=== PATIENT | female | born 1955 | race Caucasian/White ===

== ENCOUNTER 2021-04-27 12:57 | Emergency (ER) | payer MEDICARE, OTHER ==
[~2021-04-27] VITALS: Ht 167.7 cm; Wt 88.4 kg
--- NOTE | 2021-04-27 13:00 | ED Chest Pain ---
General Stated Complaint: CHEST PAIN History of Present Illness Date Seen by Provider: Apr 27, 2021 Time Seen by Provider: 13:00 Initial Comments 65-year-old female presents with some left-sided chest pressure. Patient reports that started approximately an hour prior to arrival. Patient reports that she was just recently diagnosed with severe aortic stenosis due to severe murmur that she had evaluated. She received the diagnosis last week. She is unsure if is related to that, some anxiety or something else going on. She reports some chronic mild shortness of breath with exertion but none at this time. She has no nausea, vomiting, diaphoresis, cough or radiation of the pain. Allergies and Home Medications Allergies Coded Allergies: No Known Drug Allergies (Unverified , 04/27/21) Patient Home Medication List Home Medication List Reviewed: Yes Review of Systems Review of Systems Constitutional: No chills, No fever; malaise EENTM: No Symptoms Reported Respiratory: Denies Cough, Denies Shortness of Air Cardiovascular: See HPI Gastrointestinal: Denies Abdomen Distended, Denies Abdominal Pain Musculoskeletal: no symptoms reported Skin: no symptoms reported Psychiatric/Neurological: No Symptoms Reported Endocrine: No Symptoms Reported Hematologic/Lymphatic: No Symptoms Reported Physical Exam Vital Signs Vital Signs - First Documented 04/27/21 12:57 Temp 36.5 Pulse 105 Resp 16 B/P (MAP) 173/105 (127) Pulse Ox 98 O2 Delivery Room Air Capillary Refill : Height, Weight, BMI Height: '" Weight: lbs. oz. kg; BMI Method: General Appearance: Anxious Respiratory: Lungs Clear, Normal Breath Sounds Cardiovascular: Regular Rate, Rhythm, Systolic Murmur (3/5) Extremity: Normal Capillary Refill, Normal Inspection Neurologic/Psychiatric: Alert, Oriented x3, No Motor/Sensory Deficits, emergency vehicle driver II- XII Norm as Tested Skin: Normal Color, Warm/Dry Progress/Results/Core Measures Results/Orders Lab Results Laboratory Tests Test 04/27/21 13:00 04/27/21 15:10 Range/Units White Blood Count 7.1 4.3-11.0 10^3/uL Red Blood Count 4.86 3.80-5.11 10^6/uL Hemoglobin 14.1 11.5-16.0 g/dL Hematocrit 41 35-52 % Mean Corpuscular Volume 85 80-99 fL Mean Corpuscular Hemoglobin 29 25-34 pg Mean Corpuscular Hemoglobin Concent 34 32-36 g/dL Red Cell Distribution Width 13.0 10.0-14.5 % Platelet Count 283 130-400 10^3/uL Mean Platelet Volume 9.9 9.0-12.2 fL Immature Granulocyte % (Auto) 0 % Neutrophils (%) (Auto) 63 42-75 % Lymphocytes (%) (Auto) 29 12-44 % Monocytes (%) (Auto) 6 0-12 % Eosinophils (%) (Auto) 1 0-10 % Basophils (%) (Auto) 1 0-10 % Neutrophils # (Auto) 4.5 1.8-7.8 X 10^3 Lymphocytes # (Auto) 2.0 1.0-4.0 X 10^3 Monocytes # (Auto) 0.4 0.0-1.0 X 10^3 Eosinophils # (Auto) 0.1 0.0-0.3 10^3/uL Basophils # (Auto) 0.1 0.0-0.1 10^3/uL Immature Granulocyte # (Auto) 0.0 0.0-0.1 10^3/uL Prothrombin Time 14.4 12.2-14.7 SEC INR Comment 1.1 0.8-1.4 Activated Partial Thromboplast Time 32 24-35 SEC Sodium Level 139 135-145 MMOL/L Potassium Level 3.9 3.6-5.0 MMOL/L Chloride Level 102 98-107 MMOL/L Carbon Dioxide Level 22 21-32 MMOL/L Anion Gap 15 H 5-14 MMOL/L Blood Urea Nitrogen 18 7-18 MG/DL Creatinine 0.92 0.60-1.30 MG/DL Estimat Glomerular Filtration Rate 61 BUN/Creatinine Ratio 20 Glucose Level 111 H 70-105 MG/DL Calcium Level 10.2 H 8.5-10.1 MG/DL Corrected Calcium 8.5-10.1 MG/DL Magnesium Level 2.3 1.6-2.4 MG/DL Total Bilirubin 1.3 H 0.1-1.0 MG/DL Aspartate Amino Transf (AST/SGOT) 23 5-34 U/L Alanine Aminotransferase (ALT/SGPT) 20 0-55 U/L Alkaline Phosphatase 84 40-136 U/L Myoglobin 30.0 10.0-92.0 NG/ML Troponin I < 0.30 < 0.30 <0.30 NG/ML Pro-B-Type Natriuretic Peptide 574.2 H <75.0 PG/ML Total Protein 8.6 H 6.4-8.2 GM/DL Albumin 5.0 H 3.2-4.5 GM/DL My Orders Orders - GIRONGARRETTHOLLY L DO Cbc With Automated Diff (04/27/21 13:05) Magnesium (04/27/21 13:05) Chest 1 View Ap/Pa Only (04/27/21 13:05) Ekg Tracing (04/27/21 13:05) Comprehensive Metabolic Panel (04/27/21 13:05) Myoglobin Serum (04/27/21 13:05) Protime With Inr (04/27/21 13:05) Partial Thromboplastin Time (04/27/21 13:05) Monitor-Rhythm Ecg Trace Only (04/27/21 13:05) Ed Iv/Invasive Line Start (04/27/21 13:05) Troponin I Fs (04/27/21 13:05) Probnp Fs (04/27/21 13:05) Troponin I Fs (04/27/21 14:50) Ekg Tracing (04/27/21 15:59) Vital Signs/I&O 04/27/21 04/27/21 12:57 19:58 Temp 36.5 Pulse 105 93 Resp 16 16 B/P (MAP) 173/105 (127) 150/88 Pulse Ox 98 98 O2 Delivery Room Air Room Air Progress Progress Note : Progress Note Patient with 2 - troponins and 2 - EKGs. Patient with recent finding of severe aortic stenosis on echo at [facility]. Patient has not seen a infertility nurse yet. Based on the continued chest pressure I do think she warrants further inpatient evaluation and rule out. Patient request [facility] due to ability to also be seen by a cardiothoracic surgeon due to her severe . Patient was accepted by Dr. Nj at [facility] and was transferred via EMS in stable condition Initial ECG Impression Date: Apr 27, 2021 Initial ECG Impression Time: 12:57 Initial ECG Rate: 109 Initial ECG Rhythm: S.Tach Initial ECG Impression: Nonspecific Changes Comment no st eleveation, sinus tach, non specific changes, likely left atrial and ventricular enlargement EKG : EKG Time: 16:07 Rhythm: Normal Sinus ECG Comparisson: Unchanged Comment Sinus rhythm, left atrial and ventricular enlargement Diagnostic Imaging Diagonstic Imaging: Xray Plain Films/CT/US/NM/MRI: chest Comments Date of Exam:04/27/21 CHEST 1 VIEW AP/PA ONLY EXAMINATION: Chest, one view. HISTORY: Chest pressure. COMPARISON: None available. FINDINGS: Heart size and pulmonary vasculature are normal. The lungs are clear without consolidation, pleural effusion, or pneumothorax. The osseous structures are intact. IMPRESSION: 1. No acute radiographic abnormality in the chest. Departure Impression Primary Impression: Severe aortic stenosis by prior echocardiogram Additional Impression: Left chest pressure Disposition: XFER SHT-TRM HOSP Condition: Stable Transfer Transfer Reason: Patient preference Time Spoke to Accepting Phy: 17:00 Transfer Facility: [facility] Method of Transfer: EMS HOLLY GIRON DO Apr 27, 2021 13:00
--- NOTE | 2021-04-27 13:18 | Diagnostic Imaging Report ---
EXAMINATION: Chest, one view. HISTORY: Chest pressure. COMPARISON: None available. FINDINGS: Heart size and pulmonary vasculature are normal. The lungs are clear without consolidation, pleural effusion, or pneumothorax. The osseous structures are intact. IMPRESSION: 1. No acute radiographic abnormality in the chest. Dictated by: Dictated on workstation # [id number]
[2021-04-27 13:22] LABS: HEMATOCRIT 41 % (35-52); HEMOGLOBIN 14.1 g/dL (11.5-16.0); MEAN CORPUSCULAR HEMOGLOBIN 29 pg (25-34); MEAN CORPUSCULAR HGB CONC 34 g/dL (32-36); MEAN CORPUSCULAR VOLUME 85 fL (80-99); MEAN PLATELET VOLUME 9.9 fL (9.0-12.2); NEUTROPHILS % (AUTO) 63 % (42-75); PLATELET COUNT 283 10^3/uL (130-400); WHITE BLOOD COUNT 7.1 10^3/uL (4.3-11.0)
[2021-04-27 13:23] LABS: BASOPHILS # (AUTO) 0.1 10^3/uL (0.0-0.1); BASOPHILS % (AUTO) 1 % (0-10); EOSINOPHILS # (AUTO) 0.1 10^3/uL (0.0-0.3); EOSINOPHILS % (AUTO) 1 % (0-10); LYMPHOCYTES % (AUTO) 29 % (12-44); MONOCYTES # (AUTO) 0.4 X 10^3 (0.0-1.0); MONOCYTES % (AUTO) 6 % (0-12); NEUTROPHILS # (AUTO) 4.5 X 10^3 (1.8-7.8)
[2021-04-27 13:50] LABS: ALANINE AMINOTRANSFERASE 20 U/L (0-55); ALKALINE PHOSPHATASE 84 U/L (40-136); BILIRUBIN,TOTAL 1.3 MG/DL (0.1-1.0); BUN/CREATININE RATIO 20; CALCIUM 10.2 MG/DL (8.5-10.1); CARBON DIOXIDE 22 MMOL/L (21-32); CHLORIDE 102 MMOL/L (98-107); CREATININE SERUM 0.92 MG/DL (0.60-1.30); GFR ESTIMATED 61; GLUCOSE 111 MG/DL (70-105); MAGNESIUM 2.3 MG/DL (1.6-2.4); POTASSIUM 3.9 MMOL/L (3.6-5.0); SODIUM 139 MMOL/L (135-145)
[2021-04-27 13:51] LABS: TOTAL PROTEIN 8.6 GM/DL (6.4-8.2)
[2021-04-27 13:52] LABS: INR 1.1 (0.8-1.4); PROTHROMBIN TIME PATIENT 14.4 SEC (12.2-14.7)
[2021-04-27 19:58] VITALS: BP 150/88
== END 2021-04-27 20:15 | disposition short-term general hospital (02) ==
LOC: ER FS 13:00
DX: I35.0 Nonrheumatic aortic (valve) stenosis (principal); R07.89 Other chest pain
CPT/HCPCS: 36415; 71045; 80053; 83735; 83874; 83880; 84484; 85025; 85610; 85730; 93005; 93041

== ENCOUNTER 2021-05-15 10:03 | Emergency (ER) | payer MEDICARE, OTHER ==
--- OUTSIDE RECORDS SUMMARY | 2021-05-15 10:06 | XMS REPORT | Encounter Summary ---
Author Author [facility] Organization [facility] Address Unknown Phone Unavailable Care Team Providers Care Development Consultant Name Role Phone SaraJazmyn TAYLOR PCP Reason for Visit * Reason Onset Date Comments Palpitations 05/13/2021 Palpitations at res t since 05/11/21 Encounter Details Care Team Description Date Type Department Devora Barber RN Palpitations (Palpitations at rest since 05/11/21) 05/13/2021 Telephone Cardiology: [facility] [address] [place] [address], [address] [place] [address] Social History Date Tobacco Use Types Packs/Day Years Used Never Smoker Smokeless Tobacco: Never Used Comments Alcohol Use Standard Drinks/Week holidays Yes 0 (1 standard drink = 0.6 o z pure alcohol) Alcohol Habits Answer Date Recorded How often do you have a drink containing alcohol? No t asked How many drinks containing alcohol do you have on No t asked a typical day when you are drinking? How often do you have six or more drinks on one Not asked occasion? 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 documented as of this encounter Functional Status Date of Assessment Functional Status Response 05/07/2021 Does the patient have a hearing impairment: No 04/30/2021 Does the patient have a visual impairment: No 04/30/2021 Does the patient have impaired ambulation: No 04/30/2021 Does the patient have an activity of daily living No (ADL) impairment: 04/30/2021 Does the patient have an instrumental activity of No daily living (IADL) impairment: Date of Assessment Cognitive Status Response 04/30/2021 Does the patient have a cognitive impairment: No documented as of this encounter Ordered Prescriptions Start Date End Date Prescription Sig Dispensed Refills 05/13/2021 amLODIPine (NORVASC) 10 Take one 90 tablet 3 mg tablet tablet by mouth daily. documented in this encounter Miscellaneous Notes * Telephone Encounter - Devora Barber RN - 05/13/2021 4:08 PM REHEAT FURNACE OPERATOR Spoke with pt regarding Sheri's orders for 30 heart monitor and to continue taking Amlodipine 10 mg daily. Pt verbalized understanding of all information provided. Pt educated on the importance of adequate hydration and keeping her electrolytes balanced. Pt agrees to supplement some beverage with added electrolytes for her usual water she would drink. Pt given the phone number for the professor of environmental science nurse for any new concerns that may transpire over the holiday weekend. Pt has telehealth appt scheduled Friday 05/18 with Annie Elena APRN. AT FURNACE OPERATOR * Telephone Encounter - Devora Barber RN - 05/13/2021 3:59 PM REHEAT FURNACE OPERATOR Images from the original note were not included. Nhi Elena APRN-NP You 1 minute ago (3:56 PM) JA Let's send her a 30 MCOT as we discussed. Continue amlodipine Thanks! Message text You Nhi Elena APRN-NP 4 hours ago (11:14 AM) KM Please see note and advise. 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 Pt reports it started on Tuesday night and has cont inued each time she lays down. Pt denies any other associated symptoms. Denies C P, dizziness or increased SOA when she feels the palpitations. Current blood pre ssure 154/88 HR 90. Pt reports she took her morning medications about 45 min ago . She reports she is eating and drinking well, has good output and urine is eliot r yellow. Pt states she did not stop her amlodipine after leaving the hospital, because she misunderstood the instructions to stop taking it. No other recent me dication changes. Pt had TAVR surgery on 05/07/21 and was discharged home on . Message routed to Annie Elena APRN to advise. I will call patient back once I have a plan from Annie Elena. AT FURNACE OPERATOR documented in this encounter Plan of Treatment Order Schedule Name Type Priority Associated Diag noses Expected: 05/13/2021, Expires: 2 EVENT MONITOR Heart Rhythm Routine S/p TAVR (trans catheter Management aortic valve replacement), bioprosthetic Palpitations documented as of this encounter Goals Goal Patient Associated Recent Progress Patient-Stat Aut hor Goal Type Problems ed? Resume work [facility] On track (04/28/2021 Yes Katheryn Barrett, 1:56 PM REHEAT FURNACE OPERATOR) 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 and go back to work documented as of this encounter Visit Diagnoses Diagnosis S/p TAVR (transcatheter aortic valve re placement), bioprosthetic - Primary Palpitations * Addendum Note - Devora Barber RN - 05/13/2021 4:12 PM REHEAT FURNACE OPERATOR Addended by: DEVORA BARBER on: 05/13/2021 04:12 PM Modules accepted: Orders AT FURNACE OPERATOR documented in this encounter Additional Health Concerns Noted Time Assessment 05/08/2021 9:00 AM REHEAT FURNACE OPERATOR A fall risk assessment has been complet ed for the patient documented as of this encounter Care Teams Start Date End Date Development Consultant Relationship Specialty 04/27/21 Jazmyn Ruiz NP PCP - General Nurse [address] [place] [address] [place] [address] documented as of this encounter
--- OUTSIDE RECORDS SUMMARY | 2021-05-15 10:06 | XMS REPORT | Clinical Summary ---
Author Author [facility] Organization [facility] Address Unknown Phone Unavailable Care Team Providers Care Supervisor Drawing Name Role Phone SaraJazmyn TAYLOR PCP Source Comments Some departments are not documenting in the electronic medical record. If you d o not see the information that you expected, contact Release of Information in [facility] Health Information Management department at [phone] for further assistan ce in locating additional records.[facility] Allergies Comments Active Allergy Reactions Severity Noted Date Hqzduqk-Puj-Twy Reductase MUSCLE PAIN Medium 02/2021 Inhibitors Medications End Date Status Medication Sig Dispensed Refills Start Date Active rivaroxaban (XARELTO) 20 Take 20 mg by 0 mg tablet mouth daily with dinner. Take with food. Active tolterodine LA (DETROL Take 4 mg by 0 LA) 4 mg capsule mouth daily. Active pravastatin (PRAVACHOL) Take 40 mg by 0 40 mg tablet mouth at bedtime daily. Active vit Take 1 0 C,K-Lc-tzwhk-lutein-zeaxa capsule by n (PRESERVISION AREDS-2) mouth daily. 250-90-40-1 mg cap Active vitamins, w/iron Take 1 tablet 0 & folate 65/1 mg tab by mouth daily. Active acetaminophen (TYLENOL Take 1,000 mg 0 EXTRA STRENGTH) 500 mg by mouth at tablet bedtime daily. Max of 4,000 mg of acetaminophen in 24 hours. Active fish oil /omega-3 fatty Take 4 0 acids (SEA-OMEGA) capsules by 340/1000 mg capsule mouth daily. Active Cranberry 400 mg cap Take 400 mg 0 by mouth daily. Active omeprazole DR (PRILOSEC) Take 20 mg by 0 20 mg capsule mouth daily before breakfast. Active gabapentin (NEURONTIN) Take one 90 capsule 0 300 mg capsule capsule by 1 mouth every 8 hours. Active nitroglycerin (NITROSTAT) Place one 25 tablet 0 0.4 mg tablet tablet under 1 tongue every 5 minutes as needed for Chest Pain. Max of 3 tablets, call 911. Active diclofenac sodium Apply four g 300 g 0 02 (VOLTAREN) 1 % topical topically to 1 gel affected area four times daily. Additional Information Patient taking differently: 4 g Topical FOUR TIMES DAILY PRN, Reported on 05/06/2021 Active aspirin 81 mg chewable Chew one 90 tablet 0 tablet tablet by 1 mouth daily. Take with food. Active senna/docusate Take two 90 tablet 0 (SENOKOT-S) 8.6/50 mg tablets by 1 tablet mouth twice daily. Active amLODIPine (NORVASC) 10 Take one 90 tablet 3 mg tablet tablet by 1 mouth daily. 05/08/2021 Discontinued amLODIPine (NORVASC) 10 Take 10 mg by 0 mg tablet mouth daily. 04/30/2021 Discontinued diclofenac sodium Apply four g 300 g 0 02 (VOLTAREN) 1 % topical topically to 1 gel affected area four times daily. Active Problems Problem Noted Date S/p TAVR (transcatheter aortic valve replacement), bi oprosthetic 05/07/2021 Overview: Formatting of this note might be differ ent from the original. 05/07/21: Dr. Shetty Hypokalemia 05/07/2021 Hypomagnesemia 05/07/2021 Nonrheumatic aortic valve stenosis 05/06/2021 Chronic diastolic heart failure, NYHA class 2 2020 Breast CA 04/28/2021 Stage 3a chronic kidney disease 04/28/2021 GERD (gastroesophageal reflux disease) 04/28/2021 BENTLEY (stress urinary incontinence, female) 04/28/2021 Severe aortic stenosis 04/28/2021 Diastolic dysfunction 04/28/2021 Other chest pain 04/27/2021 Nonrheumatic aortic valve stenosis 04/27/2021 Primary hypertension 04/27/2021 Dyslipidemia 04/27/2021 Deep vein thrombosis (DVT) of iliac vein of left lowe r extremity 04/27/2021 Chest pain 04/27/2021 Encounters Care Team Description Date Type Specialty Devora Garcia RN Palpitations (Palpitations at rest since 05/11/21) 05/13/2021 Telephone Cardiology Jody Ontiveros RN Care Coordination 05/12/2021 Documentation Cardiothoracic Surg armandoVannesa Serrano RN Primary hypertension (Primary Dx); S/p TAVR (transcatheter aortic valve replacement), bioprosthetic 05/11/2021 Orders Only Cardiology Justice Shetty III, MD Transcatheter Aortic Valve Replacement - Femoral Artery, 26 Evolut Pro+, Stepdown 05/07/2021 Surgery Cardiology Maria Anthony, Fausto Arreola, SENIOR NETWORK ENGINEER-ACCOUNT EXECUTIVE METALWORKING 05/07/2021 Anesthesia Event Justice Shetty III, MD Hajj, Georges P, MD S/p TAVR (transcatheter aortic valve rep lacement), bioprosthetic 05/07/2021 Hospital - Encounter 05/08/2021 05/07/2021 Travel Justice Shetty III, MD Nonrheumatic aortic valve stenosis 05/06/2021 Ancillary Pre-Admission Testi ng Procedure Jazmyn Gunderson RN Test/procedure (KCQ & 5 M Walk) 05/06/2021 Documentation Cardiothoracic Surg armando 05/06/2021 Travel Justice Shetty III, MD Nonrheumatic aortic valve stenosis (Prim annel Dx) 05/05/2021 Pre-Admit Cardiology Orders Only Vannesa Victoria RN Lab Results (Covid (negative)) 05/05/2021 Documentation Cardiology Vannesa Victoria RN Encounter for screening laboratory testi ng for COVID-19 virus in asymptomatic patient 05/05/2021 Orders Only Cardiology Jazmyn Ruzi NP General Question 05/04/2021 Telephone General Internal Me Nhi Steven, DAVID-ACCOUNT EXECUTIVE METALWORKING Provider Discussion About Patient (TAVR eval) 05/04/2021 Documentation Cardiology Jazmyn Ruiz NP Paperwork 05/01/2021 Telephone General Internal Me Vannesa Lemos RN Test (Covid order faxed to [phone] [place] [address]) 04/30/2021 Documentation Cardiology Vannesa Victoria RN Nonrheumatic aortic valve stenosis (Prim annel Dx); Encounter for screening laboratory testing for COVID-19 virus in asymptomatic patient 04/30/2021 Prep for Case Cardiology Kiersten Bolden MD 04/29/2021 Hospital Radiology Encounter Kia Mahan MD ANGIOGRAPHY CORONARY ARTERY WITH LEFT HE ART CATHETERIZATION 04/29/2021 Surgery Cardiology Vannesa Victoria RN Dental Concerns 04/29/2021 Telephone Cardiology Cristobal Nj MD Fathallah, Jihan S, MD Schmidt, Gillian N, MD Chest pain 04/27/2021 Hospital - Encounter 04/30/2021 04/27/2021 Travel from Last 3 Months Surgical History Surgery Date Site/Laterality Comments FEMORAL BYPASS BREAST LUMPECTOMY LAP CHOLECYSTECTOMY HYSTERECTOMY ROTATOR CUFF REPAIR Right Medical History Medical History Date Comments HTN (hypertension) Dyslipidemia Chest pain 04/27/2021 Nonrheumatic aortic valve stenosis 04/27/2021 Other chest pain 04/27/2021 Primary hypertension 04/27/2021 GERD (gastroesophageal reflux disease) 04/28/2021 BENTLEY (stress urinary incontinence, 04/28/2021 female) Severe aortic stenosis 04/28/2021 Diastolic dysfunction 04/28/2021 PONV (postoperative nausea and vomiting) Palpitations Arthritis left knee DVT (deep venous thrombosis) (HCC) 1987 Stage 3a chronic kidney disease (HCC) 04/28/2021 related to NSAIDs Family History Medical History Relation Name Comments Hyperlipidemia Mother Hypertension Mother Relation Name Status Comments Mother Social History Date Tobacco Use Types Packs/Day Years Used Never Smoker Smokeless Tobacco: Never Used Comments Alcohol Use Standard Drinks/Week hol Yes 0 (1 standard drink = 0.6 [...] at Date Recorded Female 04/28/2021 1:55 PM [facility] Date Recorded COVID-19 Exposure Response 05/07/2021 6:13 AM [facility] In the last month, have you been in contact with No / Unsure someone who was confirmed or suspected to have Coronavirus / COVID-19? Last Filed Vital Signs Reading Time Taken Comments Vital Sign 119/66 05/08/2021 3:35 PM [facility] Blood Pressure 83 05/08/2021 12:55 PM [facility] Pulse 36.8 C (98.3 F) 05/08/2021 12:55 PM [facility] Temperature - - Respiratory Rate 99% 05/08/2021 12:55 PM [facility] Oxygen Saturation - - Inhaled Oxygen Concentration 89.4 kg (197 lb 1.5 oz) 05/08/2021 3:35 PM [facility] Weight 167.6 cm (5' 5.98") 05/08/2021 3:35 PM [facility] Height 31.83 05/08/2021 3:35 PM [facility] Body Mass Index Plan of Treatment Health Maintenance Due Date Last Done Comments MEDICARE ANNUAL WELLNESS 1955 VISIT PNEUMONIA (PPSV23) 12/18/1961 VACCINE (1 of 2 - PPSV23) HIV SCREENING 12/18/1970 DTAP/TDAP VACCINES (1 - 12/18/1973 Tdap) HEPATITIS C SCREENING 12/18/1973 PHYSICAL (COMPREHENSIVE) 12/18/1973 EXAM BREAST CANCER SCREENING 1995 COLORECTAL CANCER 12/18/2005 SCREENING OSTEOPOROSIS 12/18/2020 SCREENING/MONITORING SHINGLES RECOMBINANT Completed 07/17/2018, VACCINE 04/07/2018 INFLUENZA VACCINE Completed 03/31/2021, 03/31/2021 Goals Goal Patient Associated Recent Progress Patient-Stat Aut hor Goal Type Problems ed? 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 Implants Device Identifier Shelf Expiration Date Model / Serial / L ot Implanted Type Area Manufactur er 10/27/2022 [id number] / [id number] / N/A Valve Aortic Evolut Pro+ 26mm - Heart N/A: Heart [employer] [id number] Valve [employer] Implanted: Qty: 1 on 05/07/2021 by Justice Shetty III, MD at [facility] Other Other Right: Shoulder Description: Anchors Procedures Comments Procedure Name Priority Date/Time Associated Diag nosis PV GROIN DUPLEX SCAN ASIA 05/08/2021 BILATERAL 3:35 PM [facility] CBC Routine 05/08/2021 10:15 AM [facility] 2D + DOPPLER ECHO NO Routine 05/08/2021 CONTRAST 8:49 AM [facility] CHEST SINGLE VIEW Routine 05/08/2021 6:25 AM [facility] HC MAGNESIUM Routine 05/08/2021 4:12 AM [facility] HC BASIC METABOLIC PANEL STAT 05/08/2021 4:12 AM [facility] HC CBC,AUTOMATED STAT 05/08/2021 4:12 AM [facility] ECG 12-LEAD Routine 05/07/2021 8:00 PM [facility] CBC Routine 05/07/2021 12:21 PM [facility] LINE PLCMT 1V CXR STAT 05/07/2021 9:48 AM [facility] HC PTT(APTT) STAT 05/07/2021 9:40 AM [facility] HC PT(INR) STAT 05/07/2021 9:40 AM [facility] HC MAGNESIUM STAT 05/07/2021 9:40 AM [facility] HC BASIC METABOLIC PANEL STAT 05/07/2021 9:40 AM [facility] HC CBC,AUTOMATED STAT 05/07/2021 9:40 AM [facility] ECG 12-LEAD STAT 05/07/2021 9:13 AM [facility] HC ACTIVATED CLTG TIME-OR 05/07/2021 LAB 8:30 AM [facility] HC ACTIVATED CLTG TIME-OR 05/07/2021 LAB 8:18 AM [facility] HC ACTIVATED CLTG TIME-OR 05/07/2021 LAB 8:10 AM [facility] ANESTHESIA Routine 05/07/2021 TRANSEESOPHAGEAL 7:33 AM [facility] ECHOCARDIOGRAM ANESTHESIA CENTRAL LINE Routine 05/07/2021 INSERTION 7:31 AM [facility] ANESTHESIA ARTERIAL LINE Routine 05/07/2021 INSERTION 7:00 AM [facility] TELEMETRY STRIPS-SCAN 05/07/2021 12:00 AM [facility] TELEMETRY STRIPS-SCAN 05/07/2021 12:00 AM [facility] PROCEDURE RECORD-SCAN 05/07/2021 12:00 AM [facility] TELEMETRY STRIPS-SCAN 05/07/2021 12:00 AM [facility] TELEMETRY STRIPS-SCAN 05/07/2021 12:00 AM [facility] TELEMETRY STRIPS-SCAN 05/07/2021 12:00 AM [facility] TELEMETRY STRIPS-SCAN 05/07/2021 12:00 AM [facility] TELEMETRY STRIPS-SCAN 05/07/2021 12:00 AM [facility] TYPE & CROSSMATCH STAT 05/06/2021 Nonrheumatic aortic valve 12:54 PM [facility] stenosis HC PT(INR) STAT 05/06/2021 Nonrheumatic ao rtic valve 12:54 PM [facility] stenosis URINALYSIS MICROSCOPIC STAT 05/06/2021 Nonrheu matic aortic valve REFLEX TO CULTURE 12:48 PM [facility] stenosis HC URINALYSIS UAR STAT 05/06/2021 Nonrheumatic aortic valve 12:48 PM [facility] stenosis UA REFLEX LABEL STAT 05/06/2021 Nonrheumatic a ortic valve 12:48 PM [facility] stenosis COVID-19 (SARS-COV-2) PCR Routine 05/04/2021 [place] for screening laboratory testing for COVID-19 virus in asymptomatic patient CARDIAC CATH REPORT Routine 05/01/2021 Nonrheumat ic aortic valve 12:04 PM [facility] stenosis BLOOD TYPING, ABO Routine 04/30/2021 CONFIRM 91 10:36 AM [facility] TYPE & CROSSMATCH Specimen 04/30/2021 in Lab 9:42 AM [facility] HC PTT(APTT) Routine 04/30/2021 6:17 AM [facility] HC COMPREHENSIVE Routine 04/30/2021 METABOLIC PANEL 6:17 AM [facility] HC CBC W/ AUTOMATED DIFF Routine 04/30/2021 6:17 AM [facility] CTA ABD/PELVIS Routine 04/29/2021 7:33 PM [facility] CTA CHEST WO/W Routine 04/29/2021 CONTRAST+POST P 7:33 PM [facility] CARDIAC CATH REPORT 04/29/2021 4:09 PM [facility] CARDIAC CATH REPORT Routine 04/29/2021 Chest pain , unspecified 12:11 PM [facility] type Nonrheumatic aortic valve stenosis PFT COMPLETE PULM Routine 04/29/2021 FUNCTION 10:32 AM [facility] PANOREX EXAM Routine 04/29/2021 9:34 AM [facility] CARDIAC CATH REPORT Routine 04/29/2021 Chest pain , unspecified 6:43 AM [facility] type Nonrheumatic aortic valve stenosis HC PTT(APTT) Routine 04/29/2021 4:00 AM [facility] HC B-TYPE NATRIURETIC Routine 04/29/2021 PEPTIDE 4:00 AM [facility] HC COMPREHENSIVE Routine 04/29/2021 METABOLIC PANEL 4:00 AM [facility] HC CBC W/ AUTOMATED DIFF Routine 04/29/2021 4:00 AM [facility] PV CAROTID ARTERY DUPLEX Routine 04/28/2021 SCAN 4:07 PM [facility] HC PTT(APTT) STAT 04/28/2021 3:12 PM [facility] URINALYSIS, MICROSCOPIC Routine 04/28/2021 2:30 PM [facility] HC URINALYSIS, AUTO W Routine 04/28/2021 MICRO 2:30 PM [facility] HC TROPONIN-I STAT 04/28/2021 9:40 AM [facility] HC PTT(APTT) 04/28/2021 6:34 AM [facility] HC CBC W/ AUTOMATED DIFF 04/28/2021 6:34 AM [facility] HC COMPREHENSIVE 04/28/2021 METABOLIC PANEL 6:34 AM [facility] TROPONIN-I STAT 04/28/2021 6:34 AM [facility] HC TSH SCREEN Routine 04/27/2021 10:54 PM [facility] HC TROPONIN-I STAT 04/27/2021 10:54 PM [facility] HC B-TYPE NATRIURETIC Routine 04/27/2021 PEPTIDE 10:54 PM [facility] HC HEMOGLOBIN A1C Routine 04/27/2021 10:54 PM [facility] HC PHOSPHOROUS, SERUM Routine 04/27/2021 10:54 PM [facility] HC MAGNESIUM Routine 04/27/2021 10:54 PM [facility] HC COMPREHENSIVE STAT 04/27/2021 METABOLIC PANEL 10:54 PM [facility] HC PTT(APTT) Routine 04/27/2021 10:54 PM [facility] HC PT(INR) Routine 04/27/2021 10:54 PM [facility] HC CBC W/ AUTOMATED DIFF STAT 04/27/2021 10:54 PM [facility] COVID-19 (SARS-COV-2) PCR Routine 04/27/2021 10:54 PM [facility] CHEST SINGLE VIEW STAT 04/27/2021 10:40 PM [facility] ECG 12-LEAD STAT 04/27/2021 10:14 PM [facility] TELEMETRY STRIPS-SCAN 04/27/2021 12:00 AM [facility] TELEMETRY STRIPS-SCAN 04/27/2021 12:00 AM [facility] TELEMETRY STRIPS-SCAN 04/27/2021 12:00 AM [facility] TELEMETRY STRIPS-SCAN 04/27/2021 12:00 AM [facility] PROCEDURE RECORD-SCAN 04/27/2021 12:00 AM [facility] ECG-SCAN 04/27/2021 12:00 AM [facility] TELEMETRY STRIPS-SCAN 04/27/2021 12:00 AM [facility] TELEMETRY STRIPS-SCAN 04/27/2021 12:00 AM [facility] TELEMETRY STRIPS-SCAN 04/27/2021 12:00 AM [facility] TELEMETRY STRIPS-SCAN 04/27/2021 12:00 AM [facility] TELEMETRY STRIPS-SCAN 04/27/2021 12:00 AM [facility] TELEMETRY STRIPS-SCAN 04/27/2021 12:00 AM [facility] TELEMETRY STRIPS-SCAN 04/27/2021 12:00 AM [facility] TELEMETRY STRIPS-SCAN 04/27/2021 12:00 AM [facility] from Last 3 Months Results * PV GROIN DUPLEX SCAN BILATERAL (05/08/2021 3:35 PM [facility]) RIGHT SUPER 1.39 m/s OTHER OUTSIDE FEMORAL PROX LAB SYS MAX RIGHT FAMILY PARTNER PROX 1.42 m/s OTHER OUTSIDE SYS MAX LAB RIGHT PROFUNDA 1.24 m/s OTHER OUTSIDE SYS MAX LAB Referring Jazmyn Ruiz OTHER OUTSIDE Provider LAB Cardiology Kate Epiq OTHER OUTSIDE Ultrasound LAB Machine LEFT GROIN FAMILY PARTNER 1.16 m/s OTHER OUTSIDE SYS LAB LEFT GROIN SFA 1.29 m/s OTHER OUTSIDE SYS LAB LEFT GROIN PFA 0.96 m/s OTHER OUTSIDE SYS LAB RIGHT GROIN FAMILY PARTNER 1.42 m/s OTHER OUTSIDE SYS LAB RIGHT GROIN SFA 1.39 m/s OTHER OUTSIDE SYS LAB RIGHT GROIN PFA 1.24 m/s OTHER OUTSIDE SYS LAB Modality Anatomical Region Laterality Ultrasound Specimen Narrative OTHER OUTSIDE LAB - 05/12/2021 8:11 AM [facility] 1. No evidence of bilateral AV fistula, pseudo aneurysm or hemodynamically significant stenosis in bilateral visualized portions of external iliac arteries and femoral arteries in bilateral groins 2. No evidence of thrombosis in visualiz ed portions of right femoral vein 3. Patient has known previous DVT in lef t lower extremity and there is still chronic clot and the left femoral vein is occluded and difficult to visualize Performing Organization Address City/State/ZIP Code [place] Number OTHER OUTSIDE LAB * CBC (05/08/2021 10:15 AM [facility]) Only the most recent of 4 results within the time period is included. White Blood 8.7 4.5 - 11.0 K/UL [facility] Cells RBC 3.96 (L) 4.0 - 5.0 M/UL [facility] Hemoglobin 11.6 (L) 12.0 - 15.0 GM/DL [facility] Hematocrit 34.3 (L) 36 - 45 % [facility] MCV 86.6 80 - 100 FL [facility] MCH 29.4 26 - 34 PG [facility] MCHC 33.9 32.0 - 36.0 G/DL [facility] RDW 13.8 11 - 15 % [facility] Platelet Count 232 150 - 400 K/UL [facility] MPV 8.4 7 - 11 FL [facility] Specimen Blood (substance) Performing Organization Address City/State/ZIP Code [place] Number [facility] [address] [place] [address] * 2D + DOPPLER ECHO NO CONTRAST (05/08/2021 8:49 AM [facility]) Left Ventricle 89.00 46 - 106 mL OTHER OUTSIDE Diastolic LAB Volume Left Ventricle 36.00 14 - 42 mL OTHER OUTSIDE Systolic Volume LAB IVS 1.20 0.6 - 0.9 cm OTHER OUTSIDE LAB LVIDD 3.80 3.8 - 5.2 cm OTHER OUTSIDE LAB LVIDS 2.50 2.2 - 3.5 cm OTHER OUTSIDE LAB LVOT diameter 2.4 cm OTHER OUTSIDE LAB LVOT peak VTI 27.40 cm OTHER OUTSIDE LAB PW 1.20 0.6 - 0.9 cm OTHER OUTSIDE LAB TDI lateral e' 0.07 m/s OTHER OUTSIDE LAB TDI Medial e' 0.05 m/s OTHER OUTSIDE LAB LA volume 52.40 22 - 52 mL OTHER OUTSIDE LAB LA size 3.90 2.7 - 3.8 cm OTHER OUTSIDE LAB , with a mean 4.16 mmHg OTHER OUTSIDE gradient of LAB Ao VTI 27.00 cm OTHER OUTSIDE LAB Sinus 2.70 2.4 - 3.6 cm OTHER OUTSIDE LAB MV Peak A Andrew 0.74 m/s OTHER OUTSIDE LAB MV Peak E Andrew 0.93 m/s OTHER OUTSIDE PW LAB Proximal aorta 2.70 1.9 - 3.5 cm OTHER OUTSIDE LAB Right Heart 2.29 >1.7 cm OTHER OUTSIDE Systolic Mmode LAB TAPSE Right 2.30 1.9 - 3.5 cm OTHER OUTSIDE Ventricular Mid LAB Diameter Right 2.50 2.5 - 4.1 cm OTHER OUTSIDE Ventricular LAB Basal Diameter Right Atrial 11.80 <18 cm2 OTHER OUTSIDE Area LAB Right Heart 0.13 m/s OTHER OUTSIDE Systolic TDI S' LAB BSA 2.04 m2 OTHER OUTSIDE LAB FS 34.21 28 - 44 % OTHER OUTSIDE LAB EF 58.16 % OTHER OUTSIDE LAB LV mass 153 67 - 162 g OTHER OUTSIDE LAB RWT 0.63 <=0.42 OTHER OUTSIDE LAB Aortic valve 4.59 cm2 OTHER OUTSIDE area = LAB E/A ratio 1.26 OTHER OUTSIDE LAB LVOT area 4.52 cm2 OTHER OUTSIDE LAB LVOT stroke 123.95 cm3 OTHER OUTSIDE volume LAB Lateral E/E' 13.29 OTHER OUTSIDE ratio LAB Left Atrium 25.69 16 - 34 OTHER OUTSIDE Index LAB Cardiology Kate Epiq OTHER OUTSIDE Ultrasound LAB Machine Left Ventricle 75 43 - 95 g/m2 OTHER OUTSIDE Mass Index LAB Left Ventricle 44 29 - 61 mL OTHER OUTSIDE Diastolic LAB Volume Index Left Ventricle 18 8 - 24 mL OTHER OUTSIDE Systolic Volume LAB Index Medial E/E' 18.60 OTHER OUTSIDE ratio LAB ECHO EF 65 % OTHER OUTSIDE LAB WALKER'S 60 % OTHER OUTSIDE BIPLANE EF LAB RA PRESSURE 3 OTHER OUTSIDE LAB Modality Anatomical Region Laterality Ultrasound Specimen Narrative OTHER OUTSIDE LAB - 05/08/2021 9:16 AM [facility] Hyperdynamic/preserved LV systolic function, LVEF >65%. Mild left ventricular wall thickness. Normal right ventricular size and function. Grade 1 diastolic dysfunction. No regional wall motion abnormality. Status post 26 mm bioprosthetic valve in the aortic position. Well-seated well-functioning. No valvular dysfunction. No significant perivalvular/transvalvular regurgitation. Peak velocity 1.3 m/s, mean gradient 4 to 5 mmHg. No pericardial effusion. Visualized portions of the aortic root and ascending thoracic aorta are within normal limits. Performing Organization Address City/State/ZIP Code [place] Number OTHER OUTSIDE LAB * CHEST SINGLE VIEW (05/08/2021 6:25 AM [facility]) Only the most recent of 2 results within the time period is included. Modality Anatomical Region Laterality Computed Radiography Chest Specimen Impressions [facility] RESULTS - 05/08/2021 8:02 AM [facility] 1. Stable TAVR and temporary pacemaker l ead. 2. Improved interstitial edema with scat tered linear subsegmental atelectasis. Finalized by Benny Sandoval M.D. on 05/08/2021 8:02 AM. Dictated by Benny Sandoval M.D. on 05/08/2021 8:00 AM. Narrative [facility] RESULTS - 05/08/2021 8:02 AM [facility] CHEST SINGLE VIEW INDICATION: atelectasis, s/p TAVR COMPARISON STUDY: May 07, 2021. FINDINGS: Support Devices: The support devices are stable. Lungs/Pleura: The lung volume is normal. Improved central vascular indistinctness with scattered bilateral linear opacities likely subsegmental atelectasis. No pleural effusion or pneumothorax. Heart and Mediastinum: Stable TAVR. Decreased cardiac silhouette size and improved perihilar haze. Procedure Note Benny Sandoval MD - 05/08/2021 CHEST SINGLE VIEW INDICATION: atelectasis, s/p TAVR COMPARISON STUDY: May 07, 2021. FINDINGS: Support Devices: The support devices are stable. Lungs/Pleura: The lung volume is normal. Improved central vascular indistinctness with scattered bilateral linear opacities likely subsegmental atelectasis. No pleural effusion or pneumothorax. Heart and Mediastinum: Stable TAVR. Decreased cardiac silhouette size and improved perihilar haze. IMPRESSION 1. Stable TAVR and temporary pacemaker l ead. 2. Improved interstitial edema with scat tered linear subsegmental atelectasis. Finalized by Benny Sandoval M.D. on 05/08/2021 8:02 AM. Dictated by Benny Sandoval M.D. on 05/08/2021 8:00 AM. Performing Organization Address City/State/ZIP Code [place] Number [facility] * MAGNESIUM (05/08/2021 4:12 AM [facility]) Only the most recent of 3 results within the time period is included. Magnesium 2.3 1.6 - 2.6 mg/dL [facility] Specimen Blood (substance) Performing Organization Address City/[facility]/ZIP Code [place] Number [facility] [address] [place] [address] * BASIC METABOLIC PANEL (05/08/2021 4:12 AM [facility]) Only the most recent of 2 results within the time period is included. Sodium 141 137 - 147 MMOL/L [facility] Potassium 4.2 3.5 - 5.1 MMOL/L [facility] Chloride 109 98 - 110 MMOL/L [facility] CO2 21 21 - 30 MMOL/L [facility] Anion Gap 11 3 - 12 [facility] Glucose 104 (H) 70 - 100 MG/DL [facility] Blood Urea 17 7 - 25 MG/DL [facility] Nitrogen Creatinine 0.85 0.4 - 1.00 MG/DL [facility] Calcium 8.1 (L) 8.5 - 10.6 MG/DL [facility] eGFR Non >60 >60 mL/min [facility] Comment: [place] The eGFR is not validated f or use in drug dosing adjustments. Continue to use estimated creatinine clearance per dosing reference text. Please contact the Clinical Pharmacist for questions. eGFR >60 >60 mL/min [facility] [place] Comment: The eGFR is not validated for use in drug dosing adjustments. Continue to use estimated creatinine clearance per dosing reference text. Please contact the Clinical Pharmacist for questions. Specimen Performing Organization Address City/[facility]/ZIP [facility] [place] Number [facility] [address] [place] [address] * LINE PLCMT 1V CXR (05/07/2021 9:48 AM [facility]APH[facility] C[facility] SPECIALIST) Modality Anatomical Region Laterality Computed Radiography Chest Specimen Impressions [facility] RESULTS - 05/07/2021 10:02 AM [facility] C[facility] SPECIALIST Status post transcatheter aortic valve replacement with placement of right jugular temporary pacemaker. Development of mild cardiomegaly and pulmonary venous congestion with possible small pleural effusions. Finalized by Lauri Aguayo M.D. on 05/07/2021 10:02 AM. Dictated by Lauri Aguayo M.D. on 05/07/2021 9:58 AM. Narrative [facility] RESULTS - 05/07/2021 10:02 AM [facility] CENTER SPECIALIST LINE [facility] 1V CXR INDICATION: s/p TAVR. TECHNIQUE: Portable AP supine view of the chest was obtained COMPARISON STUDY: Comparison is made to an examination of 04/27/2021 FINDINGS: Tubes, Lines and Devices: There has been interval placement of a right jugular vascular sheath and temporary pacemaker which has its tip in the region of the right ventricle. A transcatheter aortic valve has been placed. Heart and Vasculature: There is now mild cardiomegaly with venous congestion but no evidence of acute pulmonary edema. Lungs: No acute interstitial or alveolar opacities are identified. There are minor zones of atelectasis in the lower lobes. Mediastinum and Chan[place]: Mediastinal and hilar configurations are stable. Pleura: There is mild blunting of the costophrenic angles bilaterally. Chest Wall and Soft Tissues: No acute bony or soft tissue abnormalities of the chest wall are identified. Procedure Note Lauri Aguayo MD - 05/07/2021 LINE [facility] 1V CXR INDICATION: s/p TAVR. TECHNIQUE: Portable AP supine view of the chest was obtained COMPARISON STUDY: Comparison is made to an examination of 04/27/2021 FINDINGS: Tubes, Lines and Devices: There has been interval placement of a right jugular vascular sheath and temporary pacemaker which has its tip in the region of the right ventricle. A transcatheter aortic valve has been placed. Heart and Vasculature: There is now mild cardiomegaly with venous congestion but no evidence of acute pulmonary edema. Lungs: No acute interstitial or alveolar opacities are identified. There are minor zones of atelectasis in the lower lobes. Mediastinum and Chanell: Mediastinal and hilar configurations are stable. Pleura: There is mild blunting of the costophrenic angles bilaterally. Chest Wall and Soft Tissues: No acute bony or soft tissue abnormalities of the chest wall are identified. IMPRESSION Status post transcatheter aortic valve replacement with placement of right jugular temporary pacemaker. Development of mild cardiomegaly and pulmonary venous congestion with possible small pleural effusions. Finalized by Lauri Aguayo M.D. on 05/07/2021 10:02 AM. Dictated by Lauri Aguayo M.D. on 05/07/2021 9:58 AM. Performing Organization Address [facility] Code P marcelino Number [facility] RESULTS * PTT (APTT) (05/07/2021 9:40 AM CR[facility]APH[facility] C[facility] SPECIALIST) Only the most recent of 6 results within the time period is included. APTT 31.1 24.0 - 36.5 SEC [facility] Specimen Performing Organization Address [facility] P marcelino Number MAIN LAB [address] [place] [address] * PROTIME INR (PT) (05/07/2021 9:40 AM CR[facility] CENTER SPECIALIST) Only the most recent of 3 results within the time period is included. INR 1.2 0.8 - 1.2 [facility] Specimen Performing Organization Address [facility] P marcelino Number [facility] [address] [place] [id number] * POC ACTIVATED CLOTTING TIME (05/07/2021 8:30 AM CR[facility] CENTER SPECIALIST) Only the most recent of 3 results within the time period is included. Activated 312 s [facility] Clotting Time Specimen Performing Organization Address [facility] P marcelino Number MAIN LAB [address] [place] [address] * ANESTHESIA TRANSEESOPHAGEAL ECHOCARDIOGRAM (05/07/2021 7:33 AM CR[facility]APH[facility] CENTER SPECIALIST) Narrative Maria Anthony DO - 05/07/2021 7:33 AM [facility] C[facility] SPECIALIST Maria Anthony DO 05/07/2021 3:08 PM Anesthesia Procedure: Transesophageal Echocardiogram YUNIOR Date/Time: 05/07/2021 7:33 AM Associated procedure: AVR Preprocedure checklist performed: 2 patient identifiers, risks & benefits discussed, patient evaluated, timeout performed, consent obtained and patient being monitored Staff Anesthesiologist: Maria Anthony DO Surgeon: Justice Shetty III, MD Performed personally Indication for YUNIOR: assessment of ascending aorta, assessment of surgical repair, defect repair evaluation, ventricular function, confirmation of pre-procedure diagnosis and valvular assessment Physician requesting echo: Justice Sehtty III, MD CPT codes: 41110 - YUNIOR 2D imaging (w or w/o M-mode) including probe placement, image acquisition, interpretation & report, 83888 - PWD and/or CWD f/u or limited study, 96100 - Color flow velocity mapping and 19937 - Guidance of a transcatheter intervention(s) Patient location: OR Intubated: yes Bite block: yes Heart visualized: yes Insertion: easy Probe type: multiplane Modalities: 2D, color flow mapping, continuous wave Doppler, 3D and pulse wave Doppler Echocardiographic and Doppler Measurements Ventricular Findings Right Ventricle RV cavity size: normal RV hypertrophy: no RV thrombus: no RV global function: normal Left Ventricle LV cavity size: normal LV hypertrophy: yes LV thrombus: no LV global function: normal LV ejection fraction: 65% Ventricular Wall Motion Four Chamber View Basal anterolateral: normal Basal inferoseptal: normal Mid anterolateral: normal Mid inferoseptal: normal Apical lateral: normal Apical septal: normal Two Chamber View Basal anterior: normal Basal inferior: normal Mid anterior: normal Mid inferior: normal Apical anterior: normal Apical inferior: normal Long [place] Basal anteroseptal: normal Basal inferolateral: normal Mid anteroseptal: normal Mid inferolateral: normal Apical lateral: normal Apical septal: normal [place]: normal Mid Short [place] Mid anteroseptal: normal Mid anterior: normal Mid anterolateral: normal Mid inferolateral: normal Mid inferior: normal Mid inferoseptal: normal Valves Aortic Valve Annulus: calcified Stenosis: severe Area: 0.61 cm2 Peak gradient: 88 mmHg Mean gradient: 56 mmHg Regurgitation severity: mild Leaflet morphology: calcified, bicuspid and Fused left and right cusps Leaflet motion: restricted Mitral Valve Annulus: normal Stenosis: none Regurgitation severity: trace Leaflet morphology: normal Leaflet motion: normal Tricuspid Valve Annulus: normal Stenosis: none Regurgitation severity: none Leaflet morphology: normal Leaflet motion: normal Pulmonic Valve Annulus: normal Stenosis: none Regurgitation severity: none Leaflet morphology: normal Aorta Ascending Aorta Size: normal Dissection: no Plaque thickness: 0-3 mm Plaque mobile: no Sinotubular Junction Size: normal Dissection: no Plaque thickness: 0-3 mm Plaque mobile: no Sinus of Valsalva Size: normal Dissection: no Plaque thickness: 0-3 mm Plaque mobile: no Descending Thoracic Aorta Size: normal Dissection: no Plaque thickness: 0-3 mm Plaque mobile: no Atria Right Atrium Size: normal SEC (smoke): no Thrombus: no Tumor: no Device: no Left Atrium Size: normal SEC (smoke): no Thrombus: no Tumor: no Device: no Left atrial appendage size: normal Septa Intra-atrial septal morphology: normal Intra-ventricular septal morphology: normal Other Findings Pericardium: normal Pleural effusion: none Pulmonary arteries: normal Pulmonary venous flow: normal Post Procedure Aortic valve replacement Perivalvular leak: yes Mean gradient (mmHg): 10 Systolic anterior motion of the mitral valve: no Aorta intact after decannulation: yes Post-procedure LVEF measured: yes; 65% Post-procedure RV dysfunction: none Post-procedure comments: Central AI regurg, mild Performed by: Maria Anthony DO Authorized by: Maria Anthony DO * ANESTHESIA CENTRAL LINE INSERTION (05/07/2021 7:31 AM [facility] C[facility] SPECIALIST) Narrative Maria Anthony DO - 05/07/2021 7:31 AM [facility] CENTER SPECIALIST Maria Anthony DO 05/07/2021 3:10 PM Anesthesia Procedure: Central Venous Catheter Line CENTRAL LINE INSERTION Date/Time: 05/07/2021 7:31 AM Patient location: OR Indications: medications requiring CV access, inadequate peripheral IV access, hemodynamic pressure monitoring and vascular access Preprocedure checklist performed: 2 patient identifiers, risks & benefits discussed, patient evaluated, timeout performed, consent obtained, patient being monitored and CVC bundle followed (proper hand washing, maximal sterile barrier technique with cap, sterile gown, sterile glove, sterile drape, and skin prep for antisepsis) CVC Line Insertion Procedure Skin prepped with chlorhexidine; skin prep agent completely dried prior to procedure. Patient Position: supine Location: internal jugular vein Laterality: right Vein identification: ultrasound guided Confirmation of venous placement prior to dilation of vein by: ultrasound, YUNIOR and fluoroscopy Ultrasound image captured Number of attempts: 1 Successful placement: yes Catheter: Catheter type: introducer placed using standard wire through needle technique Catheter size: 6 Fr. Procedure Outcome Post procedure: all ports aspirated, dressing applied and line sutured; Dressing: chlorhexidine impregnated sponge and sterile occlusive dressing Placement verification: placement verified by x-ray Events: none Observations: patient tolerated well Performed by: Maria Anthony DO Authorized by: Maria Anthony DO * ANESTHESIA ARTERIAL LINE INSERTION (05/07/2021 7:00 AM [facility] C[facility] SPECIALIST) Narrative Maria Anthony DO - 05/07/2021 7:00 AM [facility] CENTER SPECIALIST Liz Naqvi CRNA 05/07/2021 7:49 AM Anesthesia Procedure: Arterial Line Placement A-LINE INSERTION Date/Time: 05/07/2021 7:00 AM Patient location: Pre/Post Indications: multiple ABGs, frequent labs and hemodynamic monitoring Preprocedure checklist performed: 2 patient identifiers, risks & benefits discussed, patient evaluated, timeout performed, consent obtained, patient being monitored and sterile drape Sterile technique: - Proper hand washing - Cap, mask - Sterile gloves - Skin prep for antisepsis Arterial Line Procedure Patient sedated: no Artery prepped with chlorhexidine; skin prep agent completely dried prior to procedure. Location: radial artery Laterality: right Technique: palpation Needle gauge: 20 G Number of attempts: 1 Procedure Medications Local Anesthesia: lidocaine PF 1% (10 mg/mL) injection, 1 mL Procedure Outcome Catheter secured with adhesive dressing applied Events: no complications noted during insertion and skin intact, warm, and dry Observation: pt tolerated well Performed by: Liz Naqvi CRNA Authorized by: Maria Anthony DO * TELEMETRY STRIPS-SCAN (05/07/2021 12:00 AM [facility] CENTER SPECIALIST) Narrative 05/07/2021 12:00 AM CR[facility]OGRAPHIC CENTER SPECIALIST Ordered by an unspecified provider. * TELEMETRY STRIPS-SCAN (05/07/2021 12:00 AM CR[facility] CENTER SPECIALIST) Narrative 05/07/2021 12:00 AM CR[facility] CENTER SPECIALIST Ordered by an unspecified provider. * TELEMETRY STRIPS-SCAN (05/07/2021 12:00 AM CR[facility]OGR[facility] CENTER SPECIALIST) Narrative 05/07/2021 12:00 AM CR[facility]OGRAPH[facility] CENTER SPECIALIST Ordered by an unspecified provider. * TELEMETRY STRIPS-SCAN (05/07/2021 12:00 AM CR[facility]OGRAPH[facility] CENTER SPECIALIST) Narrative 05/07/2021 12:00 AM CR[facility]OGRAPH[facility] CENTER SPECIALIST Ordered by an unspecified provider. * TELEMETRY STRIPS-SCAN (05/07/2021 12:00 AM CR[facility]OGRAPH[facility] CENTER SPECIALIST) Narrative 05/07/2021 12:00 AM CR[facility]OGR[facility] CENTER SPECIALIST Ordered by an unspecified provider. * TELEMETRY STRIPS-SCAN (05/07/2021 12:00 AM CRYPTOGRAPH[facility] CENTER SPECIALIST) Narrative 05/07/2021 12:00 AM CRYPTOGRAPH[facility] CENTER SPECIALIST Ordered by an unspecified provider. * TELEMETRY STRIPS-SCAN (05/07/2021 12:00 AM CRYPTOGRAPH[facility] CENTER SPECIALIST) Narrative 05/07/2021 12:00 AM CRYPTOGRAPH[facility] CENTER SPECIALIST Ordered by an unspecified provider. * PROCEDURE RECORD-SCAN (05/07/2021 12:00 AM CR[facility]OGRAPH[facility] CENTER SPECIALIST) Narrative 05/07/2021 12:00 AM CR[facility]OGR[facility] CENTER SPECIALIST Ordered by an unspecified provider. * TYPE & CROSSMATCH (05/06/2021 12:54 PM CRYPTOGRAPH[facility] CENTER SPECIALIST) Only the most recent of 2 results within the time period is included. Units Ordered 2 [facility] Crossmatch 05/09/2021,2359 MAIN LAB Expires Record Check NOT FOUND MAIN LAB ABO/RH(D) AB NEG MAIN LAB Antibody Screen NEG [facility] LAB Specimen Performing Organization Address City/[facility] Code P marcelino Number MAIN LAB [address] [place] [address] * UA REFLEX LABEL (05/06/2021 12:48 PM CRYPTOGRAPHIC CENTER SPECIALIST) UA Reflex Criteria for reflex to culture [facility] N LAB Culture are WBC>10, Positive Nitrit e, and/or >=+1 leukocytes. If quantity is not sufficient, an addendum will follow. Specimen Urine specimen (specimen) Performing Organization Address [facility] P marcelino Number MAIN LAB [address] [place] [address] * URINALYSIS MICROSCOPIC REFLEX TO CULTURE (05/06/2021 12:48 PM CR[facility]OGRAPH[facility] CENTER SPECIALIST) WBCs,UA 0-2 0 - 2 /HPF MAIN LAB RBCs,UA 0-2 0 - 3 /HPF MAIN LAB Comment,UA Criteria for reflex to culture [facility] N LAB are WBC>10, Positive Nitrite, and/or >=+1 leukocytes. If quantity is not sufficient, an addendum will follow. Squamous 0-2 0 - 5 [facility] Epithelial Cells Specimen Urine specimen (specimen) Performing Organization Address City/[facility]/ZIP Code P marcelino Number [facility] [address] [place] [address] * URINALYSIS DIPSTICK REFLEX TO CULTURE (05/06/2021 12:48 PM CR[facility]OGRAPH[facility] CENTER SPECIALIST) Pathologist [facility] Color,UA YELLOW [facility] Turbidity,UA CLEAR CLEAR-CLEAR [facility] Specific 1.012Comment: NOTE NEW 1.005 - 1.030 [facility] [place]-Urine REFERENCE RANGES pH,UA 5.0 5.0 - 8.0 [facility] Protein,UA NEG NEG-NEG [facility] Glucose,UA NEG NEG-NEG [facility] Ketones,UA NEG NEG-NEG [facility] Bilirubin,UA NEG NEG-NEG [facility] Blood,UA NEG NEG-NEG [facility] Urobilinogen,UA NORMAL NORM-NORMAL [facility] Nitrite,UA NEG NEG-NEG [facility] Leukocytes,UA NEG NEG-NEG [facility] Urine Ascorbic POS (A) NEG-NEG [facility] Acid, UA Comment: Ascorbic acid is found in various food supplies and dietary supplements, and is reported to cause strong interference with Macroscopic Urinalysis testing for glucose, blood and nitrite, and can result in a false negative result. Specimen Urine specimen (specimen) Performing Organization Address [facility] P marcelino Number [facility] [address] [place] [address] * COVID-19 (SARS-COV-2) PCR (05/04/2021) Only the most recent of 2 results within the time period is included. Pathologist [facility] COVID-19 Not detected OTHER OUTSIDE (SARS-CoV-2) LAB PCR COVID-19 OTHER OUTSIDE (SARS-CoV-2) LAB PCR Source Specimen Flocked Swab - Nasopharyngeal Narrative Performing Organization Address City/[facility]/ZIP Code P marcelino Number OTHER OUTSIDE LAB * BLOOD TYPE CONFIRMATION - ORDER ONLY IF REQUESTED BY LAB (04/30/2021 10:36 AM CR[facility]OGRAPH[facility] CENTER SPECIALIST) Pathologist [facility] ABO/RH(D) AB NEG [facility] Specimen Performing Organization Address City/[facility] P marcelino Number [facility] [address] [place] [address] * CBC AND DIFF (04/30/2021 6:17 AM CR[facility]OGRAPH[facility] CENTER SPECIALIST) Only the most recent of 4 results within the time period is included. White Blood 4.9 4.5 - 11.0 K/UL [facility] Cells RBC 4.44 4.0 - 5.0 M/UL [facility] Hemoglobin 12.8 12.0 - 15.0 GM/DL [facility] Hematocrit 38.0 36 - 45 % [facility] MCV 85.6 80 - 100 FL [facility] MCH 28.8 26 - 34 PG [facility] MCHC 33.6 32.0 - 36.0 G/DL [facility] RDW 13.9 11 - 15 % [facility] Platelet Count 222 150 - 400 K/UL [facility] MPV 7.9 7 - 11 FL [facility] Neutrophils 58 41 - 77 % [facility] Lymphocytes 30 24 - 44 % [facility] Monocytes 8 4 - 12 % [facility] Eosinophils 3 0 - 5 % [facility] Basophils 1 0 - 2 % [facility] Absolute 2.84 1.8 - 7.0 K/UL [facility] Neutrophil Count Absolute Lymph 1.49 1.0 - 4.8 K/UL [facility] Count Absolute 0.38 0 - 0.80 K/UL [facility] Monocyte Count Absolute 0.15 0 - 0.45 K/UL [facility] Eosinophil Count Absolute 0.05 0 - 0.20 K/UL [facility] Basophil Count Specimen Blood Performing Organization Address City/State/ZIP Code P marcelino Number [facility] [address] [place] [address] * COMPREHENSIVE METABOLIC PANEL (04/30/2021 6:17 AM CR[facility]OGRAPH[facility] CENTER SPECIALIST) Only the most recent of 4 results within the time period is included. Pathologist [facility] Sodium 141 137 - 147 MMOL/L [facility] Potassium 4.1 3.5 - 5.1 MMOL/L [facility] Chloride 108 98 - 110 MMOL/L [facility] Glucose 99 70 - 100 MG/DL [facility] Blood Urea 13 7 - 25 MG/DL [facility] Nitrogen Creatinine 0.85 0.4 - 1.00 MG/DL [facility] Calcium 9.1 8.5 - 10.6 MG/DL [facility] Total Protein 6.6 6.0 - 8.0 G/DL [facility] Total Bilirubin 1.0 0.3 - 1.2 MG/DL [facility] Albumin 3.9 3.5 - 5.0 G/DL [facility] Alk Phosphatase 62 25 - 110 U/L [facility] AST (SGOT) 20 7 - 40 U/L [facility] CO2 23 21 - 30 MMOL/L [facility] ALT (SGPT) 19 7 - 56 U/L [facility] Anion Gap 10 3 - 12 [facility] eGFR Non >60 >60 mL/min [facility] Comment: [place] The eGFR is not validated f or use in drug dosing adjustments. Continue to use estimated creatinine clearance per dosing reference text. Please contact the Clinical Pharmacist for questions. eGFR >60 >60 mL/min [facility] [place] Comment: The eGFR is not validated for use in drug dosing adjustments. Continue to use estimated creatinine clearance per dosing reference text. Please contact the Clinical Pharmacist for questions. Specimen Blood Performing Organization Address City/State/ZIP Code P marcelino Number [facility] [address] [place] [address] * CTA ABD/PELVIS (04/29/2021 7:33 PM CR[facility] CENTER SPECIALIST) Modality Anatomical Region Laterality Computed Tomography Abdomen, Pelvis Specimen Impressions [facility] RESULTS - 04/30/2021 8:11 AM CRYPTOGRAPHIC CENTER SPECIALIST CHEST: 1. Moderate aortic valve thickening an d calcifications compatible with aortic stenosis. Normal caliber thoracic aorta. 2. Several small bilateral pulmonary n odules measuring up to 0.6 cm, favored to represent nodular areas of scarring or atelectasis, but indeterminate. Follow-up chest CT recommended in 6-12 months. ABDOMEN AND PELVIS: 1. No substantial stenoses within the aortoiliac system. 2. Atretic left external iliac and com mon femoral veins with multiple collaterals and the subcutaneous anterior pelvis, likely related to chronic thrombosis Finalized by John Grijalva MD on 04/30/2021 8:11 AM. Dictated by John Grijalva MD on 04/30/2021 8:00 AM. Narrative [facility] RESULTS - 04/30/2021 8:11 AM CRYPTOGRAPHIC CENTER SPECIALIST CTA CHEST, ABDOMEN AND PELVIS Clinical Indication: 65 years old; aortic stenosis Technique: Multiple contiguous axial images were obtained through the chest, abdomen and pelvis following the administration of IV contrast material. Post processing coronal and sagittal reconstruction images were made from the axial images. Image post-processing was obtained. IV contrast: Yes Bowel contrast: None Comparison: None available CHEST FINDINGS: Lower Neck: Unremarkable Lymph nodes: No thoracic lymphadenopathy. Heart, Mediastinum, and Great Vessels: Moderate aortic valve thickening and calcifications compatible with aortic stenosis. The heart size is upper limits of normal without pericardial effusion. No left atrial appendage thrombus. Normal caliber thoracic aorta with longest diameter at the level of the sinuses of Valsalva measuring 3.5 cm (series 12, image 62). Airway, Lungs and Pleura: Mosaic attenuation compatible with small airways disease. Biapical pleural-parenchymal scarring. Tiny fissural lymph nodes. Scattered small pulmonary nodules measuring up to 0.6 cm such as within the subpleural right lower lobe (series 8, image 314). Other tiny calcified granuloma. Subsegmental atelectasis in the basilar predominance. No pneumothorax, pleural effusion, or focal pneumonic consolidation. Central airways are patent. Chest Wall and Osseous Structures: Suture anchors in the right humeral head. No destructive osseous lesions. ABDOMEN AND PELVIS FINDINGS: Liver and Biliary system: Calcified hepatic granuloma.. Gallbladder surgically absent. No bile duct dilation. Pancreas and Retroperitoneum: Pancreas is unremarkable. Spleen: Splenic granuloma. Adrenal Glands and Kidneys: Minimal thickening in the left adrenal gland. Unremarkable right adrenal gland. No hydronephrosis. Excrete contrast material within the proximal collecting systems. Pelvis: Bladder is partially decompressed and filled with contrast agent. Uterus is surgically absent. Bowel, Mesentery and Peritoneal space: No free intraperitoneal fluid or gas. Mild colonic diverticulosis. Normal caliber of the bowel. Appendix is normal. Small hiatal hernia. Aorta and Major Vessels: Minimal vascular calcifications. Normal caliber abdominal aorta. No focal stenoses within the abdominal aorta, both common, external, and visualized femoral arteries. There are atretic left external iliac and common femoral veins. Multiple collaterals within the subcutaneous anterior pelvis. Lymph nodes: No lymphadenopathy. Abdominal wall and Osseous Structures: No destructive osseous lesions. Mild lumbar spondylosis with mild retrolisthesis of L5 on S1. Procedure Note John Grijalva MD - 04/30/2021 CTA CHEST, ABDOMEN AND PELVIS Clinical Indication: 65 years old; aortic stenosis Technique: Multiple contiguous axial images were obtained through the chest, abdomen and pelvis following the administration of IV contrast material. Post processing coronal and sagittal reconstruction images were made from the axial images. Image post-processing was obtained. IV contrast: Yes Bowel contrast: None Comparison: None available CHEST FINDINGS: Lower Neck: Unremarkable Lymph nodes: No thoracic lymphadenopathy. Heart, Mediastinum, and Great Vessels: Moderate aortic valve thickening and calcifications compatible with aortic stenosis. The heart size is upper limits of normal without pericardial effusion. No left atrial appendage thrombus. Normal caliber thoracic aorta with longest diameter at the level of the sinuses of Valsalva measuring 3.5 cm (series 12, image 62). Airway, Lungs and Pleura: Mosaic attenuation compatible with small airways disease. Biapical pleural-parenchymal scarring. Tiny fissural lymph nodes. Scattered small pulmonary nodules measuring up to 0.6 cm such as within the subpleural right lower lobe (series 8, image 314). Other tiny calcified granuloma. Subsegmental atelectasis in the basilar predominance. No pneumothorax, pleural effusion, or focal pneumonic consolidation. Central airways are patent. Chest Wall and Osseous Structures: Suture anchors in the right humeral head. No destructive osseous lesions. ABDOMEN AND PELVIS FINDINGS: Liver and Biliary system: Calcified hepatic granuloma.. Gallbladder surgically absent. No bile duct dilation. Pancreas and Retroperitoneum: Pancreas is unremarkable. Spleen: Splenic granuloma. Adrenal Glands and Kidneys: Minimal thickening in the left adrenal gland. Unremarkable right adrenal gland. No hydronephrosis. Excrete contrast material within the proximal collecting systems. Pelvis: Bladder is partially decompressed and filled with contrast agent. Uterus is surgically absent. Bowel, Mesentery and Peritoneal space: No free intraperitoneal fluid or gas. Mild colonic diverticulosis. Normal caliber of the bowel. Appendix is normal. Small hiatal hernia. Aorta and Major Vessels: Minimal vascular calcifications. Normal caliber abdominal aorta. No focal stenoses within the abdominal aorta, both common, external, and visualized femoral arteries. There are atretic left external iliac and common femoral veins. Multiple collaterals within the subcutaneous anterior pelvis. Lymph nodes: No lymphadenopathy. Abdominal wall and Osseous Structures: No destructive osseous lesions. Mild lumbar spondylosis with mild retrolisthesis of L5 on S1. IMPRESSION CHEST: 1. Moderate aortic valve thickening and calcifications compatible with aortic stenosis. Normal caliber thoracic aorta. 2. Several small bilateral pulmonary no dules measuring up to 0.6 cm, favored to represent nodular areas of scarring or atelectasis, but indeterminate. Follow-up chest CT recommended in 6-12 months. ABDOMEN AND PELVIS: 1. No substantial stenoses within the a ortoiliac system. 2. Atretic left external iliac and comm on femoral veins with multiple collaterals and the subcutaneous anterior pelvis, likely related to chronic thrombosis Finalized by John Grijalva MD on 04/30/2021 8:11 AM. Dictated by John Grijalva MD on 04/30/2021 8:00 AM. Performing Organization Address City/State/ZIP Code [place] Number [facility] * CTA CHEST WO/W CONTRAST+POST P (04/29/2021 7:33 PM [facility]) Modality Anatomical Region Laterality Computed Tomography Chest Specimen Impressions [facility] RESULTS - 04/30/2021 8:11 AM [facility] CHEST: 1. Moderate aortic valve thickening an d calcifications compatible with aortic stenosis. Normal caliber thoracic aorta. 2. Several small bilateral pulmonary n odules measuring up to 0.6 cm, favored to represent nodular areas of scarring or atelectasis, but indeterminate. Follow-up chest CT recommended in 6-12 months. ABDOMEN AND PELVIS: 1. No substantial stenoses within the aortoiliac system. 2. Atretic left external iliac and com mon femoral veins with multiple collaterals and the subcutaneous anterior pelvis, likely related to chronic thrombosis Finalized by John Grijalva MD on 04/30/2021 8:11 AM. Dictated by John Grijalva MD on 04/30/2021 8:00 AM. Narrative [facility] RESULTS - 04/30/2021 8:11 AM [facility] CTA CHEST, ABDOMEN AND PELVIS Clinical Indication: 65 years old; aortic stenosis Technique: Multiple contiguous axial images were obtained through the chest, abdomen and pelvis following the administration of IV contrast material. Post processing coronal and sagittal reconstruction images were made from the axial images. Image post-processing was obtained. IV contrast: Yes Bowel contrast: None Comparison: None available CHEST FINDINGS: Lower Neck: Unremarkable Lymph nodes: No thoracic lymphadenopathy. Heart, Mediastinum, and Great Vessels: Moderate aortic valve thickening and calcifications compatible with aortic stenosis. The heart size is upper limits of normal without pericardial effusion. No left atrial appendage thrombus. Normal caliber thoracic aorta with longest diameter at the level of the sinuses of Valsalva measuring 3.5 cm (series 12, image 62). Airway, Lungs and Pleura: Mosaic attenuation compatible with small airways disease. Biapical pleural-parenchymal scarring. Tiny fissural lymph nodes. Scattered small pulmonary nodules measuring up to 0.6 cm such as within the subpleural right lower lobe (series 8, image 314). Other tiny calcified granuloma. Subsegmental atelectasis in the basilar predominance. No pneumothorax, pleural effusion, or focal pneumonic consolidation. Central airways are patent. Chest Wall and Osseous Structures: Suture anchors in the right humeral head. No destructive osseous lesions. ABDOMEN AND PELVIS FINDINGS: Liver and Biliary system: Calcified hepatic granuloma.. Gallbladder surgically absent. No bile duct dilation. Pancreas and Retroperitoneum: Pancreas is unremarkable. Spleen: Splenic granuloma. Adrenal Glands and Kidneys: Minimal thickening in the left adrenal gland. Unremarkable right adrenal gland. No hydronephrosis. Excrete contrast material within the proximal collecting systems. Pelvis: Bladder is partially decompressed and filled with contrast agent. Uterus is surgically absent. Bowel, Mesentery and Peritoneal space: No free intraperitoneal fluid or gas. Mild colonic diverticulosis. Normal caliber of the bowel. Appendix is normal. Small hiatal hernia. Aorta and Major Vessels: Minimal vascular calcifications. Normal caliber abdominal aorta. No focal stenoses within the abdominal aorta, both common, external, and visualized femoral arteries. There are atretic left external iliac and common femoral veins. Multiple collaterals within the subcutaneous anterior pelvis. Lymph nodes: No lymphadenopathy. Abdominal wall and Osseous Structures: No destructive osseous lesions. Mild lumbar spondylosis with mild retrolisthesis of L5 on S1. Procedure Note John Grijalva MD - 04/30/2021 CTA CHEST, ABDOMEN AND PELVIS Clinical Indication: 65 years old; aortic stenosis Technique: Multiple contiguous axial images were obtained through the chest, abdomen and pelvis following the administration of IV contrast material. Post processing coronal and sagittal reconstruction images were made from the axial images. Image post-processing was obtained. IV contrast: Yes Bowel contrast: None Comparison: None available CHEST FINDINGS: Lower Neck: Unremarkable Lymph nodes: No thoracic lymphadenopathy. Heart, Mediastinum, and Great Vessels: Moderate aortic valve thickening and calcifications compatible with aortic stenosis. The heart size is upper limits of normal without pericardial effusion. No left atrial appendage thrombus. Normal caliber thoracic aorta with longest diameter at the level of the sinuses of Valsalva measuring 3.5 cm (series 12, image 62). Airway, Lungs and Pleura: Mosaic attenuation compatible with small airways disease. Biapical pleural-parenchymal scarring. Tiny fissural lymph nodes. Scattered small pulmonary nodules measuring up to 0.6 cm such as within the subpleural right lower lobe (series 8, image 314). Other tiny calcified granuloma. Subsegmental atelectasis in the basilar predominance. No pneumothorax, pleural effusion, or focal pneumonic consolidation. Central airways are patent. Chest Wall and Osseous Structures: Suture anchors in the right humeral head. No destructive osseous lesions. ABDOMEN AND PELVIS FINDINGS: Liver and Biliary system: Calcified hepatic granuloma.. Gallbladder surgically absent. No bile duct dilation. Pancreas and Retroperitoneum: Pancreas is unremarkable. Spleen: Splenic granuloma. Adrenal Glands and Kidneys: Minimal thickening in the left adrenal gland. Unremarkable right adrenal gland. No hydronephrosis. Excrete contrast material within the proximal collecting systems. Pelvis: Bladder is partially decompressed and filled with contrast agent. Uterus is surgically absent. Bowel, Mesentery and Peritoneal space: No free intraperitoneal fluid or gas. Mild colonic diverticulosis. Normal caliber of the bowel. Appendix is normal. Small hiatal hernia. Aorta and Major Vessels: Minimal vascular calcifications. Normal caliber abdominal aorta. No focal stenoses within the abdominal aorta, both common, external, and visualized femoral arteries. There are atretic left external iliac and common femoral veins. Multiple collaterals within the subcutaneous anterior pelvis. Lymph nodes: No lymphadenopathy. Abdominal wall and Osseous Structures: No destructive osseous lesions. Mild lumbar spondylosis with mild retrolisthesis of L5 on S1. IMPRESSION CHEST: 1. Moderate aortic valve thickening and calcifications compatible with aortic stenosis. Normal caliber thoracic aorta. 2. Several small bilateral pulmonary no dules measuring up to 0.6 cm, favored to represent nodular areas of scarring or atelectasis, but indeterminate. Follow-up chest CT recommended in 6-12 months. ABDOMEN AND PELVIS: 1. No substantial stenoses within the a ortoiliac system. 2. Atretic left external iliac and comm on femoral veins with multiple collaterals and the subcutaneous anterior pelvis, likely related to chronic thrombosis Finalized by John Grijalva MD on 04/30/2021 8:11 AM. Dictated by John Grijalva MD on 04/30/2021 8:00 AM. Performing Organization Address City/State/ZIP Code [place] Number [facility] RES[facility] * CARDIAC CATH REPORT (04/29/2021 4:09 PM [facility]) Procedure Note Stevenson Pedraza MBBS - 04/29/2021 4:09 PM [facility] CARDIAC CATHETERIZATION REPORT Page 2 [facility] [place] : 1955 #: [id number] [facility] MR #/Billing ID #: [id number] / [id number] DATE: 04/29/2021 DIRECTOR NETWORK DEVELOPMENT: Kia Mahan MD DICTATING PROVIDER: PATRICIO Hickey REFERRING PHYSICIAN: Venancio Bowden MD INDICATION: Ms. Cochran is a 65-year-old lady with history of hypertension, LLE DVT, HLD and severe aortic stenosis. The echocardiogram performed at outside hospital showed peak aortic velocity of 4.9 m/s with valve area of 0.75. The aortic root was reportedly normal. She presented to the hospital with an episode of chest pain and subsequently was referred for coronary angiography as possible surgical aortic valve replacement. PROCEDURES PERFORMED: Selective coronary angiography. INFORMED CONSENT: Informed consent was obtained from the patient after a thorough discussion of risks, benefits, and potential complications. The patient verbalized understanding and agreed to undergo the procedure. PROCEDURE DETAILS: The patient was brought to the cardiac catheterization lab in a fasting, nonsedated state. The patient was given 1 mg of Versed and 50 mcg of fentanyl intravenously for moderate conscious sedation. Blood pressure, oxygen saturation, heart rate, and level of consciousness were all assessed throughout the procedure and at its conclusion. SELECTIVE CORONARY ANGIOGRAPHY VIA RIGHT RADIAL ACCESS: The right wrist was prepped and draped in typical sterile fashion. After injecting lidocaine, we used a micropuncture needle to access the artery. Thereafter, we placed a 6- Norwegian sheath in the right radial wrist. We then administered 200 mcg of nitroglycerin and 5 mg of verapamil intra-arterially. We also administered additional heparin 2000 units intravenously, as she was on a continuous heparin drip prior to transfer to the cardiac catheterization lab. We then used a TIG 4 catheter and engaged the left and right coronary arteries and performed angiograms in multiple projections. At the end of the procedure the patient had a TR band placed in the right radial artery. Selective coronary angiography: 1. Left main coronary artery: The left main coronary artery arises normally from the left coronary cusp and gives rise to left anterior descending and left circumflex artery. It is free from angiographically significant disease. 2. Left anterior descending artery: The left anterior descending artery is a large caliber vessel and is type 3 in configuration, reaching the apex. It is a very tortuous throughout its course and gives rise to 2 diagonals along its course. The entire LAD artery and its branches have minimal luminal irregularities. 3. Left circumflex artery: The left cir cumflex artery is a dominant artery and continues to form the left PDA. It gives rise to 1 obtuse marginal branch along its course. It is also very tortuous along it's course. The left circumflex artery has minimal luminal irregularities throughout its course. 4. Right coronary artery: It is a nondo minant, small caliber artery and is very tortuous along its course. It originates normally from the right coronary cusp. It gives the right ventricular branch and subsequently is very small in caliber distally. CONTRAST: 60 mL. FLUORO TIME: 3.6 minutes. AIR KERMA: 234 mGy. ATTENDING ATTESTATION: The attending, Dr. Mahan, was present for the entirety of the case and performed when necessary kwong portions of the procedure. FINAL IMPRESSION: 1. Nonobstructive coronary artery diseas e. RECOMMENDATION: The patient has minimal coronary artery disease and recommend further workup for severe aortic stenosis per consult team. Kia Mahan MD SPR/MedQ /[id number] cc: - Venancio Bowden MD Performing Organization Address City/State/ZIP Code [place] Number OTHER OUTSIDE LAB * PFT COMPLETE PULM FUNCTION (04/29/2021 10:32 AM [facility]) FVC-Pre 3.13 L [facility] FVC-%Pred-pre 105 % [facility] FEV1-Pre 2.58 L [facility] FEV1-%Pred-Pre 110 % [facility] FEV1/FVC-Pre 83 % [facility] [id number] 68 % [facility] [id number] 2.84 L/sec [facility] [id number]-%Pred-P 139 % [facility] re RVPleth-Pre 1.80 L [facility] RVPleth-%Pred-P 82 % [facility] re TLCPleth-Pre 4.84 L [facility] TLCPleth-%Pred- 90 % [facility] Pre DLCOunc-Pre 24.08 ml/min/mmHg [facility] DLCOunc-%Pred-P 110 % [facility] re DLCOunc-#SD 0.589 ml/min/mmHg [facility] DLVA-Pred 4.27 ml/min/mmHg/L [facility] DLVA-Pre 4.94 ml/min/mmHg/L [facility] DLVA-%Pred-Pre 115 % [facility] DLVA-SD 0.80 ml/min/mmHg/L [facility] DLVA-LLN 2.67 ml/min/mmHg/L [facility] DLVA-ULN 5.87 ml/min/mmHg/L [facility] DLVA-#SD 0.835 ml/min/mmHg/L [facility] [id number] 81 % [facility] Specimen Narrative [facility] - 05/03/2021 6:17 AM [facility] Clinical history:->pre-op TAVR Patient on bronchodilator therapy?->No Is this a pre-surgical evaluation?->Yes Patient being discharged?->No Release to patient->Immediate Implement Post Bronchodilator Spirometry Protocol?->Yes Performing Organization Address City/State/ZIP Code P [place] Number [facility] [address] [place], [place] [address] * PANOREX EXAM (04/29/2021 9:34 AM [facility]) Modality Anatomical Region Laterality Computed Radiography Head Specimen Impressions [facility] RESULTS - 04/29/2021 9:39 AM [facility] Findings/impression: There is artifact in the midline. Scattered dental amalgam and prior root canal at tooth #18. No obvious untreated dental caries. No evidence of periapical dental lucency. Probable mild mucosal thickening within the right mucosal maxillary sinus. Finalized by Alicia Kearney D.O. on 04/29/2021 9:39 AM. Dictated by Alicia Kearney D.O. on 04/29/2021 9:36 AM. Narrative [facility] RESULTS - 04/29/2021 9:39 AM [facility] PANOREX EXAM Indication: 65-year-old female, pre-cardiac clearance Comparison: None. Procedure Note Alicia Kearney DO - 04/29/2021 PANOREX EXAM Indication: 65-year-old female, pre-cardiac clearance Comparison: None. IMPRESSION Findings/impression: There is artifact in the midline. Scattered dental amalgam and prior root canal at tooth #18. No obvious untreated dental caries. No evidence of periapical dental lucency. Probable mild mucosal thickening within the right mucosal maxillary sinus. Finalized by Alicia Kearney D.O. on 04/29/2021 9:39 AM. Dictated by Alicia Kearney D.O. on 04/29/2021 9:36 AM. Performing Organization Address City/State/ZIP Code P [place] Number [facility] RESULTS * BNP (B-TYPE NATRIURETIC PEPTI) (04/29/2021 4:00 AM [facility]) Only the most recent of 2 results within the time period is included. B Type 23.0 0 - 100 PG/ML [facility] Natriuretic Peptide Specimen Blood Performing Organization Address City/State/ZIP Code [place] Number [facility] [address] [place] [address] * PV CAROTID ARTERY DUPLEX SCAN (04/28/2021 4:07 PM [facility]) LEFT CCA DIST 0.64 m/s OTHER OUTSIDE SYS LAB LEFT CCA DIST 0.20 m/s OTHER OUTSIDE LEGER LAB LEFT CCA PROX 1.10 m/s OTHER OUTSIDE SYS LAB LEFT CCA PROX 0.30 m/s OTHER OUTSIDE LEGER LAB LEFT ICA DIST 0.58 m/s OTHER OUTSIDE SYS LAB LEFT ICA DIST 0.23 m/s OTHER OUTSIDE LEGER LAB LEFT ICA MID 0.63 m/s OTHER OUTSIDE SYS LAB LEFT ICA MID 0.29 m/s OTHER OUTSIDE LEGER LAB LEFT ICA PROX 0.66 m/s OTHER OUTSIDE SYS LAB LEFT ICA PROX 0.22 m/s OTHER OUTSIDE LEGER LAB LEFT SUBCLAVIAN 0.81 m/s OTHER OUTSIDE SYS LAB RIGHT CCA DIST 0.68 m/s OTHER OUTSIDE SYS LAB RIGHT CCA DIST 0.23 m/s OTHER OUTSIDE LEGER LAB RIGHT CCA PROX 0.65 m/s OTHER OUTSIDE SYS LAB RIGHT CCA PROX 0.11 m/s OTHER OUTSIDE LEGER LAB RIGHT ICA DIST 0.67 m/s OTHER OUTSIDE SYS LAB RIGHT ICA DIST 0.24 m/s OTHER OUTSIDE LEGER LAB RIGHT ICA MID 0.57 m/s OTHER OUTSIDE SYS LAB RIGHT ICA MID 0.24 m/s OTHER OUTSIDE LEGER LAB RIGHT ICA PROX 0.78 m/s OTHER OUTSIDE SYS LAB RIGHT ICA PROX 0.27 m/s OTHER OUTSIDE LEGER LAB RIGHT ECA SYS 0.64 m/s OTHER OUTSIDE LAB RIGHT VERTEBRAL 0.38 m/s OTHER OUTSIDE SYS LAB RIGHT 1.40 m/s OTHER OUTSIDE SUBCLAVIAN SYS LAB RIGHT ICA/CCA 1.1 m/s OTHER OUTSIDE SYS LAB LEFT ECA SYS 0.48 m/s OTHER OUTSIDE LAB LEFT VERTEBRAL 0.76 m/s OTHER OUTSIDE SYS LAB LEFT ICA/CCA 1.0 m/s OTHER OUTSIDE SYS LAB Cardiology Kate Epiq OTHER OUTSIDE Ultrasound LAB Machine Modality Anatomical Region Laterality Ultrasound Specimen Narrative OTHER OUTSIDE LAB - 04/28/2021 5:10 PM [facility] 1. No significant stenosis in B/L common and internal carotid arteries. 2. Mild plaque in both carotid arteries. 3. Normal antegrade flow in bilateral ve rtebral arteries. 4. No significant stenosis in bilateral proximal subclavian arteries. No prior studies are available for comparison. Performing Organization Address City/State/ZIP Code P [place] Number OTHER OUTSIDE LAB * URINALYSIS, MICROSCOPIC (04/28/2021 2:30 PM [facility]) WBCs,UA 0-2 0 - 2 /HPF [facility] RBCs,UA NONE 0 - 3 /HPF [facility] Squamous 0-2 0 - 5 [facility] Epithelial Cells Specimen Urine specimen (specimen) - Urine Performing Organization Address City/State/ZIP Code P [place] Number [facility] [address] [place] [address] * URINALYSIS DIPSTICK (04/28/2021 2:30 PM [facility] SPECIAL[facility]) Color,UA YELLOW [facility] Turbidity,UA CLEAR CLEAR-CLEAR [facility] Specific 1.008Comment: NOTE NEW 1.005 - 1.030 [facility] [place]-Urine REFERENCE RANGES pH,UA 6.0 5.0 - 8.0 [facility] Protein,UA NEG NEG-NEG [facility] Glucose,UA NEG NEG-NEG [facility] Ketones,UA NEG NEG-NEG [facility] Bilirubin,UA NEG NEG-NEG [facility] Blood,UA NEG NEG-NEG [facility] Urobilinogen,UA NORMAL NORM-NORMAL [facility] Nitrite,UA NEG NEG-NEG [facility] Leukocytes,UA NEG NEG-NEG [facility] Urine Ascorbic NEG NEG-NEG MAIN LAB Acid, UA Specimen Urine specimen (specimen) - Urine Performing Organization Address [facility] P [place]cel[place] Number [facility] MA[facility] [address] [place] [address] * TROPONIN-I (04/28/2021 9:40 AM [facility] SPECIAL[facility]) Only the most recent of 3 results within the time period is included. Troponin-I 0.01 0.0 - 0.05 NG/ML [facility] Specimen Blood Performing Organization Address [facility] P [place]cel[place] Number MAIN LAB [address] [place] [address] * TSH WITH FREE T4 REFLEX (04/27/2021 10:54 PM [facility] SPECIALIST) TSH 3.07 0.35 - 5.00 MCU/ML [facility] Specimen Blood Performing Organization Address [facility] P [place] Number [facility] [address] [place] [address] * PHOSPHORUS (04/27/2021 10:54 PM [facility]) Phosphorus 4.2 2.0 - 4.5 MG/DL [facility] Specimen Blood Performing Organization Address [facility] P [place] Number [facility] [address] [place] [address] * HEMOGLOBIN A1C (04/27/2021 10:54 PM [facility] SPECIAL[facility]) Hemoglobin A1C 5.4 4.0 - 6.0 % [facility] Comment: The ADA recommends that most patients with type 1 and type 2 diabetes maintain an A1c level <7%. Specimen Blood Performing Organization Address [facility]/ZIP Code P [place] Number MAIN LAB [address] [place] [address] * TELEMETRY STRIPS-SCAN (04/27/2021 12:00 AM [facility]) Narrative 04/27/2021 12:00 AM [facility] SPECIALIST Ordered by an unspecified provider. * TELEMETRY STRIPS-SCAN (04/27/2021 12:00 AM [facility] SPECIALIST) Narrative 04/27/2021 12:00 AM [facility] SPECIALIST Ordered by an unspecified provider. * TELEMETRY STRIPS-SCAN (04/27/2021 12:00 AM [facility] SPECIAL[facility]) Narrative 04/27/2021 12:00 AM [facility] SPECIALIST Ordered by an unspecified provider. * TELEMETRY STRIPS-SCAN (04/27/2021 12:00 AM [facility] SPECIALIST) Narrative 04/27/2021 12:00 AM [facility] SPECIALIST Ordered by an unspecified provider. * TELEMETRY STRIPS-SCAN (04/27/2021 12:00 AM [facility] SPECIALIST) Narrative 04/27/2021 12:00 AM [facility] SPECIALIST Ordered by an unspecified provider. * TELEMETRY STRIPS-SCAN (04/27/2021 12:00 AM [facility] SPECIALIST) Narrative 04/27/2021 12:00 AM [facility] SPECIALIST Ordered by an unspecified provider. * TELEMETRY STRIPS-SCAN (04/27/2021 12:00 AM [facility] SPECIALIST) Narrative 04/27/2021 12:00 AM [facility] SPECIALIST Ordered by an unspecified provider. * TELEMETRY STRIPS-SCAN (04/27/2021 12:00 AM [facility] SPECIALIST) Narrative 04/27/2021 12:00 AM [facility] SPECIALIST Ordered by an unspecified provider. * TELEMETRY STRIPS-SCAN (04/27/2021 12:00 AM [facility] SPECIALIST) Narrative 04/27/2021 12:00 AM [facility] SPECIALIST Ordered by an unspecified provider. * TELEMETRY STRIPS-SCAN (04/27/2021 12:00 AM [facility] SPECIALIST) Narrative 04/27/2021 12:00 AM [facility] SPECIALIST Ordered by an unspecified provider. * TELEMETRY STRIPS-SCAN (04/27/2021 12:00 AM [facility] SPECIALIST) Narrative 04/27/2021 12:00 AM [facility] SPECIALIST Ordered by an unspecified provider. * TELEMETRY STRIPS-SCAN (04/27/2021 12:00 AM [facility] SPECIALIST) Narrative 04/27/2021 12:00 AM [facility] SPECIALIST Ordered by an unspecified provider. * ECG-SCAN (04/27/2021 12:00 AM [facility] SPECIALIST) Narrative 04/27/2021 12:00 AM [facility] SPECIALIST Ordered by an unspecified provider. * PROCEDURE RECORD-SCAN (04/27/2021 12:00 AM [facility] SPECIALIST) Narrative 04/27/2021 12:00 AM [facility] SPECIALIST Ordered by an unspecified provider. from Last 3 Months Insurance Type Payer Benefit Subscriber ID Effective Phone Address Plan / Dates Group Medicare MEDICARE MEDICARE [id number] 2020-P [phone] [address] [place] [address] PPO [employer] [id number] 2021- [address] [place] [address] Advance Directives Patient Housekeeper Home Explanation Type Date Recorded Advance 04/29/2021 10:02 AM Directive/DPOA Date Inactivated Comments Code Status Date Activated 05/08/2021 6:38 PM Full Code 05/07/2021 5:50 AM Provider has discussed Code Status Yes w/Patient or Family? 04/30/2021 5:33 PM Full Code 04/27/2021 10:14 PM Provider has discussed Code Status No, more discussi on w/Patient or Family? needed Care Teams Start Date End Date Supervisor Drawing Relationship Specialty 04/27/21 Jazmyn Ruiz NP PCP - General Nurse [address] [place] [address] Practitioner [place], [place] [id number]
--- OUTSIDE RECORDS SUMMARY | 2021-05-15 10:06 | XMS REPORT | Encounter Summary ---
Author Author [facility] Organization [facility] Address Unknown Phone Unavailable Care Team Providers Care Plate Former Name Role Phone Jazmyn Ruiz NP PCP Reason for Referral * Test (Routine) - New Request Diagnoses / Procedures Referred By Contact Referred To Conta ct Specialty Diagnoses Primary hypertension S/p TAVR (transcatheter aortic valve replacement), bioprosthetic Procedures 2D + DOPPLER ECHO Nhi Elena APRN-NP [address] [facility] [id number] [place] [address] Referral ID Status Reason Start Date Expiration Visits Vi sits Date Requested Authorized [id number] New Request 05/11/2021 05/11/2022 1 1 C Encounter Details Care Team Description Date Type Department Vannesa Victoria RN Primary hypertension (Primary Dx); S/p TAVR (transcatheter aortic valve replacement), bioprosthetic 05/11/2021 Orders Only Cardiology: [facility] [address] [facility] [address], [address] [place] [address] Social History Date Tobacco Use Types Packs/Day [...] at Date Recorded Female 04/28/2021 1:55 PM FINISHING WIRE SAWYER Date Recorded COVID-19 Exposure Response 05/07/2021 6:13 AM FINISHING WIRE SAWYER In the last month, have you been [...] impairment: No documented as of this encounter Plan of Treatment Order Schedule Name Type Priority Associated Diag noses Expected: 06/10/2021 (Approximate), Expi res: 05/11/2022 2D + DOPPLER ECHO ECHO Routine Primary hype rtension S/p TAVR (transcatheter aortic valve replacement), bioprosthetic Expected: 06/10/2021 (Approximate), Expi res: 05/11/2022 BASIC METABOLIC PANEL Lab Routine Primary hypertension S/p TAVR (transcatheter aortic valve replacement), bioprosthetic Expected: 06/10/2021 (Approximate), Expi res: 05/11/2022 BNP (B-TYPE NATRIURETIC Lab Routine Primar y hypertension PEPTI) S/p TAVR (transcatheter aortic valve replacement), bioprosthetic Expected: 06/10/2021 (Approximate), Expi res: 05/11/2022 CBC Lab Routine Primary hyperte nsion S/p TAVR (transcatheter aortic valve replacement), bioprosthetic documented as of this encounter Goals Goal Patient Associated Recent Progress Patient-Stat Aut hor Goal Type Problems ed? 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 documented as of this encounter Visit Diagnoses Diagnosis Primary hypertension - Primary Unspecified essential hypertension S/p TAVR (transcatheter aortic valve re placement), bioprosthetic documented in this encounter Additional Health Concerns Noted Time Assessment 05/08/2021 9:00 AM FINISHING WIRE SAWYER A fall risk assessment has been complet ed for the patient documented as of this encounter Care Teams Start Date End Date Plate Former Relationship Specialty 04/27/21 Jazmyn Ruiz NP PCP - General Nurse [address] [place] [address] [place] [address] documented as of this encounter
--- OUTSIDE RECORDS SUMMARY | 2021-05-15 10:06 | XMS REPORT | Encounter Summary ---
Author Author [facility] Organization [facility] Address Unknown Phone Unavailable Care Team Providers Care Er Manager Name Role Phone SaraJazmyn borden TAYLOR PCP Reason for Visit * Reason Comments Care Coordination Encounter Details Care Team Description Date Type Department Jody Ontiveros, GANESH Care Coordination 05/12/2021 Documentation Cardiothoracic Surg armando: [facility], [address], [address] [place] [address] Social History Date Tobacco Use [...] at Date Recorded Female 04/28/2021 1:55 PM CAREER SERVICES OFFICER Date Recorded COVID-19 Exposure Response 05/07/2021 6:13 AM CAREER SERVICES OFFICER In the last month, have you been [...] impairment: No documented as of this encounter Progress Notes * Jody Ontiveros, RN - 05/12/2021 3:14 PM CAREER SERVICES OFFICER Isis called [facility] clinic asking if her cardiac rehab orders could be sent to [facility], FAX: . Faxed over orders per Dr Nevaeh ledbetter ER SERVICES OFFICER documented in this encounter Plan of Treatment Not on filedocumented as of this encounter Goals Goal Patient Associated Recent Progress Patient-Stat Aut hor Goal Type Problems ed? Resume work [facility] (04/28/2021 Yes Katheryn Barrett, 1:56 PM CAREER SERVICES OFFICER) 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 and go back to work documented as of this encounter Visit Diagnoses Not on filedocumented in this encounter Additional Health Concerns Noted Time Assessment 05/08/2021 9:00 AM CAREER SERVICES OFFICER A fall risk assessment has been complet ed for the patient documented as of this encounter Care Teams Start Date End Date Er Manager Relationship Specialty 04/27/21 Jazmyn Ruiz NP PCP - General Nurse [address] [place] [address] [place] [address] documented as of this encounter
--- OUTSIDE RECORDS SUMMARY | 2021-05-15 10:07 | XMS REPORT | Encounter Summary ---
Author Author [facility] Organization [facility] Address Unknown Phone Unavailable Care Team Providers Care Machine Riveter Name Role Phone SaraJazmyn TAYLOR PCP Encounter Details Care Team Description Date Type Department Vannesa Victoria RN Encounter for screening laboratory testi ng for COVID-19 virus in asymptomatic patient 05/05/2021 Orders Only Cardiology: [facility] [address], [address] [place] [address] Social History Date Tobacco Use [...] at Date Recorded Female 04/28/2021 1:55 PM SONAR SUBSYSTEM EQUIPMENT OPERATOR Date Recorded COVID-19 Exposure Response 04/27/2021 5:03 PM SONAR SUBSYSTEM EQUIPMENT OPERATOR In the last month, have you been in contact with Natalie banner to assess someone who was confirmed or suspected to have Coronavirus / COVID-19? documented as of this encounter Functional Status Date of Assessment Functional Status Response 04/30/2021 Does the patient have a hearing impairment: [...] as of this encounter Plan of Treatment Not on filedocumented as of this encounter Goals Goal Patient Associated Recent Progress Patient-Stat Aut hor Goal Type Problems ed? Resume work [facility] (04/28/2021 Yes Arnold Katheryn, 1:56 PM SONAR SUBSYSTEM EQUIPMENT OPERATOR) 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 and go back to work documented as of this encounter Procedures Comments Procedure Name Priority Date/Time Associated Diag nosis COVID-19 (SARS-COV-2) PCR Routine 05/04/2021 Enco unter for screening laboratory testing for COVID-19 virus in asymptomatic patient documented in this encounter Results * COVID-19 (SARS-COV-2) PCR (05/04/2021) COVID-19 Not detected OTHER OUTSIDE (SARS-CoV-2) LAB PCR COVID-19 OTHER OUTSIDE (SARS-CoV-2) LAB PCR Source Specimen Flocked Swab - Nasopharyngeal Narrative Performing Organization Address City/State/ZIP Code P [place] Number OTHER OUTSIDE LAB documented in this encounter Visit Diagnoses Diagnosis Encounter for screening laboratory test ing for COVID-19 virus in asymptomatic patient documented in this encounter Additional Health Concerns Noted Time Assessment 04/30/2021 9:40 AM SONAR SUBSYSTEM EQUIPMENT OPERATOR A fall risk assessment has been complet ed for the patient documented as of this encounter Care Teams Start Date End Date Machine Riveter Relationship Specialty 04/27/21 Jazmyn Ruiz NP PCP - General Nurse [address] [place] [address] [place] [address] documented as of this encounter
--- OUTSIDE RECORDS SUMMARY | 2021-05-15 10:07 | XMS REPORT | Encounter Summary ---
Author Author [facility] Organization [facility] Address Unknown Phone Unavailable Care Team Providers Care Guard Manager Name Role Phone SaraJazmyn borden BALL ENDER PCP Encounter Details Care Team Description Date Type Department 05/06/2021 Travel Social History Date Tobacco Use Types Packs/Day [...] at Date Recorded Female 04/28/2021 1:55 PM UMBRELLA FINISHER Date Recorded COVID-19 Exposure Response 05/06/2021 1:46 PM UMBRELLA FINISHER In the last month, have you been [...] track (04/28/2021 Yes Katheryn Barrett, 1:56 PM UMBRELLA FINISHER) 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 and go back to work documented as of this encounter Visit Diagnoses Not on filedocumented in this encounter Additional Health Concerns Noted Time Assessment 05/06/2021 1:16 PM UMBRELLA FINISHER A fall risk assessment has been complet ed for the patient documented as of this encounter Care Teams Start Date End Date Guard Manager Relationship Specialty 04/27/21 Jazmyn Ruiz, TAYLOR PCP - General Nurse [address] [place] [address] [place] [address] documented as of this encounter
--- OUTSIDE RECORDS SUMMARY | 2021-05-15 10:07 | XMS REPORT | Encounter Summary ---
Author Author [facility] Organization [facility] Address Unknown Phone Unavailable Care Team Providers Care Manufacturing Team Member Name Role Phone Jazmyn Ruiz ELECTRONICS SUPERVISOR PCP Reason for Visit * Reason Onset Date Comments Paperwork 05/01/2021 Encounter Details Care Team Description Date Type Department Jazmyn Ruiz NP [address] [place], [place] [address] Paperwork 05/01/2021 Telephone Internal Medicine: [address], [address] [place] [address] Social History Date Tobacco Use Types Packs/Day [...] at Date Recorded Female 04/28/2021 1:55 PM DIRECTOR OF MUSIC THERAPY Date Recorded COVID-19 Exposure Response 04/27/2021 5:03 PM DIRECTOR OF MUSIC THERAPY In the last month, have you been in contact with Natalie ble to assess someone who was confirmed or [...] impairment: No documented as of this encounter Miscellaneous Notes * Telephone Encounter - Kiersten Bolden MD - 05/04/2021 9:12 AM DIRECTOR OF MUSIC THERAPY It is in [employer], I wrote it at il CTOR OF MUSIC THERAPY * Telephone Encounter - Edilia Loja - 05/01/2021 5:02 PM DIRECTOR OF MUSIC THERAPY Patient left voicemail regarding that she needs a "stay off work" or a "do not r eturn to work" letter due to patient recently being discharged from hospital on 04/30/21, and that she will be having surgery for an aortic valve replacement on 05/07/21. Routing to Dr. Bolden to advise and inform. Edilia Loja RN CTOR OF MUSIC THERAPY documented in this encounter Plan of Treatment Not on filedocumented as of this encounter Goals Goal Patient Associated Recent Progress Patient-Stat Aut hor Goal Type Problems ed? Resume work [facility] (04/28/2021 Yes Katheryn Barrett, 1:56 PM DIRECTOR OF MUSIC THERAPY) 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 and go back to work documented as of this encounter Visit Diagnoses Not on filedocumented in this encounter Additional Health Concerns Noted Time Assessment 04/30/2021 9:40 AM DIRECTOR OF MUSIC THERAPY A fall risk assessment has been complet ed for the patient documented as of this encounter Care Teams Start Date End Date Manufacturing Team Member Relationship Specialty 04/27/21 Jazmyn Ruiz NP PCP - General Nurse [address] [place] [address] Practitioner [place], [place] [id number] documented as of this encounter
--- OUTSIDE RECORDS SUMMARY | 2021-05-15 10:07 | XMS REPORT | Encounter Summary ---
Author Author [facility] Organization [facility] Address Unknown Phone Unavailable Care Team Providers Care Senior Drupal Developer Name Role Phone Jazmyn Ruiz NAVIGATION OFFICER PCP Reason for Visit * Reason Onset Date Comments General Question 05/04/2021 Encounter Details Care Team Description Date Type Department Jazmyn Ruiz NP [address] [place], [place] [phone] General Question 05/04/2021 Telephone Internal Medicine: [address], [address] [place] [address] Social History Date Tobacco Use [...] at Date Recorded Female 04/28/2021 1:55 PM THORACIC SURGEON Date Recorded COVID-19 Exposure Response 04/27/2021 5:03 PM THORACIC SURGEON In the last month, have you been [...] encounter Miscellaneous Notes * Telephone Encounter - FreedomNikah - 05/04/2021 4:34 PM THORACIC SURGEON Spoke with patient and let her know that her return to work letter from Dr. Sasha garcia is in My Chart. Patient reported that she could not find it. This RN verifie d that the letter should be in her My Chart. Patient expressed understanding. No further questions or concerns. Edilia Loja RN ACIC SURGEON documented in this encounter Plan of Treatment Not on filedocumented as of this encounter Goals Goal Patient Associated Recent Progress Patient-Stat Aut hor Goal Type Problems ed? Resume work [facility] (04/28/2021 Yes Katheryn Barrett, 1:56 PM THORACIC SURGEON) 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 and go back to work documented as of this encounter Visit Diagnoses Not on filedocumented in this encounter Additional Health Concerns Noted Time Assessment 04/30/2021 9:40 AM THORACIC SURGEON A fall risk assessment has been complet ed for the patient documented as of this encounter Care Teams Start Date End Date Senior Drupal Developer Relationship Specialty 04/27/21 Jazmyn Ruiz NP PCP - General Nurse [address] [place] [address] [place] [address] documented as of this encounter
--- OUTSIDE RECORDS SUMMARY | 2021-05-15 10:07 | XMS REPORT | Encounter Summary ---
Author Author [facility] Organization [facility] Address Unknown Phone Unavailable Care Team Providers Care Barker Peeler Name Role Phone Sara Jazmyn TAYLOR PCP Reason for Visit * Reason Comments Provider Discussion About TAVR eval Patient Encounter Details Care Team Description Date Type Department Nhi Elena APRN-TAYLOR [address] [facility] [id number] [place], [place] [phone] Provider Discussion About Patient (TAVR eval) 05/04/2021 Documentation Cardiology: [facility] [address] [facility] [address], [address] [place] [address] Social History Date Tobacco Use [...] at Date Recorded Female 04/28/2021 1:55 PM LIFE SKILLS COORDINATOR Date Recorded COVID-19 Exposure Response 05/07/2021 6:13 AM LIFE SKILLS COORDINATOR In the last month, have you been [...] as of this encounter Progress Notes * Nhi Elena APRN-NP - 05/04/2021 8:14 AM LIFE SKILLS COORDINATOR TAVR Evaluation Date of initial eval: 04/28 Name: Isis Cochran : 1955 Primary provider: Jazmyn Ruiz Referring brand development manager: Deacon Cardiac Surgeon eval: CHIQUI Steel Welder eval: Assessment & Plan: Severe symptomatic aortic stenosis. TAVR work up complete and results reviewed. TAVR scheduled 05/[address] Shetty and Dr[address] Arias. AVANI Rangel Anticoagulation/Antiplatelet plan: start aspirin, rivaroxaban (chronic DVT) Pertinent Medical History: DVT, fempop bypass, HTN, HLD, breast lumpectomy, CKD stage III, GERD Chronic diastolic heart failure, NYHA class II BMI: 31.15 Allergies: Allergies Allergen Reactions Ybsbnjn-Dfr-Doe Reductase Inhibitors MUSCLE PAIN STS: 1.354% Frailty: 5 Meter walks complete: 1st Trial = 6.83 seconds 2nd Trial = 7.12 seconds 3rd Trial = 7.16 seconds KCCQ: 37.5 Creat cl: 79.92 EKG: NSR Echo: LV size: Normal size, Moderate concentric hypertrophy,estimated LVEF 65 %. Diast olic function is mildly abnormal (grade 1).AORTIC VALVE: Calcified, Thickened , No regurgitation, severe stenosis.AV Maximum velocity: 4.93 m/s.AV M sintia gradient: 63.9 mmHg.AV Area: 0.75 cm Cath: 1. Nonobstructive coronary artery disease Carotid duplex: 1. No significant stenosis in B/L common and internal carotid arteries. 2. Mild plaque in both carotid arteries. 3. Normal antegrade flow in bilateral vertebral arteries. 4. No significant stenosis in bilateral proximal subclavian arteries. PFTs: Normal pulmonary function studies FEV1: 2.58 (110%) DLCO: 24.08 (110%) CTA report: CHEST: 1. Moderate aortic valve thickening and calcifications compatible with aortic stenosis. Normal caliber thoracic aorta. 2. Several small bilateral pulmonary nodules measuring up to 0.6 cm, favored to represent nodular areas of scarring or atelectasis, but indeterminate. Follow-up chest CT recommended in 6-12 months. ABDOMEN AND PELVIS: 1. No substantial stenoses within the aortoiliac system. 2. Atretic left external iliac and common femoral veins with multiple collaterals and the subcutaneous anterior pelvis, likely related to chronic thrombosis 3Mensio report: High bifurcation bilaterally, both will work but prefer right ASSOCIATE PROFESSOR OF GEOLOGY. Smaller annul us. 26 Evolut Pro +. Not a SMART candidate. Low left cor. recommend post implant BAV with 22 True SKILLS COORDINATOR documented in this encounter Plan of Treatment Not on filedocumented as of this encounter Goals Goal Patient Associated Recent Progress Patient-Stat Aut hor Goal Type Problems ed? Resume work [facility] (04/28/2021 Yes Katheryn Barrett, 1:56 PM LIFE SKILLS COORDINATOR) 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 and go back to work documented as of this encounter Visit Diagnoses Not on filedocumented in this encounter Additional Health Concerns Noted Time Assessment 04/30/2021 9:40 AM LIFE SKILLS COORDINATOR A fall risk assessment has been complet ed for the patient documented as of this encounter Care Teams Start Date End Date Barker Peeler Relationship Specialty 04/27/21 Jazmyn Ruiz NP PCP - General Nurse [address] [place] [address] [place] [address] documented as of this encounter
--- OUTSIDE RECORDS SUMMARY | 2021-05-15 10:07 | XMS REPORT | Encounter Summary ---
Author Author [facility] Organization [facility] Address Unknown Phone Unavailable Care Team Providers Care Retail Specialist Name Role Phone SaraJazmyn borden TAYLOR PCP Reason for Visit * Reason Comments Test Covid order faxed to [place], [place] Encounter Details Care Team Description Date Type Department Vannesa Victoria RN Test (Covid order faxed to [place], [place]) 04/30/2021 Documentation Cardiology: [facility] [address] [facility] [address], [address] [place] [address] Social History Date Tobacco Use [...] at Date Recorded Female 04/28/2021 1:55 PM CEO AND PRESIDENT Date Recorded COVID-19 Exposure Response 04/27/2021 5:03 PM CEO AND PRESIDENT In the last month, have you been in contact with Natalie [facility] to assess someone who was confirmed or [...] track (04/28/2021 Yes Katheryn Barrett, 1:56 PM CEO AND PRESIDENT) 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 and go back to work documented as of this encounter Visit Diagnoses Not on filedocumented in this encounter Additional Health Concerns Noted Time Assessment 04/30/2021 9:40 AM CEO AND PRESIDENT A fall risk assessment has been complet ed for the patient documented as of this encounter Care Teams Start Date End Date Retail Specialist Relationship Specialty 04/27/21 Jazmyn Ruiz NP PCP - General Nurse [address] [place] [address] [place] [address] documented as of this encounter
--- OUTSIDE RECORDS SUMMARY | 2021-05-15 10:07 | XMS REPORT | Encounter Summary ---
Author Author [facility] Organization [facility] Address Unknown Phone Unavailable Care Team Providers Care Building Insulation Supervisor Name Role Phone SaraJazmyn borden ASSEMBLER FISHING FLOATS PCP Encounter Details Care Team Description Date Type Department 05/07/2021 Travel Social History Date Tobacco Use Types [...] Recorded Female 04/28/2021 1:55 PM DIRECTOR OF INCOME TAX Date Recorded COVID-19 Exposure Response 05/07/2021 6:13 AM DIRECTOR OF INCOME TAX In the last month, have you been [...] Yes Katheryn Barrett, 1:56 PM DIRECTOR OF INCOME TAX) 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 and go back to work documented as of this encounter Visit Diagnoses Not on filedocumented in this encounter Additional Health Concerns Noted Time Assessment 05/07/2021 8:01 PM DIRECTOR OF INCOME TAX A fall risk assessment has been complet ed for the patient documented as of this encounter Care Teams Start Date End Date Building Insulation Supervisor Relationship Specialty 04/27/21 Jazmyn Ruiz, TAYLOR PCP - General Nurse [address] [place] [address] [place] [address] documented as of this encounter
--- OUTSIDE RECORDS SUMMARY | 2021-05-15 10:07 | XMS REPORT | Encounter Summary ---
Author Author [facility] Organization [facility] Address Unknown Phone Unavailable Care Team Providers Care Executive Pilot Name Role Phone Jazmyn Ruiz NP PCP Encounter Details Care Team Description Date Type Department Vannesa Victoria RN Nonrheumatic aortic valve stenosis (Prim annel Dx); Encounter for screening laboratory testing for COVID-19 virus in asymptomatic patient 04/30/2021 Prep for Case Cardiology: [facility] [address] [facility] [address] [place] [address] Social History Date Tobacco Use [...] Recorded Female 04/28/2021 1:55 PM DIRECTOR OF LABOR AND DELIVERY Date Recorded COVID-19 Exposure Response 04/27/2021 5:03 PM DIRECTOR OF LABOR AND DELIVERY In the last month, have you been in contact with Natalie [facility] to assess someone who was confirmed or [...] Yes Katheryn Barrett, 1:56 PM DIRECTOR OF LABOR AND DELIVERY) 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 and go back to work documented as of this encounter Results * COVID-19 (SARS-COV-2) PCR (05/04/2021) COVID-19 Not detected OTHER OUTSIDE (SARS-CoV-2) LAB PCR COVID-19 OTHER OUTSIDE (SARS-CoV-2) LAB PCR Source Specimen Flocked Swab - Nasopharyngeal Narrative Performing Organization Address City/State/ZIP Code P [place] Number OTHER OUTSIDE LAB documented in this encounter Visit Diagnoses Diagnosis Nonrheumatic aortic valve stenosis - Pr imary Aortic valve disorders Encounter for screening laboratory test ing for COVID-19 virus in asymptomatic patient documented in this encounter Orders First Ordered Date Nursing Count Last Ordered Date IMPLEMENT CARDIOTHORACIC SURGERY DAY OF 04/30/2021 SURGERY PROTOCOL First Ordered Date Case Request Count Last Ordered Date CASE REQUEST 1 04/30/2021 documented in this encounter Additional Health Concerns Noted Time Assessment 04/30/2021 9:40 AM DIRECTOR OF LABOR AND DELIVERY A fall risk assessment has been complet ed for the patient documented as of this encounter Care Teams Start Date End Date Executive Pilot Relationship Specialty 04/27/21 Jazmyn Ruiz NP PCP - General Nurse [address] [place] [address] [place] [address] documented as of this encounter
--- OUTSIDE RECORDS SUMMARY | 2021-05-15 10:07 | XMS REPORT | Encounter Summary ---
Author Author [facility] Organization [facility] Address Unknown Phone Unavailable Care Team Providers Care Tubular Splitting Machine Tender Name Role Phone Jazmyn Ruiz NP PCP Reason for Referral * Consult, Test & Treat (Routine) - New Request Diagnoses / Procedures Referred By Contact Referred To [facility] Specialty Procedures REQUEST FOR CARDIOLOGY APPOINTMENT Lory Curtis APRN-NP [address] [place] [address] Referral ID Status Reason Start Date Expiration Visits Vi sits Date Requested Authorized [id number] New Request 05/08/2021 05/08/2022 1 1 EAR CRITICALITY SAFETY ENGINEER * Consult, Test & Treat (Discharge Pending) - Closed Diagnoses / Procedures Referred By Contact Referred To [facility] Specialty Diagnoses Nonrheumatic aortic valve stenosis Procedures APPOINTMENT REQUEST: CARDIAC REHAB Teodoro Ruvalcaba III, MD [address] [facility] [place] [address] [facility] Cardpulm Rehab Svc [address] [facility] 4 [place] [address] Referral ID Status Reason Start Date Expiration Visits Vi sits Date Requested Authorized [id number] Closed 05/07/2021 05/07/2022 1 1 EAR CRITICALITY SAFETY ENGINEER Reason for Visit * Auth/Cert Diagnoses / Procedures Referred By Contact Referred To [facility] Specialty Diagnoses Nonrheumatic aortic valve stenosis Nonrheumatic aortic valve stenosis [I35.0] Procedures VT REPLACE AORTIC VALVE OPENFEMORAL ARTERY APPROACH Transcatheter Aortic Valve Replacement - Femoral Artery, 26 Evolut Pro+, Stepdown Referral ID Status Reason Start Date Expiration Visits Vi sits Date Requested Authorized [id number] 1 1 Encounter Details Care Team Description Date Type Department Teodoro Ruvalcaba III, MD 4000 [facility] [address] [place] [address] [place] [id number] [place] [id number] S/p TAVR (transcatheter aortic valve rep lacement), bioprosthetic 05/07/2021 Hospital Patient Care Unit H C4: - [facility]counter [facility] 05/08/[address] [place] [address] 4 [place] [address] Social History Date Tobacco Use [...] at Date Recorded Female 04/28/2021 1:55 PM NUCLEAR CRITICALITY SAFETY ENGINEER Date Recorded COVID-19 Exposure Response 05/07/2021 6:13 AM NUCLEAR CRITICALITY SAFETY ENGINEER In the last month, have you been in contact with No / Unsure someone who was confirmed or suspected to have Coronavirus / COVID-19? documented as of this encounter Last Filed Vital Signs Reading Time Taken Comments Vital Sign 119/66 05/08/2021 3:35 PM NUCLEAR CRITICALITY SAFETY ENGINEER Blood Pressure 83 05/08/2021 12:55 PM NUCLEAR CRITICALITY SAFETY ENGINEER Pulse 36.8 C (98.3 F) 05/08/2021 12:55 PM NUCLEAR CRITICALITY SAFETY ENGINEER Temperature - - Respiratory Rate 99% 05/08/2021 12:55 PM NUCLEAR CRITICALITY SAFETY ENGINEER Oxygen Saturation - - Inhaled Oxygen Concentration 89.4 kg (197 lb 1.5 oz) 05/08/2021 3:35 PM NUCLEAR CRITICALITY SAFETY ENGINEER Weight 167.6 cm (5' 5.98") 05/08/2021 3:35 PM NUCLEAR CRITICALITY SAFETY ENGINEER Height 31.83 05/08/2021 3:35 PM NUCLEAR CRITICALITY SAFETY ENGINEER Body Mass Index documented in this encounter Functional Status Date of Assessment [...] impairment: No documented as of this encounter Discharge Summaries * Jennifer Pride - 05/08/2021 4:30 PM NUCLEAR CRITICALITY SAFETY ENGINEER Physician Discharge Summary Name: Isis Cochran Date Of : 1955 Age: 65 years Admit date: 05/07/2021 Discharge date: 05/08/2021 Attending Physician: Teodoro Ruvalcaba III, MD Physician Summary completed by: Lory Curtis APRN-TAYLOR Reason for hospitalization: Nonrheumatic aortic valve stenosis [I35.0] Nonrheumatic aortic valve insufficiency [I35.1] Significant PMH: Medical History: Diagnosis Date Arthritis left knee Chest pain 04/27/2021 Diastolic dysfunction 04/28/2021 DVT (deep venous thrombosis) ([facility]) 1986 Dyslipidemia GERD (gastroesophageal reflux disease) 04/28/2021 HTN (hypertension) Nonrheumatic aortic valve stenosis 04/27/2021 Other chest pain 04/27/2021 Palpitations PONV (postoperative nausea and vomiting) Primary hypertension 04/27/2021 Severe aortic stenosis 04/28/2021 Stage 3a chronic kidney disease (HCC) 04/28/2021 related to NSAIDs BENTLEY (stress urinary incontinence, female) 04/28/2021 Allergies: Nsbcawn-ebd-umq reductase inhibitors Admission Physical Exam notable for: Nonrheumatic aortic valve stenosis [I35.0] Nonrheumatic aortic valve insufficiency [I35.1] Admission Lab/Radiology studies notable for: Aortic Stenosis. Brief Hospital Course: The patient was admitted to [facility] for elective transcatheter aortic valve replacement. The patient und erwent the procedure and tolerated it well. She was monitored on the cardiothor [facility] progressive care unit following surgery. Her rhythm remained stable overni ght without pacing requirements. She increased her activity and oral intake. A post-operative echocardiogram demonstrated a 26 mm bioprosthetic valve in the ao rtic position, well-seated well-functioning, No valvular dysfunction, No signifi cant perivalvular/transvalvular regurgitation, Peak velocity 1.3 m/s, mean gradi ent 4 to 5 mmHg. The patient had normal bowel and bladder function. The patient was stable to be discharged home on post operative day#1. Prior to discharge her CBC was repeated due to a drop in hemoglobin which normalized to 11.6. In addit ion, she had bilateral groin tenderness worse than typically appreciated which a groin US was completed revealing no pseudoaneurym. Following these diagnostic s tudies she discharged home. Condition at Discharge: Stable Discharge Diagnoses: Hospital Problems Active Problems * (Principal) S/p TAVR (transcatheter aortic valve replacement), bioprosthetic Primary hypertension Dyslipidemia Deep vein thrombosis (DVT) of iliac vein of left lower extremity (HCC) Stage 3a chronic kidney disease (HCC) GERD (gastroesophageal reflux disease) Nonrheumatic aortic valve stenosis Chronic diastolic heart failure, NYHA class 2 (HCC) Hypokalemia Hypomagnesemia Surgical Procedures: 05/07/21: Dr. Ruvalcaba 1. Ultrasound-guided access to bilateral common femoral arteries. 2. Placement of balloon-tipped temporary pacemaker. 3. Ascending aortogram. 4. Transcatheter aortic valve replacement using 26 mm Evolut PRO+. 5. Balloon angioplasty using 22 mm True balloon. 6. Iliofemoral arteriogram with runoff. Significant Diagnostic Studies and Procedures: noted in brief hospital course POD1 limited echo: 05/08/21 Hyperdynamic/preserved LV systolic function, LVEF >65%. Mild left ventricular wall thickness. Normal right ventricular size and function. Grade 1 diastolic dysfunction. No regional wall motion abnormality. Status post 26 mm bioprosthetic valve in the aortic position. Well-seated we ll-functioning. No valvular dysfunction. No significant perivalvular/transvalv ular regurgitation. ? Peak velocity 1.3 m/s, mean gradient 4 to 5 mmHg. No pericardial effusion. Visualized portions of the aortic root and ascending thoracic aorta are withi n normal limits. Groin US: 05/08/21 Right Groin Duplex Interpretation - The right common femoral artery demonstrates <50% stenosis and has triphasic flow. There is not an AV fistula present. A pseudoaneurysm was not found in the right common femoral artery. - The right superficial femoral artery demonstrates <50% stenosis and has triphasic flow. There is not an AV fistula present. A pseudoaneurysm was not found in the right superficial femoral artery. - The right profunda femoris artery demonstrates <50% stenosis and has triphasic flow. There is not an AV fistula present. A pseudoaneurysm was not found in the right profunda femoris artery. - The right distal external iliac vein appears normal. - The right common femoral vein appears normal. - The right femoral vein appears normal. Left Groin Duplex Interpretation - The left common femoral artery demonstrates <50% stenosis with triphasic flow. There is not an AV fistula. A pseudoaneurysm was not found in the left common femoral artery. - The left superficial femoral artery demonstrates <50% stenosis with triphasic flow. There is not an AV fistula. A pseudoaneurysm was not found in the left superficial femoral artery. - The left profunda femoris artery demonstrates <50% stenosis with triphasic flow. There is not an AV fistula. A pseudoaneurysm was not found in the left profunda femoris artery. - The left distal external iliac vein appears normal. - The left common femoral vein appears normal. - The left femoral vein appears normal. Consults: Anesthesiology Patient Disposition: Home Patient instructions/medications: Cardiac Diet Limiting unhealthy fats and cholesterol is the most important step you can take in reducing your risk for cardiovascular disease. Unhealthy fats include satura nina and trans fats. Monitor your sodium and cholesterol intake. Restrict your so dium to 2g (grams) or 2000mg (milligrams) daily, and your cholesterol to 200mg d aily. If you have questions regarding your diet at home, you may contact a dietitian a t . Other Activity Restrictions -You should and need to walk daily. Your goal is to walk 30 minutes at at time without stopping for breaks. This is a daily exercise routine that you should st art as soon as you arrive home. Your basic daily activities do not count toward your 30 minute minimum, e.g. housework, toileting, fixing meals. Do not exercise outside in extremely hot or cold temperatures. -Driving: NO driving for 3 days, if you are taking narcotics, or if you are phys ically unable. -Lifting: NO lifting more than 10 pounds (gallon of milk) for 2 weeks. -Monitoring: If you have access to a home blood pressure cuff, record your blood pressure and heart rate daily. Please call if your systolic blood pressure is <90 or >160, OR if your heart rate is <50 or >120 at rest Incision Care and Bathing Instructions Keep your incision(s) clean and dry. [place] your incision with the provided wou nd cleanser twice a day until your incision is healed, or the bottle is empty. It is ok to shower unless otherwise noted. Do not soak in a bath tub, hot tub, pool or scott for 6 weeks. Do not use creams or lotions on incision until it is fully healed. If your surgeon used Dermabond (skin glue), this will fall off g radually, do not pick at the glue. If you notice redness, swelling, drainage, f oul odor, or sutures sticking up through your incision, please call the Cardioth oracic Surgery clinic immediately. [phone] Report These Signs and Symptoms Please contact your doctor for the following symptoms: *Temperature over 100 degrees F *Uncontrolled pain *Drainage with a foul odor *Shortness of breath *Racing or skipping heart beats *Swelling or tenderness in your groin *Painful/Cold/Discolored legs or toes *Suture material sticking up through your incisions *Change in coordination of ability to talk *If you gain more than 2 pounds in 24 hours, or 5 pounds in one week. 1-Month Post-Operative Follow Up Appointment Echocardiogram at 2:45p, appointment will follow. Check-in for your appointment at the Cardiovascular Medicine and Cardiovascular and Thoracic Surgery office located by the main entrance of the [facility]. Provider NHI MARTINEZ [[id number]] Location Cardiology Clinic Appointment date: 06/23/2021 Appointment time: 2:45 PM Primary Care Provider Appointment Jazmyn Ruiz [phone] Call to schedule an appointment with your primary care doctor in 1-2 weeks for a checkup and medication review. 1-Week Post-Operative Follow Up Appointment This will be a post-operative Telehealth visit. Please login to My Chart for i nstructyosi. HARJIT Provider NHI MARTINEZ [[id number]] Appointment date: 05/18/2021 Appointment time: 10:00 AM Cardiac Rehab Your physician has referred you to participated in outpatient cardiac rehabilit ation. Contact The [facility] Cardiac Rehabilitation Dep[facility] nt at [phone] to schedule an appointment. If you will be attending cardiac rehab at a different facility, a referral will be sent to the facility of your choice. If you have not heard from that facilit y within 2 weeks after you have been discharged, please call them to schedule an appointment. Referral to outpatient cardiac rehab: Outside referral faxed: Internal referral sent to: Heart Failure Information You are at risk for readmission to the hospital because of fluid overload. Ther e are steps you can take to lower your risk: *Continue your current heart medications. Changes made have been made during you r hospital stay. *Remember to weigh yourself every morning, first thing after you urinate, and wr ite down your weigh. Take this record to your doctor's appointments. *Chart your symptoms - fatigue, shortness of breath, swelling, etc. Immediately report any worsening. *Remember to consume no more than 2,000mg (milligrams) of sodium daily. Watch ou t for packaged, processed, canned, and restaurant foods especially. *If any of your symptoms worsen, or if you gain more than 2 pounds in 24 hours, or 5 pounds in a week, call your field technical specialist immediately. EARLY REPORTING OF TH REJI CHANGES IS VERY IMPORTANT. Condition Code Risk Reduction Plan Cardiac Event Personal Risk Factor Reduction Plan Take this sheet to your physician to show treatment recommendations Isis Nolasco Cochran Admission Date: 05/07/2021 LOS: @LOS@ Blood Pressure Risk Goal: Keep blood pressure below 130/80 Your Numbers: BP Readings from Last 1 Encounters: 05/08/21 : 102/67 Plan: High blood pressure is the single most important risk factor for cardiac e vents because it's the #1 cause of cardiac events. Take medication as prescribe d and monitor your blood pressure. Abnormal lipids (fats in blood) Risk Goal: Total Cholesterol: <200 LDL (bad cholesterol): primary prevention <100 LDL (bad cholesterol): secondary prevention < 70 HDL ("good" cholesterol): >40 for men, >50 for women Triglycerides: <150 Your Numbers: No results found for: CHOL No results found for: LDL No results found for: HDL No results found for: TRIG Plan: Diets high in saturated fat, trans fat and cholesterol can raise blood cho lesterol levels increasing your risk of having a cardiac event. Take medication as prescribed and eat a heart healthy, low sodium diet. Smoking Risk Goals: If you smoke, STOP! Plan: Smoking DOUBLES your risk of having a cardiac event. Quitting can greatly reduce your risk. To register for smoking cessation program call [phone] or visit www.smokefree.gov Diabetes Risk Goal: Non-diabetic: Below 5.7% Goal for diabetic: Less than 7% Your Numbers: Hemoglobin A1C Date Value Ref Range Status 04/27/2021 5.4 4.0 - 6.0 % Final Comment: The ADA recommends that most patients with type 1 and type 2 diabetes maintain an A1c level <7%. Plan: If you have diabetes, even if treated, you are at an increased risk of hav ing a cardiac event. Alcohol Use Risk Goal: Alcohol use can lead to a cardiac event. Plan: For men, limit intake to no more than 2 drinks per day. For women, limit intake to no more than one drink per day. Weight Management Risk Goal: Healthy: BMI is 18.5 to 24.9 Overweight: BMI is 25 to 29.9 Obese: BMI is 30 or higher Morbid Obesity: BMI [...] Your Numbers: Your BMI (Calculated): 31.31 Plan: If you have questions about your diet after you go home, you can call justo pretty at [phone] Physical Activity Risk Goal: Patients should have approval by a physician prior to beginning an exercis e program. Plan: Try to get at least 30 minutes of moderate physical activity five days a w [place] or 20 minutes of vigorous physical activity three days a week with your doct or's approval. To the Neurology and the NeuroSurg Discharge order sets set add a new order in t he education section titled "Risk Reduction Plan", in the comments section add t he following (default select this new order for neuro and neuro surg and ensure this information is added to the AVS). Additional Discharge Instructions You MUST take antibiotics prior to any dental procedures (including cleaning), invasive respiratory tract procedures and invasive skin procedures. You should NOT have any of these procedure for 3 months after your valve surgery. This joshua l help to prevent infection to the heart valve. Contact your primary care provi estela or field technical specialist for an antibiotic prescription when needed. Questions About Your Stay For questions or concerns regarding your hospital stay, call [phone] sincere koenig regular business hours, Tuesday through Tuesday, 8am-4pm. During the evenings o r weekends, please call [phone]. Discharging attending physician: TEODORO RUVALCABA III [[id number]] Appointment Request: Cardiac Rehab "Ordering of Outpatient Cardiac Rehabilitation includes: - Outpatient Cardiac Rehabilitation per department protocol, 2-3x per week for u p to a total of 36 sessions - Initial evaluation including 6MWT or baseline exercise testing - Psychosocial, fitness, nutritional, medication, and risk factor assessment and education - Development of individualized treatment plans (ITPs) - If patient is diabetic, blood glucose testing as needed per departmental jayshree col o Blood sugar monitoring and provision of 3 glucose tablets or ? 15 g carbohyd rate snack for hypoglycemia based on departmental protocol - Initiation of all emergency protocols, as indicated per hospital and departmen tamara policies, including, but not limited to o Administration of nitroglycerin .4mg sublingual for persistent, unstable, ne w-onset, or stable angina that doses not resolve after 5 minutes of rest. May repeat up to a total of 3 doses per protocol. o Obtaining a 12-Lead EKG if indicated. o Initiation and/or titration of O2 per departmental protocol for oxygen satur ation <88% via pulse oximeter. - Upon completion of the Cardiac Rehab program criteria, patient may continue in to a maintenance program" This order must be signed/co-signed by a PHYSICIAN Diagnosis Information: Valve Replacement Pager # of the requesting provider if any questions? [phone] Request for Cardiology Appointment Standing Status: Future Standing Exp. Date: 05/08/[address] Bowden while inpatient. Scheduling Priority: Routine Schedule OV with (1st choice Provider) Venancio Bowden M.D. Will this patient be discharged with home health or to a continued care facility (SNF/Rehab)? No Current Discharge Medication List START taking these medications Details aspirin 81 mg chewable tablet Chew one tablet by mouth daily. Take with food. Qty: 90 tablet PRESCRIPTION TYPE: OTC senna/docusate (SENOKOT-S) 8.6/50 mg tablet Take two tablets by mouth twice norman y. Qty: 90 tablet PRESCRIPTION TYPE: OTC CONTINUE these medications which have NOT CHANGED Details acetaminophen (TYLENOL EXTRA STRENGTH) 500 mg tablet Take 1,000 mg by mouth at b edtime daily. Max of 4,000 mg of acetaminophen in 24 hours. PRESCRIPTION TYPE: Historical Med Cranberry 400 mg cap Take 400 mg by mouth daily. PRESCRIPTION TYPE: Historical Med diclofenac sodium (VOLTAREN) 1 % topical gel Apply four g topically to affected area four times daily. Qty: 300 g, Refills: 0 PRESCRIPTION TYPE: Normal fish oil /omega-3 fatty acids (SEA-OMEGA) 340/1000 mg capsule Take 4 capsules by mouth daily. PRESCRIPTION TYPE: Historical Med gabapentin (NEURONTIN) 300 mg capsule Take one capsule by mouth every 8 hours. Qty: 90 capsule, Refills: 0 PRESCRIPTION TYPE: Normal nitroglycerin (NITROSTAT) 0.[address] one tablet under tongue every 5 mi nutes as needed for Chest Pain. Max of 3 tablets, call 911. Qty: 25 tablet, Refills: 0 PRESCRIPTION TYPE: Normal omeprazole DR (PRILOSEC) 20 mg capsule Take 20 mg by mouth daily before breakfas t. PRESCRIPTION TYPE: Historical Med pravastatin (PRAVACHOL) 40 mg tablet Take 40 mg by mouth at bedtime daily. PRESCRIPTION TYPE: Historical Med rivaroxaban (XARELTO) 20 mg tablet Take 20 mg by mouth daily with dinner. Take w ith food. PRESCRIPTION TYPE: Historical Med tolterodine LA (DETROL LA) 4 mg capsule Take 4 mg by mouth daily. PRESCRIPTION TYPE: Historical Med vit C,V-Pi-ipecu-lutein-zeaxan (PRESERVISION AREDS-2) 250-90-40-1 mg cap Take 1 capsule by mouth daily. PRESCRIPTION TYPE: Historical Med vitamins, w/iron & folate 65/1 mg tab Take 1 tablet by mouth daily. PRESCRIPTION TYPE: Historical Med The following medications were removed from your list. This list includes medic ations discontinued this stay and those removed from your prior med list in our system amLODIPine (NORVASC) 10 mg tablet Scheduled appointments: May 18, 2021 10:00 AM Telehealth visit with MITZY Monreal Cardiology: [facility] ([facility]M Exam) [address] [facility] [address] Jun 23, 2021 2:45 PM Echo Doppler with [facility] Cardiology:[facility] ([facility] Procedural) [address] [facility] [address] Jun 23, 2021 4:30 PM Office visit with MITZY Monreal Cardiology: [facility] (CVM Exam) [address] [facility] [address] Pending items needing follow up: Norvasc not restarted post-op. Signed: MITZY Atkinson 05/11/2021 cc: Primary Care Physician: Jazmyn Ruiz Referring physicians: Venancio Bowden MD Additional provider(s): Referral to outpatient cardiac rehab: Location: [facility] [phone] Outside referral faxed: Date Faxed: 05/08/21 Internal referral sent to: EAR CRITICALITY SAFETY ENGINEER * Chaya Ellis - 05/07/2021 12:28 PM NUCLEAR CRITICALITY SAFETY ENGINEER Case Management Progress Note NAME:Isis Cochran :1955 AGE: 65 y.o. ADMISSION DATE: 05/07/2021 DAYS ADMITTED: LOS: 0 days Todays Date: 05/07/2021 Plan Patient is immediately s/p tAVR; anticipate medical stability for discharge home tomorrow. Interventions Support Support: Pt/Family Updates re:POC or DC Plan, Patient Education Info or Referral Information or Referral to Community Resources: No Needs Identified Discharge Planning Discharge Planning: No Needs Identified - Discharge POC reviewed via primary team huddle and EMR; team anticipating pt w ill be medically stable for discharge home tomororw following echo. 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 - Anticipate discharge to previous setting with family support. - No CM needs identified at this time by primary team; will remain available for assistance as needed. Medication Needs Medication Needs: No Needs Identified Financial Financial: No Needs Identified Legal Legal: No Needs Identified Other Other/None: No needs identified Disposition Transportation Discharge Disposition Selected Continued Care - Admitted Since 05/07/2021 No services have been selected for the patient. Chaya Ellis LMSW Surgery - Cardiothoracic Surgery Production Zone Leader *[id number] EAR CRITICALITY SAFETY ENGINEER documented in this encounter Discharge Instructions * Discharge Instr - Wound/Line/Drain* Michelle Motta RN - 05/07/2021 10:45 AM NUCLEAR CRITICALITY SAFETY ENGINEER [place] incisions with provided wound cleanser spray twice daily as instructed. EAR CRITICALITY SAFETY ENGINEER documented in this encounter Medications at Time of Discharge Start Date End Date Medication Sig Dispensed Refills acetaminophen (TYLENOL Take 1,000 mg 0 EXTRA STRENGTH) 500 mg by mouth at tablet bedtime daily. Max of 4,000 mg of acetaminophen in 24 hours. 05/08/2021 aspirin 81 mg chewable Chew one 90 tablet 0 tablet tablet by mouth daily. Take with food. Cranberry 400 mg cap Take 400 mg 0 by mouth daily. 04/30/2021 diclofenac sodium Apply four g 300 g 0 (VOLTAREN) 1 % topical topically to gel affected area four times daily. fish oil /omega-3 fatty Take 4 0 acids (SEA-OMEGA) capsules by 340/1000 mg capsule mouth daily. 04/30/2021 gabapentin (NEURONTIN) Take one 90 capsule 0 300 mg capsule capsule by mouth every 8 hours. 04/30/2021 nitroglycerin (NITROSTAT) Place one 25 tablet 0 0.4 mg tablet tablet under tongue every 5 minutes as needed for Chest Pain. Max of 3 tablets, call 911. omeprazole DR (PRILOSEC) Take 20 mg by 0 20 mg capsule mouth daily before breakfast. pravastatin (PRAVACHOL) Take 40 mg by 0 40 mg tablet mouth at bedtime daily. rivaroxaban (XARELTO) 20 Take 20 mg by 0 mg tablet mouth daily with dinner. Take with food. 05/08/2021 senna/docusate Take two 90 tablet 0 (SENOKOT-S) 8.6/50 mg tablets by tablet mouth twice daily. tolterodine LA (DETROL Take 4 mg by 0 LA) 4 mg capsule mouth daily. vit Take 1 0 C,A-Ef-wdpiu-lutein-zeaxa capsule by n (PRESERVISION AREDS-2) mouth daily. 250-90-40-1 mg cap vitamins, w/iron Take 1 tablet 0 & folate 65/1 mg tab by mouth daily. documented as of this encounter Ordered Prescriptions Start Date End Date Prescription Sig Dispensed Refills 05/08/2021 senna/docusate Take two 90 tablet 0 (SENOKOT-S) 8.6/50 mg tablets by tablet mouth twice daily. 05/08/2021 aspirin 81 mg chewable Chew one 90 tablet 0 tablet tablet by mouth daily. Take with food. documented in this encounter Discharge Disposition Code Departure Means Destination Disposition Wheelchair Home or Self Care documented in this encounter Progress Notes * Batsheva Rome OT - 05/08/2021 1:08 PM NUCLEAR CRITICALITY SAFETY ENGINEER OCCUPATIONAL THERAPY DISCHARGE Name: Isis Cochran : 1955 Age: 65 y. o. Admission Date: 05/07/2021 LOS: 1 day Per discussion with PT, patient reports no concerns with completing activities o f daily living with no OT goals identified. OT will discontinue service, please re-consult if the patient has a decline in functional status. Therapist: DARWIN Merritt/Cristy [id number] Date: 05/08/2021 EAR CRITICALITY SAFETY ENGINEER * Tonja Bill, PT - 05/08/2021 11:11 AM NUCLEAR CRITICALITY SAFETY ENGINEER PHYSICAL THERAPY NOTE Name: Isis Cochran : 1955 Age: 65 y. o. Admission Date: 05/07/2021 LOS: 1 day Patient denies changes from baseline mobility and reports no history of balance loss or falls in the last three months. Patient endorses no concerns with mobil ity at home. Currently, the patient is ambulating on unit without difficulty. Encouraged patient to continue mobilization while in the hospital and discussed the mobility plan with the bedside nursing staff. Physical therapy services joshua l be discontinued at this time, please re-consult if the patient has a change in mobility status. Therapist: Tonja Bill, [place], DPT [id number] Date: 05/08/2021 EAR CRITICALITY SAFETY ENGINEER * Porfirio Boyd - 05/08/2021 9:37 AM NUCLEAR CRITICALITY SAFETY ENGINEER 05/08/21 0930 Current Cardiac Procedures/Events Pre Admit Dx Chest Pain Risk Factors Risk Factors Hypertension;Hyperlipidemia BP 122/75 Education Person Instructed Patient;Spouse Patient Barriers To Learning None Noted Interventions/Teaching Methods Verbal Instructions;Written Materials Provided Patient Response Verbalized Understanding Topics Angina and NTG use;Wound Care;Sternal and Upperbody restrictions for OHS; Reasons to call your doctor;Risk Factor Management - Blood Pressure;Risk Factor Management - Diabetes;Risk Factor Management - Smoking;Risk Factor Management - Cholesterol;Risk Factor Management - Obesity;Risk Factor Management - Stress;Ris k Factor Management - Physical Inactivity;Home Walking Guidelines;Outpatient Car diac Rehab Referral Information Teaching Completed 05/08/21 Heart Resource Manual Given 05/08/21 Comments covered CR eduaction topics regarding pts procedure. pt verbalized unde rstanding and noted desire to attend in [place]. will fax information Outpatient Cardiopulmonary Rehab OPCR Yes Location [place], [place]- [facility] [phone] Date Faxed 05/08/21 EAR CRITICALITY SAFETY ENGINEER * Lory Curtis APRN-NP - 05/08/2021 7:41 AM NUCLEAR CRITICALITY SAFETY ENGINEER Cardiothoracic Surgery Post-Op Note Transcatheter Aortic Valve Replacement NAME: Isis Cochran :1955 AGE: 65 y.o. ADMISSION DATE: 05/07/2021 DAYS ADMITTED: LOS: 1 day Primary Two Needle Machine Operator: Needs to establish- saw Dr. Bowden inpatient. Procedure: Transcatheter Aortic Valve Replacement Post-Op Day #: 1 Assessment Principal Problem: S/p TAVR (transcatheter aortic valve replacement), bioprosthetic Active Problems: Primary hypertension Dyslipidemia Deep vein thrombosis (DVT) of iliac vein of left lower extremity (HCC) Stage 3a chronic kidney disease (HCC) GERD (gastroesophageal reflux disease) Nonrheumatic aortic valve stenosis Acute on chronic diastolic CHF (congestive heart failure), NYHA class 2 (HCC) Hypokalemia Hypomagnesemia PLAN: 1. CV - Normal Sinus Rhythm in 70-80s. Temporary pacemaker in place, no pacing requirements at this time- DC. SBP 100-130s. Cont ASA, pravastatin. Takes Amlod ipine at home. Preop BNP 23. NYHA class 2. Intra-op EF- report pending. Echo ordered for early AM. 2. Resp - SpO2 98% on RA. CXR reviewed - mild pulmonary venous congestion on pr eliminary report- will await final radiology report. Cont IS, aggressive pulm toilet. 3. 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 Today 0.85. UOP- 3L/24h, net -1.7L/24h, home Det rol LA ordered. weight +1.4kg/24h, 88kg at admission. Na+141/K+4.2/Mg2+2.3- rep lace electrolytes per sliding scale. 4. GI - No BM post-op, cont bowel regimen. Continue home PPI. 5. Heme/ID - WBC 7.7. Afebrile. Hgb 9.7. Plt 186k. Repeat CBC at 10a. Takes Xar elto for A. Fib. 6. Endo - hgb A1c 5.4%. Non-diabetic, will hold on SS insulin. 7. Activity - OOBTC and ambulate with nursing and Cardiac rehab at least TID. A nticipate discharge to home when medically stable. 8. Neuro/Psych - pain well controlled on scheduled Tylenol and PRN oxycodone. Co ntinue home gabapentin. 9. Disposition - DC stepdown status. Monitor Rhythm and hemodynamics. Echo order ed for early AM. Anticipate home today. I spent 35 minutes coordinating the care of this patient. Greater than 50% of t he time was spent on examining the patient, counseling the patient regarding the ir condition, laboratory/radiology/echocardiography review, discharge planning a nd outpatient care follow up. Lory Curtis APRN-GUEST SERVICES AMBASSADOR Reach me on Voalte or Page [phone] at 05/08/2021 7:44 AM Subjective Ms. Cochran is a 65 y.o. female who has a history of symptomatic aortic stenosis. She is now s/p transcatheter aortic valve replacement. History of Present Illness Ms. Cochran is a 65 yr old femalewho [facility] [place] [place] of chest pain. She has a past medical history significant forDVT of LLE in 2014on chronic anticoagulation with Xarelto - last dose was 04/26/2021,fem-pop bypass with Dr. Jeter at in about 1989,hypertension, dyslipidemia, hx of breast lumpectomywithout chemo or radiation,Stage 3a chronic kidney disease, GERD,andstress urinary inco ntinence. Ms. Cochran reports anonset of chest pressure 04/27 aroundnoon. The pa in/pressure occurs at rest and isworse with exertionwith associated dyspnea on exertion. Troponinsand EKGnegativefor ACS.She said that she never had chest pain like this before. She reportedly still has somechest pain but repo rts thatit is very mildnow. She has been told she has a murmur for over 20 years. It was not until recently that she was seen in a new clinic and asked if it had been "studied." She went t o [facility] for an echo which revealed severe .Ms. Cochran reports that she has noticed increased fatigue and reduced exercise tolerance that has been progr essive in nature since September 2020. She is a non-smoker. She reports about 8 ounc es of wine 3-4 days/week. She also reports chest pain/pressure, orthopnea, and l ower extremity edema. She denies anysyncope/presyncope. Review of Systems Cardiovascular: denies chest pain, palpitations, shortness of breath Respiratory: denies cough, wheezing, sputum Objective Vitals: 05/08/21 0200 05/08/21 0400 05/08/21 0415 05/08/21 0600 BP: 118/67 112/67 102/67 Pulse: 89 86 75 Temp: 37 C (98.6 F) SpO2: 94% 98% 97% Weight: 89.4 kg (197 lb) Height: Physical Exam Cardiovascular: S1S2 without murmur Lungs: clear to auscultation bilaterally GI: Soft, non-tender, +bowel sounds Extremities: no edema Groins/Incision site: Right groin dressing C/D/I, no drainage, no hematoma, soft . Left groin dressing C/D/I, no drainage, no hematoma, soft. Intake/Output Summary (Last 24 hours) at 05/08/2021 0744 Last data filed at 05/08/2021 0415 Gross per 24 hour Intake 1300 ml Output 3050 ml Net -1750 ml Pertinent Meds: Taking Reason for Not Taking 1. Aspirin Yes 2. B-Andriy No Post-op 3. Statin Yes 4. ISHMAEL/ARB No EF>40% Prophylaxis Review: Lines: Yes; Arterial Line; Indication: Continuous BP monitoring; Location: Ra dial Antibiotic Usage: Yes; SBE Prophylaxis. VTE: Mechanical prophylaxis; Sequential compression device Urinary Catheter: No Basic Metabolic Profile Lab Results Component Value Date/Time NA 141 05/08/2021 04:12 AM K 4.2 05/08/2021 04:12 AM CA 8.1 (L) 05/08/2021 04:12 AM CL 109 05/08/2021 04:12 AM CO2 21 05/08/2021 04:12 AM GAP 11 05/08/2021 04:12 AM Lab Results Component Value Date/Time BUN 17 05/08/2021 04:12 AM CR 0.85 05/08/2021 04:12 AM GLU 104 (H) 05/08/2021 04:12 AM CBC w/Diff Lab Results Component Value Date/Time WBC 7.7 05/08/2021 04:12 AM RBC 3.35 (L) 05/08/2021 04:12 AM HGB 9.7 (L) 05/08/2021 04:12 AM HCT 28.7 (L) 05/08/2021 04:12 AM MCV 85.7 05/08/2021 04:12 AM MCH 29.0 05/08/2021 04:12 AM MCHC 33.8 05/08/2021 04:12 AM RDW 13.7 05/08/2021 04:12 AM PLTCT 186 05/08/2021 04:12 AM MPV 8.2 05/08/2021 04:12 AM Lab Results Component Value Date/Time NEUT 58 04/30/2021 06:17 AM ANC 2.84 04/30/2021 06:17 AM LYMA 30 04/30/2021 06:17 AM ALC 1.49 04/30/2021 06:17 AM KAVON 8 04/30/2021 06:17 AM AMC 0.38 04/30/2021 06:17 AM EOSA 3 04/30/2021 06:17 AM AEC 0.15 04/30/2021 06:17 AM BASA 1 04/30/2021 06:17 AM ABC 0.05 04/30/2021 06:17 AM EAR CRITICALITY SAFETY ENGINEER Associated attestation - Teodoro Ruvalcaba III, MD - 05/08/2021 12:55 PM NUCLEAR CRITICALITY SAFETY ENGINEER Agree with plan. We will recheck hemoglobin later today. Increase activity yared smart in halls. Echo is pending. Potentially home later today. Josh Ruvalcaba M.D. * Gonzalo Ruiz, GANESH - 05/08/2021 6:58 AM NUCLEAR CRITICALITY SAFETY ENGINEER Pt SR on tele. AOx4. Tolerating RA. Last BM 05/07, UOP adequate. Incisions c/d/i , scant drainage from groin sites. Pain controlled with current regimen, walking well in hallway. VSS per trend. Will continue to monitor. EAR CRITICALITY SAFETY ENGINEER * Renetta Greer RN - 05/07/2021 6:55 PM NUCLEAR CRITICALITY SAFETY ENGINEER Assumed care at 1530. VSS. A/OX4. SR on telemetry. UOP adequate. -BM this shift. Ambulating in halls with x 2 assistance d/t lines. Tylenol for pain management. No other issues. EAR CRITICALITY SAFETY ENGINEER * Jazmyn Urban RN - 05/07/2021 12:19 PM NUCLEAR CRITICALITY SAFETY ENGINEER Dalton, notified of patient room number and how to get there at 1219. EAR CRITICALITY SAFETY ENGINEER * Lory Curtis APRN-NP - 05/07/2021 11:27 AM NUCLEAR CRITICALITY SAFETY ENGINEER Cardiothoracic Surgery Post-Op Note Transcatheter Aortic Valve Replacement NAME: Isis Cochran :1955 AGE: 65 y.o. ADMISSION DATE: 05/07/2021 DAYS ADMITTED: LOS: 0 days Primary Two Needle Machine Operator: Needs to establish- saw Dr. Bowden inpatient. Procedure: Transcatheter Aortic Valve Replacement Post-Op Day #: 0 Assessment Principal Problem: S/p TAVR (transcatheter aortic valve replacement), bioprosthetic Active Problems: Primary hypertension Dyslipidemia Deep vein thrombosis (DVT) of iliac vein of left lower extremity (HCC) Stage 3a chronic kidney disease (HCC) GERD (gastroesophageal reflux disease) Nonrheumatic aortic valve stenosis Acute on chronic diastolic CHF (congestive heart failure), NYHA class 2 (HCC) Hypokalemia Hypomagnesemia PLAN: 1. CV - Normal Sinus Rhythm in 70s. Temporary pacemaker in place, no pacing req uirements at this time. SBP 90-100s. Cont ASA, pravastatin. Takes Amlodipine, p ravas at home. Preop BNP 23. NYHA class 2. Intra-op EF- report pending. Echo ordered for early AM. 2. Resp - SpO2 97% on 2L- will wean O2. CXR reviewed - mild pulmonary venous co ngestion on preliminary report- will await final radiology report. Cont IS, ag gressive pulm toilet. 3. 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 Today 0.94. UOP- will monitor, home Detrol LA or dered. 1300mL given in the case secondary to increased contrast exposure. weight 88kg at admission. Na+140/K+4.1/Mg2+1.9- replace electrolytes per sliding scal e. 4. GI - No BM post-op, cont bowel regimen. Continue home PPI. 5. Heme/ID - WBC 6.1. Afebrile. Hgb 10.6. Plt 171k. Repeat CBC at 12p. Takes Xa relto for A. Fib- will start tonight 05/07. 6. Endo - hgb A1c 5.4%. Non-diabetic, will hold on SS insulin. 7. Activity - OOBTC and ambulate with nursing and Cardiac rehab at least TID. A nticipate discharge to home when medically stable. 8. Neuro/Psych - pain well controlled on scheduled Tylenol and PRN oxycodone. Co ntinue home gabapentin. 9. Disposition - Monitor Rhythm and hemodynamics. Echo ordered for early AM. Ant icipate home soon. I spent 35 minutes coordinating the care of this patient. Greater than 50% of t he time was spent on examining the patient, counseling the patient regarding the ir condition, laboratory/radiology/echocardiography review, discharge planning a nd outpatient care follow up. Lory Curtis APRN-GUEST SERVICES AMBASSADOR Reach me on Voalte or Page [phone] at 05/07/2021 11:27 AM Subjective Ms. Cochran is a 65 y.o. female who has a history of symptomatic aortic stenosis. She is now s/p transcatheter aortic valve replacement. History of Present Illness Ms. Cochran is a 65 yr old femalewho transferred [facility] [place] of chest pain. She has a past medical history significant forDVT of LLE in 2015on chronic anticoagulation with Xarelto - last dose was 04/26/2021,fem-pop bypass with Dr. Jeter at in about 1989,hypertension, dyslipidemia, hx of breast lumpectomywithout chemo or radiation,Stage 3a chronic kidney disease, GERD,andstress urinary inco ntinence. Ms. Cochran reports anonset of chest pressure 04/27 aroundnoon. The pa in/pressure occurs at rest and isworse with exertionwith associated dyspnea on exertion. Troponinsand EKGnegativefor ACS.She said that she never had chest pain like this before. She reportedly still has somechest pain but repo rts thatit is very mildnow. She has been told she has a murmur for over 20 years. It was not until recently that she was seen in a new clinic and asked if it had been "studied." [facility] which revealed severe .Ms. Cochran reports that she has noticed increased fatigue and reduced exercise tolerance that has been progr essive in nature since September 2020. She is a non-smoker. She reports about 8 ounc es of wine 3-4 days/week. She also reports chest pain/pressure, orthopnea, and l ower extremity edema. She denies anysyncope/presyncope. Review of Systems Cardiovascular: denies chest pain, palpitations, shortness of breath Respiratory: denies cough, wheezing, sputum Objective Vitals: 05/07/21 1030 05/07/21 1032 05/07/21 1045 05/07/21 1100 BP: (!) 88/59 93/63 103/62 108/60 Pulse: 73 75 71 Temp: SpO2: 97% 98% 99% 98% Weight: Height: Physical Exam Cardiovascular: S1S2 without murmur Lungs: clear to auscultation bilaterally GI: Soft, non-tender, +bowel sounds Extremities: no edema Groins/Incision site: Right groin dressing C/D/I, no drainage, no hematoma, soft . Left groin dressing C/D/I, no drainage, no hematoma, soft. Intake/Output Summary (Last 24 hours) at 05/07/2021 1127 Last data filed at 05/07/2021 0924 Gross per 24 hour Intake 1300 ml Output Net 1300 ml Pertinent Meds: Taking Reason for Not Taking 1. Aspirin Yes 2. B-Andriy No Post-op 3. Statin No 4. ISHMAEL/ARB No EF>40% Prophylaxis Review: Lines: Yes; Arterial Line; Indication: Continuous BP monitoring; Location: Ra dial Antibiotic Usage: Yes; SBE Prophylaxis. VTE: Mechanical prophylaxis; Sequential compression device Urinary Catheter: No Basic Metabolic Profile Lab Results Component Value Date/Time NA 140 05/07/2021 09:40 AM K 4.1 05/07/2021 09:40 AM CA 7.7 (L) 05/07/2021 09:40 AM CL 109 05/07/2021 09:40 AM CO2 22 05/07/2021 09:40 AM GAP 9 05/07/2021 09:40 AM Lab Results Component Value Date/Time BUN 21 05/07/2021 09:40 AM CR 0.94 05/07/2021 09:40 AM GLU 141 (H) 05/07/2021 09:40 AM CBC w/Diff Lab Results Component Value Date/Time WBC 6.1 05/07/2021 09:40 AM RBC 3.63 (L) 05/07/2021 09:40 AM HGB 10.6 (L) 05/07/2021 09:40 AM HCT 31.2 (L) 05/07/2021 09:40 AM MCV 86.0 05/07/2021 09:40 AM MCH 29.2 05/07/2021 09:40 AM MCHC 34.0 05/07/2021 09:40 AM RDW 13.6 05/07/2021 09:40 AM PLTCT 171 05/07/2021 09:40 AM MPV 8.2 05/07/2021 09:40 AM Lab Results Component Value Date/Time NEUT 58 04/30/2021 06:17 AM ANC 2.84 04/30/2021 06:17 AM LYMA 30 04/30/2021 06:17 AM ALC 1.49 04/30/2021 06:17 AM KAVON 8 04/30/2021 06:17 AM AMC 0.38 04/30/2021 06:17 AM EOSA 3 04/30/2021 06:17 AM AEC 0.15 04/30/2021 06:17 AM BASA 1 04/30/2021 06:17 AM ABC 0.05 04/30/2021 06:17 AM EAR CRITICALITY SAFETY ENGINEER * Benny Vasquez RN - 05/07/2021 9:15 AM NUCLEAR CRITICALITY SAFETY ENGINEER CARDIOPULMONARY REHABILITATION INPATIENT ASSESSMENT Cardiac Rehabilitation Staff: Mohit Vasquez historic sites registrar Date: Demographics Pre-admit Dx: Date of Admission: 05/07/2021 Room: [address]/[facility] : 1955 Insurance: Primary: Medicare Secondary:[employer] Address: [address] [place] [id number] Patient (home) [phone] (work) Marital Status: Occupation: Unknown ED Contact: Dalton Cochran ED Phone #: [phone] CTS: [place] Two Needle Machine Operator: . Cardiac Procedures and Events Valve: 05/07/21 (TAVR) Risk Factors BP: 125/82 Height: 167.6 cm (66") Weight: 88 kg (194 lb 0.1 oz) BMI (Calculated): 31.31 Medical History has a past medical history of Arthritis, Chest pain (04/27/2021), Diastolic dysf unction (04/28/2021), DVT (deep venous thrombosis) ([facility]) (1986), Dyslipidemia, GE RD (gastroesophageal reflux disease) (04/28/2021), HTN (hypertension), Nonrheumat ic aortic valve stenosis (04/27/2021), Other chest pain (04/27/2021), Palpitations , PONV (postoperative nausea and vomiting), Primary hypertension (04/27/2021), Se yelena aortic stenosis (04/28/2021), Stage 3a chronic kidney disease ([facility]) (04/28/20), and BENTLEY (stress urinary incontinence, female) (04/28/2021). Labs Hemoglobin A1C Date Value Ref Range Status 04/27/2021 5.4 4.0 - 6.0 % Final Comment: The ADA recommends that most patients with type 1 and type 2 diabetes maintain an A1c level <7%. Troponin-I Date Value Ref Range Status 04/28/2021 0.01 0.0 - 0.05 NG/ML Final Heart Resource Manual Given: Teaching Completed: Outpatient Cardiopulmonary Rehabilitation Outpatient [facility] Rehab: Referral Faxed to: Date Faxed: Location: If [facility], Sent to Staff: Benny Vasquez RN 05/07/2021 EAR CRITICALITY SAFETY ENGINEER documented in this encounter H&P Notes * Lory Curtis APRN-GUEST SERVICES AMBASSADOR - 05/07/2021 6:57 AM NUCLEAR CRITICALITY SAFETY ENGINEER History and Physical Update Note Name: Isis Cochran Allergies: Ltggryf-qld-qac reductase inhibitors Primary Care Physician: Jazmyn Ruiz Verified Lab/Radiology/Other Diagnostic Tests: Hematology: Lab Results Component Value Date HGB 12.8 04/30/2021 HCT 38.0 04/30/2021 PLTCT 222 04/30/2021 WBC 4.9 04/30/2021 NEUT 58 04/30/2021 ANC 2.84 04/30/2021 LYMPH 32 04/28/2021 ALC 1.49 04/30/2021 KAVON 8 04/30/2021 AMC 0.38 04/30/2021 ABC 0.05 04/30/2021 MCV 85.6 04/30/2021 MCHC 33.6 04/30/2021 MPV 7.9 04/30/2021 RDW 13.9 04/30/2021 , Coagulation: Lab Results Component Value Date PTT 58.3 04/30/2021 INR 1.1 05/06/2021 , General Chemistry: Lab Results Component Value Date NA 141 04/30/2021 K 4.1 04/30/2021 CL 108 04/30/2021 GAP 10 04/30/2021 BUN 13 04/30/2021 CR 0.85 04/30/2021 GLU 99 04/30/2021 CA 9.1 04/30/2021 ALBUMIN 3.9 04/30/2021 MG 2.3 04/27/2021 TOTBILI 1.0 04/30/2021 , Enzymes: Lab Results Component Value Date AST 20 04/30/2021 ALT 19 04/30/2021 ALKPHOS 62 04/30/2021 , Mg and PO4: Lab Results Component Value Date MG 2.3 04/27/2021 and HgbA1C: Lab Results Component Value Date HGBA1C 5.4 04/27/2021 Type and Cross: 05/06/2021 12:54 ABO/RH(D) AB NEG Antibody Screen NEG Crossmatch Expires 05/09/2021,2359 Units Ordered 2 Urinalysis: 05/06/2021 12:48 Color,UA YELLOW Turbidity,UA CLEAR Specific [place]-Urine 1.012 pH,UA 5.0 Glucose,UA NEG Ketones,UA NEG Bilirubin,UA NEG Protein,UA NEG Urobilinogen,UA NORMAL Blood,UA NEG Nitrite,UA NEG Leukocytes,UA NEG Urine Ascorbic Acid, UA POS (A) WBCs,UA 0-2 RBCs,UA 0-2 Comment,UA Criteria for refl... Squamous Epithelial Cells 0-2 Last Dose Beta Blockers/Anticoagulants: N/A Point of Care Testing: (Last 24 hours): Nutrition: No Dietitian Consult Wound: No Wound Consult I have examined the patient, and there are no significant changes in their condi tion, from the previous H&P performed on 04/30/21. Patient to undergo transcatheter aortic valve replacement today with Dr. Ruvalcaba as planned. Patients states that Dr. Ruvalcaba explained the procedure and risk to patients satisfaction. Pertinent preoperative testing including history, labs and imaging reviewed. Patient denies any new symptoms- COVID-19 testing negative on 05/04/21. Patient understands procedure and all questions were answered. Surgical consents are signed and in chart. NPO since midnight. Pre-Surgical scrubs complete. MITZY Atkinson Available on Voalte or Pager [phone]. EAR CRITICALITY SAFETY ENGINEER * Lory Curtis APRN-NP - 05/06/2021 10:51 AM NUCLEAR CRITICALITY SAFETY ENGINEER Images from the original note were not included. Original H&P below was performed and dictated by Kourtney Crawford APRN and Dr. Josh Ruvalcaba. All updated pertinent labs and testing have been reviewed. AVANI Dong Available on Voalte or Page [phone]. Kourtney Crawford APRN-NP Nurse Practitioner Cardiothoracic Surgery - Cardiac Consults Attested Creation Time: 04/28/21 1121 Consult Orders CONSULT CARDIOTHORACIC SURGERY PHYSICIAN [[id number]] ordered by Venancio Bowden MD at 04/28/21 1102 Attestation signed by Teodoro Ruvalcaba III, MD at 04/30/21 1316 I appreciate the consult. I met with the patient and her family. We reviewed t he pertinent studies. I agree with recommendations for aortic valve replacement . We discussed both open and TAVR options. She is an open candidate but at hig h risk for prosthesis patient mismatch with open surgery. I do think TAVR is th e preferred therapy. We reviewed the risks of procedure including bleeding, infection, stroke, dialys is and . We also discussed there is a 10% incidence of needing a pacemaker afterwards. She has expressed understanding and is willing to proceed. We are trying to get her surgery scheduled for next week. I understand she is likely to be discharged today. We will try and get final instructions in the chart bef ore she leaves. Josh Ruvalcaba M.D. Expand All Collapse All []Hide copied text []Hover for details Cardiothoracic Surgery Consult Date of Service: 04/28/2021 Requesting Physician:Shelton Bowden MD Consulting Physician: Josh Ruvalcaba MD Consult Performed By: MITZY Izquierdo Primary Two Needle Machine Operator: VETO HPI: Ms. Isis Cochran is a 65 yr old female who transferred to [facility] from [facility] in [place], [place] after presenting with complaints of chest pain. She has a past medical history significant for DVT of LLE in 2014 on chronic anticoagula tion with Xarelto - last dose was 04/26/2021, fem-pop bypass with Dr. Jeter at [facility] in about 1989, hypertension, dyslipidemia, hx of breast lumpectomy without yusuf mo or radiation,Stage 3a chronic kidney disease, GERD, and stress urinary inco ntinence. Ms. Cochran reports an onset of chest pressure 04/27 around noon. The pain /pressure occurs at rest and is worse with exertion with associated dyspnea on e xertion. Troponins and EKG negative for ACS. She said that she never had chest p ain like this before. She reportedly still has some chest pain but reports that it is very mild now. She has been told she has a murmur for over 20 years. It was not until recently that she was seen in a new clinic and asked if it had been "studied." She went [facility] for an echo which revealed severe . Ms. Cochran reports that she h as noticed increased fatigue and reduced exercise tolerance that has been progre ssive in nature since September 2020. She is a non-smoker. She reports about 8 ounce s of wine 3-4 days/week. She also reports chest pain/pressure, orthopnea, and lo wer extremity edema. She denies any syncope/presyncope. Cardiothoracic consultation has been requested to determine if the patient is a surgical candidate for TAVR. Cardiac presentation on admission: chest pain Impression: Active Hospital Problems Diagnosis Chest pain Breast CA (HCC) Stage 3a chronic kidney disease (HCC) GERD (gastroesophageal reflux disease) BENTLEY (stress urinary incontinence, female) Severe aortic stenosis Diastolic dysfunction Other chest pain Nonrheumatic aortic valve stenosis Primary hypertension Dyslipidemia Deep vein thrombosis (DVT) of iliac vein of left lower extremity ([facility]) Plan: - Consult IS for cardiac cath and TAVR eval - Will need TAVR CTA, carotid US, complete PFTs, Urinalysis, BNP (04/29) - receives routine dental care from Dr. Harpal Carlin in [place], [place] - will ob tain dental clearance - Will review case with Dr. Sena Crawford APRN-[employer]OR Reach me on Voalte or Pager [phone] at 04/28/2021 1:21 PM Preliminary STS RISK: Unable to calculate until further pre-op testing complete. A note on interpretation of values: The inherent limitations of statistical risk-adjustment models should be kept in mind when interpreting risk percentage values for an individual patient. Risk a djustment attempts to take into account as many of the patients risk factors as possible. However, there are potentially qdyeeiwvl-sv-bwsfzpu factors that ar e not included in the STS risk-adjustment models and which may increase or decre ase a patients risk of an adverse outcome. CATH FINDINGS: pending IS consult ECHOCARDIOGRAM Findings: 04/23/2021 OSH LV size: Normal size, Moderate concentric hypertrophy,estimated LVEF 65 %. Diast olic function is mildly abnormal (grade 1).AORTIC VALVE: Calcified, Thickened , No regurgitation, severe stenosis.AV Maximum velocity: 4.93 m/s.AV M sintia gradient: 63.9 mmHg.AV Area: 0.75 cm. COVID: negative 04/27 BNP: pending NYHA: II-III Medical History: Diagnosis Date Breast CA (HCC) 04/28/2021 Chest pain 04/27/2021 Deep vein thrombosis (DVT) of iliac vein of left lower extremity (HCC) 2020 Diastolic dysfunction 04/28/2021 DVT (deep venous thrombosis) (HCC) Dyslipidemia GERD (gastroesophageal reflux disease) 04/28/2021 HTN (hypertension) Nonrheumatic aortic valve stenosis 04/27/2021 Other chest pain 04/27/2021 Primary hypertension 04/27/2021 Severe aortic stenosis 04/28/2021 Stage 3a chronic kidney disease (HCC) 04/28/2021 BENTLEY (stress urinary incontinence, female) 04/28/2021 Surgical History: Procedure Laterality Date BREAST LUMPECTOMY FEMORAL BYPASS HYSTERECTOMY LAP CHOLECYSTECTOMY Medications Prior to Admission Medication Sig acetaminophen (TYLENOL EXTRA STRENGTH) 500 mg tablet Take 1,000 mg by mouth at bedtime daily. Max of 4,000 mg of acetaminophen in 24 hours. amLODIPine (NORVASC) 10 mg tablet Take 10 mg by mouth daily. Cranberry 400 mg cap Take 400 mg by mouth daily. fish oil /omega-3 fatty acids (SEA-OMEGA) 340/1000 mg capsule Take 4 capsule s by mouth daily. omeprazole DR (PRILOSEC) 20 mg capsule Take 20 mg by mouth daily before vickey kfast. pravastatin (PRAVACHOL) 40 mg tablet Take 40 mg by mouth at bedtime daily. rivaroxaban (XARELTO) 20 mg tablet Take 20 mg by mouth daily. Take with food . tolterodine LA (DETROL LA) 4 mg capsule Take 4 mg by mouth daily. vit C,M-Xg-wrsdy-lutein-zeaxan (PRESERVISION AREDS-2) 250-90-40-1 mg cap Krzysztof e 1 capsule by mouth daily. vitamins, w/iron & folate 65/1 mg tab Take 1 tablet by mouth daily. Allergies Allergen Reactions Jenqfvq-Pcf-Vdq Reductase Inhibitors MUSCLE PAIN Family History Problem Relation Age of Onset Hypertension Mother Hyperlipidemia Mother Social History Socioeconomic History Marital status: Not on file Spouse name: Not on file Number of children: Not on file Years of education: Not on file Highest education level: Not on file Occupational History Not on file Tobacco Use Smoking status: Not on file Substance and Sexual Activity Alcohol use: Not on file Drug use: Not on file Sexual activity: Not on file Other Topics Concern Not on file Social History Narrative Not on file ROS: Constitutional: Negative for Fatigue, Weight Change, Fevers Eyes, Ears, Nose And Throat: Negative for Change in vision, Change in Hearing Cardiovascular: Positive for Chest Pain, Palpitations, Swelling in ankles Respiratory: Positive Shortness of Breath,Negative for Cough, wheezing Gastrointestinal: Negative for Nausea, indigestion, Diarrhea, Constipation, Rect al Bleeding Neurological: Negative for Headache, Memory problems, Numbness, Muscle Weakness Psychological: Negative for depression or anxiety Musculoskeletal: Negative for Pain or Swelling in joints Genitourinary: Negative for Pain with urination, Incontinence of urine, urinary frequency Skin: Negative for any unusual rash Endocrine: Negative for any hair, skin, or nail changes, Unusual hunger or thirs t Physical Exam: Temp: 36.6 C (97.9 F) (04/28 1230) Pulse: 83 (04/28 1230) Respirations: 18 PER MINUTE (04/28 1230) BP: 116/66 (04/28 1230) GENERAL: A&O x 3, NAD. HEENT Head: Normocephalic Teeth: Present and in good repair NECK Active ROM: full Trachea: midline HEART Neck Veins- No JVD Carotid Arteries: + bruits vs radiation of murmur Cardiac: RRR with normal S1, S2. Systolic murmurs LUNGS Auscultation- breath sounds CTA bilaterally ABDOMEN Soft, NT + BS EXTREMITIES Edema- No edema Posterior Tibial- 2+ peggy Dorsalis Pedis- 2+ peggy SKIN: Normal, without lesions NEUROLOGIC Grossly intact Results for orders placed or performed during the hospital encounter of 04/27/21 (from the past 24 hour(s)) CBC AND DIFF Collection Time: 04/27/21 10:54 PM # # Low-High White Blood Cells 5.7 4.5 - 11.0 K/UL RBC 4.58 4.0 - 5.0 M/UL Hemoglobin 13.3 12.0 - 15.0 GM/DL Hematocrit 39.2 36 - 45 % MCV 85.5 80 - 100 FL MCH 29.1 26 - 34 PG MCHC 34.1 32.0 - 36.0 G/DL RDW 13.9 11 - 15 % Platelet Count 251 150 - 400 K/UL MPV 7.9 7 - 11 FL Neutrophils 58 41 - 77 % Lymphocytes 33 24 - 44 % Monocytes 7 4 - 12 % Eosinophils 1 0 - 5 % Basophils 1 0 - 2 % Absolute Neutrophil Count 3.29 1.8 - 7.0 K/UL Absolute Lymph Count 1.90 1.0 - 4.8 K/UL Absolute Monocyte Count 0.39 0 - 0.80 K/UL Absolute Eosinophil Count 0.08 0 - 0.45 K/UL Absolute Basophil Count 0.03 0 - 0.20 K/UL PROTIME INR (PT) Collection Time: 04/27/21 10:54 PM # # Low-High INR 1.3 (H) 0.8 - 1.2 PTT (APTT) Collection Time: 04/27/21 10:54 PM # # Low-High APTT 37.0 (H) 24.0 - 36.5 SEC COMPREHENSIVE METABOLIC PANEL Collection Time: 04/27/21 10:54 PM # # Low-High Sodium 142 137 - 147 MMOL/L Potassium 4.0 3.5 - 5.1 MMOL/L Chloride 104 98 - 110 MMOL/L Glucose 92 70 - 100 MG/DL Blood Urea Nitrogen 17 7 - 25 MG/DL Creatinine 0.92 0.4 - 1.00 MG/DL Calcium 9.3 8.5 - 10.6 MG/DL Total Protein 7.4 6.0 - 8.0 G/DL Total Bilirubin 1.7 (H) 0.3 - 1.2 MG/DL Albumin 4.5 3.5 - 5.0 G/DL Alk Phosphatase 68 25 - 110 U/L AST (SGOT) 22 7 - 40 U/L CO2 23 21 - 30 MMOL/L ALT (SGPT) 19 7 - 56 U/L Anion Gap 15 (H) 3 - 12 eGFR Non >60 >60 mL/min eGFR >60 >60 mL/min MAGNESIUM Collection Time: 04/27/21 10:54 PM # # Low-High Magnesium 2.3 1.6 - 2.6 mg/dL PHOSPHORUS Collection Time: 04/27/21 10:54 PM # # Low-High Phosphorus 4.2 2.0 - 4.5 MG/DL HEMOGLOBIN A1C Collection Time: 04/27/21 10:54 PM # # Low-High Hemoglobin A1C 5.4 4.0 - 6.0 % BNP (B-TYPE NATRIURETIC PEPTI) Collection Time: 04/27/21 10:54 PM # # Low-High B Type Natriuretic Peptide 55.0 0 - 100 PG/ML TROPONIN-I Collection Time: 04/27/21 10:54 PM # # Low-High Troponin-I 0.01 0.0 - 0.05 NG/ML TSH WITH FREE T4 REFLEX Collection Time: 04/27/21 10:54 PM # # Low-High TSH 3.07 0.35 - 5.00 MCU/ML COVID-19 (SARS-COV-2) PCR Collection Time: 04/27/21 10:54 PM Specimen: Nasopharyngeal; Flocked Swab # # Low-High COVID-19 (SARS-CoV-2) PCR Source FLOCKED SWAB NASOPHARYNGEAL COVID-19 (SARS-CoV-2) PCR NOT DETECTED DN-NOT DETECTED TROPONIN-I Collection Time: 04/28/21 6:34 AM # # Low-High Troponin-I 0.01 0.0 - 0.05 NG/ML COMPREHENSIVE METABOLIC PANEL Collection Time: 04/28/21 6:34 AM # # Low-High Sodium 140 137 - 147 MMOL/L Potassium 4.3 3.5 - 5.1 MMOL/L Chloride 106 98 - 110 MMOL/L Glucose 87 70 - 100 MG/DL Blood Urea Nitrogen 20 7 - 25 MG/DL Creatinine 1.02 (H) 0.4 - 1.00 MG/DL Calcium 9.2 8.5 - 10.6 MG/DL Total Protein 7.0 6.0 - 8.0 G/DL Total Bilirubin 1.6 (H) 0.3 - 1.2 MG/DL Albumin 4.3 3.5 - 5.0 G/DL Alk Phosphatase 62 25 - 110 U/L AST (SGOT) 24 7 - 40 U/L CO2 22 21 - 30 MMOL/L ALT (SGPT) 21 7 - 56 U/L Anion Gap 12 3 - 12 eGFR Non 54 (L) >60 mL/min eGFR >60 >60 mL/min CBC AND DIFF Collection Time: 04/28/21 6:34 AM # # Low-High White Blood Cells 5.6 4.5 - 11.0 K/UL RBC 4.48 4.0 - 5.0 M/UL Hemoglobin 12.8 12.0 - 15.0 GM/DL Hematocrit 38.4 36 - 45 % MCV 85.8 80 - 100 FL MCH 28.7 26 - 34 PG MCHC 33.4 32.0 - 36.0 G/DL RDW 13.7 11 - 15 % Platelet Count 240 150 - 400 K/UL MPV 8.2 7 - 11 FL Segmented Neutrophils 61 41 - 77 % Lymphocytes 32 24 - 44 % Monocytes 2 (L) 4 - 12 % Eosinophil 5 0 - 5 % Normal RBC Morph NORMAL Platelet Estimate NORMAL Absolute Neutrophil Count Manual 3.42 1.8 - 7.0 K/UL PTT (APTT) Collection Time: 04/28/21 6:34 AM # # Low-High APTT 57.2 (H) 24.0 - 36.5 SEC TROPONIN-I Collection Time: 04/28/21 9:40 AM # # Low-High Troponin-I 0.01 0.0 - 0.05 NG/ML Cosigned by: Teodoro Ruvalcaba III, MD at 04/30/21 1316 1316 Admission (Discharged) on 04/27/2021 Admission (Discharged) on 04/27/2021 Revision History Detailed Report Note shared with patient EAR CRITICALITY SAFETY ENGINEER documented in this encounter Procedure Notes * Teodoro Ruvalcaba III, MD - 05/07/2021 3:22 PM NUCLEAR CRITICALITY SAFETY ENGINEER [place] [phone] PATIENT NAME: ISIS COCHRAN MR#/PT#: [id number] OPERATIVE REPORT : 1955 DATE OF OPERATION: 05/07/2021 ROOM #: HC423 OPERATIVE REPORT SURGEON: Teodoro Ruvalcaba III, MD (Trip) CO-SURGEON(S): Isaac Mcneal MD GRINDING MACHINE TENDER SURGEON(S): Don Walsh MD PREOPERATIVE DIAGNOSIS: Severe symptomatic aortic stenosis. POSTOPERATIVE DIAGNOSIS: Severe symptomatic aortic stenosis. OPERATIVE PROCEDURE: 1. Ultrasound-guided access to bilateral common femoral arteries. 2. Placement of balloon-tipped temporary pacemaker. 3. Ascending aortogram. 4. Transcatheter aortic valve replacement using 26 mm Evolut PRO+. 5. Balloon angioplasty using 22 mm True balloon. 6. Iliofemoral arteriogram with runoff. ANESTHESIA: General endotracheal. DESCRIPTION AND FINDINGS OF OPERATIVE PROCEDURE: After informed consent, patient was brought to the operating room and placed sup ine on the table. Arterial and venous lines were placed per Anesthesia. A sing le-lumen endotracheal tube was placed and general endotracheal anesthesia was in duced. Patient was prepped and draped in the usual sterile fashion. Access was gained to bilateral common femoral arteries using ultrasound guidance and a micropuncture technique. On the left side, the first stick site was slig htly high and we removed that and brought it back down to just above the bifurca tion. There were extremely high bifurcations on both common femoral arteries. On the right side, 2 ProGlide sutures were placed and an 8-Rwandan sheath was pos itioned. On the left side, a 5-Rwandan sheath was positioned. Systemic heparini zation was achieved and maintained throughout the procedure. Balloon-tipped temporary pacemakers were advanced to the right ventricle with ap propriate pacing thresholds. Over a stiff wire, the 8-Rwandan sheath was exchanged for a 14 Adel DrySeal. The aortic valve was crossed using AL1 after catheter and wire exchange. A pigtail catheter was positioned in the ventricle and noncoronary sinus. Simultaneous p ressure measurements confirmed a mean gradient of 68. A 26 mm Evolut valve was brought to the field and advanced over a stiff wire. T his was deployed and we were very happy with the positioning of the device. It was approximately 2 mm in depth on the noncoronary sinus and 4 on the left. Bal loon valvuloplasty was performed over a stiff wire using a 22 mm True balloon an d results showed a mean gradient of 1 with no paravalvular leak. There was trac e transvalvular leak. Ascending aortogram confirmed and also showed there was no evidence of arterial injury. The delivery system and sheath were removed. ProGlide sutures were secured with good hemostasis. Protamine was administered. Iliofemoral arteriogram was perf ormed showing good distal runoff without evidence of arterial injury. A Mynx de vice was used to close the left common femoral artery. Patient was awakened, ex tubated in the room, having tolerated the procedure well. All sponge, needle, a nd instrument counts were correct per report, and I was present for the entire p rocedure. ESTIMATED BLOOD LOSS: 30 cc. SPECIMENS REMOVED: None. COMPLICATIONS: None. Teodoro (Josh) MD ERNESTO Roberson III/Pushpa Rendon (Josh) Cristy Ruvalcaba III, MD / Pushpa [id number] cc: - Teodoro Ruvalcaba III, MD (Trip) EAR CRITICALITY SAFETY ENGINEER documented in this encounter OR Notes * Operative Report (Direct Entry) - Isaac Mcneal MD - 05/07/2021 7:13 AM NUCLEAR CRITICALITY SAFETY ENGINEER TAVR (Transcatheter Aortic Valve Replacement) Date of procedure: 05/07/2021 Isis Cochran, : 1955 INDICATIONS FOR PROCEDURE: Isis Cochran is a 65 y.o. who has severe symptomatic aortic valve stenosis and Class 3 heart failure. In view of significant co-morb idities, She is felt to be at high risk to undergo standard open surgical AVR as evaluated by the combined heart team. After a discussion with the combined hear t team of the risks and benefits and alternative of proceeding with surgical rad randolph transcatheter AVR, Isis Cochran has elected to proceed with TAVR. OPERATORS: 1. Isaac Mcneal MD, Interventional Cardiology. 2. Josh Ruvalcaba MD, Cardiothoracic Surgery. PROCEDURES PERFORMED: 1. Transvenous pacemaker through right IJ access. 2. Ultrasound-guided access to bilateral common femoral arteries 3. Left heart cardiac catheterization with simultaneous pressure assessment of t he LV and aorta both pre and post TAVR. 4. Ascending aortography. 5. Descending aortography. 6. Transcatheter valve replacement utilizing a number 26 mm Evolut Pro+. Serial Number [id number] 7. Post dilatation balloon aortic valvuloplasty utilizing a number 22 True ballo on. PROCEDURE: 1. Patient was informed and consented to risks, benefits, and alternatives. Kalie ent verbalized understanding and wished to proceed. 2. General anesthesia was performed under the care of cardiac anesthesia service . The anesthesia team monitored the patient's hemodynamics, airway, and sedation throughout the case. 3. Access was obtained in the right common femoral artery with placement of 5-Fr ench sheath. Access also obtained in the left common femoral artery with placeme nt of an 8-Rwandan sheath. A dual ProGlide pre-close technique was utilized. Ther e was difficulty advancing the 8Fr Sheath therefore the J wire was exchanged for Amplatz super stiff wire using the micro catheter. A 9Fr was then advanced into the left femoral artery. Angiogram was done selective right common femoral carolina ry and showed relatively high stick. The right femoral artery 5Fr sheath was up sized to 8Fr sheath. A dual ProGlide pre-close technique was utilized. This was up sized to a 14 Fr delivery sheath. The left femoral artery 9Fr sheath was caio jarrod and percloses were deployed. Hemostasis was obtained. The left femoral arter y was then accessed lower and 5Fr sheath was placed. 4. A 5Fr Diag bipolar balloon-tipped temporary pacemaker was advanced to the rig ht ventricle where appropriate pacing thresholds were obtained. 5. Utilizing an AL1 catheter and Glidewire, access was obtained into the left ve ntricle. 6. Initial hemodynamics were performed utilizing simultaneous pigtail catheter a ssessments in both the aortic root and left ventricle. Hemodynamics revealed an LV pressure of 180/16 mmHg LVEDP and a mean aortic gradient of 67 mmHg. 7. Utilizing a Safari ES wire in the left ventricle, the valve was deployed unde r fluoroscopic guidance. The valve was well seated and had an average annular de pth of 1mm on the non cusp and 2mm on the left cusp. 8. Postdilation was then performed under rapid ventricular pacing under 180 beat s per minute with a 22mm True balloon. 9. YUNIOR revealed a well seated TAVR valve with trace valvular regurgitation and no evidence of central valve regurgitation. 10. Ascending aortography revealed no aortic valve regurgitation. Excellent fl ow was noted within the coronary arteries as well as in the ascending aorta. The re was no evidence of dissection, perforation, intramural hematoma, plaque disru ption or thrombus. 11. Post hemodynamic measurements had been obtained which revealed an LV pressur e 140/22 mmHg LVEDP with a mean gradient of 2 mmHg. 12. The right common femoral 14-Rwandan sheath was then removed and the dual ProG lide technique was used to close the arteriotomy. A descending aortography was p erformed with no evidence of dissection, perforation, intramural hematoma, and t here was excellent brisk flow in the iliofemoral system. The left common femoral artery sheath was removed and the arteriotomy was closed with a Mynx device. 13. Patient was extubated in the hybrid room at the conclusion of the case and t ransported to CTI in stable condition. 14. At the conclusion of the case the patient's transvenous pacemaker was suture d in place after pacing thresholds were re-checked. 15. A total of 144 mL of Visapaque 320 was utilized for the procedure. 16. Air Kerma was 2099 mGy. IMPRESSION: 1. Severe symptomatic aortic valve stenosis. 2. Successful transcatheter valve replacement utilizing a number 26mm Evolut Pro + valve. -Post dilatation had been performed utilizing a 22 mm True balloon. -Residual transaortic mean gradient of 2 mmHg. -Trace valvular regurgitation. No paravalvular regurgitation was noted. RECOMMENDATIONS: 1. SBE prophylaxis indefinitely. 2. Aspirin 81 mg indefinitely 3. Echo Doppler in the morning. 4. Early ambulation. Isaac Mcneal MD, CCDS, FACC, FACP, FAHA, FASA, FASE, FASNC, FICA, FSCAI, FSVM , RPVI Interventional, Structural and Vascular Cardiology EAR CRITICALITY SAFETY ENGINEER documented in this encounter Plan of Treatment Not on filedocumented as of this encounter Goals Goal Patient Associated Recent Progress Patient-Stat Aut hor Goal Type Problems ed? Resume work [facility] (04/28/2021 Yes Katheryn Barrett, 1:56 PM NUCLEAR CRITICALITY SAFETY ENGINEER) 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 and go back to work documented as of this encounter Procedures Comments Procedure Name Priority Date/Time Associated Diag nosis PV GROIN DUPLEX SCAN ASIA 05/08/2021 BILATERAL 3:35 PM NUCLEAR CRITICALITY SAFETY ENGINEER CBC Routine 05/08/2021 10:15 AM NUCLEAR CRITICALITY SAFETY ENGINEER 2D + DOPPLER ECHO NO Routine 05/08/2021 CONTRAST 8:49 AM NUCLEAR CRITICALITY SAFETY ENGINEER CHEST SINGLE VIEW Routine 05/08/2021 6:25 AM NUCLEAR CRITICALITY SAFETY ENGINEER HC CBC,AUTOMATED STAT 05/08/2021 4:12 AM NUCLEAR CRITICALITY SAFETY ENGINEER HC MAGNESIUM Routine 05/08/2021 4:12 AM NUCLEAR CRITICALITY SAFETY ENGINEER HC BASIC METABOLIC PANEL STAT 05/08/2021 4:12 AM NUCLEAR CRITICALITY SAFETY ENGINEER ECG 12-LEAD Routine 05/07/2021 8:00 PM NUCLEAR CRITICALITY SAFETY ENGINEER CBC Routine 05/07/2021 12:21 PM NUCLEAR CRITICALITY SAFETY ENGINEER LINE PLCMT 1V CXR STAT 05/07/2021 9:48 AM NUCLEAR CRITICALITY SAFETY ENGINEER HC PTT(APTT) STAT 05/07/2021 9:40 AM NUCLEAR CRITICALITY SAFETY ENGINEER HC PT(INR) STAT 05/07/2021 9:40 AM NUCLEAR CRITICALITY SAFETY ENGINEER HC CBC,AUTOMATED STAT 05/07/2021 9:40 AM NUCLEAR CRITICALITY SAFETY ENGINEER HC MAGNESIUM STAT 05/07/2021 9:40 AM NUCLEAR CRITICALITY SAFETY ENGINEER HC BASIC METABOLIC PANEL STAT 05/07/2021 9:40 AM NUCLEAR CRITICALITY SAFETY ENGINEER ECG 12-LEAD STAT 05/07/2021 9:13 AM NUCLEAR CRITICALITY SAFETY ENGINEER HC ACTIVATED CLTG TIME-OR 05/07/2021 LAB 8:30 AM NUCLEAR CRITICALITY SAFETY ENGINEER HC ACTIVATED CLTG TIME-OR 05/07/2021 LAB 8:18 AM NUCLEAR CRITICALITY SAFETY ENGINEER HC ACTIVATED CLTG TIME-OR 05/07/2021 LAB 8:10 AM NUCLEAR CRITICALITY SAFETY ENGINEER TELEMETRY STRIPS-SCAN 05/07/2021 12:00 AM NUCLEAR CRITICALITY SAFETY ENGINEER TELEMETRY STRIPS-SCAN 05/07/2021 12:00 AM NUCLEAR CRITICALITY SAFETY ENGINEER TELEMETRY STRIPS-SCAN 05/07/2021 12:00 AM NUCLEAR CRITICALITY SAFETY ENGINEER TELEMETRY STRIPS-SCAN 05/07/2021 12:00 AM NUCLEAR CRITICALITY SAFETY ENGINEER TELEMETRY STRIPS-SCAN 05/07/2021 12:00 AM NUCLEAR CRITICALITY SAFETY ENGINEER TELEMETRY STRIPS-SCAN 05/07/2021 12:00 AM NUCLEAR CRITICALITY SAFETY ENGINEER TELEMETRY STRIPS-SCAN 05/07/2021 12:00 AM NUCLEAR CRITICALITY SAFETY ENGINEER PROCEDURE RECORD-SCAN 05/07/2021 12:00 AM NUCLEAR CRITICALITY SAFETY ENGINEER CARDIAC CATH REPORT Routine 05/01/2021 Nonrheumat ic aortic valve 12:04 PM NUCLEAR CRITICALITY SAFETY ENGINEER stenosis documented in this encounter Results * PV GROIN DUPLEX SCAN BILATERAL (05/08/2021 3:35 PM NUCLEAR CRITICALITY SAFETY ENGINEER) [facility] RIGHT SUPER 1.39 m/s OTHER OUTSIDE FEMORAL PROX LAB SYS MAX RIGHT STRAW HAT BRUSHER PROX 1.42 m/s OTHER OUTSIDE SYS MAX LAB RIGHT PROFUNDA 1.24 m/s OTHER OUTSIDE SYS MAX LAB Referring Sara Jazmyn OTHER OUTSIDE Provider LAB Cardiology Kate Epiq OTHER OUTSIDE Ultrasound LAB Machine LEFT GROIN STRAW HAT BRUSHER 1.16 m/s OTHER OUTSIDE SYS LAB LEFT GROIN SFA 1.29 m/s OTHER OUTSIDE SYS LAB LEFT GROIN PFA 0.96 m/s OTHER OUTSIDE SYS LAB RIGHT GROIN STRAW HAT BRUSHER 1.42 m/s OTHER OUTSIDE SYS LAB RIGHT GROIN SFA 1.39 m/s OTHER OUTSIDE SYS LAB RIGHT GROIN PFA 1.24 m/s OTHER OUTSIDE SYS LAB Modality Anatomical Region Laterality Ultrasound Specimen Narrative OTHER OUTSIDE LAB - 05/12/2021 8:11 AM NUCLEAR CRITICALITY SAFETY ENGINEER 1. No evidence of bilateral AV fistula, [...] OUTSIDE LAB * CBC (05/08/2021 10:15 AM NUCLEAR CRITICALITY SAFETY ENGINEER) [facility] White Blood 8.7 4.5 - 11.0 K/UL [...] LAB MPV 8.4 7 - 11 FL MAIN LAB Specimen Blood (substance) Performing Organization Address City/State/ZIP Code P [place] Number MAIN LAB [address] [place] [address] * 2D + DOPPLER ECHO NO CONTRAST (05/08/2021 8:49 AM NUCLEAR CRITICALITY SAFETY ENGINEER) Left Ventricle 89.00 46 - 106 mL [...] OTHER OUTSIDE LAB - 05/08/2021 9:16 AM NUCLEAR CRITICALITY SAFETY ENGINEER Hyperdynamic/preserved LV systolic function, LVEF >65%. Mild [...] * CHEST SINGLE VIEW (05/08/2021 6:25 AM NUCLEAR CRITICALITY SAFETY ENGINEER) Modality Anatomical Region Laterality Computed Radiography Chest Specimen Impressions [facility] RESULTS - 05/08/2021 8:02 AM NUCLEAR CRITICALITY SAFETY ENGINEER 1. Stable TAVR and temporary pacemaker l ead. 2. Improved interstitial edema with scat tered linear subsegmental atelectasis. Finalized by Benny Sandoval M.D. on 05/08/2021 8:02 AM. Dictated by Benny Sandoval M.D. on 05/08/2021 8:00 AM. Narrative [facility] RAD RESULTS - 05/08/2021 8:02 AM NUCLEAR CRITICALITY SAFETY ENGINEER CHEST SINGLE VIEW INDICATION: atelectasis, s/p TAVR [...] RAD RESULTS * MAGNESIUM (05/08/2021 4:12 AM NUCLEAR CRITICALITY SAFETY ENGINEER) Magnesium 2.3 1.6 - 2.6 mg/dL [facility] Specimen Blood (substance) Performing Organization Address City/State/ZIP Code P [place] Number [facility] [address] [place] [address] * BASIC METABOLIC PANEL (05/08/2021 4:12 AM NUCLEAR CRITICALITY SAFETY ENGINEER) Sodium 141 137 - 147 MMOL/L [facility] [...] >60 >60 mL/min [facility] Comment: [place] [facility] eGFR is not validated f or use in drug dosing adjustments. Continue to use estimated creatinine clearance per dosing reference text. Please contact the Clinical Pharmacist for questions. eGFR >60 >60 mL/min [facility] [place] Comment: The eGFR is not validated for use in drug dosing adjustments. Continue to use estimated creatinine clearance per dosing reference text. Please contact the Clinical Pharmacist for questions. Specimen Performing Organization Address City/State/ZIP Code [place] Number [facility] [address] [place] [address] * CBC (05/08/2021 4:12 AM NUCLEAR CRITICALITY SAFETY ENGINEER) White Blood 7.7 4.5 - 11.0 K/UL [facility] Cells RBC 3.35 (L) 4.0 - 5.0 M/UL [facility] Hemoglobin 9.7 (L) 12.0 - 15.0 GM/DL [facility] Hematocrit 28.7 (L) 36 - 45 % [facility] MCV 85.7 80 - 100 FL [facility] MCH 29.0 26 - 34 PG [facility] MCHC 33.8 32.0 - 36.0 G/DL [facility] RDW 13.7 11 - 15 % [facility] Platelet Count 186 150 - 400 K/UL [facility] MPV 8.2 7 - 11 FL [facility] Specimen Performing Organization Address City/[facility] Code P [place] Number [facility] [address] [place] [address] * CBC (05/07/2021 12:21 PM NUCLEAR CRITICALITY SAFETY ENGINEER) White Blood 7.7 4.5 - 11.0 K/UL [facility] Cells RBC 3.98 (L) 4.0 - 5.0 M/UL [facility] Hemoglobin 11.8 (L) 12.0 - 15.0 GM/DL [facility] Hematocrit 34.4 (L) 36 - 45 % [facility] MCV 86.4 80 - 100 FL [facility] MCH 29.6 26 - 34 PG [facility] MCHC 34.3 32.0 - 36.0 G/DL [facility] RDW 13.6 11 - 15 % [facility] Platelet Count 188 150 - 400 K/UL [facility] MPV 8.6 7 - 11 FL [facility] Specimen Blood (substance) Performing Organization Address [facility]/ZIP Code P [place] Number [facility] [address] [place] [address] * LINE PLCMT 1V CXR (05/07/2021 9:48 AM NUCLEAR CRITICALITY SAFETY ENGINEER) Modality Anatomical Region Laterality Computed Radiography Chest Specimen Impressions [facility] RESULTS - 05/07/2021 10:02 AM NUCLEAR CRITICALITY SAFETY ENGINEER Status post transcatheter aortic valve replacement with placement of right jugular temporary pacemaker. Development of mild cardiomegaly and pulmonary venous congestion with possible small pleural effusions. Finalized by Lauri Aguayo M.D. on 05/07/2021 10:02 AM. Dictated by Lauri Aguayo M.D. on 05/07/2021 9:58 AM. Narrative [facility] RESULTS - 05/07/2021 10:02 AM NUCLEAR CRITICALITY SAFETY ENGINEER LINE PLCID 1V CXR INDICATION: s/p TAVR. TECHNIQUE: Portable [...] the chest wall are identified. Procedure Note Lauir Aguayo MD - 05/07/2021 LINE [facility] 1V CXR INDICATION: s/p TAVR. TECHNIQUE: Portable [...] on 05/07/2021 9:58 AM. Performing Organization Address [facility] Code P marcel[place] Number [facility] * PTT (APTT) (05/07/2021 9:40 AM NUCLEAR CRITICALITY SAFETY ENGINEER) APTT 31.1 24.0 - 36.5 SEC [facility] Specimen Performing Organization Address [facility] P marcelino Number [facility] [address] [place] [address] * PROTIME INR (PT) (05/07/2021 9:40 AM NUCLEAR CRITICALITY SAFETY ENGINEER) INR 1.2 0.8 - 1.2 [facility] Specimen Performing Organization Address [facility] P marcelino Number [facility] [address] [place] [address] * MAGNESIUM (05/07/2021 9:40 AM NUCLEAR CRITICALITY SAFETY ENGINEER) Magnesium 1.9 1.6 - 2.6 mg/dL [facility] Specimen Blood (substance) Performing Organization Address [facility] P marcelino Number [facility] [address] [place] [address] * BASIC METABOLIC PANEL (05/07/2021 9:40 AM NUCLEAR CRITICALITY SAFETY ENGINEER) Sodium 140 137 - 147 MMOL/L [facility] Potassium 4.1 3.5 - 5.1 MMOL/L [facility] Chloride 109 98 - 110 MMOL/L [facility] CO2 22 21 - 30 MMOL/L [facility] Anion Gap 9 3 - 12 [facility] Glucose 141 (H) 70 - 100 MG/DL [facility] Blood Urea 21 7 - 25 MG/DL [facility] Nitrogen Creatinine 0.94 0.4 - 1.00 MG/DL [facility] Calcium 7.7 (L) 8.5 - 10.6 MG/DL [facility] eGFR Non 60 (L) >60 mL/min [facility] Comment: [place] The eGFR is not validated f or use in drug dosing adjustments. Continue to use estimated creatinine clearance per dosing reference text. Please contact the Clinical Pharmacist for questions. eGFR >60 >60 mL/min [facility] [place] Comment: The eGFR is not validated for use in drug dosing adjustments. Continue to use estimated creatinine clearance per dosing reference text. Please contact the Clinical Pharmacist for questions. Specimen Performing Organization Address City/[facility]/ZIP Code P [place] Number [facility] [address] [place] [address] * CBC (05/07/2021 9:40 AM NUCLEAR CRITICALITY SAFETY ENGINEER) White Blood 6.1 4.5 - 11.0 K/UL [facility] Cells RBC 3.63 (L) 4.0 - 5.0 M/UL [facility] Hemoglobin 10.6 (L) 12.0 - 15.0 GM/DL [facility] Hematocrit 31.2 (L) 36 - 45 % [facility] MCV 86.0 80 - 100 FL [facility] MCH 29.2 26 - 34 PG [facility] MCHC 34.0 32.0 - 36.0 G/DL [facility] RDW 13.6 11 - 15 % [facility] Platelet Count 171 150 - 400 K/UL [facility] MPV 8.2 7 - 11 FL [facility] Specimen Performing Organization Address City/[facility] Code P [place] Number [facility] [address] [place] [address] * POC ACTIVATED CLOTTING TIME (05/07/2021 8:30 AM NUCLEAR CRITICALITY SAFETY ENGINEER) Activated 312 s [facility] Clotting Time Specimen Performing Organization Address City/[facility] Code P [place] Number [facility] [address] [place] [address] * POC ACTIVATED CLOTTING TIME (05/07/2021 8:18 AM NUCLEAR CRITICALITY SAFETY ENGINEER) Activated 242 s [facility] Clotting Time Specimen Performing Organization Address City/[facility]/ZIP Code P [place] Number [facility] [address] [place] [address] * POC ACTIVATED CLOTTING TIME (05/07/2021 8:10 AM NUCLEAR CRITICALITY SAFETY ENGINEER) Activated 201 s [facility] Clotting Time Specimen Performing Organization Address City/[facility]/ZIP Code P [place] Number [facility] [address] [place] [address] * TELEMETRY STRIPS-SCAN (05/07/2021 12:00 AM NUCLEAR CRITICALITY SAFETY ENGINEER) Narrative 05/07/2021 12:00 AM NUCLEAR CRITICALITY SAFETY ENGINEER Ordered by an unspecified provider. * TELEMETRY STRIPS-SCAN (05/07/2021 12:00 AM NUCLEAR CRITICALITY SAFETY ENGINEER) Narrative 05/07/2021 12:00 AM NUCLEAR CRITICALITY SAFETY ENGINEER Ordered by an unspecified provider. * PROCEDURE RECORD-SCAN (05/07/2021 12:00 AM NUCLEAR CRITICALITY SAFETY ENGINEER) Narrative 05/07/2021 12:00 AM NUCLEAR CRITICALITY SAFETY ENGINEER Ordered by an unspecified provider. * TELEMETRY STRIPS-SCAN (05/07/2021 12:00 AM NUCLEAR CRITICALITY SAFETY ENGINEER) Narrative 05/07/2021 12:00 AM NUCLEAR CRITICALITY SAFETY ENGINEER Ordered by an unspecified provider. * TELEMETRY STRIPS-SCAN (05/07/2021 12:00 AM NUCLEAR CRITICALITY SAFETY ENGINEER) Narrative 05/07/2021 12:00 AM NUCLEAR CRITICALITY SAFETY ENGINEER Ordered by an unspecified provider. * TELEMETRY STRIPS-SCAN (05/07/2021 12:00 AM NUCLEAR CRITICALITY SAFETY ENGINEER) Narrative 05/07/2021 12:00 AM NUCLEAR CRITICALITY SAFETY ENGINEER Ordered by an unspecified provider. * TELEMETRY STRIPS-SCAN (05/07/2021 12:00 AM NUCLEAR CRITICALITY SAFETY ENGINEER) Narrative 05/07/2021 12:00 AM NUCLEAR CRITICALITY SAFETY ENGINEER Ordered by an unspecified provider. * TELEMETRY STRIPS-SCAN (05/07/2021 12:00 AM NUCLEAR CRITICALITY SAFETY ENGINEER) Narrative 05/07/2021 12:00 AM NUCLEAR CRITICALITY SAFETY ENGINEER Ordered by an unspecified provider. documented in this encounter Visit Diagnoses Diagnosis S/p TAVR (transcatheter aortic valve re placement), bioprosthetic - Primary Nonrheumatic aortic valve stenosis Aortic valve disorders Dyslipidemia Other and unspecified hyperlipidemia GERD (gastroesophageal reflux disease) Esophageal reflux Primary hypertension Unspecified essential hypertension Stage 3a chronic kidney disease (HCC) Acute on chronic diastolic CHF (congest val heart failure), NYHA class 2 (HCC) Acute on chronic diastolic heart failur e Deep vein thrombosis (DVT) of iliac vei n of left lower extremity (HCC) Hypokalemia Hypopotassemia Hypomagnesemia Disorders of magnesium metabolism documented in this encounter Admitting Diagnoses Diagnosis Nonrheumatic aortic valve stenosis Aortic valve disorders documented in this encounter Administered Medications Action Date Dose Rate Site Medication Order MAR Action 05/07/2021 11:37 PM NUCLEAR CRITICALITY SAFETY ENGINEER 650 mg acetaminophen (TYLENOL) tablet 650 mg Given 650 mg, Oral, EVERY 6 HOURS PRN, Starting on Maddie 05/07/21 at 1213, Until Tue05/08/21 at 1833, Pain non-opioid: may be used alone or in combination wit h opioid analgesia, Temp > 38.5 C, TOTAL ACETAMINOPHEN DOSE NOT TO EXCEED 4GM DAILY. 650 mg Given 05/07/2021 4:57 PM NUCLEAR CRITICALITY SAFETY ENGINEER ASPIRIN 81 MG PO CHEW (Cabinet Override ) NOW, 1 dose, On Maddie 05/07/21 at 0645, Created by cabinet override, Created by cabinet override 05/07/2021 6:40 AM NUCLEAR CRITICALITY SAFETY ENGINEER 81 mg aspirin chewable tablet 81 mg Given 81 mg, Oral, DAILY, First dose on Maddie 05/07/21 at 0900, Until Discontinued, Pre-Op 05/08/2021 9:21 AM NUCLEAR CRITICALITY SAFETY ENGINEER 81 mg aspirin chewable tablet 81 mg Given 81 mg, Oral, DAILY, First dose on Tue05/08/21 at 0900, Until Discontinued, Hold for platelet count <80K. 05/08/2021 9:21 AM NUCLEAR CRITICALITY SAFETY ENGINEER 2 g ceFAZolin (ANCEF) IVP 2 g Given 2 g, Intravenous, EVERY 8 HOURS, 3 doses, First dose on Maddie 05/07/21 at 1600, Last dose on Tue05/08/21 at 0800 , IV PUSH -- RECONSTITUTE each 1 g vial b y adding 10 mLs of STERILE WATER (SW), Fo r patients >= 80 kg 2 g Given 05/07/2021 11:37 PM NUCLEAR CRITICALITY SAFETY ENGINEER 2 g Given 05/07/2021 4:57 PM NUCLEAR CRITICALITY SAFETY ENGINEER 05/07/2021 10:40 AM NUCLEAR CRITICALITY SAFETY ENGINEER 25 mg diphenhydrAMINE HCL (BENADRYL) injection Given 25 mg 25 mg, Intravenous, ONCE PRN, 1 dose, Starting on Maddie 05/07/21 at 0912, Until Maddie 05/07/21 at 1040, Nausea/Vomiting Injectable, Third line agent, give if second line agent ineffective., PACU (only) DIPHENHYDRAMINE HCL 50 MG/ML IJ SOLN (Cabinet Override) NOW, 1 dose, On Maddie 05/07/21 at 1030, Created by cabinet override, Created by cabinet override FENTANYL CITRATE (PF) 50 MCG/ML IJ SOLN (Cabinet Override) NOW, 1 dose, On Maddie 05/07/21 at 1015, Created by cabinet override, Created by cabinet override 05/07/2021 10:12 AM NUCLEAR CRITICALITY SAFETY ENGINEER 25 mcg fentaNYL citrate PF (SUBLIMAZE) Given injection 25 mcg 25 mcg, Intravenous, EVERY 5 MIN PRN, Starting on Maddie 05/07/21 at 0912, Until Tue05/08/21 at 1833, Pain Injectable, For Pain Score < 4, Maximum total dose of 200 mcg Hold for RR < 10, PACU (only ) 05/08/2021 9:21 AM NUCLEAR CRITICALITY SAFETY ENGINEER 300 mg gabapentin (NEURONTIN) capsule 300 mg Given 300 mg, Oral, EVERY 8 HOURS, First dos e on Maddie 05/07/21 at 1630, Until Discontinued 300 mg Given 05/07/2021 11:37 PM NUCLEAR CRITICALITY SAFETY ENGINEER 300 mg Given 05/07/2021 4:57 PM NUCLEAR CRITICALITY SAFETY ENGINEER 05/07/2021 9:38 AM NUCLEAR CRITICALITY SAFETY ENGINEER 1 mg haloperidol lactate (HALDOL) injection 1 Given mg 1 mg, Intravenous, ONCE PRN, 1 dose, Starting on Maddie 05/07/21 at 0912, Until Maddie 05/07/21 at 0938, Other..., Nausea and Vomiting, First line agent. DO NOT ADMINISTER if given intraoperatively, PACU (only) LIDOCAINE (PF) 10 MG/ML (1 %) IJ SOLN (Cabinet Override) NOW, 1 dose, On Maddie 05/07/21 at 0545, Created by cabinet override, Created by cabinet override 05/07/2021 6:53 AM NUCLEAR CRITICALITY SAFETY ENGINEER 0.2 mL lidocaine PF 1% (10 mg/mL) injection 0.2 Given mL 0.2 mL, Injection, NEEDED, Starting on Maddie 05/07/21 at 0550, Until Maddie 05/07/21 at 1213, Other..., for IV insertion, Pre-Op magnesium oxide (MAGOX) tablet 200-600 mg 200-600 mg, Oral, NEEDED, Starting o n Maddie 05/07/21 at 0913, Until Tue at 1833, magnesium replacement (see admin instructions), Delivers 241.3mg elemental magnesium per tab Use tablet if patient tolerating PO; use IV if not tolerating PO. If urine output < 30 mL/hr, SCr >2 mg/dL, check with physician prior to giving magnesium replacement. For Serum Magnesium > 2.1 mg/dL, No replacement necessary. For Serum Magnesium 1.8 - 2.0 mg/dL, give Magnesium Oxide 200mg PO once. For Serum Magnesium 1.6 - 1.7 mg/dL, give Magnesium Oxide 400mg PO once For Serum Magnesium 1.3 - 1.5 mg/dL, give Magnesium Oxide 600mg PO once. For Seru m Magnesium < = 1.2 mg/dL, give Magnesium Sulfate 6 grams IV over 18 hours (each 1gm over 3 hours). Recheck serum magnesium level 24 hours after START of appropriate replacement dose. Repeat this standing order x 1. Notify physician if serum magnesium < 2.1 mg/d L after two replacements. 05/07/2021 10:45 AM NUCLEAR CRITICALITY SAFETY ENGINEER 1 g 25 mL/hr magnesium sulfate 1 g/D5W 100 mL IVPB Given - New 1 g, Intravenous, 100 mL, Administer Bag over 3-4 Hours, NEEDED, Starting on Maddie 05/07/21 at 0913, Until Tue 1 at 1833, magnesium replacement (see admin instructions), Use tablet if patient tolerating PO; use IV if not tolerating PO. If urine output < 30 mL/hr, SCr >2 mg/dL, check with physician prior to giving magnesium replacement. For Serum Magnesium > 2.1 mg/dL, No replacement necessary. For Serum Magnesium 1.8 - 2.0 mg/dL, give Magnesium Sulfate 1 grams IV over 4 hours. For Serum Magnesium 1.6 - 1.7 mg/dL, give Magnesium Sulfate 2 grams I V over 8 hours (each 1gm over 4 hours). For Serum Magnesium 1.3 - 1.5 mg/dL, give Magnesium Sulfate 4 grams IV over 16 hours (each 1gm over 4 hours). For Serum Magnesium < = 1.2 mg/dL, give Magnesium Sulfate 6 grams IV over 18 hours (each 1gm over 3 hours). Recheck serum magnesium level 24 hours after START of appropriate replacement dose. Repeat this standing order x 1. Notify physician if serum magnesium < 2.1 mg/d L after two replacements. MAGNESIUM SULFATE IN D5W 1 GRAM/100 ML IV PGBK (Cabinet Override) NOW, 1 dose, On Maddie 05/07/21 at 1045, Created by femi saravia, Created by balbinat override 05/08/2021 9:21 AM NUCLEAR CRITICALITY SAFETY ENGINEER 10 mg oxybutynin XL (DITROPAN XL) tablet 10 mg Given 10 mg, Oral, DAILY, First dose on Tue05/08/21 at 0900, Until Discontinued perflutren lipid microspheres (DEFINITY ) injection 1-20 Diluted mL 1-20 Diluted mL, Intravenous, ONCE PRN, 1 dose, Starting on Tue05/08/21 at 0654, Until Tue05/08/21 at 1833, For Procedure, A budget manager may only administer Definity through a saline lock. If IV is in use or a port, PICC, or central line is being used a nurse must administer. NOTE: This is a HIGH ALERT Medication., MAC Procedure Area Only - Medications POTASSIUM CHLORIDE IN WATER 10 MEQ/50 M L IV PGBK (Cabinet Override) NOW, 1 dose, On Maddie 05/07/21 at 1045, Created by femi saravia NOTE: This is a HIGH ALERT Medication., Created by balbinat override 05/07/2021 10:45 AM NUCLEAR CRITICALITY SAFETY ENGINEER 10 mEq 50 mL/hr potassium chloride in water IVPB 10 mEq Given - New 10 mEq, Intravenous, 50 mL, Administer Bag over 60 Minutes, NEEDED, Starting on Tue05/07/21 at 0913, Until Tue 1 at 1833, See admin instructions, Use tablet or suspension if patient tolerating PO; use IV if not tolerating PO. It urine output <30 mL/hr or SCr >2 mg/dL, check with physician prior to giving K+ replacement. - For K+ 4.0-4.3, give potassium chloride 10 mEq IV over 1 hour* - For K+ 3.5-3.9, give potassium chloride 20 mEq IV over 2 hours* - For K+ 3.0-3.4, give potassium chloride 30 mEq IV over 3 hours* - For K+ <3, give potassium chloride 40 mEq I V over 4 hours* - *May increase rate to 2 0 mEq/hr if patient has central line - Check K+ 1 hour after end of each replacement dose. Follow K+ replacement orders based on result. NOTE: This is a HIGH ALERT Medication. potassium chloride oral solution 20-40 mEq 20-40 mEq, Per NG tube, NEEDED, Starting on Maddie 05/07/21 at 0913, Until Tue05/08/21 at 1833, Other..., See admin instructions, If urine output <30 mL/hr or SCr >2 mg/dL, check with physician prior to giving K+ replacement. - For K+ 4.0-4.3, give potassium chloride 20 mEq PO/NG x 1 dos e - For K+ 3.5-3.9, give potassium chloride 40 mEq PO/NG x 1 dose - For K+ <3.5, give potassium chloride 40 mEq PO/NG every 4 hours x 2 doses - Check K + in the AM if potassium >= 3.5 and replacement given - Check K+ 4 hours after last replacement dose given if K+ <3.5, then repeat replacement orders if needed. 05/08/2021 6:48 AM NUCLEAR CRITICALITY SAFETY ENGINEER 20 mEq potassium chloride SR (K-DUR) tablet Given 20-40 mEq 20-40 mEq, Oral, NEEDED, Starting on Maddie 05/07/21 at 0913, Until Tue 1 at 1833, Other..., See admin instructions, If urine output <30 mL/hr or SCr >2 mg/dL, check with physician prior to giving K+ replacement. - For K + 4.0-4.3, give potassium chloride 20 mEq PO/NG x 1 dose - For K+ 3.5-3.9, give potassium chloride 40 mEq PO/NG x 1 dos e - For K+ <3.5, give potassium chloride 40 mEq PO/NG every 4 hours x 2 doses - Check K+ in the AM if potassium >= 3.5 and replacement given - Check K+ 4 hour s after last replacement dose given if K+ <3.5, then repeat replacement orders if needed. Give with meal or full glass of water 05/07/2021 8:01 PM NUCLEAR CRITICALITY SAFETY ENGINEER 40 mg pravastatin (PRAVACHOL) tablet 40 mg Given 40 mg, Oral, AT BEDTIME DAILY, First dose on Maddie 05/07/21 at 2100, Until Discontinued 05/07/2021 6:16 PM NUCLEAR CRITICALITY SAFETY ENGINEER 20 mg rivaroxaban (XARELTO) tablet 20 mg Given 20 mg, Oral, DAILY WITH DINNER, First dose on Maddie 05/07/21 at 1700, Until Discontinued, Administer with food. NOTE: This is a HIGH ALERT Medication. 05/07/2021 6:40 AM NUCLEAR CRITICALITY SAFETY ENGINEER 20 mL/hr sodium chloride 0.9 % infusion Given - New 1,000 mL, Intravenous, at 20 mL/hr, Bag CONTINUOUS, Starting on Maddie 05/07/21 at 0600, Until Maddie 05/07/21 at 0921, Pre-O p 05/07/2021 10:13 AM NUCLEAR CRITICALITY SAFETY ENGINEER 30 mL/hr sodium chloride 0.9 % infusion Given - New 1,000 mL, Intravenous, at 30 mL/hr, Bag CONTINUOUS, Starting on Tue05/07/21 at 0915, Until Tue05/08/21 at 0914, October d/c once patient is tolerating oral intake SODIUM CHLORIDE 0.9 % IV SOLP (Cabinet Override) NOW, 1 dose, On Maddie 05/07/21 at 0545, Created by cabinet override, Created by cabinet override SODIUM CHLORIDE 0.9 % IV SOLP (Cabinet Override) NOW, 1 dose, On Maddie 05/07/21 at 0900, Created by cabinet override, Created by cabinet override 05/08/2021 9:21 AM NUCLEAR CRITICALITY SAFETY ENGINEER 1 tablet vitamins, w/iron & folate Given tablet 1 tablet 1 tablet, Oral, DAILY, First dose on u 05/07/21 at 1215, Until Discontinued 05/07/2021 4:58 PM NUCLEAR CRITICALITY SAFETY ENGINEER 20 mL WATER FOR INJECTION, STERILE IJ SOLN Given (Cabinet Override) NOW, 1 dose, On Maddie 05/07/21 at 1700, Created by cabinet override, Created by cabinet override 05/07/2021 11:37 PM NUCLEAR CRITICALITY SAFETY ENGINEER 20 mL WATER FOR INJECTION, STERILE IJ SOLN Given (Cabinet Override) NOW, 1 dose, On Maddie 05/07/21 at 2345, Created by cabinet override, Created by cabinet override documented in this encounter Discontinued Medications Start Date End Date Medication Sig Discontinue Reason 05/08/2021 amLODIPine (NORVASC) 10 Take 10 mg mg tablet by mouth daily. documented as of this encounter Active and Recently Administered Medications Times are shown in NUCLEAR CRITICALITY SAFETY ENGINEER. 05/07/2021 05/08/2021 Medication Order 05/06/2021 0640 (Given - Provider: Jame Puga N)0900 (Canceled Entry - Provider: Aileen Chang RN) aspirin chewable tablet 81 mg (CANCELED ) 81 mg, Oral, DAILY, First dose on Maddie 05/07/21 at 0900, Until Discontinued, Pre-Op 09 (Given - Provider: Sandro Terry , RN) aspirin chewable tablet 81 mg 81 mg, Oral, DAILY, First dose on Tue05/08/21 at 0900, Until Discontinued, Hold for platelet count <80K. 1657 (Given - Provider: Renetta Greer, GANESH)2337 (Given - Provider: Gonzalo Ruiz, GANESH) 920 (Given - Provider: Sandro Terry , RN) ceFAZolin (ANCEF) IVP 2 g (COMPLETED) 2 g, Intravenous, EVERY 8 HOURS, 3 doses, First dose on Maddie 05/07/21 at 1600, Last dose on Tue05/08/21 at 0800 , IV PUSH -- RECONSTITUTE each 1 g vial b y adding 10 mLs of STERILE WATER (SW), Fo r patients >= 80 kg 1657 (Given - Provider: Renetta Greer, GANESH)2336 (Given - Provider: Gonzalo Ruiz, GANESH) 920 (Given - Provider: Sandro Terry , RN)1630 (Due) gabapentin (NEURONTIN) capsule 300 mg 300 mg, Oral, EVERY 8 HOURS, First dos e on Maddie 05/07/21 at 1630, Until Discontinued 920 (Given - Provider: Sandro Terry , RN) oxybutynin XL (DITROPAN XL) tablet 10 m g 10 mg, Oral, DAILY, First dose on Tue05/08/21 at 0900, Until Discontinued pantoprazole DR (PROTONIX) tablet 40 mg 40 mg, Oral, DAILY, First dose on Tue05/08/21 at 2100, Until Discontinued, D o not crush or chew tablet. 2000 (Given - Provider: Gonzalo Ruiz, RN) pravastatin (PRAVACHOL) tablet 40 mg 40 mg, Oral, AT BEDTIME DAILY, First dose on Maddie 05/07/21 at 2100, Until Discontinued 181 (Given - Provider: Renetta Greer, RN) rivaroxaban (XARELTO) tablet 20 mg 20 mg, Oral, DAILY WITH DINNER, First dose on Maddie 05/07/21 at 1700, Until Discontinued, Administer with food. NOTE: This is a HIGH ALERT Medication. 1247 (Planned Hold - Provider: Renetta lemos, GANESH)2115 (Med Not Given - Provider: Gonzalo Ruiz, RN - Reason: Patient Refused) 09 (Med Not Given - Provider: Sandro estrada RN - Reason: Patient Refused) senna/docusate (SENOKOT-S) tablet 2 tablet 2 tablet, Oral, TWICE DAILY, First dose on Maddie 05/07/21 at 1215, Until Discontinued, Hold for loose stools 1246 (Planned Hold - Provider: Renetta lemos RN) 09 (Given - Provider: Sandro Terry RN) vitamins, w/iron & folate tablet 1 tablet 1 tablet, Oral, DAILY, First dose on Th u 05/07/21 at 1215, Until Discontinued 1658 (Given - Provider: Renetta Greer, GANESH) WATER FOR INJECTION, STERILE IJ SOLN (Cabinet Override) (COMPLETED) NOW, 1 dose, On Maddie 05/07/21 at 1700, Created by cabinet override, Created by cabinet override 2337 (Given - Provider: Gonzalo Ruiz RN) WATER FOR INJECTION, STERILE IJ SOLN (Cabinet Override) (COMPLETED) NOW, 1 dose, On Maddie 05/07/21 at 2345, Created by cabinet override, Created by cabinet override 05/07/2021 05/08/2021 Medication Order 05/06/2021 1246 (Canceled Entry - Provider: Renetta Greer, RN) nitroGLYCERIN 50 mg/D5W 250 mL infusion 250 mL, 0.1-1.5 mcg/kg/min 88 kg Dosing weight (2.64-39.6 mL/hr, rounded to 2.6-39.6 mL/hr), at 2.6-39.6 mL/hr, Intravenous, TITRATE DIRECTED , Starting on Maddie 05/07/21 a t 1215, Until Tue05/08/21 at 1833, Initiate at 0.1 mcg/kg/min Titrate to: SBP <180 and >90 and MAP >60 NOTE: For weight-based dosing, use patient dosing weight Std conc = 0.2 mg/mL 0640 (Given - New Bag - Provider: Michelle Chang RN)0922 (Anesthesia Volume Adjustment - Provider: Nhi Costello CRNA)0925 (Infusion Stopped - Provider: Nhi Costello CRNA) sodium chloride 0.9 % infusion (CANCELED) 1,000 mL, Intravenous, at 20 mL/hr, CONTINUOUS, Starting on Maddie 05/07/21 at 0600, Until Maddie 05/07/21 at 0921, Pre-O p 1013 (Given - New Bag - Provider: Michelle Chang RN) sodium chloride 0.9 % infusion () 1,000 mL, Intravenous, at 30 mL/hr, CONTINUOUS, Starting on Maddie 05/07/21 at 0915, Until Tue05/08/21 at 0914, May d/c once patient is tolerating oral intake 05/07/2021 05/08/2021 Medication Order 05/06/2021 6366 (Given - Provider: Renetta Greer, GANESH)7985 (Given - Provider: Gonzalo Ruiz, GANESH) acetaminophen (TYLENOL) tablet 650 mg 650 mg, Oral, EVERY 6 HOURS PRN, Starting on Maddie 05/07/21 at 1213, Until Tue05/08/21 at 1833, Pain non-opioid: may be used alone or in combination wit h opioid analgesia, Temp > 38.5 C, TOTAL ACETAMINOPHEN DOSE NOT TO EXCEED 4GM DAILY. bisacodyL (DULCOLAX) rectal suppository 10 mg 10 mg, Rectal, DAILY PRN, Starting on 05/09/21 at 0000, Until Tue 1 at 1833, Constipation VT, Second line treatment. 1040 (Given - Provider: Aileen Chang, Jame N) diphenhydrAMINE HCL (BENADRYL) injectio n 25 mg (COMPLETED) 25 mg, Intravenous, ONCE PRN, 1 dose, Starting on Maddie 05/07/21 at 0912, Until Maddie 05/07/21 at 2359, Nausea/Vomiting Injectable, Third line agent, give if second line agent ineffective., PACU (only) 1012 (Given - Provider: Jame Puga) fentaNYL citrate PF (SUBLIMAZE) injection 25 mcg 25 mcg, Intravenous, EVERY 5 MIN PRN, Starting on Maddie 05/07/21 at 0912, Until Tue05/08/21 at 1833, Pain Injectable, For Pain Score < 4, Maximum total dose of 200 mcg Hold for RR < 10, PACU (only ) 0938 (Given - Provider: Jame Puga) haloperidol lactate (HALDOL) injection 1 mg (COMPLETED) 1 mg, Intravenous, ONCE PRN, 1 dose, Starting on Maddie 05/07/21 at 0912, Until Maddie 05/07/21 at 0938, Other..., Nausea and Vomiting, First line agent. DO NOT ADMINISTER if given intraoperatively, PACU (only) hydrALAZINE (APRESOLINE) injection 10 m g 10 mg, Intravenous, EVERY 6 HOURS PRN, Starting on Maddie 05/07/21 at 1213, Until Tue05/08/21 at 1833, Systolic Blood Pressure..., > 160 0653 (Given - Provider: Jame Puga) lidocaine PF 1% (10 mg/mL) injection 0. 2 mL (CANCELED) 0.2 mL, Injection, NEEDED, Starting on Maddie 05/07/21 at 0550, Until Maddie 05/07/21 at 1213, Other..., for IV insertion, Pre-Op 1045 (See Alternative - Provider: Michelle Chang, GANESH) magnesium oxide (MAGOX) tablet 200-600 mg(Linked Group 1) 200-600 mg, Oral, NEEDED, Starting o n Maddie 05/07/21 at 0913, Until Tue 1 at 1833, magnesium replacement (see admin instructions), Delivers 241.3mg elemental magnesium per tab Use tablet if patient tolerating PO; use IV if not tolerating PO. If urine output < 30 mL/hr, SCr >2 mg/dL, check with physician prior to giving magnesium replacement. For Serum Magnesium > 2.1 mg/dL, No replacement necessary. For Serum Magnesium 1.8 - 2.0 mg/dL, give Magnesium Oxide 200mg PO once. For Serum Magnesium 1.6 - 1.7 mg/dL, give Magnesium Oxide 400mg PO once For Serum Magnesium 1.3 - 1.5 mg/dL, give Magnesium Oxide 600mg PO once. For Seru m Magnesium < = 1.2 mg/dL, give Magnesium Sulfate 6 grams IV over 18 hours (each 1gm over 3 hours). Recheck serum magnesium level 24 hours after START of appropriate replacement dose. Repeat this standing order x 1. Notify physician if serum magnesium < 2.1 mg/d L after two replacements. 1045 (Given - New Bag - Provider: Michelle Chang RN) magnesium sulfate 1 g/D5W 100 mL IVPB(Linked Group 1) 1 g, Intravenous, 100 mL, Administer over 3-4 Hours, NEEDED, Starting on Maddie 05/07/21 at 0913, Until Tue at 1833, magnesium replacement (see admin instructions), Use tablet if patient tolerating PO; use IV if not tolerating PO. If urine output < 30 mL/hr, SCr >2 mg/dL, check with physician prior to giving magnesium replacement. For Serum Magnesium > 2.1 mg/dL, No replacement necessary. For Serum Magnesium 1.8 - 2.0 mg/dL, give Magnesium Sulfate 1 grams IV over 4 hours. For Serum Magnesium 1.6 - 1.7 mg/dL, give Magnesium Sulfate 2 grams I V over 8 hours (each 1gm over 4 hours). For Serum Magnesium 1.3 - 1.5 mg/dL, give Magnesium Sulfate 4 grams IV over 16 hours (each 1gm over 4 hours). For Serum Magnesium < = 1.2 mg/dL, give Magnesium Sulfate 6 grams IV over 18 hours (each 1gm over 3 hours). Recheck serum magnesium level 24 hours after START of appropriate replacement dose. Repeat this standing order x 1. Notify physician if serum magnesium < 2.1 mg/d L after two replacements. milk of magnesia (CONC) oral suspension 10 mL 10 mL, Oral, DAILY PRN, Starting on Th u 05/07/21 at 1213, Until Tue05/08/21 at 1833, Constipation PO, First line treatment ondansetron (ZOFRAN) injection 4 mg 4 mg, Intravenous, EVERY 6 HOURS PRN, Starting on Maddie 05/07/21 at 1213, Until Tue05/08/21 at 1833, Nausea/Vomiting Injectable oxyCODONE (ROXICODONE) tablet 5 mg 5 mg, Oral, EVERY 4 HOURS PRN, Startin g on Maddie 05/07/21 at 1213, Until Tue05/08/21 at 1833, Pain PO 0849 (Med Not Given - Provider: Neo Petersen - Reason: Other (Comment) - Comment: Not needed) perflutren lipid microspheres (DEFINITY ) injection 1-20 Diluted mL 1-20 Diluted mL, Intravenous, ONCE PRN, 1 dose, Starting on Tue05/08/21 at 0654, Until Tue05/08/21 at 1833, For Procedure, A budget manager may only administer Definity through a saline lock. If IV is in use or a port, PICC, or central line is being used a nurse must administer. NOTE: This is a HIGH ALERT Medication., MAC Procedure Area Only - Medications 1045 (Given - New Bag - Provider: Michelle Chang, RN) 0648 (See Alternative - Provider: Gonzalo Ruiz, GANESH) potassium chloride in water IVPB 10 mEq(Linked Group 2) 10 mEq, Intravenous, 50 mL, Administer over 60 Minutes, NEEDED, Starting on Maddie 05/07/21 at 0913, Until Tue 1 at 1833, See admin instructions, Use tablet or suspension if patient tolerating PO; use IV if not tolerating PO. It urine output <30 mL/hr or SCr >2 mg/dL, check with physician prior to giving K+ replacement. - For K+ 4.0-4.3, give potassium chloride 10 mEq IV over 1 hour* - For K+ 3.5-3.9, give potassium chloride 20 mEq IV over 2 hours* - For K+ 3.0-3.4, give potassium chloride 30 mEq IV over 3 hours* - For K+ <3, give potassium chloride 40 mEq I V over 4 hours* - *May increase rate to 2 0 mEq/hr if patient has central line - Check K+ 1 hour after end of each replacement dose. Follow K+ replacement orders based on result. NOTE: This is a HIGH ALERT Medication. 1045 (See Alternative - Provider: Michelle Chang, RN) 0648 (See Alternative - Provider: Gonzalo Ruiz, RN) potassium chloride oral solution 20-40 mEq(Linked Group 2) 20-40 mEq, Per NG tube, NEEDED, Starting on Maddie 05/07/21 at 0913, Until Tue05/08/21 at 1833, Other..., See admin instructions, If urine output <30 mL/hr or SCr >2 mg/dL, check with physician prior to giving K+ replacement. - For K+ 4.0-4.3, give potassium chloride 20 mEq PO/NG x 1 dos e - For K+ 3.5-3.9, give potassium chloride 40 mEq PO/NG x 1 dose - For K+ <3.5, give potassium chloride 40 mEq PO/NG every 4 hours x 2 doses - Check K + in the AM if potassium >= 3.5 and replacement given - Check K+ 4 hours after last replacement dose given if K+ <3.5, then repeat replacement orders if needed. 1045 (See Alternative - Provider: Michelle Chang RN) 0648 (Given - Provider: Gonzalo Ruiz, RN) potassium chloride SR (K-DUR) tablet 20-40 mEq(Linked Group 2) 20-40 mEq, Oral, NEEDED, Starting on Maddie 05/07/21 at 0913, Until Tue 1 at 1833, Other..., See admin instructions, If urine output <30 mL/hr or SCr >2 mg/dL, check with physician prior to giving K+ replacement. - For K + 4.0-4.3, give potassium chloride 20 mEq PO/NG x 1 dose - For K+ 3.5-3.9, give potassium chloride 40 mEq PO/NG x 1 dos e - For K+ <3.5, give potassium chloride 40 mEq PO/NG every 4 hours x 2 doses - Check K+ in the AM if potassium >= 3.5 and replacement given - Check K+ 4 hour s after last replacement dose given if K+ <3.5, then repeat replacement orders if needed. Give with meal or full glass of water prochlorperazine (COMPAZINE) rectal suppository 25 mg 25 mg, Rectal, EVERY 6 HOURS PRN, Starting on Maddie 05/07/21 at 1213, Until Tue05/08/21 at 1833, Nausea/Vomiting VT, Second line treatment for nausea or first line if ondansetron previously ineffective. Order Group 1: magnesium sulfate 1 g/D5W 100 mL IVPB Jump to med 1 g, Intravenous, 100 mL, Administer ov er 3-4 Hours, NEEDED, Starting on Maddie 05/07/21 at 0913, Until Tue05/08/21 at 1833, magnesium r eplacement (see admin instructions)
Use tablet if patient tolerating PO; use IV if not tolerating PO. If urine output < 30 mL/hr, SCr >2 mg/dL, check with physician prior to giving ma gnesium replacement. For Serum Magnesium > 2.1 mg/dL, No replacement necessary. F or Serum Magnesium 1.8 - 2.0 mg/dL, give Magnesium Sulfate 1 grams IV over 4 hours. For Serum Magnesium 1.6 - 1.7 mg/dL, give Magnesium Sulfate 2 grams IV over 8 hours (each 1gm over 4 hours). & nbsp;For Serum Magnesium 1.3 - 1.5 mg/dL, give Magnesium Sulfate 4 grams IV over 16 hours (each 1gm over 4 hours). For Serum Magnesium < = 1.2 mg/dL, give Magnesium Sulfate 6 grams IV over 18 hours (each 1gm over 3 hours). Recheck serum magnesium level 24 hours after START of appropriate replacement dose. Repeat this standing order x 1. Notify physician if serum magnesium < 2.1 mg/dL after two replacements.
Or magnesium oxide (MAGOX) tablet 200-600 mgJump to med 200-600 mg, Oral, NEEDED, Starting o n Maddie 05/07/21 at 0913, Until Tue05/08/21 at 1833, magnesium replacement (see admin instructions)
Delivers 241.3mg elemental magnesium per tab Use tablet if patient tolerating PO; use IV if not tolerating PO. If urine output < 30 mL/hr, SCr >2 mg/dL, check with physician prior to gi ving magnesium replacement. For Serum Magnesium > 2.1 mg/dL, No replacement n ecessary. For Serum Magnesium 1.8 - 2.0 mg/dL, give Magnesium Oxide 200mg PO once. Fo r Serum Magnesium 1.6 - 1.7 mg/dL, give Magnesium Oxide 400mg PO once For Serum Magnesium 1.3 - 1.5 mg/dL, give Magnesium Oxide 600mg PO once. For Serum Magnesium < = 1.2 mg/dL, give Magnesium Sulfate 6 grams IV over 18 hours (each 1gm over 3 hours). Recheck serum magne sium level 24 hours after START of appropriate replacement dose. Repeat this standing order x 1. N otify physician if serum magnesium < 2.1 mg/dL after two replacements.
Group 2: potassium chloride SR (K-DUR) tablet 20 -40 mEqJump to med 20-40 mEq, Oral, NEEDED, Starting on Maddie 05/07/21 at 0913, Until Tue05/08/21 at 1833, Other..., See admin instructions
If urine outp ut <30 mL/hr or SCr >2 mg/dL, check with physician prior to giving K+ replacement. - For K+ 4. 0-4.3, give potassium chloride 20 mEq PO/NG x 1 dose - For K+ 3.5-3.9, give potassium chloride 40 mEq PO/NG x 1 dose - For K+ <3.5, give potassium chloride 40 mEq PO/NG every 4 hours x 2 doses - Check K+ in the AM if potassium >= 3.5 and replacement given - Check K+ 4 pk rs after last replacement dose given if K+ <3.5, then repeat replacement orders if needed. &nb sp;Give with meal or full glass of water
Or potassium chloride oral solution 20-40 mEqJump to med 20-40 mEq, Per NG tube, NEEDED, Star ting on Maddie 05/07/21 at 0913, Until Tue05/08/21 at 1833, Other..., See admin instructions
If urine output <30 mL/hr or SCr >2 mg/dL, check with physician prior to giving K+ replacement. - For K+ 4.0-4.3, give potassium chloride 20 mEq PO/NG x 1 dose - For K+ 3.5-3.9, give potass ium chloride 40 mEq PO/NG x 1 dose - For K+ <3.5, give potassium chloride 40 mEq PO/NG every 4 hours x 2 doses - Check K+ in the AM if potassium >= 3.5 and replacement given - Check K+ 4 hours after last replacement dose given if K+ <3.5, then repeat replacement orders if needed. &n bsp;
Or potassium chloride in water IVPB 10 mEq Jump to med 10 mEq, Intravenous, 50 mL, Administer over 60 Minutes, NEEDED, Starting on Maddie 05/07/21 at 0913, Until 05/08/21 at 1833, See admin i nstructions
Use tablet or suspension if patient tolerating PO; use IV if not tolerating PO. It uri ne output <30 mL/hr or SCr >2 mg/dL, check with physician prior to giving K+ replacement. - For K+ 4.0-4.3, give potassium chloride 10 mEq IV over 1 hour* - For K+ 3.5-3.9, give potas sium chloride 20 mEq IV over 2 hours* - For K+ 3.0-3.4, give potassium chloride 30 mEq IV over 3 hours* - For K+ <3, give potassium chloride 40 mEq IV over 4 hours* - *May increase rate to 20 mEq/hr if patient has central line - Check K+ 1 hour after end of each replacement dose . Follow K+ replacement orders based on result. NOTE: This is a HIGH ALERT Medication.
documented in this encounter Orders First Ordered Date Medications Ordered That Might Not Have Count Last Ordered Date Been Administered perflutren lipid microspheres (DEFINITY) 1 05/08/2021 injection 1-20 Diluted mL WATER FOR INJECTION, STERILE IJ SOLN 1 1 07/08/2020 (Cabinet Override) bisacodyL (DULCOLAX) rectal suppository 1 05/07/2021 10 mg HALOPERIDOL LACTATE 5 MG/ML IJ SOLN 1 (Cabinet Override) hydrALAZINE (APRESOLINE) injection 10 mg 1 05/07/2021 magnesium oxide (MAGOX) tablet 200-600 1 05/07/2021 mg milk of magnesia (CONC) oral suspension 1 05/07/2021 10 mL nitroGLYCERIN 50 mg/D5W 250 mL infusion 1 05/07/2021 norepinephrine (LEVOPHED) 4 mg/250 mL 1 05/07/2021 NS IV drip (std conc)(premade) ondansetron (ZOFRAN) injection 4 mg 1 oxyCODONE (ROXICODONE) tablet 5 mg 1 oxyCODONE (ROXICODONE) tablet 5-10 mg 1 05/07/[address] (PROTONIX) tablet 40 mg 1 05/07/2021 potassium chloride oral solution 20-40 1 05/07/2021 mEq prochlorperazine (COMPAZINE) rectal 1 suppository 25 mg senna/docusate (SENOKOT-S) tablet 2 1 tablet First Ordered Date EKG Orders Without Results Count Last Ordere d Date ECG 12-LEAD 2 05/07/2021 First Ordered Date Diet Count Last Ordered Date DISCHARGE DIET CARDIAC 1 05/08/2021 First Ordered Date Nursing Count Last Ordered Date CARDIAC REHAB 1 05/08/2021 DISCHARGE ACTIVITY OTHER 1 05/08/2021 DISCHARGE COMMENTS 1 05/08/2021 DISCHARGE CONTACT 1 05/08/2021 DISCHARGE EDUCATION 1 05/08/2021 DISCHARGE RETURN APPOINTMENT 3 DISCHARGE SIGNS/SYMPTOMS 1 05/08/2021 DISCHARGE WOUND CARE 1 05/08/2021 RISK REDUCTION PLAN 1 05/08/2021 First Ordered Date OT Count Last Ordered Date OT CONSULT OCCUPATIONAL THERAPY 1 2020 First Ordered Date PT Count Last Ordered Date PT CONSULT PHYSICAL THERAPY 1 05/07/2021 First Ordered Date Admission Count Last Ordered Date ADMIT TO INPATIENT 1 05/07/2021 CLARIFICATION ORDER - FOR ADT ADMIN USE 1 05/06/2021 ONLY First Ordered Date Discharge Count Last Ordered Date DISCHARGE PATIENT NOW 1 05/08/2021 First Ordered Date Equipment Count Last Ordered Date COMPRESSION DEVICE, LEG 1 05/07/2021 PUMP IV CONTROL UNIT W/MODULES 1 021 First Ordered Date Vital Signs Count Last Ordered Date VITAL SIGNS 1 05/07/2021 First Ordered Date Activity Count Last Ordered Date MOBILITY 1 05/07/2021 First Ordered Date Discharge Contingent Count Last Ordered Date DISCHARGE PATIENT CONTINGENT 1 First Ordered Date Cardiac Cath Count Last Ordered Date CARDIAC CATH REPORT 1 05/01/2021 First Ordered Date Order Set Communication Count Last Ordered D ate VTE DRUG PROPHYLAXIS CONTRAINDICATED 1 1 07/07/2020 First Ordered Date Appointment Request Count Last Ordered Date APPOINTMENT REQUEST: CARDIAC REHAB 1 First Ordered Date Appointment Count Last Ordered Date REQUEST FOR CARDIOLOGY APPOINTMENT 1 First Ordered Date Intake & Output Count Last Ordered Date INTAKE AND OUTPUT 1 05/07/[address] & Maintain Count Last Ordered Date PLACE AND MAINTAIN SCD 1 05/07/2021 First Ordered Date ADT Patient Update Count Last Ordered Date CHANGE SERVICE / LEVEL OF CARE (NO BED 1 05/08/2021 REQUEST) documented in this encounter Additional Health Concerns Noted Time Assessment 05/08/2021 9: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
--- OUTSIDE RECORDS SUMMARY | 2021-05-15 10:07 | XMS REPORT | Encounter Summary ---
Author Author [facility] Organization [facility] Address Unknown Phone Unavailable Care Team Providers Care Patroller Name Role Phone SaraJazmyn borden TAYLOR PCP Reason for Visit * Reason Comments Lab Results Covid (negative) Encounter Details Care Team Description Date Type Department Vannesa Victoria RN Lab Results (Covid (negative)) 05/05/2021 Documentation Cardiology: [facility] [address], [address] [place] [address] Social History Date Tobacco Use [...] at Date Recorded Female 04/28/2021 1:55 PM KILN PUSHER Date Recorded COVID-19 Exposure Response 04/27/2021 5:03 PM KILN PUSHER In the last month, have you been in contact with [facility] to assess someone who was confirmed or [...] track (04/28/2021 Yes Katheryn Barrett, 1:56 PM KILN PUSHER) 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 and go back to work documented as of this encounter Visit Diagnoses Not on filedocumented in this encounter Additional Health Concerns Noted Time Assessment 04/30/2021 9:40 AM KILN PUSHER A fall risk assessment has been complet ed for the patient documented as of this encounter Care Teams Start Date End Date Patroller Relationship Specialty 04/27/21 Jazmyn Ruiz NP PCP - General Nurse [address] [place] [address] [place] [address] documented as of this encounter
--- OUTSIDE RECORDS SUMMARY | 2021-05-15 10:07 | XMS REPORT | Encounter Summary ---
Author Author [facility] Organization [facility] Address Unknown Phone Unavailable Care Team Providers Care As400 Programmer Analyst Name Role Phone Jazmyn Ruiz NP PCP Reason for Visit * Auth/Cert Diagnoses / Procedures Referred By Contact Referred To Conta ct Specialty Diagnoses Nonrheumatic aortic valve stenosis Nonrheumatic aortic valve stenosis [I35.0] Procedures OH REPLACE AORTIC VALVE OPENFEMORAL ARTERY APPROACH Transcatheter Aortic Valve Replacement - Femoral Artery, 26 Evolut Pro+, Stepdown Referral ID Status Reason Start Date Expiration Visits Vi sits Date Requested Authorized [id number] 1 1 Encounter Details Care Team Description Date Type Department Gabrielle Sifuentes L, DO [address] [address] Ar Freeman DOUBLE CUTTER [address] [address] 05/07/2021 Anesthesia Laboratory: [facility] [address] [facility] Level 2, [address] [place] [address] Anesthesia Record Responsible Anesthesiologist Anesthesia Start Time Anesthesi a Stop Time Procedure Name Maria Anthony, DO 05/07/21 0712 05/07/21 0938 Transcatheter Aortic Valve Replacement - Femoral Artery, 26 Evolut Pro+, Stepdown (N/A ) Date Time Event Comment 629 AN Equip Check 2020 0659 0700 Art Line 0711 Out of Pre Procedure 0712 Anes Start 0713 In Room 0715 An Start Data 0722 An Induction The patient was ree valuated immediately before moderate or deep sedation use and before anesthesia induction. 0726 An Intubation 0731 CVC 0733 Anesthesia Ready 0743 Antibiotic Given 0851 Valve Deployed 0921 An Extubation SV with adeq Vt. Daniel ction. Follows commands. Extubated. 100% O2 FM. 0929 an stop data 0936 Handoff to RN I completed my SBAR handoff to the receiving nurse. 0938 An Stop Meds Name Total fentaNYL PF (SUBLIMAZE) injection 100 mcg lidocaine (2%) 200 mg/10mL Injection 100 mg syringe propofol (DIPRIVAN) 200 mg/ 20 mL 70 mg injection (VIAL) rocuronium (ZEMURON) injection 85 mg ondansetron (ZOFRAN) injection 4 mg dexamethasone (DECADRON) 4 mg/mL 4 mg injection sugammadex (BRIDION) 100 mg/mL iv soln 200 mg artificial tears (dextran 2 drop 70/hypromellose) ophthalmic drops phenylephrine (ELIJAH-SYNEPHRINE) 10 mg in 2.63 mg sodium chloride 0.9% (NS) 250 mL IV dri p (std conc) norepinephrine (LEVOPHED) IV drip (std 0.35 mg conc)(premade) heparin 1,000units/mL 11,000 Units protamine inj 40 mg lidocaine PF 1% (10 mg/mL) injection 1 mL ceFAZolin (ANCEF) 2 g sodium chloride 0.9 % infusion 1,000 mL electrolyte-A (PLASMA-LYTE) 300 mL * Name O2 N2O Inspired N2O Sevoflurane Inspired Sevoflurane * No blood administrations on file. Removal Type Details Placement Peripheral 05/07/21; 0645; RN; R; Forearm; 18 G; 1 05/07/21 0645 by COLE Chang RN 05/08/21 1031 by Sandro Terry RN Arterial 05/07/21; 0700 (created via procedure 05/07/21 0700 by Donya, Line documentation); 20 G; 05/08/21; 1031 K yair Edgar CRNA 05/07/21 0921 by Liz Naqvi CRNA ETT 05/07/21; 0726; Ventilated by mask (1); 05/07/21 0726 by Donya, Direct laryngoscopy; Single-Lumen, Liz Edgar CRNA Cuffed; ETT Size: 7mm; Mac; Blade Size: 3; Cricoid Pressure: No; Oral; 1-Full view of the glottis; 1 insertion attempt; Auscultation, ETCO2 Detector; Vol of Air in Cuff: 8 mL; Taped at Gums : 22 centimeters; 05/07/21; 0921 05/08/21 1633 by Ku, Harp Maker Puncture 05/07/21; 0800; Right; Femoral; 0800 by Rey, Wound 05/08/21; 1633 GANESH Yeboah (Sheath) 05/08/21 1633 by Ku, Harp Maker Puncture 05/07/21; 0800; Left; Femoral; 05/08/21 ; 05/07/21 0800 by Rey, Dorothy Yeboah RN (Sheath) 05/08/21 1633 by Estevan, Harp Maker Puncture 05/07/21; 0815; Left; Femoral; 05/08/21 ; 05/07/21 0815 by Le, Dorothy Yeboah RN (Sheath) documented in this encounter Social History Date Tobacco Use Types Packs/Day [...] at Date Recorded Female 04/28/2021 1:55 PM DINING ROOM COORDINATOR Date Recorded COVID-19 Exposure Response 05/07/2021 6:13 AM DINING ROOM COORDINATOR In the last month, have you [...] impairment: No documented as of this encounter OR Notes * Anesthesia Procedure Notes - Maria Anthony DO - 05/07/2021 3:08 PM DINING ROOM COORDINATOR Associated Order(s): CENTRAL LINE INSERTION Anesthesia Procedure: Central Venous Catheter Line CENTRAL LINE INSERTION Date/Time: 05/07/2021 7:31 AM Patient location: OR Indications: medications requiring CV access, inadequate peripheral IV access, h emodynamic pressure monitoring and vascular access Preprocedure checklist performed: 2 patient identifiers, risks & benefits discussed, patient evaluated, timeout performed, consent obtained, patient being monitored and CVC bundle followed (proper hand washing, maximal sterile barrier technique with cap, sterile gown, sterile glove, sterile drape, and skin prep for antisepsis) CVC Line Insertion Procedure Skin prepped with chlorhexidine; skin prep agent completely dried prior to proce dure. Patient Position: supine Location: internal jugular vein Laterality: right Vein identification: ultrasound guided Confirmation of venous placement prior to dilation of vein by: ultrasound, YUNIOR a nd fluoroscopy Ultrasound image captured Number of attempts: 1 Successful placement: yes Catheter: Catheter type: introducer placed using standard wire through needle technique Catheter size: 6 Fr. Procedure Outcome Post procedure: all ports aspirated, dressing applied and line sutured; Dressing : chlorhexidine impregnated sponge and sterile occlusive dressing Placement verification: placement verified by x-ray Events: none Observations: patient tolerated well Performed by: Maria Anthony DO Authorized by: Maria Anthony DO NG ROOM COORDINATOR * Anesthesia Procedure Notes - Maria Anthony DO - 05/07/2021 3:02 PM DINING ROOM COORDINATOR Associated Order(s): YUNIOR Anesthesia Procedure: Transesophageal Echocardiogram YUNIOR Date/Time: 05/07/2021 7:33 AM Associated procedure: AVR Preprocedure checklist performed: 2 patient identifiers, risks & benefits discussed, patient evaluated, timeout performed, consent obtained and patient being monitored Staff Anesthesiologist: Maria Anthony DO Surgeon: Justice Shetty III, MD Performed personally Indication for YUNIOR: assessment of ascending aorta, assessment of surgical repair , defect repair evaluation, ventricular function, confirmation of pre-procedure diagnosis and valvular assessment Physician requesting echo: Justice Shetty III, MD CPT codes: 04800 - YUNIOR 2D imaging (w or w/o M-mode) including probe placement, i mage acquisition, interpretation & report, 74973 - PWD and/or CWD f/u or limited study, 37683 - Color flow velocity mapping and 67989 - Guidance of a transcatheter intervention(s) Patient location: OR Intubated: yes Bite block: yes Heart visualized: yes Insertion: easy Probe type: multiplane Modalities: 2D, color flow mapping, continuous wave Doppler, 3D and pulse wave D oppler Echocardiographic and Doppler Measurements Ventricular Findings Right [...] Apical anterior: normal Apical inferior: normal [place] Basal anteroseptal: normal Basal inferolateral: normal Mid anteroseptal: normal Mid inferolateral: normal Apical lateral: normal Apical septal: normal [place]: normal Mid [place] Mid anteroseptal: normal Mid anterior: normal [...] Anthony DO Authorized by: Maria Anthony DO NG ROOM COORDINATOR * Anesthesia Postprocedure Evaluation - Melchor Waggoner MD - 05/07/2021 10:50 AM DINING ROOM COORDINATOR Post-Anesthesia Evaluation Name: Isis oCchran : 1955 Age: 65 y.o. Sex: female Procedure Information Anesthesia Start Date/Time: 05/07/21 0712 Procedure: Transcatheter Aortic Valve Replacement - Femoral Artery, 26 Evolut P ro+, Stepdown (N/A ) - Right common femoral artery for access. Medtronic 26 Evolut Pro+ Location: [facility] 03 / Transportation Specialist Providers: Justice Shetty III, MD Post-Anesthesia Vitals BP: 93/63 (05/07 1032) Pulse: 73 (05/07 1030) Respirations: 13 PER MINUTE (05/07 1032) SpO2: 98 % (05/07 1032) SpO2 Pulse: 71 (05/07 103) Vitals Value Taken Time BP 93/63 05/07/21 1032 Temp 36.4 C (97.6 F) 05/07/21 0946 Pulse 73 05/07/21 1030 Respirations 13 PER MINUTE 05/07/21 1032 SpO2 98 % 05/07/21 1032 ABP ART BP Post Anesthesia Evaluation Note Evaluation location: Pre/Post Patient participation: recovered; patient participated in evaluation Level of consciousness: sleepy but conscious Pain score: 3 Pain management: adequate Hydration: normovolemia Temperature: 36.0C - 38.4C Airway patency: adequate Perioperative Events Post-op nausea and vomiting: nausea; resolved Postoperative Status Cardiovascular status: hemodynamically stable Respiratory status: spontaneous ventilation Follow-up needed: none Additional comments: Post-Anesthesia Evaluation Attestation: I reviewed and agre e the indicated post-anesthesia care was provided. I have reviewed kwong portions of the indicated post anesthesia care. I have examined the patient's vitals, phy sical status, and complications and agree with what is documented. Staff name: Melchor Waggoner MD Date: 05/07/2021 Perioperative Events Perioperative Event: No Emergency Case Activation: No NG ROOM COORDINATOR * Anesthesia Procedure Notes - Liz Naqvi CRNA - 05/07/2021 7:48 AM DINING ROOM COORDINATOR Associated Order(s): A-LINE INSERTION Anesthesia Procedure: Arterial Line Placement A-LINE INSERTION [...] skin prep agent completely dried prior to pro cedure. Location: radial artery Laterality: right Technique: palpation Needle gauge: 20 G Number of attempts: 1 Procedure Medications Local Anesthesia: lidocaine PF 1% (10 mg/mL) injection, 1 mL Procedure Outcome Catheter secured with adhesive dressing applied Events: no complications noted during insertion and skin intact, warm, and dry Observation: pt tolerated well Performed by: Liz Naqvi DOUBLE CUTTER Authorized by: Maria Anthony DO NG ROOM COORDINATOR Associated attestation - Maria Anthony DO - 05/07/2021 2:58 PM DINING ROOM COORDINATOR ATTESTATION I was present during the entire procedure performed by a DOUBLE CUTTER Staff name: Maria Anthony DO Date: 05/07/2021 * Anesthesia Preprocedure Evaluation - Maria Anthony DO - 05/06/2021 1:19 PM DINING ROOM COORDINATOR Images from the original note were not included. Anesthesia Pre-Procedure Evaluation Name: Isis Cochran : 1955 Age: 65 y.o. Sex: female Procedure Info: Procedure Information Date/Time: 05/07/21719 Procedure: Transcatheter Aortic Valve Replacement - Femoral Artery, 26 Evolut P ro+, Stepdown (N/A ) - Right common femoral artery for access. Medtronic 26 Evolut Pro+ Location: [facility] 03 / Transportation Specialist Providers: Justice Shetty III, MD Physical Assessment Vital Signs (last filed in past 24 hours): BP: 125/82 (05/07 630) Temp: 36.6 C (97.8 F) (05/07 607) Pulse: 75 (05/07 630) Respirations: 23 PER MINUTE (05/07 630) SpO2: 100 % (05/07 630) Height: 167.6 cm (66") (05/07 607) Weight: 88 kg (194 lb 0.1 oz) (05/07 607) Dosing / Dry Weight: 88 kg (194 lb 0.1 oz) (05/07 607) Patient History Allergies Allergen Reactions Bhdknid-Rbc-Jvj Reductase Inhibitors MUSCLE PAIN Current Medications Medication Directions acetaminophen (TYLENOL EXTRA STRENGTH) 500 mg tablet Take 1,000 mg by mouth at b edtime daily. Max of 4,000 mg of acetaminophen in 24 hours. amLODIPine (NORVASC) 10 mg tablet Take 10 mg by mouth daily. Cranberry 400 mg cap Take 400 mg by mouth daily. diclofenac sodium (VOLTAREN) 1 % topical gel Apply four g topically to affected area four times daily. Patient taking differently: Apply 4 g topically to affected area four times norman y as needed. fish oil /omega-3 fatty acids (SEA-OMEGA) 340/1000 mg capsule Take 4 capsules by mouth daily. gabapentin (NEURONTIN) 300 mg capsule Take one capsule by mouth every 8 hours. nitroglycerin (NITROSTAT) 0.[address] one tablet under tongue every 5 mi nutes as needed for Chest Pain. Max of 3 tablets, call 911. omeprazole DR (PRILOSEC) 20 mg capsule Take 20 mg by mouth daily before breakfas t. pravastatin (PRAVACHOL) 40 mg tablet Take 40 mg by mouth at bedtime daily. rivaroxaban (XARELTO) 20 mg tablet Take 20 mg by mouth daily with dinner. Take w ith food. tolterodine LA (DETROL LA) 4 mg capsule Take 4 mg by mouth daily. vit C,A-Xh-brcxd-lutein-zeaxan (PRESERVISION AREDS-2) 250-90-40-1 mg cap Take 1 capsule by mouth daily. vitamins, w/iron & folate 65/1 mg tab Take 1 tablet by mouth daily. 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) DVT (1986, LLE, blood thinners since) CHF (diastolic dysfunction) Hyperlipidemia No orthopnea Dyspnea on exertion No syncope GI/Hepatic/Renal GERD, well controlled No hx of liver disease Renal disease (Stage 3; resolved with NSAID cessation) No electrolyte problems No hepatitis Neuro/Psych - negative Musculoskeletal Arthritis Endocrine/Other No diabetes No hypothyroidism No blood dyscrasia History of blood transfusion (1988) No autoimmune disease No malignancy (benign path on lumpectomy) Constitution - negative Physical Exam Airway Findings Mallampati: II TM distance: >3 FB Neck ROM: full Mouth opening: good Dental Findings: Negative Cardiovascular Findings: Rhythm: regular Rate: normal Other findings: murmur No peripheral edema Pulmonary Findings: Breath sounds clear to auscultation. Abdominal Findings: Obese Abdominal exam deferred Neurological Findings: Alert and oriented x 3 Constitutional findings: No acute distress Well-developed Diagnostic Tests Hematology: Lab Results Component Value Date HGB 12.8 04/30/2021 HCT 38.0 04/30/2021 PLTCT 222 04/30/2021 WBC 4.9 04/30/2021 NEUT 58 04/30/2021 ANC 2.84 04/30/2021 LYMPH 32 04/28/2021 ALC 1.49 04/30/2021 KAVON 8 04/30/2021 AMC 0.38 04/30/2021 EOSA 3 04/30/2021 ABC 0.05 04/30/2021 MCV 85.6 04/30/2021 MCH 28.8 04/30/2021 MCHC 33.6 04/30/2021 MPV 7.9 04/30/2021 RDW 13.9 04/30/2021 General Chemistry: Lab Results Component Value Date NA 141 04/30/2021 K 4.1 04/30/2021 CL 108 04/30/2021 CO2 23 04/30/2021 GAP 10 04/30/2021 BUN 13 04/30/2021 CR 0.85 04/30/2021 GLU 99 04/30/2021 CA 9.1 04/30/2021 ALBUMIN 3.9 04/30/2021 MG 2.3 04/27/2021 TOTBILI 1.0 04/30/2021 PO4 4.2 04/27/2021 Coagulation: Lab Results Component Value Date PTT 58.3 04/30/2021 INR 1.1 05/06/2021 PFTs 04/2021 CTA C/A/P 04/29/21 IMPRESSION CHEST: 1. Moderate aortic valve thickening [...] anterior pelvis, likely related to chronic thrombosis EKG 04/30/2021: NSR, rate 84 Carotid 04/2021 Interpretation Summary 1. No significant stenosis in B/L common and internal carotid arteries. 2. Mild plaque in both carotid arteries. 3. Normal antegrade flow in bilateral vertebral arteries. 4. No significant stenosis in bilateral proximal subclavian arteries. No prior studies are available for comparison. Anesthesia Plan ASA score: 4 Plan: general and invasive monitoring Special equipment/procedures: Art line and YUNIOR Induction method: intravenous NPO status: acceptable Informed Consent Anesthetic plan and risks discussed with patient. Use of blood products discussed with patient and spouse Plan discussed with: anesthesiologist and DOUBLE CUTTER. Labs: preop labs reviewed 04/30/21, T&C ordered AIMEE: none Consults: none Anesthesia consent to be obtained DOS and will defer to anesthesia staff to obta in prior to transfer to OR suite. Patient informed of risks of general anesthet ic and risk to dental injury during intubation, arterial line placement, intermi ttent YUNIOR throughout procedure, and insertion of central line during PAT appoint ment. NG ROOM COORDINATOR documented in this encounter Plan of Treatment Not on filedocumented as of this encounter Goals Goal Patient Associated Recent Progress Patient-Stat Aut hor Goal Type Problems ed? Resume work [facility] On track (04/28/2021 Yes Katheryn Barrett, 1:56 PM DINING ROOM COORDINATOR) 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 and go back to work documented as of this encounter Procedures Comments Procedure Name Priority Date/Time Associated Diag nosis ANESTHESIA Routine 05/07/2021 TRANSEESOPHAGEAL 7:33 AM DINING ROOM COORDINATOR ECHOCARDIOGRAM ANESTHESIA CENTRAL LINE Routine 05/07/2021 INSERTION 7:31 AM DINING ROOM COORDINATOR ANESTHESIA ARTERIAL LINE Routine 05/07/2021 INSERTION 7:00 AM DINING ROOM COORDINATOR documented in this encounter Results * ANESTHESIA TRANSEESOPHAGEAL ECHOCARDIOGRAM (05/07/2021 7:33 AM DINING ROOM COORDINATOR) Narrative Maria Anthony DO - 05/07/2021 7:33 AM DINING ROOM COORDINATOR Maria Anthony DO 05/07/2021 3:08 PM Anesthesia [...] and valvular assessment Physician requesting echo: Justice Shetty III, MD CPT codes: 54587 - YUNIOR 2D imaging (w or w/o M-mode) including probe placement, image acquisition, interpretation & report, 81271 - PWD and/or CWD f/u or limited study, 00179 - Color flow velocity mapping and 04820 - Guidance of a transcatheter intervention(s) Patient [...] Apical anterior: normal Apical inferior: normal [place] Basal anteroseptal: normal Basal inferolateral: normal Mid anteroseptal: normal Mid inferolateral: normal Apical lateral: normal Apical septal: normal [place]: normal Mid [place] Mid anteroseptal: normal Mid anterior: normal [...] ANESTHESIA CENTRAL LINE INSERTION (05/07/2021 7:31 AM DINING ROOM COORDINATOR) Narrative Maria Anthony DO - 05/07/2021 7:31 AM DINING ROOM COORDINATOR Maria Anthony DO 05/07/2021 3:10 PM Anesthesia [...] ANESTHESIA ARTERIAL LINE INSERTION (05/07/2021 7:00 AM DINING ROOM COORDINATOR) Narrative Maria Anthony DO - 05/07/2021 7:00 AM DINING ROOM COORDINATOR Liz Naqvi CRNA 05/07/2021 7:49 AM Anesthesia [...] Naqvi CRNA Authorized by: Maria Anthony DO documented in this encounter Visit Diagnoses Not on filedocumented in this encounter Administered Medications Action Date Dose Rate Site Medication Order MAR Action 05/07/2021 7:26 AM DINING ROOM COORDINATOR 2 drops artificial tears single dose ophthalmic Given solution Both Eyes, INTRA-PROCEDURE MED, Startin g on Maddie 05/07/21 at 0726, Until Maddie 05/07/21 at 0942, Anesthesia Intra-op 05/07/2021 7:43 AM DINING ROOM COORDINATOR 2 g ceFAZolin (ANCEF) injection Given Intravenous, INTRA-PROCEDURE MED, Starting on Maddie 05/07/21 at 0743, Until Maddie 05/07/21 at 0942, Anesthesia Intra-op 05/07/2021 7:28 AM DINING ROOM COORDINATOR 4 mg dexamethasone (DECADRON) injection Given Intravenous, INTRA-PROCEDURE MED, Starting on Maddie 05/07/21 at 0728, Until Maddie 05/07/21 at 0942, Anesthesia Intra-op 05/07/2021 7:37 AM DINING ROOM COORDINATOR electrolyte-A (PLASMA-LYTE A PH 7.4) Given - New injection Bag Intravenous, INTRA-PROCEDURE MED(CONT), Starting on Maddie 05/07/21 at 0737, Until Maddie 05/07/21 at 0942, Anesthesia Intra-op 05/07/2021 7:22 AM DINING ROOM COORDINATOR 100 mcg fentaNYL citrate PF (SUBLIMAZE) Given injection Intravenous, INTRA-PROCEDURE MED, Starting on Maddie 05/07/21 at 0722, Until Maddie 05/07/21 at 0942, Anesthesia Intra-op 05/07/2021 8:23 AM DINING ROOM COORDINATOR 2,000 Units heparin (porcine) injection Given Intravenous, INTRA-PROCEDURE MED, Starting on Maddie 05/07/21 at 0806, Until Maddie 05/07/21 at 0942, Anesthesia Intra-op 3,000 Units Given 05/07/2021 8:13 AM DINING ROOM COORDINATOR 6,000 Units Given 05/07/2021 8:06 AM DINING ROOM COORDINATOR 05/07/2021 7:23 AM DINING ROOM COORDINATOR 100 mg lidocaine (PF) injection Given Intravenous, INTRA-PROCEDURE MED, Starting on Maddie 05/07/21 at 0723, Until Maddie 05/07/21 at 0942, Anesthesia Intra-op 05/07/2021 7:00 AM DINING ROOM COORDINATOR 1 mL lidocaine PF 1% (10 mg/mL) injection Given Subcutaneous, Starting on Maddie 05/07/21 at 0700, Until Maddie 05/07/21 at 0700, Anesthesia Intra-op 05/07/2021 9:15 AM DINING ROOM COORDINATOR 0.02 mcg/kg/min 6.6 mL/hr norepinephrine (LEVOPHED) IV drip (std Dose/Rate conc)(premade) Change 250 mL, Intravenous, INTRA-PROCEDURE MED(CONT), Starting on Maddie 05/07/21 at 0737, Until Maddie 05/07/21 at 0942, Anesthesia Intra-op 0.04 mcg/kg/min 13.2 mL/hr Given - New Bag 05/07/2021 7:37 AM DINING ROOM COORDINATOR 05/07/2021 8:12 AM DINING ROOM COORDINATOR 4 mg ondansetron (ZOFRAN) injection Given Intravenous, INTRA-PROCEDURE MED, Starting on Maddie 05/07/21 at 0812, Until Maddie 05/07/21 at 0942, Anesthesia Intra-op 05/07/2021 8:56 AM DINING ROOM COORDINATOR 0.2 mcg/kg/min 26.4 mL/hr phenylephrine (ELIJAH-SYNEPHRINE) 10 mg in Dose/Rate sodium chloride 0.9% (NS) 250 mL IV drip Change (std conc) 250 mL, Intravenous, INTRA-PROCEDURE MED(CONT), Starting on Maddie 05/07/21 at 0722, Until Maddie 05/07/21 at 0942, Anesthesia Intra-op 0.5 mcg/kg/min 66 mL/hr Dose/Rate Change 05/07/2021 8:49 AM DINING ROOM COORDINATOR 0.2 mcg/kg/min 26.4 mL/hr Dose/Rate Change 05/07/2021 7:52 AM DINING ROOM COORDINATOR 0.3 mcg/kg/min 39.6 mL/hr Dose/Rate Change 05/07/2021 7:29 AM DINING ROOM COORDINATOR 0.5 mcg/kg/min 66 mL/hr Given - New Bag 05/07/2021 7:22 AM DINING ROOM COORDINATOR 05/07/2021 7:23 AM DINING ROOM COORDINATOR 70 mg propofol (DIPRIVAN) injection Given Intravenous, INTRA-PROCEDURE MED, Starting on Maddie 05/07/21 at 0723, Until Maddie 05/07/21 at 0942, Anesthesia Intra-op 05/07/2021 9:15 AM DINING ROOM COORDINATOR 20 mg protamine injection Given Intravenous, INTRA-PROCEDURE MED, Starting on Maddie 05/07/21 at 0910, Until Maddie 05/07/21 at 0942, Anesthesia Intra-op 20 mg Given 05/07/2021 9:10 AM DINING ROOM COORDINATOR 05/07/2021 8:36 AM DINING ROOM COORDINATOR 20 mg rocuronium injection Given Intravenous, INTRA-PROCEDURE MED, Starting on Maddie 05/07/21 at 0724, Until Maddie 05/07/21 at 0942, Anesthesia Intra-op 15 mg Given 05/07/2021 8:11 AM DINING ROOM COORDINATOR 50 mg Given 05/07/2021 7:24 AM DINING ROOM COORDINATOR 05/07/2021 9:15 AM DINING ROOM COORDINATOR 200 mg sugammadex (BRIDION) injection Given Intravenous, INTRA-PROCEDURE MED, Starting on Maddie 05/07/21 at 0915, Until Maddie 05/07/21 at 0942, Anesthesia Intra-op documented in this encounter Additional Health Concerns Noted Time Assessment 05/07/2021 8:01 PM DINING ROOM COORDINATOR A fall risk assessment has been complet ed for the patient documented as of this encounter Care Teams Start Date End Date As400 Programmer Analyst Relationship Specialty 04/27/21 Jazmyn Ruiz NP PCP - General Nurse [address] [place] [address] Practitioner [place], [place] [id number] documented as of this encounter
--- OUTSIDE RECORDS SUMMARY | 2021-05-15 10:07 | XMS REPORT | Encounter Summary ---
Author Author [facility] Organization [facility] Address Unknown Phone Unavailable Care Team Providers Care Photographic Machine Operator Name Role Phone SaraJazmyn borden TAYLOR PCP Encounter Details Care Team Description Date Type Department Justice Shetty III, MD [address] [facility] [place] [address] Nonrheumatic aortic valve stenosis (Prim annel Dx) 05/05/2021 Pre-Admit XDD CARDIOLOGY Orders Only Social History Date Tobacco Use Types Packs/Day [...] at Date Recorded Female 04/28/2021 1:55 PM OFFICE [facility] Date Recorded COVID-19 Exposure Response 05/07/2021 6:13 AM OFFICE CLIN [facility] In the last month, have you been [...] track (04/28/2021 Yes Katheryn Barrett, 1:56 PM OFFICE CLIN AS[facility]) 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 and go back to work documented as of this encounter Results * TYPE & CROSSMATCH (05/06/2021 12:54 PM OFFICE CLIN [facility]) Units Ordered 2 MAIN LAB Crossmatch 05/09/2021,2359 [facility] Expires Record Check NOT FOUND [facility] ABO/RH(D) AB NEG MAIN LAB Antibody Screen NEG MAIN LAB Specimen Performing Organization Address City/[facility]/ZIP Code [place] Number MAIN LAB [address] [place] [address] * PROTIME INR (PT) (05/06/2021 12:54 PM OFFICE CLIN [facility]) INR 1.1 0.8 - 1.2 MAIN LAB Specimen Blood (substance) Performing Organization Address City/[facility] P [place] Number MAIN LAB [address] [place] [address] * URINALYSIS DIPSTICK REFLEX TO CULTURE (05/06/2021 12:48 PM OFFICE CLIN [facility]) Color,UA YELLOW [facility] Turbidity,UA CLEAR CLEAR-CLEAR MAIN LAB Specific 1.012Comment: NOTE NEW 1.005 - 1.030 MAIN LAB [place]-Urine REFERENCE RANGES pH,UA 5.0 5.0 - 8.0 [facility] Protein,UA NEG NEG-NEG [facility] Glucose,UA NEG NEG-NEG [facility] Ketones,UA NEG NEG-NEG [facility] Bilirubin,UA NEG NEG-NEG [facility] Blood,UA NEG NEG-NEG [facility] Urobilinogen,UA NORMAL NORM-NORMAL [facility] Nitrite,UA NEG NEG-NEG [facility] Leukocytes,UA NEG NEG-NEG [facility] Urine Ascorbic POS (A) NEG-NEG MAIN LAB Acid, UA Comment: Ascorbic acid is found in various food supplies and dietary supplements, and is reported to cause strong interference with Macroscopic Urinalysis testing for glucose, blood and nitrite, and can result in a false negative result. Specimen Urine specimen (specimen) Performing Organization Address [facility] Code [place] Number MAIN LAB [address] [place] [address] * URINALYSIS MICROSCOPIC REFLEX TO CULTURE (05/06/2021 12:48 PM OFFICE CLIN [facility]) WBCs,UA 0-2 0 - 2 /HPF [facility] RBCs,UA 0-2 0 - 3 /HPF [facility] Comment,UA Criteria for reflex to culture [facility] are WBC>10, Positive Nitrite, and/or >=+1 leukocytes. If quantity is not sufficient, an addendum will follow. Squamous 0-2 0 - 5 [facility] Epithelial Cells Specimen Urine specimen (specimen) Performing Organization Address [facility] P [place] Number [facility] [address] [place] [address] * UA REFLEX LABEL (05/06/2021 12:48 PM OFFICE CLIN AS[facility]) UA Reflex Criteria for reflex to culture [facility] Culture are WBC>10, Positive Nitrit e, and/or >=+1 leukocytes. If quantity is not sufficient, an addendum will follow. Specimen Urine specimen (specimen) Performing Organization Address [facility] P [place] Number MAIN LAB [address] [place] [address] documented in this encounter Visit Diagnoses Diagnosis Nonrheumatic aortic valve stenosis - Pr imary Aortic valve disorders documented in this encounter Orders First Ordered Date Nursing Count Last Ordered Date COVID-19 TESTING NOT REQUIRED 1 05/05/20 21 NOTIFY PHYSICIAN 1 05/05/2021 NURSE COMMUNICATION 3 05/05/2021 PATIENT/FAMILY EDUCATION 1 05/05/2021 First Ordered Date Vital Signs Count Last Ordered Date VITAL SIGNS 1 05/05/2021 documented in this encounter Additional Health Concerns Noted Time Assessment 04/30/2021 9:40 AM OFFICE CLIN [facility] A fall risk assessment has been complet ed for the patient documented as of this encounter Care Teams Start Date End Date Photographic Machine Operator Relationship Specialty 04/27/21 Jazmyn Ruiz NP PCP - General Nurse [address] [place] [address] [place] [address] documented as of this encounter
--- OUTSIDE RECORDS SUMMARY | 2021-05-15 10:07 | XMS REPORT | Encounter Summary ---
Author Author [facility] Organization [facility] Address Unknown Phone Unavailable Care Team Providers Care Cigar Head Piercer Name Role Phone SaraJazmyn borden DIRECTOR OF ANCILLARY SERVICES PCP Reason for Visit * Auth/Cert Diagnoses / Procedures Referred By Contact Referred To Conta ct Specialty Diagnoses Chest pain NSEMI Referral ID Status Reason Start Date Expiration Visits Vi sits Date Requested Authorized [id number] 1 1 Encounter Details Care Team Description Date Type Department Cristobal Nj MD [address] [place] [address] Maranda Chatterjee MD [address] [place] [address] Kiersten Healy MD [address] [facility] [address] [address] Chest pain 04/27/2021 Hospital Patient Care Unit B H46: - Encounter Main [place], Main 04/30/2021 Hospital 4000 [facility] [address] [place] [address] Social History Date Tobacco Use [...] at Date Recorded Female 04/28/2021 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 documented as of this encounter Last Filed Vital Signs Reading Time Taken Comments Vital Sign 121/64 04/30/2021 11:27 AM OCCUPATIONAL WORK EXPERIENCE TEACHER Blood Pressure 81 04/30/2021 11:27 AM OCCUPATIONAL WORK EXPERIENCE TEACHER Pulse 36.9 C (98.4 F) 04/30/2021 11:27 AM OCCUPATIONAL WORK EXPERIENCE TEACHER Temperature - - Respiratory Rate 96% 04/30/2021 11:27 AM OCCUPATIONAL WORK EXPERIENCE TEACHER Oxygen Saturation - - Inhaled Oxygen Concentration 87.5 kg (193 lb) 04/28/2021 4:07 PM OCCUPATIONAL WORK EXPERIENCE TEACHER Weight 167.6 cm (5' 6") 04/28/2021 4:07 PM OCCUPATIONAL WORK EXPERIENCE TEACHER Height 31.15 04/28/2021 4:07 PM OCCUPATIONAL WORK EXPERIENCE TEACHER Body Mass Index documented in this encounter [...] as of this encounter Discharge Summaries * Kiersten Healy MD - 04/30/2021 11:15 AM OCCUPATIONAL WORK EXPERIENCE TEACHER Discharge Summary Name: Isis Cochran Date Of : 1955 Age: 65 years Admit date: 04/27/2021 Discharge date: 04/30/2021 Discharge Attending: Kiersten Healy MD Discharge Summary Completed By: Kiersten Healy MD Service: [facility] 2071 Reason for hospitalization: Chest pain [R07.9] Primary Discharge Diagnosis: Chest pain Hospital Diagnoses: Hospital Problems Active Problems * (Principal) Chest pain Other chest pain Nonrheumatic aortic valve stenosis Primary hypertension Dyslipidemia Deep vein thrombosis (DVT) of iliac vein of left lower extremity (HCC) Breast CA (HCC) Stage 3a chronic kidney disease (HCC) GERD (gastroesophageal reflux disease) BENTLEY (stress urinary incontinence, female) Severe aortic stenosis Diastolic dysfunction Significant Past Medical History Breast CA (HCC) Chest pain Deep vein thrombosis (DVT) of iliac vein of left lower extremity (HCC) Diastolic dysfunction DVT (deep venous thrombosis) (HCC) Dyslipidemia GERD (gastroesophageal reflux disease) HTN (hypertension) Nonrheumatic aortic valve stenosis Other chest pain Primary hypertension Severe aortic stenosis Stage 3a chronic kidney disease (HCC) BENTLEY (stress urinary incontinence, female) Allergies Kffelcy-lqk-ybb reductase inhibitors Brief Hospital Course The patient was admitted and the following issues were addressed during this hos pitalization: (with pertinent details including admission exam/imaging/labs). 65 y.o. female admit on 04/27/2021, has a past medical history of Breast CA (HC C) (04/28/2021), Chest pain (04/27/2021), Deep vein thrombosis (DVT) of iliac vein of left lower extremity (HCC) (04/27/2021), Diastolic dysfunction (04/28/2021), D VT (deep venous thrombosis) ([facility]), Dyslipidemia, GERD (gastroesophageal reflux d isease) (04/28/2021), HTN (hypertension), Nonrheumatic aortic valve stenosis (04/27/2021), Other chest pain (04/27/2021), Primary hypertension (04/27/2021), Severe aortic stenosis (04/28/2021), Stage 3a chronic kidney disease (HCC) (04/28/2021), and BENTLEY (stress urinary incontinence, female) (04/28/2021). presenting as a wright sfer from OSH with chest pain. Chest pain possible ACS; Severe -patient presenting with 1 day onset of chest pressure started noon 04/27 while sitting worse with exertion has been having so me chest heaviness on and off and SOB on exertion lately no fever occasional cou gh. Vitals show HTN. Echo done on 04/23/21 showedLV size: Normal size, Modera te concentric hypertrophy,estimated LVEF 65 %. Diastolic function is mildly abno rmal (grade AORTIC VALVE: Calcified, Thickened, No regurgitation, severe mary kate nosis.AV Maximum velocity: 4.93 m/s.AV Mean gradient: 63.9 mmHg.A V Area: 0.75 cm. Symptoms could be from severe versus ACS. She had 2 EKGs done at OSH one showed ST depressions in V3-V5 here EKG is normal. Panorex- No o bvious untreated dental caries/ lucencies. Carotid US- mild plaque and no sign s tenosis. PFTs Normal. Left heart cath 04/29/2021 Nonobstructive coronary artery disease. CV consult, appreciate recs: heparin drip, tele. Consult CTS, eval fo r TAVR- possibly next week w/ YUNIOR. CT Chest/ abd/ pelvis 04/29 CHEST: Modera te aortic valve thickening and calcifications compatible with aortic stenosis. N ormal caliber thoracic aorta. Several small bilateral pulmonary nodules measur ing up to 0.6 cm, favored to represent nodular areas of scarring or atelectasis, but indeterminate. Follow-up chest CT recommended in 6 months. ABDOMEN AND PELVIS: No substantial stenoses within the aortoiliac system. Atretic left external iliac and common femoral veins with multiple collaterals and the subcu taneous anterior pelvis, likely related to chronic thrombosis. Aspirin 325 and Lipitor 80 and resume her pravastatin and fish oil. CTS team and Dr Shetty will call to schedule her return for TAVR in 1-2 weeks. Hx of DVT in LLE -Patient has a history of a vein graft prior surgery-Hold DRILL RIG OPERATOR HELPER Xarelto while on Heparin drip HTN; HLD-Resume DRILL RIG OPERATOR HELPER Amlodipine 10, fish oil and pravastatin Left knee OA-Usually gets injections in knee, patient with plan for possible kathy kathy this [place] Stress incontinence-Will switch DRILL RIG OPERATOR HELPER Detrol LA with oxybutynin per pharmacy. -HX BREAST LUMPECTOMY FOR CANCER 2006 Alcohol use-drinks 8 ounces of wine couple times a week, dc AWAS score. GERD: -pantoprazole Chronic back pain-tylenol, add 04/30/2021 voltaren gel and gabapentin 300 tid. Items Needing Follow Up Pending items or areas that need to be addressed at follow up: none Pending Labs and Follow Up Radiology Pending labs and/or radiology review at this time of discharge are listed below: if this area is blank, there are no items for review. Pending Labs Order Current Status PTT (APTT) Collected (04/28/21 0630) Medications Medication List START taking these medications diclofenac sodium 1 % topical gel; Commonly known as: VOLTAREN; Dose: 4 g; Apply four g topically to affected area four times daily.; Quantity: 300 g; Refills: 0 gabapentin 300 mg capsule; Commonly known as: NEURONTIN; Dose: 300 mg; Take one capsule by mouth every 8 hours.; Quantity: 90 capsule; Refills: 0 nitroglycerin 0.4 mg tablet; Commonly known as: NITROSTAT; Dose: 0.4 mg; Place one tablet under tongue every 5 minutes as needed for Chest Pain. Max of 3 tablets, call 911.; Quantity: 25 tablet; Refills: 0 CONTINUE taking these medications acetaminophen 500 mg tablet; Commonly known as: TYLENOL EXTRA STRENGTH; Dose: 1,000 mg; Refills: 0 amLODIPine 10 mg tablet; Commonly known as: NORVASC; Dose: 10 mg; Refills: 0 Cranberry 400 mg Cap; Dose: 400 mg; Refills: 0 fish oil /omega-3 fatty acids 340/1000 mg capsule; Commonly known as: SEA-OMEGA; Dose: 4 capsule; Refills: [address] 20 mg capsule; Commonly known as: PriLOSEC; Dose: 20 mg; Refills: 0 pravastatin 40 mg tablet; Commonly known as: PRAVACHOL; Dose: 40 mg; Refills: 0 PRESERVISION AREDS-2 250-90-40-1 mg Cap; Generic drug: vit C,H-Af-hrsrf-lutein-zeaxan; Dose: 1 capsule; Refills: 0 rivaroxaban 20 mg tablet; Commonly known as: XARELTO; Dose: 20 mg; Refills: 0 tolterodine LA 4 mg capsule; Commonly known as: DETROL LA; Dose: 4 mg; Refills: 0 vitamins, w/iron & folate 65/1 mg Tab; Dose: 1 tablet; Refills: 0 Return Appointments and Scheduled Appointments No appointment scheduled Consults, Procedures, Diagnostics, Micro, Pathology Consults: Cardiology and CTS Surgical Procedures & Dates: Left heart cath 04/29. Significant Diagnostic Studies, Micro and Procedures: noted in brief hospital co urse Significant Pathology: none Nutrition: Dietitian Documentation Discharge Disposition, Condition Patient Disposition: Home Condition at Discharge: Stable Code Status Code Status History This patient has a current code status but no historical code status. Patient Instructions Cardiac Diet Limiting unhealthy fats and cholesterol is the most important step you can take in reducing your risk for cardiovascular disease. Unhealthy fats include satur ated and trans fats. Monitor your sodium and cholesterol intake. Restrict your sodium to 2g (grams) or 2000mg (milligrams) daily, and your cholesterol to 200m g daily. If you have questions regarding your diet at home, you may contact a dietitian justo t . Testing Not Required for Covid-19 Activity as Tolerated You should resume your normal activity at discharge. Report These Signs and Symptoms Please contact your doctor if you have any of the following symptoms: temperatu re higher than 100.4 degrees F, uncontrolled pain, persistent nausea and/or vomi ting, difficulty breathing, or chest pain Questions About Your Stay For questions or concerns regarding your hospital stay: - DURING BUSINESS HOURS (8:00 AM - 4:30 PM): Call [phone] and asked to be transferred to your discharge attending physic alfonso. - AFTER BUSINESS HOURS (4:30 PM - 8:00 AM, on weekends, or holidays): Call [phone] and ask the electronic equipment set up operator to page the on-call doctor for the discha rge attending physician. Discharging attending physician: KIERSTEN HEALY [[id number]] Incision Care *Call if there is an increase in pain, swelling, or redness. *DO NOT soak incision in water. *NO tub baths, hot tubs, or swimming. *You may shower after discharge. Additional Orders: Case Management, Supplies, Home Health Home Health/DME None Signed: Kiersten Healy MD 04/30/2021 cc: Primary Care Physician: Jazmyn Ruiz Referring physicians: Chris, Chris, Additional provider(s): Did we miss something? If additional records are needed, please fax a request on office letterhead to [phone]. Please include the patient's name, date of b irth, fax number and type of information needed. Additional request can be made by email at [email or web address]. For general questions of information about electronic records sharing, call [phone]. PATIONAL WORK EXPERIENCE TEACHER * Oliva Danielle RN - 04/28/2021 3:16 PM OCCUPATIONAL WORK EXPERIENCE TEACHER Case Management Admission Assessment NAME:Isis Cochran :1955 AGE: 65 y.o. ADMISSION DATE: 04/27/2021 DAYS ADMITTED: LOS: 1 day Todays Date: 04/28/2021 Isis Cochran is a 65 yr old female with hx of DVT of LLE in 2015, HTN, DL, hx of br east lumpectomy, Stage 3a chronic kidney disease, GERD, stress urinary incontine nce, presenting as a transfer from OSH with chest pain. Source of Information: patient Plan Plan: Case Management Assessment, Assist PRN with SW/NCM Services, Discharge Diogenes nning for Home with Post-Acute Care Needs *Pt resides in [facility] with her in a house with 6 steps to door. *Pt is independent with ADLs, drives and denies need for assistance. *Pt denies receiving home health, DME or placement. Pt states if home health is needed she would like to use [facility] in [facility]. *Pt states she sees Jazmyn Ruiz NP for general care. *Pt does not have Part D coverage for medication. Pt pays for all medication ou t of pocket. *Pt's will provide transportation to home. *CM will follow for discharge needs. Patient Address/Phone [address] [facility] [address] (home) Emergency Contact Extended Emergency Contact Information Primary Emergency Contact: Dalton Cochran Mobile Relation: Spouse Preferred language: MACANESE Cost Control Supervisor needed? No Healthcare Directive Healthcare Directive: Yes, patient has a healthcare directive Type of Healthcare Directive: Durable power of deputy attorney general for healthcare Location of Healthcare Directive: Patient does not have it with him/her Would patient like to fill out a (a new) Healthcare Directive?: No, patient decl ined Psych Advance Directive (Psych unit only): No, patient does not have a Psych Adv ance Directive Transportation Does the Patient Need Case Management to Arrange Discharge Transport? (ex: facil ity, ambulance, wheelchair/stretcher, Medicaid, cab, other): No Will the Patient Use Family Transport?: Yes Transportation Name, Phone and Availability #1: Dalton Cochran Spouse [phone] Expected Discharge Date 04/30/2021 Living Situation Prior to Admission Living Arrangements Type of Residence: Home, independent Living Arrangements: Spouse/significant other Bathroom Shower / Tub: Tub/Shower Unit How many levels in the residence?: 2 Can patient live on one level if needed?: Yes Does residence have entry and/or side stairs?: Yes (6 steps) Assistance needed prior to admit or anticipated on discharge: No Who provides assistance or could if needed?: patient's Are they in good health?: Yes Can support system provide 24/7 care if needed?: Maybe Level of Function Prior level of function: Independent Cognitive Abilities Cognitive Abilities: Alert and Oriented, Engages in problem solving and planning , Participates in decision making Financial Resources Coverage Primary Insurance: Medicare Secondary Insurance: Medicare Supplement Additional Coverage: None - Pt does not have part D for medication coverage. Source of Income Source Of Income: SSI Financial Assistance Needed? none Psychosocial Needs Mental Health Mental Health History: No Substance Use History Substance Use History Screen: No Other none Current/Previous Services PCP Jazmyn Ruiz, , Pharmacy [address] [address] Durable Medical Equipment Durable Medical Equipment at home: None Home Health Receiving home health: No Hemodialysis or Peritoneal Dialysis Undergoing hemodialysis or peritoneal dialysis: No Tube/Enteral Feeds Receive tube/enteral feeds: No Infusion Receive infusions: No Private Duty Private duty help used: No Home and Community Based Services Home and community based services: No José Luis White José Luis White: N/A Hospice Hospice: No Outpatient Therapy PT: In the past When did patient receive care?: after rotator cuff surgery Name of rehab location/group: Rehab in [facility] Would patient return for future services?: Yes OT: In the past When did patient receive care?: after rotator cuff surgery Name of rehab location/group: IM Rehab in [facility] HOSPITAL SCIENTIST: No Long Term Facility/Fpc SNF: No NH: No Inpatient Rehab IPR: No Long-Term Acute Care Hospital LTACH: No Acute Hospital Stay Acute Hospital Stay: In the past Was patient's stay within the last 30 days?: No Oliva Danielle MSN, swimming coach or instructor [phone] Pager *[phone] PATIONAL WORK EXPERIENCE TEACHER documented in this encounter Discharge Instructions * Appointments* Kiersten Healy MD - 04/30/2021 11:09 AM OCCUPATIONAL WORK EXPERIENCE TEACHER Call for hospital followup appointment with Jazmyn Olvera within 2 weeks. PATIONAL WORK EXPERIENCE TEACHER documented in this encounter Medications at Time [...] capsule mouth daily. vit Take 1 0 C,Q-Be-jxlda-lutein-zeaxa capsule by n (PRESERVISION AREDS-2) mouth daily. 250-90-40-1 mg cap vitamins, w/iron Take 1 tablet 0 & folate 65/1 mg tab by mouth daily. 05/08/2021 amLODIPine (NORVASC) 10 Take 10 mg by 0 mg tablet mouth daily. documented as of this encounter Ordered Prescriptions Start Date End Date Prescription Sig Dispensed Refills 04/30/2021 diclofenac sodium Apply four g 300 g 0 (VOLTAREN) 1 % topical topically to gel affected area four times daily. 04/30/2021 nitroglycerin (NITROSTAT) Place one 25 tablet 0 0.4 mg tablet tablet under tongue every 5 minutes as needed for Chest Pain. Max of 3 tablets, call 911. 04/30/2021 gabapentin (NEURONTIN) Take one 90 capsule 0 300 mg capsule capsule by mouth every 8 hours. 04/30/2021 04/30/2021 diclofenac sodium Apply four g 300 g 0 (VOLTAREN) 1 % topical topically to gel affected area four times daily. documented in this encounter Discharge Disposition Code Departure Means Destination Disposition Wheelchair Home or Self Care documented in this encounter Progress Notes * Brina Delacruz RN - 04/30/2021 3:20 PM OCCUPATIONAL WORK EXPERIENCE TEACHER I have reviewed the notes, assessment, and/or procedures performed by Brad chavis RN and concur with his documentation unless otherwise noted. PATIONAL WORK EXPERIENCE TEACHER * Brad Renee RN - 04/30/2021 2:42 PM OCCUPATIONAL WORK EXPERIENCE TEACHER Isis Cochran discharged on 04/30/2021. Equipment Removed: Telepack. Discharge instructions reviewed with patient and family. Valuables returned: ADL Belongings at Bedside: Eyeglasses/contacts. Home medications: . Functional assessment at discharge complete: Yes . PATIONAL WORK EXPERIENCE TEACHER * Kourtney Crawford APRN-TAYLOR - 04/30/2021 11:00 AM OCCUPATIONAL WORK EXPERIENCE TEACHER Cardiothoracic Surgery Interim Note NAME: Isis Cochran :1955 AGE: 65 y.o. ADMISSION DATE: 04/27/2021 DAYS ADMITTED: LOS: 3 days Principal Problem: Chest pain Active Problems: Other chest pain Nonrheumatic aortic valve stenosis Primary hypertension Dyslipidemia Deep vein thrombosis (DVT) of iliac vein of left lower extremity (HCC) Breast CA (HCC) Stage 3a chronic kidney disease (HCC) GERD (gastroesophageal reflux disease) BENTLEY (stress urinary incontinence, female) Severe aortic stenosis Diastolic dysfunction PLAN - reviewed with patient/family and Dr. Shetty at bedside - patient will return for TAVR with Dr. Shetty in 1-2 weeks. Our structural heart clinic will contact patient to schedule and provide further instructions - discharge pending per primary team I spent 35 minutes coordinating the care of this patient. Greater than 50% of t he time was spent on examining the patient, counseling the patient regarding the ir condition, laboratory/radiology/echocardiography review, discharge planning a nd outpatient care follow up. Kourtney Crawford APRN-DIRECTOR OF ANCILLARY SERVICES Reach me on Voalte or Pager [phone] at 04/30/2021 7:16 AM History of Present Illness Ms. Isis Cochran is a 65 yr old female who [facility] in [place], [place] after presenting with complaints of chest pain. She has a pas t medical history significant for DVT of LLE in 2014 on chronic anticoagulation with Xarelto - last dose was 04/26/2021, fem-pop bypass with Dr. Jeter at in about 1989, hypertension, dyslipidemia, hx of breast lumpectomy without chemo or radiation,Stage 3a chronic kidney disease, GERD, and stress urinary incontine nce. Ms. Cochran reports an onset of chest pressure 04/27 around noon. The pain/pres sure occurs at rest and is worse with exertion with associated dyspnea on exerti on. Troponins and EKG negative for ACS. She said that she never had chest pain l amber this before. She reportedly still has some chest pain but reports that it is very mild now. She has been told she has a murmur for over 20 years. It was not until recently that she was seen in a new clinic and asked if it had been "studied." She went t o [facility] for an echo which revealed severe . Ms. Cochran reports that she h as noticed increased fatigue and reduced exercise tolerance that has been progre ssive in nature since September 2020. She is a non-smoker. She reports about 8 ounce s of wine 3-4 days/week. She also reports chest pain/pressure, orthopnea, and lo wer extremity edema. She denies any syncope/presyncope. ROS Cardiovascular: positive for chest pressure/discomfort OBJECTIVE Vitals: 04/29/21 1800 04/29/21 1942 04/30/21 0006 04/30/21 0435 BP: 109/66 111/68 108/65 123/64 BP Source: Arm, Left Upper Arm, Left Upper Arm, Left Upper Pulse: 83 86 79 75 Temp: 36.8 C (98.2 F) 36.6 C (97.8 F) 36.7 C (98 F) SpO2: 96% 97% 96% 100% Weight: Height: PHYSICAL EXAM Cardiovascular: regular heart rate and rhythm and murmur systolic Lungs: clear to auscultation bilaterally Basic Metabolic Profile Lab Results Component Value Date/Time NA 140 04/29/2021 04:00 AM K 3.7 04/29/2021 04:00 AM CA 8.8 04/29/2021 04:00 AM CL 105 04/29/2021 04:00 AM CO2 23 04/29/2021 04:00 AM GAP 12 04/29/2021 04:00 AM Lab Results Component Value Date/Time BUN 19 04/29/2021 04:00 AM CR 0.97 04/29/2021 04:00 AM GLU 103 (H) 04/29/2021 04:00 AM CBC w/Diff Lab Results Component Value Date/Time WBC 4.9 04/30/2021 06:17 AM RBC 4.44 04/30/2021 06:17 AM HGB 12.8 04/30/2021 06:17 AM HCT 38.0 04/30/2021 06:17 AM MCV 85.6 04/30/2021 06:17 AM MCH 28.8 04/30/2021 06:17 AM MCHC 33.6 04/30/2021 06:17 AM RDW 13.9 04/30/2021 06:17 AM PLTCT 222 04/30/2021 06:17 AM MPV 7.9 04/30/2021 06:17 AM Lab Results Component Value Date/Time NEUT 58 04/30/2021 06:17 AM ANC 2.84 04/30/2021 06:17 AM LYMA 30 04/30/2021 06:17 AM ALC 1.49 04/30/2021 06:17 AM KAVON 8 04/30/2021 06:17 AM AMC 0.38 04/30/2021 06:17 AM EOSA 3 04/30/2021 06:17 AM AEC 0.15 04/30/2021 06:17 AM BASA 1 04/30/2021 06:17 AM ABC 0.05 04/30/2021 06:17 AM PATIONAL WORK EXPERIENCE TEACHER * Kiersten Healy MD - 04/30/2021 9:02 AM OCCUPATIONAL WORK EXPERIENCE TEACHER General Progress Note Name: Isis Cochran Today's Date: 04/30/2021 Admission Date: 04/27/2021 LOS: 3 days Assessment/Plan: Principal Problem: Chest pain Active Problems: Other chest pain Nonrheumatic aortic valve stenosis Primary hypertension Dyslipidemia Deep vein thrombosis (DVT) of iliac vein of left lower extremity (HCC) Breast CA (HCC) Stage 3a chronic kidney disease (HCC) GERD (gastroesophageal reflux disease) BENTLEY (stress urinary incontinence, female) Severe aortic stenosis Diastolic dysfunction 65 y.o. female admit on 04/27/2021, has a past medical history of Breast CA (HC C) (04/28/2021), Chest pain (04/27/2021), Deep vein thrombosis (DVT) of iliac vein of left lower extremity (HCC) (04/27/2021), Diastolic dysfunction (04/28/2021), D VT (deep venous thrombosis) ([facility]), Dyslipidemia, GERD (gastroesophageal reflux d isease) (04/28/2021), HTN (hypertension), Nonrheumatic aortic valve stenosis (04/27/2021), Other chest pain (04/27/2021), Primary hypertension (04/27/2021), Severe aortic stenosis (04/28/2021), Stage 3a chronic kidney disease (HCC) (04/28/2021), and BENTLEY (stress urinary incontinence, female) (04/28/2021). presenting as a wright sfer from OSH with chest pain. Chest pain possible ACS; Severe -patient presenting with 1 day onset of chest pressure started noon 04/27 while sitting worse with exertion has been having so me chest heaviness on and off and SOB on exertion lately no fever occasional cou gh. Vitals show HTN. Echo done on 04/23/21 showed LV size: Normal size, Moderat e concentric hypertrophy,estimated LVEF 65 %. Diastolic function is mildly abnor mal (grade AORTIC VALVE: Calcified, Thickened, No regurgitation, severe sten osis. AV Maximum velocity: 4.93 m/s. AV Mean gradient: 63.9 mmHg. AV Are a: 0.75 cm. Symptoms could be from severe versus ACS. She had 2 EKGs done at OSH one showed ST depressions in V3-V5 here EKG is normal. Panorex- No obviou s untreated dental caries/ lucencies. Carotid US- mild plaque and no sign stenos is. PFTs Normal. Left heart cath 04/29/2021 Nonobstructive coronary artery disea se. -CV consult, appreciate recs: heparin drip, tele -consult CTS, eval for TAVR- possibly next week w/ [facility]UNIOR -CT Chest/ abd/ pelvis 04/29 CHEST: Moderate aortic valve thickening and calci fications compatible with aortic stenosis. Normal caliber thoracic aorta. Maegan ral small bilateral pulmonary nodules measuring up to 0.6 cm, favored to represe nt nodular areas of scarring or atelectasis, but indeterminate. Follow-up chest CT recommended in 6 months. ABDOMEN AND PELVIS: No substantial stenoses w ithin the aortoiliac system. Atretic left external iliac and common femoral v eins with multiple collaterals and the subcutaneous anterior pelvis, likely rela nina to chronic thrombosis - Aspirin 325 and Lipitor 80 and resume her pravastatin and fish oil Hx of DVT in LLE -Patient has a history of a vein graft prior surgery -Hold DRILL RIG OPERATOR HELPER Xarelto while on Heparin drip HTN; HLD -Resume DRILL [employer] OPERATOR HELPER Amlodipine 10, fish oil and pravastatin Left knee OA-Usually gets injections in knee, patient with plan for possible kathy kathy this [place] Stress incontinence -Will switch DRILL RIG OPERATOR HELPER Detrol LA with oxybutynin per pharmacy -HX BREAST LUMPECTOMY FOR CANCER 2005 Alcohol use -drinks 8 ounces of wine couple times a week, dc AWAS score. GERD: -pantoprazole Chronic back pain -tylenol -add 04/30/2021 voltaren gel and gabapentin 300 tid. FEN: IVF none, lytes replace prn, Advance Diet as Tolerated DIET NPO w/ Body mass index is 31.15 kg/m. PPX: Heparin gtt, SCDs bilat, ppi Full Code DISP: Day 3 of hospital stay. Barriers to discharge: cv eval Continue inpatient on Med Private, plan for discharge to home. Follow up appt w/ PCP: Jazmyn Ruiz [phone] and subspecialists. No future appointments. Pt care discussed w/ patient: Patient Contacts Name Relation Home Work Mobile Preferred Language Dalton Cochran Spouse [phone] MAC[employer] Cost Control Supervisor needed? No There is no immunization history on file for this patient. Staff name: Kiersten Healy MD Date: 04/30/2021 Patient demonstrates high medical complexity with IV Heparin gtt, requiring int ensive monitoring for toxicity . Subjective Isis Cochran is a 65 y.o. female. Patient reports back pain. Patient reports o ngoing exertional chest pain, resolves w/ rest. ROS: General: Pt denies fevers, chills. GI: Pt denies nausea, vomiting, diarrhea Medications Scheduled Meds:amLODIPine (NORVASC) tablet 10 mg, 10 mg, Oral, QDAY diclofenac sodium (VOLTAREN) 1 % topical gel 4 g, 4 g, Topical, QID fish oil- omega 3-DHA/EPA capsule 4,000 mg, 4,000 mg, Oral, QDAY gabapentin (NEURONTIN) capsule 300 mg, 300 mg, Oral, Q8H heparin (porcine) BOLUS for continuous inf (bag) 1,752-3,504 Units, 20-40 Units/ kg, Intravenous, As Prescribed oxybutynin XL (DITROPAN XL) tablet 10 mg, 10 mg, Oral, QDAY pantoprazole DR (PROTONIX) tablet 20 mg, 20 mg, Oral, QDAY(21) pravastatin (PRAVACHOL) tablet 40 mg, 40 mg, Oral, QHS Continuous Infusions: heparin (porcine) 20,000 units/D5W 500 mL infusion (std conc)(premade) 1,000 Units/hr (04/30/21 0723) sodium chloride 0.9 % infusion 1,000 mL (04/29/21 08) PRN and Respiratory Meds:acetaminophen Q6H PRN, diphenhydrAMINE HCL Q4H PRN OR diphenhydrAMINE HCL Q4H PRN, nitroglycerin Q5 MIN PRN, ondansetron (ZOFRAN) I V Q6H PRN Objective: Vital Signs: Last Filed Vital Signs: 24 Chhaya r Range BP: 112/70 (04/30 822) Temp: 36.6 C (97.9 F) (04/30 822) Pulse: 79 (04/30 822) Respirations: 16 PER MINUTE (04/30 822) SpO2: 96 % (04/30 822) SpO2 Pulse: 83 (04/29 1800) BP: (108-123)/(64-70) Temp: [36.6 C (97.8 F)-36.9 C (98.4 F)] Pulse: [75-86] Respirations: [13 PER MINUTE-18 PER MINUTE] SpO2: [96 %-100 %] Intensity Pain Scale (Self Report): 4 (04/29/21 1300) Vitals: 04/27/21 2154 04/28/21 1607 Weight: 87.6 kg (193 lb 3.2 oz) 87.5 kg (193 lb) Intake/Output Summary: (Last 24 hours) Intake/Output Summary (Last 24 hours) at 04/30/2021 0922 Last data filed at 04/30/2021 0435 Gross per 24 hour Intake 0 ml Output 0 ml Net 0 ml Stool Occurrence: 0 Physical Exam General: well developed in No distress w/ Body mass index is 31.15 kg/m. Skin: no rash or wounds, normal capillary refill HEENT: no erythema, no drainage Neck: supple, no adenopathy, thyroid smooth Heart: S1 S2, murmur Lungs: clear bilat Abd: soft, NT, ND, +bs, no hepatosplenomegaly Musculoskeletal: full ROM Vascular: radial and pedal pulses palpable, no edema Neuro: alert and oriented, VERA, speech intact Lab Review 24-hour labs: Results for orders placed or performed during the hospital encounter of 04/27/21 (from the past 24 hour(s)) CBC AND DIFF Collection Time: 04/30/21 6:17 AM Result Value Ref Range White Blood Cells 4.9 4.5 - 11.0 K/UL RBC 4.44 4.0 - 5.0 M/UL Hemoglobin 12.8 12.0 - 15.0 GM/DL Hematocrit 38.0 36 - 45 % MCV 85.6 80 - 100 FL MCH 28.8 26 - 34 PG MCHC 33.6 32.0 - 36.0 G/DL RDW 13.9 11 - 15 % Platelet Count 222 150 - 400 K/UL MPV 7.9 7 - 11 FL Neutrophils 58 41 - 77 % Lymphocytes 30 24 - 44 % Monocytes 8 4 - 12 % Eosinophils 3 0 - 5 % Basophils 1 0 - 2 % Absolute Neutrophil Count 2.84 1.8 - 7.0 K/UL Absolute Lymph Count 1.49 1.0 - 4.8 K/UL Absolute Monocyte Count 0.38 0 - 0.80 K/UL Absolute Eosinophil Count 0.15 0 - 0.45 K/UL Absolute Basophil Count 0.05 0 - 0.20 K/UL COMPREHENSIVE METABOLIC PANEL Collection Time: 04/30/21 6:17 AM Result Value Ref Range Sodium 141 137 - 147 MMOL/L Potassium 4.1 3.5 - 5.1 MMOL/L Chloride 108 98 - 110 MMOL/L Glucose 99 70 - 100 MG/DL Blood Urea Nitrogen 13 7 - 25 MG/DL Creatinine 0.85 0.4 - 1.00 MG/DL Calcium 9.1 8.5 - 10.6 MG/DL Total Protein 6.6 6.0 - 8.0 G/DL Total Bilirubin 1.0 0.3 - 1.2 MG/DL Albumin 3.9 3.5 - 5.0 G/DL Alk Phosphatase 62 25 - 110 U/L AST (SGOT) 20 7 - 40 U/L CO2 23 21 - 30 MMOL/L ALT (SGPT) 19 7 - 56 U/L Anion Gap 10 3 - 12 eGFR Non >60 >60 mL/min eGFR >60 >60 mL/min PTT (APTT) Collection Time: 04/30/21 6:17 AM Result Value Ref Range APTT 58.3 (H) 24.0 - 36.5 SEC Point of Care Testing (Last 24 hours) Glucose: 99 (04/30/21 0617) Radiology and other Diagnostics Review: Pertinent radiology reviewed. CHEST SINGLE VIEW Result Date: 04/28/2021 Initial chest radiograph demonstrating no acute pulmonary abnormalities. Final ized by Lauri Aguayo M.D. on 04/28/2021 7:56 AM. Dictated by Lauri Aguayo M.D. on 04/28/2021 7:55 AM. Kiersten Healy MD Pager [phone] Available on [employer] PATIONAL WORK EXPERIENCE TEACHER * Tere Almanzar RN - 04/29/2021 2:13 PM OCCUPATIONAL WORK EXPERIENCE TEACHER I have reviewed the notes, assessment, and/or procedures performed by Brad chavis RN and concur with her/his documentation unless otherwise noted. PATIONAL WORK EXPERIENCE TEACHER * Tere Almanzar RN - 04/29/2021 1:03 PM OCCUPATIONAL WORK EXPERIENCE TEACHER Patient left unit with Heparin gtt running at 1,000 units/hr to [facility] at 1240. PATIONAL WORK EXPERIENCE TEACHER * Kiersten Healy MD - 04/29/2021 10:56 AM OCCUPATIONAL WORK EXPERIENCE TEACHER General Progress Note Name: Isis Cochran Today's Date: 04/29/2021 Admission Date: 04/27/2021 LOS: 2 days Assessment/Plan: Principal Problem: Chest pain Active Problems: Other chest pain Nonrheumatic aortic valve stenosis Primary hypertension Dyslipidemia Deep vein thrombosis (DVT) of iliac vein of left lower extremity (HCC) Breast CA (HCC) Stage 3a chronic kidney disease (HCC) GERD (gastroesophageal reflux disease) BENTLEY (stress urinary incontinence, female) Severe aortic stenosis Diastolic dysfunction 65 y.o. female admit on 04/27/2021, has a past medical history of Breast CA ([facility]) (04/28/2021), Chest pain (04/27/2021), Deep vein thrombosis (DVT) of iliac vein of left lower extremity ([facility]) (04/27/2021), Diastolic dysfunction (04/28/2021), D VT (deep venous thrombosis) ([facility]), Dyslipidemia, GERD (gastroesophageal reflux d isease) (04/28/2021), HTN (hypertension), Nonrheumatic aortic valve stenosis (04/27/2021), Other chest pain (04/27/2021), Primary hypertension (04/27/2021), Severe aortic stenosis (04/28/2021), Stage 3a chronic kidney disease (HCC) (04/28/2021), and BENTLEY (stress urinary incontinence, female) (04/28/2021). presenting as a wright sfer from OSH with chest pain. Chest pain possible ACS; Severe -patient presenting with 1 day onset of chest pressure started noon 04/27 while sitting worse with exertion has been having so me chest heaviness on and off and SOB on exertion lately no fever occasional cou gh. Vitals show HTN. Echo done on 04/23/21 showed LV size: Normal size, Moderat e concentric hypertrophy,estimated LVEF 65 %. Diastolic function is mildly abnor mal (grade AORTIC VALVE: Calcified, Thickened, No regurgitation, severe sten osis. AV Maximum velocity: 4.93 m/s. AV Mean gradient: 63.9 mmHg. AV Are a: 0.75 cm. Symptoms could be from severe versus ACS. She had 2 EKGs done at OSH one showed ST depressions in V3-V5 here EKG is normal -CV consult, appreciate recs: heparin drip and keep NPO, tele; Carotid US- mild plaque and no sign stenosis, TAVR CTAs, cath 04/29-npo mn and hold xarelto, PFTs -consult CTS, eval for AVR vs TAVR -CT Chest/ abd/ pelvis for eval -Left heart cath 04/29/2021 - Aspirin 325 and Lipitor 80 and resume her pravastatin and fish oil -panorex- No obvious untreated dental caries/ lucencies. 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 GERD: -pantoprazole FEN: IVF none, lytes replace prn, DIET NPO AT MIDNIGHT w/ Body mass index i s 31.15 kg/m. PPX: Heparin gtt, SCDs bilat, ppi Full Code DISP: Day 2 of hospital stay. Barriers to discharge: cv eval Continue inpatient on Med Private, plan for discharge to home. Follow up appt w/ PCP: Jazmyn Ruiz [phone] and subspecialists. No future appointments. Pt care discussed w/ patient: Patient Contacts Name Relation Home Work Mobile Preferred Language Dalton Cochran Spouse [phone] MACANESE Cost Control Supervisor needed? No There is no immunization history on file for this patient. Staff name: Kiersten Healy MD Date: 04/29/2021 Patient demonstrates high medical complexity with IV Heparin gtt, requiring int ensive monitoring for toxicity . Subjective Isis Cochran is a 65 y.o. female. Patient reports Left chest pain since PFTs do ne. Discussed heart cath and CT scans. Gave results for Carotid US, panorex. ROS: General: Pt denies fevers, chills. GI: Pt denies nausea, vomiting, diarrhea Medications Scheduled Meds:[MAR Hold] amLODIPine (NORVASC) tablet 10 mg, 10 mg, Oral, QDAY [MAR Hold] fish oil- omega 3-DHA/EPA capsule 4,000 mg, 4,000 mg, Oral, QDAY [Aug] heparin (porcine) BOLUS for continuous inf (bag) 1,752-3,504 Units, 2 0-40 Units/kg, Intravenous, As Prescribed [Aug] oxybutynin XL (DITROPAN XL) tablet 10 mg, 10 mg, Oral, QDAY [AUG Hold] pantoprazole DR (PROTONIX) tablet 20 mg, 20 mg, Oral, QDAY(21) [AUG Hold] pravastatin (PRAVACHOL) tablet 40 mg, 40 mg, Oral, QHS Continuous Infusions: heparin (porcine) 20,000 units/D5W 500 mL infusion (std conc)(premade) Stopp ed (04/30/21 0400) sodium chloride 0.9 % infusion 1,000 mL (04/29/21 0820) PRN and Respiratory Meds:[Aug] nitroglycerin Q5 MIN PRN Objective: Vital Signs: Last Filed Vital Signs: 24 Chhaya r Range BP: 121/69 (04/29 1135) Temp: 36.9 C (98.4 F) (04/29 1135) Pulse: 83 (04/29 113) Respirations: 18 PER MINUTE (04/29 1135) SpO2: 96 % (04/29 1135) Height: 167.6 cm (66") (04/28 1607) BP: (110-122)/(67-77) Temp: [36.6 C (97.8 F)-36.9 C (98.4 F)] Pulse: [74-92] Respirations: [16 PER MINUTE-18 PER MINUTE] SpO2: [95 %-100 %] Intensity Pain Scale (Self Report): 4 (04/29/21 1300) Vitals: 04/27/21 2154 04/28/21 1607 Weight: 87.6 kg (193 lb 3.2 oz) 87.5 kg (193 lb) Intake/Output Summary: (Last 24 hours) Intake/Output Summary (Last 24 hours) at 04/29/2021 1556 Last data filed at 04/29/2021 0820 Gross per 24 hour Intake 780 ml Output 0 ml Net 780 ml Stool Occurrence: 0 Physical Exam General: well developed in No distress w/ Body mass index is 31.15 kg/m. Skin: no rash or wounds, normal capillary refill HEENT: no erythema, no drainage Neck: supple, no adenopathy, thyroid smooth Heart: S1 S2, murmur Lungs: clear bilat Abd: soft, NT, ND, +bs, no hepatosplenomegaly Musculoskeletal: full ROM Vascular: radial and pedal pulses palpable, no edema Neuro: alert and oriented, VERA, speech intact Lab Review 24-hour labs: Results for orders placed or performed during the hospital encounter of 04/27/21 (from the past 24 hour(s)) CBC AND DIFF Collection Time: 04/29/21 4:00 AM Result Value Ref Range White Blood Cells 5.6 4.5 - 11.0 K/UL RBC 4.50 4.0 - 5.0 M/UL Hemoglobin 12.9 12.0 - 15.0 GM/DL Hematocrit 38.7 36 - 45 % MCV 86.0 80 - 100 FL MCH 28.7 26 - 34 PG MCHC 33.4 32.0 - 36.0 G/DL RDW 13.6 11 - 15 % Platelet Count 238 150 - 400 K/UL MPV 8.0 7 - 11 FL Neutrophils 59 41 - 77 % Lymphocytes 31 24 - 44 % Monocytes 7 4 - 12 % Eosinophils 2 0 - 5 % Basophils 1 0 - 2 % Absolute Neutrophil Count 3.32 1.8 - 7.0 K/UL Absolute Lymph Count 1.71 1.0 - 4.8 K/UL Absolute Monocyte Count 0.40 0 - 0.80 K/UL Absolute Eosinophil Count 0.12 0 - 0.45 K/UL Absolute Basophil Count 0.04 0 - 0.20 K/UL COMPREHENSIVE METABOLIC PANEL Collection Time: 04/29/21 4:00 AM Result Value Ref Range Sodium 140 137 - 147 MMOL/L Potassium 3.7 3.5 - 5.1 MMOL/L Chloride 105 98 - 110 MMOL/L Glucose 103 (H) 70 - 100 MG/DL Blood Urea Nitrogen 19 7 - 25 MG/DL Creatinine 0.97 0.4 - 1.00 MG/DL Calcium 8.8 8.5 - 10.6 MG/DL Total Protein 7.0 6.0 - 8.0 G/DL Total Bilirubin 1.3 (H) 0.3 - 1.2 MG/DL Albumin 4.1 3.5 - 5.0 G/DL Alk Phosphatase 65 25 - 110 U/L AST (SGOT) 22 7 - 40 U/L CO2 23 21 - 30 MMOL/L ALT (SGPT) 21 7 - 56 U/L Anion Gap 12 3 - 12 eGFR Non 58 (L) >60 mL/min eGFR >60 >60 mL/min BNP (B-TYPE NATRIURETIC PEPTI) Collection Time: 04/29/21 4:00 AM Result Value Ref Range B Type Natriuretic Peptide 23.0 0 - 100 PG/ML PTT (APTT) Collection Time: 04/29/21 4:00 AM Result Value Ref Range APTT 70.0 (H) 24.0 - 36.5 SEC Point of Care Testing (Last 24 hours) Glucose: (!) 103 (04/29/21 0400) Radiology and other Diagnostics Review: Pertinent radiology reviewed. CHEST SINGLE VIEW Result Date: 04/28/2021 Initial chest radiograph demonstrating no acute pulmonary abnormalities. Final ized by Lauri Aguayo M.D. on 04/28/2021 7:56 AM. Dictated by Lauri Aguayo M.D. on 04/28/2021 7:55 AM. Kiersten Healy MD Pager [phone] Available on [employer] PATIONAL WORK EXPERIENCE TEACHER * Tere Almanzar RN - 04/28/2021 3:37 PM OCCUPATIONAL WORK EXPERIENCE TEACHER I have reviewed the notes, assessment, and/or procedures performed by Brad chavis RN and concur with her/his documentation unless otherwise noted. PATIONAL WORK EXPERIENCE TEACHER * Isaac Mcneal MD - 04/28/2021 2:20 PM OCCUPATIONAL WORK EXPERIENCE TEACHER Interventional Cardiology Consult NOTE Admission Date: 04/27/2021 Date of Consultation: 04/28/2021 LOS: 1 day Requesting Physician: Maranda Chatterjee MD Consulting Physician: Dr. Isaac Mcneal MD Code Status: Full Code Reason for Consultation Opinion and recommendations regarding TAVR Principal Problem: Chest pain Active Problems: Other chest pain Nonrheumatic aortic valve stenosis Primary hypertension Dyslipidemia Deep vein thrombosis (DVT) of iliac vein of left lower extremity (HCC) Breast CA (HCC) Stage 3a chronic kidney disease (HCC) GERD (gastroesophageal reflux disease) BENTLEY (stress urinary incontinence, female) Severe aortic stenosis Diastolic dysfunction Assessment Severe aortic stenosis *Diagnosed with a murmur over 20 years ago *First identified on echocardiogram from outside facility on 04/23/2021. TAVR work up completed: Echocardiogram: 04/23/2021 OSH LV size: Normal size, Moderate concentric hypertrophy,estimated LVEF 65 %. Diast olic function is mildly abnormal (grade 1).AORTIC VALVE: Calcified, Thickened, No regurgitation, severe stenosis. AV Maximum velocity: 4.93 m/s. AV Mean gr adient: 63.9 mmHg. AV Area: 0.75 cm. CTA chest & ab/pelvis: Tentatively after [facility] tomorrow Carotid US: Ordered for 04/28/2021 PFTs: Ordered for 04/28/2021 Cardiac surgeon evaluation: Dr. Shetty [facility]: Tentatively planned for 04/29/2021 Dental Clearance: Being verified by CTS team Chest Pain *Troponins negative *ECG shows sinus rhythm without acute or ischemic changes *On heparin drip Hypertension *Well-controlled 110-130s/60-70s this admission *Taking 10 mg amlodipine prior to admission Hyperlipidemia *DRILL RIG OPERATOR HELPER 40 mg pravastatin restarted by primary team Chronic Diastolic dysfunction *BNP=55 on admission * Chest XRay 04/27/2021 Initial chest radiograph demonstrating no acute pulmonary abnormalities *Not requiring diuretics this admission History of acute vein thrombosis *Anticoagulated on rivaroxaban DRILL RIG OPERATOR HELPER *Currently on heparin drip in anticipation of possible cath 04/29 Plan Patient will be see by Dr. Mcneal who will review echocardiogram, however her mean gradient suggests she has severe aortic stenosis. As part of TAVR work up she w ould require TAVR CTAs, carotid ultrasound, cardiac cath, and PFTs. Cardiac cath tentatively scheduled for 04/29 [facility] Pager # [phone] _ History of Present Illness Isis Cochran is a 65 y.o. female patient with a past medical history of hypertens ion, hyperlipidemia, severe aortic stenosis, history of DVT, breast cancer, stag e 3a chronic kidney disease. She was transferred to the [facility] from an outside facility with complaints of chest pain. Her pain occurs at rest but is made worse with exertion and is accompanied by shortness of breat h. Since approximately September 2020, she has noticed shortness of breath with exertio n. She first noticed a decrease in her exercise tolerance last spring when she a nd her were riding bikes and she was not able to keep up as well as she normally does. [place] and walking around her property with her gran vasuhildren causes her more shortness of breath than it used to. She decided not t o garden this year due to limitations in her exercise capacity. She is able to w alk approximately 25 yards with full hands before she becomes short of breath. S he describes NYHA class II symptoms. 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 She denies previous heart failure admissions, myocardial infarction, percutaneou s intervention, or other acute coronary event. She has never had a syncopal or n ear syncopal episode. Prior to this admission, she has not had chest pain: Her s ymptoms have primarily been shortness of breath, fatigue, and decreased exercise tolerance. She completed an echo at an outside facility on 04/23/2021 which revealed severe aortic stenosis. Patient will be seen and evaluated by Dr. Mcneal. We will follow along with CTS to determine the best treatment approach for her aortic stenosis. Past Medical History Medical History: Diagnosis Date Breast CA ([facility]) 04/28/2021 Chest pain 04/27/2021 Deep vein thrombosis (DVT) of iliac vein of left lower extremity ([facility]) Diastolic dysfunction 04/28/2021 DVT (deep venous thrombosis) ([facility]) Dyslipidemia GERD (gastroesophageal reflux disease) 04/28/2021 HTN (hypertension) Nonrheumatic aortic valve stenosis 04/27/2021 Other chest pain 04/27/2021 Primary hypertension 04/27/2021 Severe aortic stenosis 04/28/2021 Stage 3a chronic kidney disease (HCC) 04/28/2021 BENTLEY (stress urinary incontinence, female) 04/28/2021 Social History Social History Socioeconomic History Marital status: Spouse name: Dalton Number of children: 4 Years of education: Not on file Highest education level: Not on file Occupational History Not on file Tobacco Use Smoking status: Never Smoker Smokeless tobacco: Never Used Vaping Use Vaping Use: Never used Substance and Sexual Activity Alcohol use: Yes Comment: holidays Drug use: Never Sexual activity: Not on file Other Topics Concern Not on file Social History Narrative Not on file Surgical History Surgical History: Procedure Laterality Date BREAST LUMPECTOMY FEMORAL BYPASS HYSTERECTOMY LAP CHOLECYSTECTOMY Family History Family History Problem Relation Age of Onset Hypertension Mother Hyperlipidemia Mother Medications amLODIPine (NORVASC) tablet 10 mg, 10 mg, Oral, QDAY fish oil- omega 3-DHA/EPA capsule 4,000 mg, 4,000 mg, Oral, QDAY heparin (porcine) BOLUS for continuous inf (bag) 1,752-3,504 Units, 20-40 Units/ kg, Intravenous, As Prescribed oxybutynin XL (DITROPAN XL) tablet 10 mg, 10 mg, Oral, QDAY pantoprazole DR (PROTONIX) tablet 20 mg, 20 mg, Oral, QDAY(21) pravastatin (PRAVACHOL) tablet 40 mg, 40 mg, Oral, QHS nitroglycerin Q5 MIN PRN Allergies Allergies Allergen Reactions Vgcwbtx-Ous-Puv Reductase Inhibitors MUSCLE PAIN Review of Systems General: denies fever, chills, unexplained weight gain or loss Eyes: denies vision changes, vision loss, blurred or double vision Ears/Nose/Throat: denies hearing deficits, sore throat, or nasal congestion Cardiovascular: as per HPI Respiratory: denies cough, sputum production, wheezing. Reports shortness of pee ath on exertion, decreased exercise tolerance Gastrointestinal: denies abdominal pain, N/V diarrhea, constipation, dark or tar ry stools or blood in stools. Genitourinary: denies hematuria/dysuria Musculoskeletal: denies myalagias and arthralgias Skin:denies open wounds or sores Neurologic: denies tremors, seizures, paralysis Psychiatric: denies depression, anxiety Endocrine: denies polyuria, polydipsia, heat and cold intolerance Heme/Lymphatic: History of DVT, anticoagulated on Xarelto Allergic/Immunologic: negative/normal. Vital Signs: Most Recent Vital Signs: 24 Ho ur Range BP: 115/71 (04/28 1625) Temp: 36.8 C (98.3 F) (04/28 1625) Pulse: 91 (04/28 1625) Respirations: 18 PER MINUTE (04/28 1625) SpO2: 100 % (04/28 1625) Height: 167.6 cm (5' 6") (04/28 1607) BP: (115-142)/(66-84) Temp: [36.6 C (97.9 F)-37.1 C (98.8 F)] Pulse: [83-102] Respirations: [18 PER MINUTE] SpO2: [97 %-100 %] Vitals: 04/27/21 2154 04/28/21 1607 Weight: 87.6 kg (193 lb 3.2 oz) 87.5 kg (193 lb) Intake/Output Summary (Last 24 hours) at 04/28/2021 1637 Last data filed at 04/28/2021 1500 Gross per 24 hour Intake 990.6 ml Output 200 ml Net 790.6 ml Stool Occurrence: 1 Physical Exam General Appearance: well developed, appears stated age, no acute distress Neck: neck veins are not distended HEENT: No abnormalities of the visible edy-nasopharynx, conjunctiva or sclera ar e noted. Auscultation/Percussion: lungs clear to auscultation, no rales or rhonchi, no wh eezing Cardiac Auscultation: regular rate and rhythm, S1, S2 normal, no rub, no gallop , III/ systolic murmur Carotid Arteries: Carotids are palpable and there are no bruits Pedal Pulses: normal symmetric pedal pulses Lower Extremity : no lower extremity edema Upper Extremity: normal symmetric radial pulses Abdominal Exam: soft, non-tender, non-distended, normal bowel sounds. No abdomin al bruits Neurologic Exam: neurological assessment grossly intact Skin: no rashes or cellulitis, warm and dry Psych: calm rational, and oriented Labs Hematology: Lab Results Component Value Date HGB 12.8 04/28/2021 HCT 38.4 04/28/2021 PLTCT 240 04/28/2021 WBC 5.6 04/28/2021 NEUT 58 04/27/2021 ANC 3.42 04/28/2021 ANC 3.29 04/27/2021 LYMPH 32 04/28/2021 ALC 1.90 04/27/2021 KAVON 7 04/27/2021 AMC 0.39 04/27/2021 ABC 0.03 04/27/2021 MCV 85.8 04/28/2021 MCHC 33.4 04/28/2021 MPV 8.2 04/28/2021 RDW 13.7 04/28/2021 , Coagulation: Lab Results Component Value Date PTT 50.3 04/28/2021 INR 1.3 04/27/2021 and General Chemistry: Lab Results Component Value Date NA 140 04/28/2021 K 4.3 04/28/2021 CL 106 04/28/2021 GAP 12 04/28/2021 BUN 20 04/28/2021 CR 1.02 04/28/2021 GLU 87 04/28/2021 CA 9.2 04/28/2021 ALBUMIN 4.3 04/28/2021 MG 2.3 04/27/2021 TOTBILI 1.6 04/28/2021 I reviewed the history and performed a physical exam on this patient. Past medi erica history, co-morbidities, and current clinical presentation were discussed wi th the combined heart team and it is felt that the patient would benefit from TA VR. We discussed TAVR in detail, including risks, benefits and alternatives and all questions were answered. We will continue workup and plan for TAVR jorge saul. Isis Cochran has severe symptomatic aortic valve stenosis. She is NYHA Functional Class 3. She has co-morbidites . She is at increased risk to undergo surgical aortic valve replacement. We had an extensive discussion with Isis Cochran regards to risk, benefits, and alternatives of the different treatment options. After reviewing the present and past medical history, co-morbidities, and current clinical presentation, echoca rdiogram, I feel that She is at increased risk for surgical valve replacement. I am thus recommending TAVR as the preferred option. We will need to obtain a cardiac catheterization to assess the coronary anatomy to risk stratify prior to TAVR. We also need to obtain TAVR CTA. The risks of TA VR, which include, but are not limited to , [place], stroke, urgent need for per manent pacemaker, emergent cardiovascular surgery, renal failure, dialysis, vasc ular complications, bleeding, blood transfusions, and infection were discussed. The patient verbalized understanding and stated the desire to proceed. All ques tions were answered. They understand and wish to proceed further. We will certainly keep you updated with regards to our discussion and options fo r treatment of this delightful patient. Isaac Mcneal MD, CCDS, FACC, FACP, FAHA, FASA, FASE, FASNC, FICA, FSCAI, FSVM , RPVI Interventional, Structural and Vascular Cardiology PATIONAL WORK EXPERIENCE TEACHER * Kiersten Healy MD - 04/28/2021 8:32 AM OCCUPATIONAL WORK EXPERIENCE TEACHER General Progress Note Name: Isis Cochran Today's Date: 04/28/2021 Admission Date: 04/27/2021 LOS: 1 day Assessment/Plan: Principal Problem: Chest pain Active Problems: Other chest pain Nonrheumatic aortic valve stenosis Primary hypertension Dyslipidemia Deep vein thrombosis (DVT) of iliac vein of left lower extremity (HCC) Breast CA (HCC) Stage 3a chronic kidney disease (HCC) GERD (gastroesophageal reflux disease) BENTLEY (stress urinary incontinence, female) Severe aortic stenosis Diastolic dysfunction 65 y.o. female admit on 04/27/2021, has a past medical history of Breast CA (HC C) (04/28/2021), Chest pain (04/27/2021), Deep vein thrombosis (DVT) of iliac vein of left lower extremity (HCC) (04/27/2021), Diastolic dysfunction (04/28/2021), D VT (deep venous thrombosis) ([facility]), Dyslipidemia, GERD (gastroesophageal reflux d isease) (04/28/2021), HTN (hypertension), Nonrheumatic aortic valve stenosis (04/27/2021), Other chest pain (04/27/2021), Primary hypertension (04/27/2021), Severe aortic stenosis (04/28/2021), Stage 3a chronic kidney disease (HCC) (04/28/2021), and BENTLEY (stress urinary incontinence, female) (04/28/2021). presenting as a wright sfer from OSH with chest pain. Chest pain possible ACS; Severe -patient presenting with 1 day onset of chest pressure started noon 04/27 while sitting worse with exertion has been having so me chest heaviness on and off and SOB on exertion lately no fever occasional cou gh. Vitals show HTN. Echo done on 04/23/21 showed LV size: Normal size, Moderat e concentric hypertrophy,estimated LVEF 65 %. Diastolic function is mildly abnor mal (grade 1).AORTIC VALVE: Calcified, Thickened, No regurgitation, severe st enosis. AV Maximum velocity: 4.93 m/s. AV Mean gradient: 63.9 mmHg. AV A ruth ann: 0.75 cm. Symptoms could be from severe versus ACS. She had 2 EKGs don e at OSH one showed ST depressions in V3-V5 here EKG is normal -CV consult, appreciate recs: heparin drip and keep NPO, tele - possible stress test versus Cath - Aspirin 325 and Lipitor 80 and resume her pravastatin and fish oil Hx of DVT in LLE -Patient has a history of a vein graft prior surgery -Hold DRILL RIG OPERATOR HELPER Xarelto while on Heparin drip HTN; HLD -Resume DRILL RIG OPERATOR HELPER Amlodipine 10, fish oil and pravastatin Left knee OA-Usually gets injections in knee, patient with plan for possible kathy kathy this Gorge Stress incontinence -Will switch DRILL RIG OPERATOR HELPER Detrol LA with oxybutynin per pharmacy -HX BREAST LUMPECTOMY FOR CANCER 2005 Alcohol use -drinks 8 ounces of wine couple times a week, will monitor AWAS score. GERD: -pantoprazole FEN: IVF none, lytes replace prn, DIET REGULAR w/ Body mass index is 31.18 kg/m. PPX: Heparin gtt, SCDs bilat, ppi Full Code DISP: Day 1 of hospital stay. Barriers to discharge: cv eval Continue inpatient on Med Private, plan for discharge to home. Follow up appt w/ PCP: No primary care provider on file. None and subspecialists . No future appointments. Pt care discussed w/ patient: Patient Contacts None on File There is no immunization history on file for this patient. Staff name: Kiersten Healy MD Date: 04/28/2021 Patient demonstrates high medical complexity with IV Heparin gtt, requiring int ensive monitoring for toxicity . Subjective Isis Cochran is a 65 y.o. female. Patient reports ongoing intermitent ant chest pain. Patient denies dyspnea. Patient denies reproducible or pleuritic or giselle lar to GERD. ROS: General: Pt denies fevers, chills. GI: Pt denies nausea, vomiting, diarrhea Medications Scheduled Meds:amLODIPine (NORVASC) tablet 10 mg, 10 mg, Oral, QDAY fish oil- omega 3-DHA/EPA capsule 4,000 mg, 4,000 mg, Oral, QDAY heparin (porcine) BOLUS for continuous inf (bag) 1,752-3,504 Units, 20-40 Units/ kg, Intravenous, As Prescribed oxybutynin XL (DITROPAN XL) tablet 10 mg, 10 mg, Oral, QDAY pantoprazole DR (PROTONIX) tablet 20 mg, 20 mg, Oral, QDAY(21) pravastatin (PRAVACHOL) tablet 40 mg, 40 mg, Oral, QHS Continuous Infusions: heparin (porcine) 20,000 units/D5W 500 mL infusion (std conc)(premade) Stopp ed (04/28/21 1200) PRN and Respiratory Meds:nitroglycerin Q5 MIN PRN Objective: Vital Signs: Last Filed Vital Signs: 24 Chhaya r Range BP: 130/77 (04/28 725) Temp: 36.7 C (98 F) (04/28 725) Pulse: 84 (04/28 725) Respirations: 18 PER MINUTE (04/28 725) SpO2: 97 % (04/28 725) Height: 167.6 cm (66") (04/27 2154) BP: (117-142)/(72-84) Temp: [36.7 C (98 F)-37.1 C (98.8 F)] Pulse: [84] Respirations: [18 PER MINUTE] SpO2: [97 %-100 %] Vitals: 04/27/212153 Weight: 87.6 kg (193 lb 3.2 oz) Intake/Output Summary: (Last 24 hours) Intake/Output Summary (Last 24 hours) at 04/28/2021 1111 Last data filed at 04/28/2021 0930 Gross per 24 hour Intake 390.6 ml Output 0 ml Net 390.6 ml Stool Occurrence: 0 Physical Exam General: well developed in No distress w/ Body mass index is 31.18 kg/m. Skin: no rash or wounds, normal capillary refill HEENT: no erythema, no drainage Neck: supple, no adenopathy, thyroid smooth Heart: S1 S2, no murmur Lungs: clear bilat Abd: soft, NT, ND, +bs, no hepatosplenomegaly Musculoskeletal: full ROM Vascular: radial and pedal pulses palpable, no edema Neuro: alert and oriented, VERA, speech intact Lab Review 24-hour labs: Results for orders placed or performed during the hospital encounter of 04/27/21 (from the past 24 hour(s)) CBC AND DIFF Collection Time: 04/27/21 10:54 PM Result Value Ref Range White Blood Cells 5.7 4.5 - 11.0 [...] INR (PT) Collection Time: 04/27/21 10:54 PM Result Value Ref Range INR 1.3 (H) 0.8 - 1.2 PTT (APTT) Collection Time: 04/27/21 10:54 PM Result Value Ref Range APTT 37.0 (H) 24.0 - 36.5 SEC COMPREHENSIVE METABOLIC PANEL Collection Time: 04/27/21 10:54 PM Result Value Ref Range Sodium 142 137 - 147 MMOL/L Potassium [...] mL/min MAGNESIUM Collection Time: 04/27/21 10:54 PM Result Value Ref Range Magnesium 2.3 1.6 - 2.6 mg/dL PHOSPHORUS Collection Time: 04/27/21 10:54 PM Result Value Ref Range Phosphorus 4.2 2.0 - 4.5 MG/DL HEMOGLOBIN A1C Collection Time: 04/27/21 10:54 PM Result Value Ref Range Hemoglobin A1C 5.4 4.0 - 6.0 % BNP (B-TYPE NATRIURETIC PEPTI) Collection Time: 04/27/21 10:54 PM Result Value Ref Range B Type Natriuretic Peptide 55.0 0 - 100 PG/ML TROPONIN-I Collection Time: 04/27/21 10:54 PM Result Value Ref Range Troponin-I 0.01 0.0 - 0.05 NG/ML TSH WITH FREE T4 REFLEX Collection Time: 04/27/21 10:54 PM Result Value Ref Range TSH 3.07 0.35 - 5.00 MCU/ML COVID-19 (SARS-COV-2) PCR Collection Time: 04/27/21 10:54 PM Specimen: Nasopharyngeal; Flocked Swab Result Value Ref Range COVID-19 (SARS-CoV-2) PCR Source FLOCKED SWAB NASOPHARYNGEAL COVID-19 (SARS-CoV-2) PCR NOT DETECTED DN-NOT DETECTED TROPONIN-I Collection Time: 11/09/21 6:34 AM Result Value Ref Range Troponin-I 0.01 0.0 - 0.05 NG/ML COMPREHENSIVE METABOLIC PANEL Collection Time: 04/28/21 6:34 AM Result Value Ref Range Sodium 140 137 - 147 MMOL/L Potassium [...] AND DIFF Collection Time: 04/28/21 6:34 AM Result Value Ref Range White Blood Cells 5.6 4.5 - 11.0 [...] PTT (APTT) Collection Time: 04/28/21 6:34 AM Result Value Ref Range APTT 57.2 (H) 24.0 - 36.5 SEC TROPONIN-I Collection Time: 04/28/21 9:40 AM Result Value Ref Range Troponin-I 0.01 0.0 - 0.05 NG/ML Point of Care Testing (Last 24 hours) Glucose: 87 (04/28/21 0634) Radiology and other Diagnostics Review: Pertinent radiology reviewed. CHEST SINGLE VIEW Result Date: 04/28/2021 Initial chest radiograph demonstrating no acute pulmonary abnormalities. Final ized by Lauri Aguayo M.D. on 04/28/2021 7:56 AM. Dictated by Lauri Aguayo M.D. on 04/28/2021 7:55 AM. Kiersten Healy MD Pager [phone] Available on [employer] and [employer] PATIONAL WORK EXPERIENCE TEACHER documented in this encounter H&P Notes * Maranda Chatterjee MD - 04/27/2021 9:55 PM OCCUPATIONAL WORK EXPERIENCE TEACHER Admission History and Physical Examination Name: Isis Cochran Admission Date: 04/27/2021 Assessment/Plan: Principal Problem: Chest pain Active Problems: Other chest pain Nonrheumatic aortic valve stenosis Primary hypertension Dyslipidemia Deep vein thrombosis (DVT) of iliac vein of left lower extremity (HCC) Isis Cochran is a 65 yr old female with hx of DVT of LLE in 2015, HTN, DL, hx of br east lumpectomy, Stage 3a chronic kidney disease, GERD, stress urinary incontine nce, presenting as a transfer from OSH with chest pain. Chest pain possible ACS Severe -patient presenting with 1 day onset of chest pressure started noon 04/27 while s itting worse with exertion has been having some chest heaviness on and off and S OB on exertion lately no fever occasional cough -vitals show HTN -Echo done on 04/23/21 showed LV size: Normal size, Moderate concentric hypertrop hy,estimated LVEF 65 %. Diastolic function is mildly abnormal (grade 1).AORTIC V ALVE: Calcified, Thickened, No regurgitation, severe stenosis. AV Maximum ve locity: 4.93 m/s. AV Mean gradient: 63.9 mmHg. AV Area: 0.75 cm. -Symptoms could be from severe versus ACS -She had 2 EKGs done at OSH one showed ST depressions in V3-V5 here EKG is barbara l Plan: Discussed plan with cards fellow will start heparin drip and keep NPO Cards cs for possible stress test versus Cath Will give Aspirin 325 and Lipitor 80 and resume her pravastatin and fish oil Hx of DVT in LLE -Patient has a history of a vein graft prior surgery -Hold DRILL RIG OPERATOR HELPER Xarelto while on Heparin drip HTN DL -Resume DRILL RIG OPERATOR HELPER Amlodipine 10, fish oil and pravastatin -Left knee OA -Usually gets injections in knee, patient with plan for possible surgery this Ja n Stress incontinence -Will switch DRILL RIG OPERATOR HELPER Detrol LA with oxybutynin per pharmacy -HX BREAST LUMPECTOMY FOR CANCER 2005 Alcohol use -drinks 8 ounces of wine couple times a week, will monitor AWAS score. FEN: no fluids, correct elect, NPO DVT: Heparin drip Code: FULL Dispo:admit to med tele __ Primary Care Physician: No primary care provider on file. No PCP Chief Complaint: Chest pain. History of Present Illness: Isis Cochran is a 65 y.o. female with hx of DVT of L LE in 2014, HTN, DL, hx of breast lumpectomy, Stage 3a chronic kidney disease, G ERD, stress urinary incontinence, presenting as a transfer from OSH with chest p ain. Patient reports chest pain that started at noon on April 27 she was work ing at her desk when she felt heaviness on the left side so she walked and came back after removing the pain was worse described as burning heaviness on the lef t side so she did not show up so she decided to go to the emergency room. She s aid that she never had chest pain like this before maybe she has been having shane e heaviness and ignored it she has been having occasional cough in the morning a nd some fluttering in her chest the pain is a still there but it is very mild at 2 she does not take aspirin and she was not given aspirin or Lipitor at the out side hospital [place] in the last year she has bee n less active she does report some shortness of breath with activity even carryi [employer] she is on Xarelto 20 mg for blood clot she denies fever no [place] never been a heavy smoker she drinks 8 ounces of wine couple times a week. Medical History: Diagnosis Date DVT (deep venous thrombosis) (HCC) Dyslipidemia HTN (hypertension) No past surgical history on file. Family History Problem Relation Age of Onset [...] file Social History Narrative Not on file Social Determinants of Health Financial Resource Strain: Difficulty of Paying Living Expenses: Food Insecurity: Worried About Running Out of Food in the Last Year: Ran Out of Food in the Last Year: Transportation Needs: Lack of Transportation (Medical): Lack of Transportation (Non-Medical): Physical Activity: Days of Exercise per Week: Minutes of Exercise per Session: Stress: Feeling of Stress : Social Connections: Frequency of Communication with Friends and Family: Frequency of Social Gatherings with Friends and Family: Attends Baptism Services: Active Member of Clubs or Organizations: Attends Club or Organization Meetings: Marital Status: Intimate Partner Violence: Fear of Current or Ex-Partner: Emotionally Abused: Physically Abused: Sexually Abused: Immunizations (includes history and patient reported): There is no immunization history on file for this patient. Allergies: Patient has no known allergies. Medications: No medications prior to admission. Review of Systems: A 14 point review of systems was negative except for: Constitutional: positive f or fatigue Eyes: positive for none Ears, nose, mouth, throat, and face: positive for none Respiratory: positive for SOB Cardiovascular: positive for chest pain Gastrointestinal: positive for none Genitourinary: positive for none Integument/breast: positive for none Hematologic/lymphatic: positive for none Musculoskeletal: positive for none Neurological: positive for none Behvioral/Psych: positive for none Endocrine: positive for DL Allergic/Immunologic: positive for none Physical Exam: Vital Signs: Last Filed In 24 Hours Vital Signs: 24 Hour Range BP: 142/84 (04/27 2154) Temp: 36.7 C (98.1 F) (04/27 2154) Respirations: 18 PER MINUTE (04/27 2154) SpO2: 97 % (04/27 2154) Height: 167.6 cm (66") (04/27 2154) BP: (142)/(84) Temp: [36.7 C (98.1 F)] Respirations: [18 PER MINUTE] SpO2: [97 %] Vitals signs and nursing note reviewed. Constitutional: General: sHe is not in acute distress. Appearance: sHe is well-developed. sHe is not diaphoretic. HENT: Head: Normocephalic and atraumatic. Mouth/Throat: Mouth: Mucous membranes are dry Pharynx: No oropharyngeal exudate. Eyes: Conjunctiva/sclera: Conjunctivae normal. Pupils: Pupils are equal, round, and reactive to light. Neck: Musculoskeletal: Normal range of motion and neck supple. Vascular: No JVD. Cardiovascular: Rate and Rhythm: Regular rhythm. present. Pulses: Normal pulses. Positive systolic murmur not radiating to carotids Pulmonary: Effort: Pulmonary effort is normal. No respiratory distress. Breath sounds: Normal breath sounds. No wheezing or rales. Chest: Chest wall: No tenderness. Abdominal: General: There is no distension. Palpations: Abdomen is soft. Tenderness: There is no abdominal tenderness. Musculoskeletal: Normal range of motion of upper exts Skin: General: Skin is warm and dry. Findings: scar on left inner thigh Neurological: Mental Status: sHe is alert and oriented to person, place, and time. Motor: No abnormal muscle tone. Psychiatric: Behavior: mood and affect normal remote and recent memory seems normal Lab/Radiology/Other Diagnostic Tests: 24-hour labs: Results for orders placed or performed during the hospital encounter of 04/27/21 (from the past 24 hour(s)) CBC AND DIFF Collection Time: 04/27/21 10:54 PM Result Value Ref Range White Blood Cells 5.7 4.5 - 11.0 [...] INR (PT) Collection Time: 04/27/21 10:54 PM Result Value Ref Range INR 1.3 (H) 0.8 - 1.2 PTT (APTT) Collection Time: 04/27/21 10:54 PM Result Value Ref Range APTT 37.0 (H) 24.0 - 36.5 SEC COMPREHENSIVE METABOLIC PANEL Collection Time: 04/27/21 10:54 PM Result Value Ref Range Sodium 142 137 - 147 MMOL/L Potassium [...] mL/min MAGNESIUM Collection Time: 04/27/21 10:54 PM Result Value Ref Range Magnesium 2.3 1.6 - 2.6 mg/dL PHOSPHORUS Collection Time: 04/27/21 10:54 PM Result Value Ref Range Phosphorus 4.2 2.0 - 4.5 MG/DL BNP (B-TYPE NATRIURETIC PEPTI) Collection Time: 04/27/21 10:54 PM Result Value Ref Range B Type Natriuretic Peptide 55.0 0 - 100 PG/ML TROPONIN-I Collection Time: 04/27/21 10:54 PM Result Value Ref Range Troponin-I 0.01 0.0 - 0.05 NG/ML TSH WITH FREE T4 REFLEX Collection Time: 04/27/21 10:54 PM Result Value Ref Range TSH 3.07 0.35 - 5.00 MCU/ML Glucose: 92 (04/27/21 2254) EKG Reviewed Maranda Chatterjee MD Pager PATIONAL WORK EXPERIENCE TEACHER documented in this encounter Procedure Notes * Stevenson Pedraza MBBS - 04/29/2021 4:09 PM OCCUPATIONAL WORK EXPERIENCE TEACHER Associated Order(s): CARDIAC CATH REPORT [facility] Cardiology at [facility] CARDIAC CATHETERIZATION REPORT Page 2 ISIS [place] : 1955 KU#: [id number] KU MR #/Billing ID #: [id number] / [id number] DATE: 04/29/2021 BASIN CLEANER: Kia Mahan MD DICTATING PROVIDER: PATRICIO Hickey REFERRING PHYSICIAN: Venancio Bowden MD INDICATION: Ms. Cochran is a 65-year-old lady with history of hypertension, LLE DV T, HLD and severe aortic stenosis. The echocardiogram performed at outside [facility] showed peak aortic velocity of 4.9 m/s with valve area of 0.75. The aortic root was reportedly normal. She presented to the hospital with an episode of ch est pain and subsequently was referred for coronary angiography as possible surg ical aortic valve replacement. PROCEDURES PERFORMED: Selective coronary angiography. INFORMED CONSENT: Informed consent was obtained from the patient after [facility] of risks, benefits, and potential complications. The patient verb alized understanding and agreed to undergo the procedure. PROCEDURE DETAILS: The patient was brought to the cardiac catheterization lab i n a fasting, nonsedated state. The patient was given 1 mg of Versed and 50 mcg of fentanyl intravenously for moderate conscious sedation. Blood pressure, oxyg en saturation, heart rate, and level of consciousness were all assessed througho ut the procedure and at its conclusion. SELECTIVE CORONARY ANGIOGRAPHY VIA RIGHT RADIAL ACCESS: The right wrist was pre pped and draped in typical sterile fashion. After injecting lidocaine, we used a micropuncture needle to access the artery. Thereafter, we placed a 6-Cypriot s soco in the right radial wrist. We then administered 200 mcg of nitroglycerin and 5 mg of verapamil intra-arterially. We also administered additional heparin 2000 units intravenously, as she was on a continuous heparin drip prior to wright sfer to the cardiac catheterization lab. We then used a TIG 4 catheter and enga ged the left and right coronary arteries and performed angiograms in multiple pr ojections. At the end of the procedure the patient had a TR band placed in the r ight radial artery. Selective coronary angiography: 1. Left main coronary artery: The left main coronary artery arises normally fro m the left coronary cusp and gives rise to left anterior descending and left cir cumflex artery. It is free from angiographically significant disease. 2. Left anterior descending artery: The left anterior descending artery is a la rge caliber vessel and is type 3 in configuration, reaching the apex. It is a v armando tortuous throughout its course and gives rise to 2 diagonals along its cours e. The entire LAD artery and its branches have minimal luminal irregularities. 3. Left circumflex artery: The left circumflex artery is a dominant artery and continues to form the left PDA. It gives rise to 1 obtuse marginal branch along its course. It is also very tortuous along it's course. The left circumflex art armando has minimal luminal irregularities throughout its course. 4. Right coronary artery: It is a nondominant, small caliber artery and is very tortuous along its course. It originates normally from the right coronary cusp. It gives the right ventricular branch and subsequently is very small in caliber distally. CONTRAST: 60 mL. FLUORO TIME: 3.6 minutes. AIR KERMA: 234 mGy. ATTENDING ATTESTATION: The attending, Dr. Mahan, was present for the entirety o f the case and performed when necessary kwong portions of the procedure. FINAL IMPRESSION: 1. Nonobstructive coronary artery disease. RECOMMENDATION: The patient has minimal coronary artery disease and recommend f urther workup for severe aortic stenosis per consult team. Kia Mahan MD SPR/MedQ /[id number] cc: - Venancio Bowden MD PATIONAL WORK EXPERIENCE TEACHER documented in this encounter Consult Notes * Cris Massey RN - 04/29/2021 4:47 PM OCCUPATIONAL WORK EXPERIENCE TEACHER Associated Order(s): CONSULT CARDIOLOGY PHYSICIAN Please see IC consult note from Vanda Viveros on 04/28/21. Thanks! PATIONAL WORK EXPERIENCE TEACHER * Isaac Mcneal MD - 04/28/2021 2:28 PM OCCUPATIONAL WORK EXPERIENCE TEACHER Interventional Cardiology Consult NOTE Admission Date: 04/27/2021 Date of Consultation: 04/28/2021 LOS: 1 day Requesting Physician: Maranda Chatterjee MD Consulting Physician: Dr. Isaac Mcneal MD Code Status: Full Code Reason for Consultation Opinion and recommendations regarding TAVR Principal Problem: Chest pain Active Problems: Other chest pain Nonrheumatic aortic valve stenosis Primary hypertension Dyslipidemia Deep vein thrombosis (DVT) of iliac vein of left lower extremity (HCC) Breast CA (HCC) Stage 3a chronic kidney disease (HCC) GERD (gastroesophageal reflux disease) BENTLEY (stress urinary incontinence, female) Severe aortic stenosis Diastolic dysfunction Assessment Severe aortic stenosis *Diagnosed with a murmur over 20 years ago *First identified on echocardiogram from outside facility on 04/23/2021. TAVR work up completed: Echocardiogram: 04/23/2021 OSH LV size: Normal size, Moderate concentric hypertrophy,estimated LVEF 65 %. Diast olic function is mildly abnormal (grade 1).AORTIC VALVE: Calcified, Thickened, No regurgitation, severe stenosis. AV Maximum velocity: 4.93 m/s. AV Mean gr adient: 63.9 mmHg. AV Area: 0.75 cm. CTA chest & ab/pelvis: Tentatively after [facility] tomorrow Carotid US: Ordered for 04/28/2021 PFTs: Ordered for 04/28/2021 Cardiac surgeon evaluation: Dr. Shetty [facility]: Tentatively planned for 04/29/2021 Dental Clearance: Being verified by CTS team Chest Pain *Troponins negative *ECG shows sinus rhythm without acute or ischemic changes *On heparin drip Hypertension *Well-controlled 110-130s/60-70s this admission *Taking 10 mg amlodipine prior to admission Hyperlipidemia *DRILL RIG OPERATOR HELPER 40 mg pravastatin restarted by primary team Chronic Diastolic dysfunction *BNP=55 on admission * Chest XRay 04/27/2021 Initial chest radiograph demonstrating no acute pulmonary abnormalities *Not requiring diuretics this admission History of acute vein thrombosis *Anticoagulated on rivaroxaban DRILL RIG OPERATOR HELPER *Currently on heparin drip in anticipation of possible cath 04/29 Plan Patient will be see by Dr. Mcneal who will review echocardiogram, however her mean gradient suggests she has severe aortic stenosis. As part of TAVR work up she w ould require TAVR CTAs, carotid ultrasound, cardiac cath, and PFTs. Cardiac cath tentatively scheduled for 04/29 [facility] Pager # [phone] _ History of Present Illness Isis Cochran is a 65 y.o. female patient with a past medical history of hypertens ion, hyperlipidemia, severe aortic stenosis, history of DVT, breast cancer, stag e 3a chronic kidney disease. She was transferred to the [facility] from an outside facility with complaints of chest pain. Her pain occurs at rest but is made worse with exertion and is accompanied by shortness of breat h. Since approximately September 2020, she has noticed shortness of breath with exertio n. She first noticed a decrease in her exercise tolerance last spring when she a nd her were riding bikes and she was not able to keep up as well as she normally does. [place] and walking around her property with her gran dchildren causes her more shortness of breath than it used to. She decided not t o garden this year due to limitations in her exercise capacity. She is able to w alk approximately 25 yards with full hands before she becomes short of breath. S he describes NYHA class II symptoms. 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 She denies previous heart failure admissions, myocardial infarction, percutaneou s intervention, or other acute coronary event. She has never had a syncopal or n ear syncopal episode. Prior to this admission, she has not had chest pain: Her s ymptoms have primarily been shortness of breath, fatigue, and decreased exercise tolerance. She completed an echo at an outside facility on 04/23/2021 which revealed severe aortic stenosis. Patient will be seen and evaluated by Dr. Mcneal. We will follow along with CTS to determine the best treatment approach for her aortic stenosis. Past Medical History Medical History: Diagnosis Date Breast CA (HCC) 04/28/2021 Chest pain 04/27/2021 Deep vein thrombosis (DVT) of iliac vein of left lower extremity ([facility]) 2020 Diastolic dysfunction 04/28/2021 DVT (deep venous thrombosis) ([facility]) Dyslipidemia GERD (gastroesophageal reflux disease) 04/28/2021 HTN (hypertension) Nonrheumatic aortic valve stenosis 04/27/2021 Other chest pain 04/27/2021 Primary hypertension 04/27/2021 Severe aortic stenosis 04/28/2021 Stage 3a chronic kidney disease ([facility]) 04/28/2021 BENTLEY (stress urinary incontinence, female) 04/28/2021 Social History Social History Socioeconomic History Marital status: Spouse name: Dalton Number of children: 4 Years of education: Not on file Highest education level: Not on file Occupational History Not on file Tobacco Use Smoking status: Never Smoker Smokeless tobacco: Never Used Vaping Use Vaping Use: Never used Substance and Sexual Activity Alcohol use: Yes Comment: holidays Drug use: Never Sexual activity: Not on file Other Topics Concern Not on file Social History Narrative Not on file Surgical History Surgical History: Procedure Laterality Date BREAST LUMPECTOMY FEMORAL BYPASS HYSTERECTOMY LAP CHOLECYSTECTOMY Family History Family History Problem Relation Age of Onset Hypertension Mother Hyperlipidemia Mother Medications amLODIPine (NORVASC) tablet 10 mg, 10 mg, Oral, QDAY fish oil- omega 3-DHA/EPA capsule 4,000 mg, 4,000 mg, Oral, QDAY heparin (porcine) BOLUS for continuous inf (bag) 1,752-3,504 Units, 20-40 Units/ kg, Intravenous, As Prescribed oxybutynin XL (DITROPAN XL) tablet 10 mg, 10 mg, Oral, QDAY pantoprazole DR (PROTONIX) tablet 20 mg, 20 mg, Oral, QDAY(21) pravastatin (PRAVACHOL) tablet 40 mg, 40 mg, Oral, QHS nitroglycerin Q5 MIN PRN Allergies Allergies Allergen Reactions Upulqda-Axs-Xzz Reductase Inhibitors MUSCLE PAIN Review of Systems General: denies fever, chills, unexplained weight gain or loss Eyes: denies vision changes, vision loss, blurred or double vision Ears/Nose/Throat: denies hearing deficits, sore throat, or nasal congestion Cardiovascular: as per HPI Respiratory: denies cough, sputum production, wheezing. Reports shortness of pee ath on exertion, decreased exercise tolerance Gastrointestinal: denies abdominal pain, N/V diarrhea, constipation, dark or tar ry stools or blood in stools. Genitourinary: denies hematuria/dysuria Musculoskeletal: denies myalagias and arthralgias Skin:denies open wounds or sores Neurologic: denies tremors, seizures, paralysis Psychiatric: denies depression, anxiety Endocrine: denies polyuria, polydipsia, heat and cold intolerance Heme/Lymphatic: History of DVT, anticoagulated on Xarelto Allergic/Immunologic: negative/normal. Vital Signs: Most Recent Vital Signs: 24 Ho ur Range BP: 115/71 (04/28 1625) Temp: 36.8 C (98.3 F) (04/28 1625) Pulse: 91 (04/28 1625) Respirations: 18 PER MINUTE (04/28 1625) SpO2: 100 % (04/28 1625) Height: 167.6 cm (5' 6") (04/28 1607) BP: (115-142)/(66-84) Temp: [36.6 C (97.9 F)-37.1 C (98.8 F)] Pulse: [83-102] Respirations: [18 PER MINUTE] SpO2: [97 %-100 %] Vitals: 04/27/21 2154 04/28/21 1607 Weight: 87.6 kg (193 lb 3.2 oz) 87.5 kg (193 lb) Intake/Output Summary (Last 24 hours) at 04/28/2021 1637 Last data filed at 04/28/2021 1500 Gross per 24 hour Intake 990.6 ml Output 200 ml Net 790.6 ml Stool Occurrence: 1 Physical Exam General Appearance: well developed, appears stated age, no acute distress Neck: neck veins are not distended HEENT: No abnormalities of the visible edy-nasopharynx, conjunctiva or sclera ar e noted. Auscultation/Percussion: lungs clear to auscultation, no rales or rhonchi, no wh eezing Cardiac Auscultation: regular rate and rhythm, S1, S2 normal, no rub, no gallop , III/ systolic murmur Carotid Arteries: Carotids are palpable and there are no bruits Pedal Pulses: normal symmetric pedal pulses Lower Extremity : no lower extremity edema Upper Extremity: normal symmetric radial pulses Abdominal Exam: soft, non-tender, non-distended, normal bowel sounds. No abdomin al bruits Neurologic Exam: neurological assessment grossly intact Skin: no rashes or cellulitis, warm and dry Psych: calm rational, and oriented Labs Hematology: Lab Results Component Value Date HGB 12.8 04/28/2021 HCT 38.4 04/28/2021 PLTCT 240 04/28/2021 WBC 5.6 04/28/2021 NEUT 58 04/27/2021 ANC 3.42 04/28/2021 ANC 3.29 04/27/2021 LYMPH 32 04/28/2021 ALC 1.90 04/27/2021 KAVON 7 04/27/2021 AMC 0.39 04/27/2021 ABC 0.03 04/27/2021 MCV 85.8 04/28/2021 MCHC 33.4 04/28/2021 MPV 8.2 04/28/2021 RDW 13.7 04/28/2021 , Coagulation: Lab Results Component Value Date PTT 50.3 04/28/2021 INR 1.3 04/27/2021 and General Chemistry: Lab Results Component Value Date NA 140 04/28/2021 K 4.3 04/28/2021 CL 106 04/28/2021 GAP 12 04/28/2021 BUN 20 04/28/2021 CR 1.02 04/28/2021 GLU 87 04/28/2021 CA 9.2 04/28/2021 ALBUMIN 4.3 04/28/2021 MG 2.3 04/27/2021 TOTBILI 1.6 04/28/2021 ADDENDUM: I reviewed the history and performed a physical exam on this patient. Past medi erica history, co-morbidities, and current clinical presentation were discussed wi th the combined heart team and it is felt that the patient would benefit from TA VR. We discussed TAVR in detail, including risks, benefits and alternatives and all questions were answered. We will continue workup and plan for TAVR jorge saul. Isis Cochran has severe symptomatic aortic valve stenosis. She is NYHA Functional Class 3. She has co-morbidites . She is at increased risk to undergo surgical aortic valve replacement. We had an extensive discussion with Isis Cochran regards to risk, benefits, and alternatives of the different treatment options. After reviewing the present and past medical history, co-morbidities, and current clinical presentation, echoca rdiogram, I feel that She is at increased risk for surgical valve replacement. I am thus recommending TAVR as the preferred option. We will need to obtain a cardiac catheterization to assess the coronary anatomy to risk stratify prior to TAVR. We also need to obtain TAVR CTA. The risks of TA VR, which include, but are not limited to , [place], stroke, urgent need for per manent pacemaker, emergent cardiovascular surgery, renal failure, dialysis, vasc ular complications, bleeding, blood transfusions, and infection were discussed. The patient verbalized understanding and stated the desire to proceed. All ques tions were answered. They understand and wish to proceed further. We will certainly keep you updated with regards to our discussion and options fo r treatment of this delightful patient. Isaac Mcneal MD, CCDS, FACC, FACP, FAHA, FASA, FASE, FASNC, FICA, FSCAI, FSVM , RPVI Interventional, Structural and Vascular Cardiology PATIONAL WORK EXPERIENCE TEACHER * Kourtney Crawford APRN-NP - 04/28/2021 11:21 AM OCCUPATIONAL WORK EXPERIENCE TEACHER Associated Order(s): CONSULT CARDIOTHORACIC SURGERY PHYSICIAN Cardiothoracic Surgery Consult Date of Service: 04/28/2021 Requesting Physician:Shelton Bowden MD Consulting Physician: Josh Shetty MD Consult Performed By: MITZY Izquierdo Primary Dry Chain Operator: VETO HPI: Ms. Isis Cochran is a 65 yr old female who transferred to [facility] in [place], [place] after presenting with complaints of chest pain. She has a past medical history significant for DVT of LLE in 2014 on chronic anticoagula tion with Xarelto - last dose was 04/26/2021, fem-pop bypass with Dr. Jeter at [facility] in about 1989, hypertension, dyslipidemia, hx of breast lumpectomy without yusuf mo or radiation, Stage 3a chronic kidney disease, GERD, and stress urinary incon tinence. Ms. Cochran reports an onset of chest pressure 04/27 around noon. The pain/ pressure occurs at rest and is worse with exertion with associated dyspnea on ex ertion. Troponins and EKG negative for ACS. She said that she never had chest pa in like this before. She reportedly still has some chest pain but reports that i t is very mild now. She has been told she has a murmur for over 20 years. It was not until recently that she was seen in a new clinic and asked if it had been "studied." She went t [facility] for an echo which revealed severe . [...] iliac vein of left lower extremity (HCC) Plan: - Consult IS for cardiac cath and TAVR eval - Will need TAVR CTA, carotid US, complete PFTs, Urinalysis, BNP (04/29) - receives routine dental care from Dr. Harpal Carlin in [place], [place] - will ob tain dental clearance - Will review case with Dr. Sena Crawford APRN-DIRECTOR OF ANCILLARY SERVICES Reach me on Voalte or Pager [phone] at 04/28/2021 1:21 PM Preliminary STS RISK: Unable to calculate until further pre-op testing complete. A note on interpretation of values: The inherent limitations of statistical risk-adjustment models should be kept in mind when interpreting risk percentage values for an individual patient. Risk a djustment attempts to take into account as many of the patients risk factors as possible. However, there are potentially sxbjdwklz-rd-plkyqvz factors that ar e not included in [...] of iliac vein of left lower extremity ([facility]) 2020 Diastolic dysfunction 04/28/2021 DVT (deep venous thrombosis) ([facility]) Dyslipidemia GERD (gastroesophageal reflux disease) 04/28/2021 HTN [...] Take 4 mg by mouth daily. vit C,R-Wc-hmybr-lutein-zeaxan (PRESERVISION AREDS-2) 250-90-40-1 mg cap Krzysztof e 1 capsule by mouth daily. vitamins, w/iron & folate 65/1 mg tab Take 1 tablet by mouth daily. Allergies Allergen Reactions Usaapfu-Eja-Bvo Reductase Inhibitors MUSCLE PAIN Family History Problem [...] Low-High Troponin-I 0.01 0.0 - 0.05 NG/ML PATIONAL WORK EXPERIENCE TEACHER Associated attestation - Justice Shetty III, MD - 04/30/2021 1:16 PM OCCUPATIONAL WORK EXPERIENCE TEACHER I appreciate the consult. I met with [...] the chart bef ore she leaves. Josh Shetty M.D. * Venancio Bowden MD - 04/28/2021 8:46 AM OCCUPATIONAL WORK EXPERIENCE TEACHER Associated Order(s): CONSULT CARDIOLOGY PHYSICIAN Consultation Report 04/28/2021 Isis Cochran Admission Date: 04/27/2021 Assessment/Recommendations: Principal Problem: Chest pain Active Problems: Other chest pain Nonrheumatic aortic valve stenosis Primary hypertension Dyslipidemia Deep vein thrombosis (DVT) of iliac vein of left lower extremity (HCC) Breast CA (HCC) Stage 3a chronic kidney disease (HCC) GERD (gastroesophageal reflux disease) BENTLEY (stress urinary incontinence, female) Severe aortic stenosis Diastolic dysfunction Chest pain Severe -patient presenting with 1 day onset of chest pressure started noon 04/27 while s itting worse with exertion has been having some chest heaviness on and off and S OB on exertion lately no fever occasional cough -Echo done on 04/23/21 showed LV size: Normal size, Moderate concentric hypertrop hy,estimated LVEF 65 %. Diastolic function is mildly abnormal (grade 1).AORTIC V ALVE: Calcified, Thickened, No regurgitation, severe stenosis. AV Maximum freya ocity: 4.93 m/s. AV Mean gradient: 63.9 mmHg. AV Area: 0.75 cm. -She had 2 EKGs done at OSH one showed ST depressions in V3-V5 here EKG is barbara l - s/p Aspirin 325 and Lipitor 80 - troponins negative and EKG negative for ischemic changes Recommendations: 1. Consult CTS for evaluation for aortic valve replacement 2. Will f/u with CTS evaluation to determine timing and goals for right and left heart catheterization. (tentatively planning for 04/29) 3. NPO at midnight 4. Continue to hold Xarelto Cardiology will continue to follow. Thank you for this consultation. Patient seen and discussed with Dr. Bowden. Dann Boss MD Internal Medicine, PGY-1 Cardiology Attending Staff Attestation I have personally interviewed and examined the patient, have reviewed the docume ntation, and have jointly formulated the assessment and plan with the CV residen pamela Bowden M.D. __ Reason for Consultation: Chest pain; severe History of Present Illness: Isis Cochran is a 65 y.o. patient with hx of DVT of L LE in 2014, HTN, DL, hx of breast lumpectomy, Stage 3a chronic kidney disease, G ERD, stress urinary incontinence, who was transferred from [facility] for chest pain . Patient reports chest pain that started at noon on April 27 she was working at her desk when she felt heaviness on the left side so she walked and came back after removing the pain was worse described as burning heaviness on the left s henok so she did not show up so she decided to go to the emergency room. She said that she never had chest pain like this before maybe she has been having some h eaviness and ignored it she has been having occasional cough in the morning and some fluttering in her chest the pain is a still there but it is very mild at 2 she does not take aspirin and she was not given aspirin or Lipitor at the [facility] [place] she says that [place] farm but in the last year she has been l ess active she does report some shortness of breath with activity even carrying [employer] she is on Xarelto 20 mg for blood clot she denies fever no smoking never been a heavy smoker she drinks 8 ounces of wine couple times a week. Her l ast Xarelto dose was Thursday 04/26 evening. She has been told she has a murmur for over 20 years. It was not until recently that she was seen in a new clinic and asked if it had been "studied." She went t o [facility] for an echo which revealed severe . She does feel her physical tolerance has decreased over the past 6 months and she becomes worn out faster. She has not had any chest pain prior to the past day. She denies syncope/presync ope. Troponins have been negative and EKG does not have ischemic changes. Medical History: Diagnosis Date Breast CA ([facility]) 04/28/2021 Chest pain 04/27/2021 Deep vein thrombosis (DVT) of iliac vein of left lower extremity ([facility]) Diastolic dysfunction 04/28/2021 DVT (deep venous thrombosis) ([facility]) Dyslipidemia GERD (gastroesophageal reflux disease) 04/28/2021 HTN (hypertension) Nonrheumatic aortic valve stenosis 04/27/2021 Other chest pain 04/27/2021 Primary hypertension 04/27/2021 Severe aortic stenosis 04/28/2021 Stage 3a chronic kidney disease ([facility]) 04/28/2021 BENTLEY (stress urinary incontinence, female) 04/28/2021 Surgical History: Procedure Laterality Date BREAST LUMPECTOMY FEMORAL BYPASS HYSTERECTOMY LAP CHOLECYSTECTOMY Family History Problem Relation Age of Onset [...] file Social History Narrative Not on file Allergies: Wqapnlg-lzr-wng reductase inhibitors Medications: Scheduled Meds:amLODIPine (NORVASC) tablet 10 mg, 10 mg, Oral, QDAY fish oil- omega 3-DHA/EPA capsule 4,000 mg, 4,000 mg, Oral, QDAY heparin (porcine) BOLUS for continuous inf (bag) 1,752-3,504 Units, 20-40 Units/ kg, Intravenous, As Prescribed oxybutynin XL (DITROPAN XL) tablet 10 mg, 10 mg, Oral, QDAY pantoprazole DR (PROTONIX) tablet 20 mg, 20 mg, Oral, QDAY(21) pravastatin (PRAVACHOL) tablet 40 mg, 40 mg, Oral, QHS Continuous Infusions: heparin (porcine) 20,000 units/D5W 500 mL infusion (std conc)(premade) Stopped (04/28/21 1200) PRN and Respiratory Meds:nitroglycerin Q5 MIN PRN Review of Systems: All other systems reviewed and are negative. Physical Exam: Vital Signs: Last Filed In 24 Hours Vital Signs: 24 Hour Range BP: 130/77 (04/28 725) Temp: 36.7 C (98 F) (04/28 725) Pulse: 84 (04/28 725) Respirations: 18 PER MINUTE (04/28 725) SpO2: 97 % (04/28 725) Height: 167.6 cm (66") (04/27 2154) BP: (117-142)/(72-84) Temp: [36.7 C (98 F)-37.1 C (98.8 F)] Pulse: [84] Respirations: [18 PER MINUTE] SpO2: [97 %-100 %] Physical Exam General Appearance: no distress Skin: warm, no ulcers or xanthomas Digits and Nails: no cyanosis or clubbing Eyes: conjunctivae and lids normal, pupils are equal and round Neck Veins: normal JVP, neck veins are not distended Chest Inspection: chest is normal in appearance Respiratory Effort: breathing comfortably, no respiratory distress Auscultation/Percussion: lungs clear to auscultation, no rales or rhonchi, no wh eezing PMI: PMI not enlarged or displaced Cardiac Rhythm: regular rhythm and normal rate. Cardiac Auscultation: S1, S2 normal. Late-peaking systolic murmur heard best at URSB and radiates to the carotids Peripheral Circulation: normal peripheral circulation Carotid Arteries: normal carotid upstroke bilaterally, no bruits Radial Arteries: normal symmetric radial pulses Abdominal Aorta: no abdominal aortic bruit Pedal Pulses: normal symmetric pedal pulses Lower Extremity Edema: no lower extremity edema Abdominal Exam: soft, non-tender, no masses, bowel sounds normal Liver & Spleen: no organomegaly Orientation: oriented to time, place and person Affect & Mood: appropriate and sustained affect Language and Memory: patient responsive and seems to comprehend information Neurologic Exam: neurologically nonfocal, no obvious CN deficits, and moves all extremities Lab/Radiology/Other Diagnostic Tests: Hematology: Lab Results Component Value Date HGB 12.8 04/28/2021 HCT 38.4 04/28/2021 PLTCT 240 04/28/2021 WBC 5.6 04/28/2021 NEUT 58 04/27/2021 ANC 3.42 04/28/2021 ANC 3.29 04/27/2021 LYMPH 32 04/28/2021 ALC 1.90 04/27/2021 KAVON 7 04/27/2021 AMC 0.39 04/27/2021 ABC 0.03 04/27/2021 MCV 85.8 04/28/2021 MCHC 33.4 04/28/2021 MPV 8.2 04/28/2021 RDW 13.7 04/28/2021 , General Chemistry: Lab Results Component Value Date NA 140 04/28/2021 K 4.3 04/28/2021 CL 106 04/28/2021 GAP 12 04/28/2021 BUN 20 04/28/2021 CR 1.02 04/28/2021 GLU 87 04/28/2021 CA 9.2 04/28/2021 ALBUMIN 4.3 04/28/2021 MG 2.3 04/27/2021 TOTBILI 1.6 04/28/2021 , Cardiac markers: Lab Results Component Value Date TNI 0.01 04/28/2021 and Lipid Profile: No results found for: CHOL, TRIG, HDL, LDL, VLDL CXR: IMPRESSION Initial chest radiograph demonstrating no acute pulmonary abnormalities. Dann Boss MD PATIONAL WORK EXPERIENCE TEACHER documented in this encounter Nursing Notes * Nancy Velazquez MD - 04/28/2021 3:11 AM OCCUPATIONAL WORK EXPERIENCE TEACHER Patient moved from Night 4 to Pay4later. Please continue to Voalte Night 4 u ntil 0800. After 0800, Please Voalte Pay4later First Call for all patient re lated communication. PATIONAL WORK EXPERIENCE TEACHER documented in this encounter Miscellaneous Notes * Care Plan - Brad Renee RN - 04/30/2021 2:45 PM OCCUPATIONAL WORK EXPERIENCE TEACHER Patient is stable and ready to discharge. Problem: Discharge Planning Goal: Participation in plan of care Outcome: Goal Achieved Goal: Knowledge regarding plan of care Outcome: Goal Achieved Goal: Prepared for discharge Outcome: Goal Achieved Problem: Pain Goal: Management of pain Outcome: Goal Achieved Goal: Knowledge of pain management Outcome: Goal Achieved Goal: Progress Toward Pain Management Goals Outcome: Goal Achieved Problem: Injury-Risk of, Non-Violent Physical Restraints Goal: Absence of Injury while physically restrained (Non-Violent) Outcome: Goal Achieved PATIONAL WORK EXPERIENCE TEACHER documented in this encounter Plan of Treatment Not on filedocumented as of this encounter Goals Goal Patient Associated Recent Progress Patient-Stat Aut hor Goal Type Problems ed? Resume work Hospital On track (04/28/2021 Yes Katheryn Barrett, 1:56 PM OCCUPATIONAL WORK EXPERIENCE TEACHER) 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 and go back to work documented as of this encounter Procedures Comments Procedure Name Priority Date/Time Associated Diag nosis HC BLOOD TYPING, ABO Routine 04/30/2021 CONFIRM 91 10:36 AM OCCUPATIONAL WORK EXPERIENCE TEACHER TYPE & CROSSMATCH Specimen 04/30/2021 in Lab 9:42 AM OCCUPATIONAL WORK EXPERIENCE TEACHER HC PTT(APTT) Routine 04/30/2021 6:17 AM OCCUPATIONAL WORK EXPERIENCE TEACHER HC CBC W/ AUTOMATED DIFF Routine 04/30/2021 6:17 AM OCCUPATIONAL WORK EXPERIENCE TEACHER HC COMPREHENSIVE Routine 04/30/2021 METABOLIC PANEL 6:17 AM OCCUPATIONAL WORK EXPERIENCE TEACHER CTA ABD/PELVIS Routine 04/29/2021 7:33 PM OCCUPATIONAL WORK EXPERIENCE TEACHER CTA CHEST WO/W Routine 04/29/2021 CONTRAST+POST P 7:33 PM OCCUPATIONAL WORK EXPERIENCE TEACHER CARDIAC CATH REPORT 04/29/2021 4:09 PM OCCUPATIONAL WORK EXPERIENCE TEACHER CARDIAC CATH REPORT Routine 04/29/2021 Chest pain , unspecified 12:11 PM OCCUPATIONAL WORK EXPERIENCE TEACHER type Nonrheumatic aortic valve stenosis PFT COMPLETE PULM Routine 04/29/2021 FUNCTION 10:32 AM OCCUPATIONAL WORK EXPERIENCE TEACHER PANOREX EXAM Routine 04/29/2021 9:34 AM OCCUPATIONAL WORK EXPERIENCE TEACHER CARDIAC CATH REPORT Routine 04/29/2021 Chest pain , unspecified 6:43 AM OCCUPATIONAL WORK EXPERIENCE TEACHER type Nonrheumatic aortic valve stenosis HC PTT(APTT) Routine 04/29/2021 4:00 AM OCCUPATIONAL WORK EXPERIENCE TEACHER HC CBC W/ AUTOMATED DIFF Routine 04/29/2021 4:00 AM OCCUPATIONAL WORK EXPERIENCE TEACHER HC B-TYPE NATRIURETIC Routine 04/29/2021 PEPTIDE 4:00 AM OCCUPATIONAL WORK EXPERIENCE TEACHER HC COMPREHENSIVE Routine 04/29/2021 METABOLIC PANEL 4:00 AM OCCUPATIONAL WORK EXPERIENCE TEACHER PV CAROTID ARTERY DUPLEX Routine 04/28/2021 SCAN 4:07 PM OCCUPATIONAL WORK EXPERIENCE TEACHER HC PTT(APTT) STAT 04/28/2021 3:12 PM OCCUPATIONAL WORK EXPERIENCE TEACHER URINALYSIS, MICROSCOPIC Routine 04/28/2021 2:30 PM OCCUPATIONAL WORK EXPERIENCE TEACHER HC URINALYSIS, AUTO W Routine 04/28/2021 MICRO 2:30 PM OCCUPATIONAL WORK EXPERIENCE TEACHER HC TROPONIN-I STAT 04/28/2021 9:40 AM OCCUPATIONAL WORK EXPERIENCE TEACHER TROPONIN-I STAT 04/28/2021 6:34 AM OCCUPATIONAL WORK EXPERIENCE TEACHER HC PTT(APTT) 04/28/2021 6:34 AM OCCUPATIONAL WORK EXPERIENCE TEACHER HC CBC W/ AUTOMATED DIFF 04/28/2021 6:34 AM OCCUPATIONAL WORK EXPERIENCE TEACHER HC COMPREHENSIVE 04/28/2021 METABOLIC PANEL 6:34 AM OCCUPATIONAL WORK EXPERIENCE TEACHER COVID-19 (SARS-COV-2) PCR Routine 04/27/2021 10:54 PM OCCUPATIONAL WORK EXPERIENCE TEACHER HC TSH SCREEN Routine 04/27/2021 10:54 PM OCCUPATIONAL WORK EXPERIENCE TEACHER HC TROPONIN-I STAT 04/27/2021 10:54 PM OCCUPATIONAL WORK EXPERIENCE TEACHER HC PTT(APTT) Routine 04/27/2021 10:54 PM OCCUPATIONAL WORK EXPERIENCE TEACHER HC PT(INR) Routine 04/27/2021 10:54 PM OCCUPATIONAL WORK EXPERIENCE TEACHER HC CBC W/ AUTOMATED DIFF STAT 04/27/2021 10:54 PM OCCUPATIONAL WORK EXPERIENCE TEACHER HC PHOSPHOROUS, SERUM Routine 04/27/2021 10:54 PM OCCUPATIONAL WORK EXPERIENCE TEACHER HC B-TYPE NATRIURETIC Routine 04/27/2021 PEPTIDE 10:54 PM OCCUPATIONAL WORK EXPERIENCE TEACHER HC MAGNESIUM Routine 04/27/2021 10:54 PM OCCUPATIONAL WORK EXPERIENCE TEACHER HC HEMOGLOBIN A1C Routine 04/27/2021 10:54 PM OCCUPATIONAL WORK EXPERIENCE TEACHER HC COMPREHENSIVE STAT 04/27/2021 METABOLIC PANEL 10:54 PM OCCUPATIONAL WORK EXPERIENCE TEACHER CHEST SINGLE VIEW STAT 04/27/2021 10:40 PM OCCUPATIONAL WORK EXPERIENCE TEACHER ECG 12-LEAD STAT 04/27/2021 10:14 PM OCCUPATIONAL WORK EXPERIENCE TEACHER TELEMETRY STRIPS-SCAN 04/27/2021 12:00 AM OCCUPATIONAL WORK EXPERIENCE TEACHER TELEMETRY STRIPS-SCAN 04/27/2021 12:00 AM OCCUPATIONAL WORK EXPERIENCE TEACHER TELEMETRY STRIPS-SCAN 04/27/2021 12:00 AM OCCUPATIONAL WORK EXPERIENCE TEACHER TELEMETRY STRIPS-SCAN 04/27/2021 12:00 AM OCCUPATIONAL WORK EXPERIENCE TEACHER TELEMETRY STRIPS-SCAN 04/27/2021 12:00 AM OCCUPATIONAL WORK EXPERIENCE TEACHER TELEMETRY STRIPS-SCAN 04/27/2021 12:00 AM OCCUPATIONAL WORK EXPERIENCE TEACHER TELEMETRY STRIPS-SCAN 04/27/2021 12:00 AM OCCUPATIONAL WORK EXPERIENCE TEACHER TELEMETRY STRIPS-SCAN 04/27/2021 12:00 AM OCCUPATIONAL WORK EXPERIENCE TEACHER TELEMETRY STRIPS-SCAN 04/27/2021 12:00 AM OCCUPATIONAL WORK EXPERIENCE TEACHER TELEMETRY STRIPS-SCAN 04/27/2021 12:00 AM OCCUPATIONAL WORK EXPERIENCE TEACHER TELEMETRY STRIPS-SCAN 04/27/2021 12:00 AM OCCUPATIONAL WORK EXPERIENCE TEACHER TELEMETRY STRIPS-SCAN 04/27/2021 12:00 AM OCCUPATIONAL WORK EXPERIENCE TEACHER ECG-SCAN 04/27/2021 12:00 AM OCCUPATIONAL WORK EXPERIENCE TEACHER PROCEDURE RECORD-SCAN 04/27/2021 12:00 AM OCCUPATIONAL WORK EXPERIENCE TEACHER documented in this encounter Results * BLOOD TYPE CONFIRMATION - ORDER ONLY IF REQUESTED BY LAB (04/30/2021 10:36 AM OCCUPATIONAL WORK EXPERIENCE TEACHER) ABO/RH(D) AB NEG MAIN LAB Specimen Performing Organization Address City/[facility] Code P [place]cel[place] Number MAIN LAB [address] [place] [address] * TYPE & CROSSMATCH (04/30/2021 9:42 AM OCCUPATIONAL WORK EXPERIENCE TEACHER) Units Ordered 0 MAIN LAB Crossmatch 05/03/2021,2359 [facility] MAIN LAB Expires Record Check 2ND TYPE REQUIRED [facility] MAIN LAB ABO/RH(D) AB NEG MAIN LAB Antibody Screen NEG MAIN LAB Electronic YES MAIN LAB Crossmatch Specimen Performing Organization Address [facility] P marcelino Number MAIN LAB [address] [place] [address] * PTT (APTT) (04/30/2021 6:17 AM OCCUPATIONAL WORK EXPERIENCE TEACHER) APTT 58.3 (H) 24.0 - 36.5 SEC MAIN LAB Specimen Blood Performing Organization Address [facility] P marcelino Number MAIN LAB [address] [place] [address] * COMPREHENSIVE METABOLIC PANEL (04/30/2021 6:17 AM OCCUPATIONAL WORK EXPERIENCE TEACHER) Sodium 141 137 - 147 MMOL/L KU [...] >60 >60 mL/min [facility] MAIN LAB Comment: [place] The eGFR is not validated f or use in drug dosing adjustments. Continue to use estimated creatinine clearance per dosing reference text. Please contact the Clinical Pharmacist for questions. eGFR >60 >60 mL/min [facility] MAIN LAB [place] Comment: The eGFR is not validated for use in drug dosing adjustments. Continue to use estimated creatinine clearance per dosing reference text. Please contact the Clinical Pharmacist for questions. Specimen Blood Performing Organization Address City/State/ZIP Code P [place] Number [facility] MAIN LAB [address] [place] [address] * CBC AND DIFF (04/30/2021 6:17 AM OCCUPATIONAL WORK EXPERIENCE TEACHER) White Blood 4.9 4.5 - 11.0 K/UL [...] P [place]celino Number K[facility] MAIN LAB [address] [place] [address] * CTA ABD/PELVIS (04/29/2021 7:33 PM OCCUPATIONAL WORK EXPERIENCE TEACHER) Modality Anatomical Region Laterality Computed Tomography Abdomen, Pelvis Specimen Impressions [facility] RAD RESULTS - 04/30/2021 8:11 AM OCCUPATIONAL WORK EXPERIENCE TEACHER CHEST: 1. Moderate aortic valve thickening an [...] [facility] RAD RESULTS - 04/30/2021 8:11 AM OCCUPATIONAL WORK EXPERIENCE TEACHER CTA CHEST, ABDOMEN AND PELVIS Clinical Indication: [...] CHEST WO/W CONTRAST+POST P (04/29/2021 7:33 PM OCCUPATIONAL WORK EXPERIENCE TEACHER) Modality Anatomical Region Laterality Computed Tomography Chest Specimen Impressions [facility] RAD RESULTS - 04/30/2021 8:11 AM OCCUPATIONAL WORK EXPERIENCE TEACHER CHEST: 1. Moderate aortic valve thickening an [...] [facility] RAD RESULTS - 04/30/2021 8:11 AM OCCUPATIONAL WORK EXPERIENCE TEACHER CTA CHEST, ABDOMEN AND PELVIS Clinical Indication: [...] * CARDIAC CATH REPORT (04/29/2021 4:09 PM OCCUPATIONAL WORK EXPERIENCE TEACHER) Procedure Note Stevenson Pedraza MBBS - 04/29/2021 4:09 PM OCCUPATIONAL WORK EXPERIENCE TEACHER [facility] CARDIAC CATHETERIZATION REPORT Page 2 ISIS Escalona : 1955 KU#: [id number] ESTEVAN MR #/Billing ID #: [id number] / [id number] DATE: 04/29/2021 BASIN CLEANER: Kia Mahan MD DICTATING PROVIDER: PATRICIO Hickey [...] the artery. Thereafter, we placed a 6- Cypriot sheath in the right radial wrist. We [...] per consult team. Kia Mahan MD SPR/MedQ /[id number] cc: - Venancio Bowden MD Performing Organization Address City/State/ZIP Code P [place] Number OTHER OUTSIDE LAB * PFT COMPLETE PULM FUNCTION (04/29/2021 10:32 AM OCCUPATIONAL WORK EXPERIENCE TEACHER) FVC-Pre 3.13 L KU PFT MAIN FVC-%Pred-pre 105 % K[facility] PFT MAIN FEV1-Pre 2.58 L K[facility] PFT MAIN FEV1-%Pred-Pre 110 % K[facility] PFT MAIN FEV1/FVC-Pre 83 % K[facility] PFT MAIN [id number] 68 % K[facility] PFT MAIN [id number] 2.84 L/sec KU PFT MAIN [id number]-P 139 % K[facility] PFT MAIN re RVPleth-Pre [...] MAIN DLVA-#SD 0.835 ml/min/mmHg/L KU PFT MAIN [id number] 81 % K[facility] PFT MAIN Specimen Narrative KU PFT MAIN - 05/03/2021 6:17 AM OCCUPATIONAL WORK EXPERIENCE TEACHER Clinical history:->pre-op TAVR Patient on bronchodilator therapy?->No Is this a pre-surgical evaluation?->Yes Patient being discharged?->No Release to patient->Immediate Implement Post Bronchodilator Spirometry Protocol?->Yes Performing Organization Address City/State/ZIP Code P [place] Number K[facility] PFT MAIN [address] [place], [place] [address] * PANOREX EXAM (04/29/2021 9:34 AM OCCUPATIONAL WORK EXPERIENCE TEACHER) Modality Anatomical Region Laterality Computed Radiography Head Specimen Impressions [facility] RAD RESULTS - 04/29/2021 9:39 AM OCCUPATIONAL WORK EXPERIENCE TEACHER Findings/impression: There is artifact in the midline. [...] [facility] RAD RESULTS - 04/29/2021 9:39 AM OCCUPATIONAL WORK EXPERIENCE TEACHER PANOREX EXAM Indication: 65-year-old female, pre-cardiac clearance [...] Number KU RAD RESULTS * PTT (APTT) (04/29/2021 4:00 AM OCCUPATIONAL WORK EXPERIENCE TEACHER) APTT 70.0 (H) 24.0 - 36.5 SEC K[facility] MAIN LAB Specimen Blood Performing Organization Address City/[facility]/ZIP Code P [place] Number KU MAIN LAB [address] [place] [id number] * COMPREHENSIVE METABOLIC PANEL (04/29/2021 4:00 AM OCCUPATIONAL WORK EXPERIENCE TEACHER) Pathologist [facility] Sodium 140 137 - 147 MMOL/L [facility] MAIN LAB Potassium 3.7 3.5 - 5.1 MMOL/L [facility] MAIN LAB Chloride 105 98 - 110 MMOL/L [facility] MAIN LAB Glucose 103 (H) 70 - 100 MG/DL [facility] MAIN LAB Blood Urea 19 7 - 25 MG/DL [facility] MAIN LAB Nitrogen Creatinine 0.97 0.4 - 1.00 MG/DL [facility] MAIN LAB Calcium 8.8 8.5 - 10.6 MG/DL [facility] MAIN LAB Total Protein 7.0 6.0 - 8.0 G/DL [facility] MAIN LAB Total Bilirubin 1.3 (H) 0.3 - 1.2 MG/DL [facility] MAIN LAB Albumin 4.1 3.5 - 5.0 G/DL [facility] MAIN LAB Alk Phosphatase 65 25 - 110 U/L [facility] MAIN LAB AST (SGOT) 22 7 - 40 U/L [facility] MAIN LAB CO2 23 21 - 30 MMOL/L [facility] MAIN LAB ALT (SGPT) 21 7 - 56 U/L [facility] MAIN LAB Anion Gap 12 3 - 12 [facility] MAIN LAB eGFR Non 58 (L) >60 mL/min [facility] MAIN LAB Comment: [place] The eGFR is not validated f or use in drug dosing adjustments. Continue to use estimated creatinine clearance per dosing reference text. Please contact the Clinical Pharmacist for questions. eGFR >60 >60 mL/min [facility] MAIN LAB [place] Comment: The eGFR is not validated for use in drug dosing adjustments. Continue to use estimated creatinine clearance per dosing reference text. Please contact the Clinical Pharmacist for questions. Specimen Blood Performing Organization Address City/[facility]/ZIP Code P [place] Number [facility] MAIN LAB [address] [place] [address] * CBC AND DIFF (04/29/2021 4:00 AM OCCUPATIONAL WORK EXPERIENCE TEACHER) Pathologist [facility] White Blood 5.6 4.5 - 11.0 K/UL [facility] MAIN LAB Cells RBC 4.50 4.0 - 5.0 M/UL [facility] MAIN LAB Hemoglobin 12.9 12.0 - 15.0 GM/DL [facility] MAIN LAB Hematocrit 38.7 36 - 45 % [facility] MAIN LAB MCV 86.0 80 - 100 FL [facility] MAIN LAB MCH 28.7 26 - 34 PG [facility] MAIN LAB MCHC 33.4 32.0 - 36.0 G/DL [facility] MAIN LAB RDW 13.6 11 - 15 % [facility] MAIN LAB Platelet Count 238 150 - 400 K/UL [facility] MAIN LAB MPV 8.0 7 - 11 FL [facility] MAIN LAB Neutrophils 59 41 - 77 % [facility] MAIN LAB Lymphocytes 31 24 - 44 % [facility] MAIN LAB Monocytes 7 4 - 12 % [facility] MAIN LAB Eosinophils 2 0 - 5 % [facility] MAIN LAB Basophils 1 0 - 2 % [facility] MAIN LAB Absolute 3.32 1.8 - 7.0 K/UL [facility] MAIN LAB Neutrophil Count Absolute Lymph 1.71 1.0 - 4.8 K/UL [facility] MAIN LAB Count Absolute 0.40 0 - 0.80 K/UL [facility] MAIN LAB Monocyte Count Absolute 0.12 0 - 0.45 K/UL [facility] MAIN LAB Eosinophil Count Absolute 0.04 0 - 0.20 K/UL [facility] MAIN LAB Basophil Count Specimen Blood Performing Organization Address City/State/ZIP Code P [place] Number K[facility] MAIN LAB [address] [place] [address] * BNP (B-TYPE NATRIURETIC PEPTI) (04/29/2021 4:00 AM OCCUPATIONAL WORK EXPERIENCE TEACHER) B Type 23.0 0 - 100 PG/ML [facility] MAIN LAB Natriuretic Peptide Specimen Blood Performing Organization Address City/State/ZIP Code P [place] Number [facility] MAIN LAB [address] [place] [address] * PV CAROTID ARTERY DUPLEX SCAN (04/28/2021 4:07 PM OCCUPATIONAL WORK EXPERIENCE TEACHER) LEFT CCA DIST 0.64 m/s OTHER OUTSIDE [...] OTHER OUTSIDE LAB - 04/28/2021 5:10 PM OCCUPATIONAL WORK EXPERIENCE TEACHER 1. No significant stenosis in B/L common and internal carotid arteries. 2. Mild plaque in both carotid arteries. 3. Normal antegrade flow in bilateral ve rtebral arteries. 4. No significant stenosis in bilateral proximal subclavian arteries. No prior studies are available for comparison. Performing Organization Address City/State/ZIP Code P [place] Number OTHER OUTSIDE LAB * PTT (APTT) (04/28/2021 3:12 PM OCCUPATIONAL WORK EXPERIENCE TEACHER) APTT 50.3 (H) 24.0 - 36.5 SEC [facility] MAIN LAB Specimen Blood Performing Organization Address City/State/ZIP Code P [place] Number K[facility] MAIN LAB [address] [place] [address] * URINALYSIS, MICROSCOPIC (04/28/2021 2:30 PM OCCUPATIONAL WORK EXPERIENCE TEACHER) WBCs,UA 0-2 0 - 2 /HPF [facility] MAIN LAB RBCs,UA NONE 0 - 3 /HPF [facility] MAIN LAB Squamous 0-2 0 - 5 [facility] MAIN LAB Epithelial Cells Specimen Urine specimen (specimen) - Urine Performing Organization Address City/[facility]/ZIP Code P [place] Number [facility] MAIN LAB [address] [place] [address] * URINALYSIS DIPSTICK (04/28/2021 2:30 PM OCCUPATIONAL WORK EXPERIENCE TEACHER) Color,UA YELLOW [facility] MAIN LAB Turbidity,UA CLEAR CLEAR-CLEAR [facility] MAIN LAB Specific 1.008Comment: NOTE NEW 1.005 - 1.030 K[facility] MAIN LAB Orosi-Urine REFERENCE RANGES pH,UA 6.0 5.0 - 8.0 [facility] MAIN LAB Protein,UA NEG NEG-NEG [facility] MAIN LAB Glucose,UA NEG NEG-NEG [facility] MAIN LAB Ketones,UA NEG NEG-NEG [facility] MAIN LAB Bilirubin,UA NEG NEG-NEG [facility] MAIN LAB Blood,UA NEG NEG-NEG [facility] MAIN LAB Urobilinogen,UA NORMAL NORM-NORMAL [facility] MAIN LAB Nitrite,UA NEG NEG-NEG [facility] MAIN LAB Leukocytes,UA NEG NEG-NEG [facility] MAIN LAB Urine Ascorbic NEG NEG-NEG [facility] MAIN LAB Acid, UA Specimen Urine specimen (specimen) - Urine Performing Organization Address [facility] Code P [place]celino Number [facility] MAIN LAB [address] [place] [address] * TROPONIN-I (04/28/2021 9:40 AM OCCUPATIONAL WORK EXPERIENCE TEACHER) Troponin-I 0.01 0.0 - 0.05 NG/ML [facility] MAIN LAB Specimen Blood Performing Organization Address [facility] Code P [place]cel[place] Number [facility] MAIN LAB [address] [place] [address] * PTT (APTT) (04/28/2021 6:34 AM OCCUPATIONAL WORK EXPERIENCE TEACHER) APTT 57.2 (H) 24.0 - 36.5 SEC [facility] MAIN LAB Specimen Performing Organization Address City/[facility]/ZIP Code P [place] Number [facility] MAIN LAB [address] [place] [address] * CBC AND DIFF (04/28/2021 6:34 AM OCCUPATIONAL WORK EXPERIENCE TEACHER) White Blood 5.6 4.5 - 11.0 K/UL [facility] MAIN LAB Cells RBC 4.48 4.0 - 5.0 M/UL [facility] MAIN LAB Hemoglobin 12.8 12.0 - 15.0 GM/DL [facility] MAIN LAB Hematocrit 38.4 36 - 45 % [facility] MAIN LAB MCV 85.8 80 - 100 FL [facility] MAIN LAB MCH 28.7 26 - 34 PG [facility] MAIN LAB MCHC 33.4 32.0 - 36.0 G/DL [facility] MAIN LAB RDW 13.7 11 - 15 % [facility] MAIN LAB Platelet Count 240 150 - 400 K/UL [facility] MAIN LAB MPV 8.2 7 - 11 FL [facility] MAIN LAB Segmented 61 41 - 77 % [facility] MAIN LAB Neutrophils Lymphocytes 32 24 - 44 % [facility] MAIN LAB Monocytes 2 (L) 4 - 12 % [facility] MAIN LAB Eosinophil 5 0 - 5 % [facility] MAIN LAB Normal RBC NORMAL [facility] MAIN LAB Morph Platelet NORMAL [facility] MAIN LAB Estimate Absolute 3.42 1.8 - 7.0 K/UL [facility] MAIN LAB Neutrophil Count Manual Specimen Performing Organization Address City/State/ZIP Code P [place] Number [facility] MAIN LAB [address] [place] [address] * COMPREHENSIVE METABOLIC PANEL (04/28/2021 6:34 AM OCCUPATIONAL WORK EXPERIENCE TEACHER) Sodium 140 137 - 147 MMOL/L [facility] MAIN LAB Potassium 4.3 3.5 - 5.1 MMOL/L [facility] MAIN LAB Chloride 106 98 - 110 MMOL/L [facility] MAIN LAB Glucose 87 70 - 100 MG/DL [facility] MAIN LAB Blood Urea 20 7 - 25 MG/DL [facility] MAIN LAB Nitrogen Creatinine 1.02 (H) 0.4 - 1.00 MG/DL [facility] MAIN LAB Calcium 9.2 8.5 - 10.6 MG/DL [facility] MAIN LAB Total Protein 7.0 6.0 - 8.0 G/DL [facility] MAIN LAB Total Bilirubin 1.6 (H) 0.3 - 1.2 MG/DL [facility] MAIN LAB Albumin 4.3 3.5 - 5.0 G/DL [facility] MAIN LAB Alk Phosphatase 62 25 - 110 U/L [facility] MAIN LAB AST (SGOT) 24 7 - 40 U/L [facility] MAIN LAB CO2 22 21 - 30 MMOL/L [facility] MAIN LAB ALT (SGPT) 21 7 - 56 U/L [facility] MAIN LAB Anion Gap 12 3 - 12 [facility] MAIN LAB eGFR Non 54 (L) >60 mL/min [facility] MAIN LAB Comment: [place] The eGFR is not validated f or use in drug dosing adjustments. Continue to use estimated creatinine clearance per dosing reference text. Please contact the Clinical Pharmacist for questions. eGFR >60 >60 mL/min [facility] MAIN LAB [place] Comment: The eGFR is not validated for use in drug dosing adjustments. Continue to use estimated creatinine clearance per dosing reference text. Please contact the Clinical Pharmacist for questions. Specimen Performing Organization Address City/State/ZIP Code P [place] Number [facility] [address] [place] [address] * TROPONIN-I (04/28/2021 6:34 AM OCCUPATIONAL WORK EXPERIENCE TEACHER) Troponin-I 0.01 0.0 - 0.05 NG/ML [facility] Specimen Blood Performing Organization Address City/[facility] Code P [place] Number [facility] [address] [place] [address] * COVID-19 (SARS-COV-2) PCR (04/27/2021 10:54 PM OCCUPATIONAL WORK EXPERIENCE TEACHER) Pathologist [facility] COVID-19 FLOCKED SWAB [facility] (SARS-CoV-2) NASOPHARYNGEAL PCR Source COVID-19 NOT DETECTED DN-NOT DETECTED [facility] (SARS-CoV-2) Comment: PCR This assay is designed to detect the S and/or ORF1ab genes of SARS-CoV-2 using nucleic acid amplification. A "Not Detected" result does not preclude the possibility of SARS-CoV-2 infection since the adequacy of sample collection and/or low viral burden may result in the presence of viral nucleic acids below the analytical sensitivity of this test method. Test results should be used along with other clinical and laboratory data in making the diagnosis. Test parameters have not been validated for screening in asymptomatic patients.This test has not been FDA cleared or approved. This test is authorized for use under the FDA Emergency Use Authorization and performance characteristics have been verified by the [facility]. Fact sheet for providers: https://www.fda.gov/media/7645 85/download Fact sheet for patients: https://www.fda.gov/media/8865 87/download Specimen Flocked Swab - Nasopharyngeal Performing Organization Address City/[facility]/ZIP Code P [place] Number [facility] [address] [place] [address] * TSH WITH FREE T4 REFLEX (04/27/2021 10:54 PM OCCUPATIONAL WORK EXPERIENCE TEACHER) TSH 3.07 0.35 - 5.00 MCU/ML [facility] Specimen Blood Performing Organization Address City/[facility] Code P [place] Number [facility] [address] [place] [address] * TROPONIN-I (04/27/2021 10:54 PM OCCUPATIONAL WORK EXPERIENCE TEACHER) Troponin-I 0.01 0.0 - 0.05 NG/ML [facility] MAIN LAB Specimen Blood Performing Organization Address City/[facility] P marcelino Number [facility] MAIN LAB [address] [place] [address] * BNP (B-TYPE NATRIURETIC PEPTI) (04/27/2021 10:54 PM OCCUPATIONAL WORK EXPERIENCE TEACHER) B Type 55.0 0 - 100 PG/ML [facility] MAIN LAB Natriuretic Peptide Specimen Blood Performing Organization Address City/[facility]/ZIP Code P [place] Number [facility] MAIN LAB [address] [place] [address] * HEMOGLOBIN A1C (04/27/2021 10:54 PM OCCUPATIONAL WORK EXPERIENCE TEACHER) Hemoglobin A1C 5.4 4.0 - 6.0 % [facility] MAIN LAB Comment: The ADA recommends that most patients with type 1 and type 2 diabetes maintain an A1c level <7%. Specimen Blood Performing Organization Address City/[facility]/ZIP Code P [place] Number [facility] MAIN LAB [address] [place] [address] * PHOSPHORUS (04/27/2021 10:54 PM OCCUPATIONAL WORK EXPERIENCE TEACHER) Phosphorus 4.2 2.0 - 4.5 MG/DL [facility] MAIN LAB Specimen Blood Performing Organization Address City/[facility] Code P [place] Number [facility] MAIN LAB [address] [place] [address] * MAGNESIUM (04/27/2021 10:54 PM OCCUPATIONAL WORK EXPERIENCE TEACHER) Magnesium 2.3 1.6 - 2.6 mg/dL [facility] MAIN LAB Specimen Blood Performing Organization Address City/[facility]/ZIP Code P [place] Number [facility] MAIN LAB [address] [place] [address] * COMPREHENSIVE METABOLIC PANEL (04/27/2021 10:54 PM OCCUPATIONAL WORK EXPERIENCE TEACHER) Sodium 142 137 - 147 MMOL/L [facility] MAIN LAB Potassium 4.0 3.5 - 5.1 MMOL/L [facility] MAIN [facility] Chloride 104 98 - 110 MMOL/L [facility] MAIN [facility] Glucose 92 70 - 100 MG/DL [facility] MAIN [facility] Blood Urea 17 7 - 25 MG/DL [facility] MAIN [facility] Nitrogen Creatinine 0.92 0.4 - 1.00 MG/DL [facility] MAIN [facility] Calcium 9.3 8.5 - 10.6 MG/DL [facility] MAIN [facility] Total Protein 7.4 6.0 - 8.0 G/DL [facility] MAIN [facility] Total Bilirubin 1.7 (H) 0.3 - 1.2 MG/DL [facility] MAIN [facility] Albumin 4.5 3.5 - 5.0 G/DL [facility] MAIN [facility] Alk Phosphatase 68 25 - 110 U/L [facility] MAIN [facility] AST (SGOT) 22 7 - 40 U/L [facility] MAIN [facility] CO2 23 21 - 30 MMOL/L [facility] MA[facility] ALT (SGPT) 19 7 - 56 U/L [facility] MAIN [facility] Anion Gap 15 (H) 3 - 12 [facility] MAIN LAB eGFR Non >60 >60 mL/min [facility] MAIN [facility] Comment: [place] The eGFR is not validated f or use in drug dosing adjustments. Continue to use estimated creatinine clearance per dosing reference text. Please contact the Clinical Pharmacist for questions. eGFR >60 >60 mL/min [facility] MAIN LAB [place] Comment: The eGFR is not validated for use in drug dosing adjustments. Continue to use estimated creatinine clearance per dosing reference text. Please contact the Clinical Pharmacist for questions. Specimen Blood Performing Organization Address City/[facility]/ZIP Code P marcelino Number MAIN LAB [address] [place] [address] * PTT (APTT) (04/27/2021 10:54 PM OCCUPATIONAL WORK EXPERIENCE TEACHER) APTT 37.0 (H) 24.0 - 36.5 SEC [facility] MAIN [facility] Specimen Blood Performing Organization Address City/[facility]/ZIP Code P [place] Number [facility] MAIN LAB [address] [place] [address] * PROTIME INR (PT) (04/27/2021 10:54 PM OCCUPATIONAL WORK EXPERIENCE TEACHER) INR 1.3 (H) 0.8 - 1.2 MAIN LAB Specimen Blood Performing Organization Address City/[facility]/ZIP Code P [place] Number [facility] MAIN LAB [address] [place] [address] * CBC AND DIFF (04/27/2021 10:54 PM OCCUPATIONAL WORK EXPERIENCE TEACHER) White Blood 5.7 4.5 - 11.0 K/UL [facility] MAIN LAB Cells RBC 4.58 4.0 - 5.0 M/UL [facility] MAIN [facility] Hemoglobin 13.3 12.0 - 15.0 GM/DL [facility] MAIN LAB Hematocrit 39.2 36 - 45 % [facility] MAIN [facility] MCV 85.5 80 - 100 FL [facility] MAIN [facility] MCH 29.1 26 - 34 PG [facility] MAIN [facility] MCHC 34.1 32.0 - 36.0 G/DL [facility] MAIN LAB RDW 13.9 11 - 15 % [facility] MAIN LAB Platelet Count 251 150 - 400 K/UL [facility]IN [facility] MPV 7.9 7 - 11 FL [facility] MAIN [facility] Neutrophils 58 41 - 77 % [facility] MAIN [facility] Lymphocytes 33 24 - 44 % [facility] MAIN [facility] Monocytes 7 4 - 12 % [facility] MAIN LAB Eosinophils 1 0 - 5 % [facility] MAIN [facility] Basophils 1 0 - 2 % [facility] MAIN [facility] Absolute 3.29 1.8 - 7.0 K/UL [facility] MAIN LAB Neutrophil Count Absolute Lymph 1.90 1.0 - 4.8 K/UL [facility] MAIN [facility] Count Absolute 0.39 0 - 0.80 K/UL [facility] MAIN LAB Monocyte Count Absolute 0.08 0 - 0.45 K/UL [facility] MAIN [facility] Eosinophil Count Absolute 0.03 0 - 0.20 K/UL [facility] MAIN [facility] Basophil Count Specimen Blood Performing Organization Address City/State/ZIP Code P [place]cel[place] Number [facility] MAIN [facility] [address] [place] [address] * CHEST SINGLE VIEW (04/27/2021 10:40 PM OCCUPATIONAL WORK EXPERIENCE TEACHER) Modality Anatomical Region Laterality Computed Radiography Chest Specimen Impressions [facility] RAD RESULTS - 04/28/2021 7:56 AM OCCUPATIONAL WORK EXPERIENCE TEACHER Initial chest radiograph demonstrating no acute pulmonary abnormalities. Finalized by Lauri Aguayo M.D. on 04/28/2021 7:56 AM. Dictated by Lauri Aguayo M.D. on 04/28/2021 7:55 AM. Narrative [facility] RAD RESULTS - 04/28/2021 7:56 AM OCCUPATIONAL WORK EXPERIENCE TEACHER CHEST SINGLE VIEW INDICATION: chest pain. TECHNIQUE: Portable AP upright view of the chest was obtained COMPARISON STUDY: No prior examinations are available. FINDINGS: Tubes, Lines and Devices: None Heart and Vasculature: Cardiac size is normal. There is no vascular congestion. Lungs: No acute interstitial or alveolar opacities are identified. No parenchymal masses are detected. Mediastinum and Chanell: Hilar and mediastinal configurations are within normal limits. Pleura: There is no pleural fluid. No pneumothorax is identified. Chest Wall and Soft Tissues: There are osteophytes at multiple levels in the thoracic spine. Degenerative changes of the glenohumeral joints are noted. Suture anchors are present in the right proximal humerus. Procedure Note Lauri Aguayo MD - 04/28/2021 CHEST SINGLE VIEW INDICATION: chest pain. TECHNIQUE: Portable AP upright view of the chest was obtained COMPARISON STUDY: No prior examinations are available. FINDINGS: Tubes, Lines and Devices: None Heart and Vasculature: Cardiac size is normal. There is no vascular congestion. Lungs: No acute interstitial or alveolar opacities are identified. No parenchymal masses are detected. Mediastinum and Chanell: Hilar and mediastinal configurations are within normal limits. Pleura: There is no pleural fluid. No pneumothorax is identified. Chest Wall and Soft Tissues: There are osteophytes at multiple levels in the thoracic spine. Degenerative changes of the glenohumeral joints are noted. Suture anchors are present in the right proximal humerus. IMPRESSION Initial chest radiograph demonstrating no acute pulmonary abnormalities. Finalized by Lauri Aguayo M.D. on 04/28/2021 7:56 AM. Dictated by Lauri Aguayo M.D. on 04/28/2021 7:55 AM. Performing Organization Address City/State/ZIP Code P [place] Number [facility] RAD RESULTS * TELEMETRY STRIPS-SCAN (04/27/2021 12:00 AM OCCUPATIONAL WORK EXPERIENCE TEACHER) Narrative 04/27/2021 12:00 AM OCCUPATIONAL WORK EXPERIENCE TEACHER Ordered by an unspecified provider. * TELEMETRY STRIPS-SCAN (04/27/2021 12:00 AM OCCUPATIONAL WORK EXPERIENCE TEACHER) Narrative 04/27/2021 12:00 AM OCCUPATIONAL WORK EXPERIENCE TEACHER Ordered by an unspecified provider. * TELEMETRY STRIPS-SCAN (04/27/2021 12:00 AM OCCUPATIONAL WORK EXPERIENCE TEACHER) Narrative 04/27/2021 12:00 AM OCCUPATIONAL WORK EXPERIENCE TEACHER Ordered by an unspecified provider. * TELEMETRY STRIPS-SCAN (04/27/2021 12:00 AM OCCUPATIONAL WORK EXPERIENCE TEACHER) Narrative 04/27/2021 12:00 AM OCCUPATIONAL WORK EXPERIENCE TEACHER Ordered by an unspecified provider. * PROCEDURE RECORD-SCAN (04/27/2021 12:00 AM OCCUPATIONAL WORK EXPERIENCE TEACHER) Narrative 04/27/2021 12:00 AM OCCUPATIONAL WORK EXPERIENCE TEACHER Ordered by an unspecified provider. * ECG-SCAN (04/27/2021 12:00 AM OCCUPATIONAL WORK EXPERIENCE TEACHER) Narrative 04/27/2021 12:00 AM OCCUPATIONAL WORK EXPERIENCE TEACHER Ordered by an unspecified provider. * TELEMETRY STRIPS-SCAN (04/27/2021 12:00 AM OCCUPATIONAL WORK EXPERIENCE TEACHER) Narrative 04/27/2021 12:00 AM OCCUPATIONAL WORK EXPERIENCE TEACHER Ordered by an unspecified provider. * TELEMETRY STRIPS-SCAN (04/27/2021 12:00 AM OCCUPATIONAL WORK EXPERIENCE TEACHER) Narrative 04/27/2021 12:00 AM OCCUPATIONAL WORK EXPERIENCE TEACHER Ordered by an unspecified provider. * TELEMETRY STRIPS-SCAN (04/27/2021 12:00 AM OCCUPATIONAL WORK EXPERIENCE TEACHER) Narrative 04/27/2021 12:00 AM OCCUPATIONAL WORK EXPERIENCE TEACHER Ordered by an unspecified provider. * TELEMETRY STRIPS-SCAN (04/27/2021 12:00 AM OCCUPATIONAL WORK EXPERIENCE TEACHER) Narrative 04/27/2021 12:00 AM OCCUPATIONAL WORK EXPERIENCE TEACHER Ordered by an unspecified provider. * TELEMETRY STRIPS-SCAN (04/27/2021 12:00 AM OCCUPATIONAL WORK EXPERIENCE TEACHER) Narrative 04/27/2021 12:00 AM OCCUPATIONAL WORK EXPERIENCE TEACHER Ordered by an unspecified provider. * TELEMETRY STRIPS-SCAN (04/27/2021 12:00 AM OCCUPATIONAL WORK EXPERIENCE TEACHER) Narrative 04/27/2021 12:00 AM OCCUPATIONAL WORK EXPERIENCE TEACHER Ordered by an unspecified provider. * TELEMETRY STRIPS-SCAN (04/27/2021 12:00 AM OCCUPATIONAL WORK EXPERIENCE TEACHER) Narrative 04/27/2021 12:00 AM OCCUPATIONAL WORK EXPERIENCE TEACHER Ordered by an unspecified provider. * TELEMETRY STRIPS-SCAN (04/27/2021 12:00 AM OCCUPATIONAL WORK EXPERIENCE TEACHER) Narrative 04/27/2021 12:00 AM OCCUPATIONAL WORK EXPERIENCE TEACHER Ordered by an unspecified provider. documented in this encounter Visit Diagnoses Diagnosis Chest pain, unspecified type Nonrheumatic aortic valve stenosis Aortic valve disorders Severe aortic stenosis Aortic valve disorders Diastolic dysfunction Heart disease, unspecified Primary hypertension Unspecified essential hypertension Dyslipidemia Other and unspecified hyperlipidemia Deep vein thrombosis (DVT) of iliac vei n of left lower extremity (HCC) Breast CA (HCC) Malignant neoplasm of breast (female), unspecified site Stage 3a chronic kidney disease (HCC) GERD (gastroesophageal reflux disease) Esophageal reflux BENTLEY (stress urinary incontinence, femal e) Female stress incontinence * Advanced Care Planning/Resuscitation Status - Maranda Chatterjee MD - 04/28/2021 2:03 AM OCCUPATIONAL WORK EXPERIENCE TEACHER Advance Care Planning/Resuscitation Status Conversation Individuals present for advance care planning conversation: attending physician and patient Pertinent details of conversation (including direct quotes from patient or surro gate): Full code Outcome of conversation: Full Code Documents completed as a result of this conversation: None Other documents present, which outline patient/surrogate wishes: None She has a living will she will bring it Attestation? N/A PATIONAL WORK EXPERIENCE TEACHER documented in this encounter Admitting Diagnoses Diagnosis Chest pain Chest pain, unspecified documented in this encounter Administered Medications Action Date Dose Rate Site Medication Order MAR Action 04/29/2021 10:01 PM OCCUPATIONAL WORK EXPERIENCE TEACHER 650 mg acetaminophen (TYLENOL) tablet 650 mg Given 650 mg, Oral, EVERY 6 HOURS PRN, Starting on Tue04/29/21 at 2157, Until Maddie 04/30/21 at 1728, Pain non-opioid: may be used alone or in combination wit h opioid analgesia, TOTAL ACETAMINOPHEN DOSE NOT TO EXCEED 4GM DAILY 04/30/2021 9:37 AM OCCUPATIONAL WORK EXPERIENCE TEACHER 10 mg amLODIPine (NORVASC) tablet 10 mg Given 10 mg, Oral, DAILY, First dose on Tue04/28/21 at 0900, Until Discontinued, NURSING: Please educate patient and document: Do not give with grapefruit juice. 10 mg Given 04/29/2021 8:19 AM OCCUPATIONAL WORK EXPERIENCE TEACHER 10 mg Given 04/28/2021 9:30 AM OCCUPATIONAL WORK EXPERIENCE TEACHER 04/29/2021 8:19 AM OCCUPATIONAL WORK EXPERIENCE TEACHER 324 mg aspirin chewable tablet 324 mg Given 324 mg, Oral, ONCE, 1 dose, On Tue04/29/21 at 0800, Give STAT prior to CV procedure., Admission/Obs/Extended Recovery 04/28/2021 12:45 AM OCCUPATIONAL WORK EXPERIENCE TEACHER 325 mg aspirin tablet 325 mg Given 325 mg, Oral, ONCE, 1 dose, On Tue04/27/21 at 2315 04/28/2021 12:50 AM OCCUPATIONAL WORK EXPERIENCE TEACHER 80 mg atorvastatin (LIPITOR) tablet 80 mg Given 80 mg, Oral, ONCE, 1 dose, On Tue04/27/21 at 2315 diclofenac sodium (VOLTAREN) 1 % topica l gel 4 g 4 g, Topical, FOUR TIMES DAILY, First dose on Maddie 04/30/21 at 0915, Until Discontinued, Apply to pain ful areas. Measure dose of gel with dosing card (provided). diphenhydrAMINE HCL (BENADRYL) capsule 25 mg 25 mg, Oral, EVERY 4 HOURS PRN, Starting on Tue04/29/21 at 1619, Until Tue04/30/21 at 1728, Rash diphenhydrAMINE HCL (BENADRYL) injectio n 25 mg 25 mg, Intravenous, EVERY 4 HOURS PRN, Starting on Tue04/29/21 at 1619, Until Tue04/30/21 at 1728, Rash 04/28/2021 9:30 AM OCCUPATIONAL WORK EXPERIENCE TEACHER 4,000 mg fish oil- omega 3-DHA/EPA capsule 4,000 Given mg 4,000 mg, Oral, DAILY, First dose on 04/28/21 at 0900, Until Discontinued 04/30/2021 2:50 PM OCCUPATIONAL WORK EXPERIENCE TEACHER 300 mg gabapentin (NEURONTIN) capsule 300 mg Given 300 mg, Oral, EVERY 8 HOURS, First dos e on Tue04/30/21 at 0915, Until Discontinued 300 mg Given 04/30/2021 9:36 AM OCCUPATIONAL WORK EXPERIENCE TEACHER 04/30/2021 7:23 AM OCCUPATIONAL WORK EXPERIENCE TEACHER 1,000 Units/hr 25 mL/hr heparin (porcine) 20,000 units/D5W 500 Dose/Rate mL infusion (std conc)(premade) Verify 0-2,000 Units/hr (0-50 mL/hr) 500 mL, at 0-50 mL/hr, Intravenous, TITRATE DIRECTED , Starting on Tue04/27/21 at 2330, Until Tue04/30/21 at 1109, Weight-Based Heparin Algorithm - STEMI/NSTEMI/UA - See separate order fo r Initial IV bolus (if ordered). - If patient received IV heparin within the previous 2 hours, DO NOT give bolus, proceed with infusion. - Initial IV infusion 12 units/kg/hr. Infusion not t o exceed 1,000 units/hr for the first 12 hours. - Follow heparin infusion scale - WITH ADJUSTMENT BOLUS for subsequent bolus and rate changes (see separate order). NOTE: This is a HIGH ALERT Medication. 1,000 Units/hr 25 mL/hr Given - New Bag 04/30/2021 12:52 AM OCCUPATIONAL WORK EXPERIENCE TEACHER 1,000 Units/hr 25 mL/hr Dose/Rate Verify 04/29/2021 1:55 PM OCCUPATIONAL WORK EXPERIENCE TEACHER 1,000 Units/hr 25 mL/hr Given - New Bag 04/29/2021 12:28 PM OCCUPATIONAL WORK EXPERIENCE TEACHER 1,000 Units/hr 25 mL/hr Dose/Rate Verify 04/29/2021 7:21 AM OCCUPATIONAL WORK EXPERIENCE TEACHER 1,000 Units/hr 25 mL/hr Dose/Rate Verify 04/29/2021 5:04 AM OCCUPATIONAL WORK EXPERIENCE TEACHER 1,000 Units/hr 25 mL/hr Dose/Rate Verify 04/28/2021 7:17 PM OCCUPATIONAL WORK EXPERIENCE TEACHER 1,000 Units/hr 25 mL/hr Given - New Bag 04/28/2021 4:25 PM OCCUPATIONAL WORK EXPERIENCE TEACHER 1,000 Units/hr 25 mL/hr Dose/Rate Verify 04/28/2021 7:11 AM OCCUPATIONAL WORK EXPERIENCE TEACHER 1,000 Units/hr 25 mL/hr Given - New Bag 04/28/2021 12:42 AM OCCUPATIONAL WORK EXPERIENCE TEACHER 04/28/2021 12:43 AM OCCUPATIONAL WORK EXPERIENCE TEACHER 4,000 Units heparin (porcine) initial BOLUS for Bolus from continuous inf (bag) 4,000 Units Bag 4,000 Units 100 mL, Intravenous, ONCE, 1 dose, On Tue04/27/21 at 2330, INITIAL BOLUS for heparin drip -- Weight-Based Heparin Algorithm - STEMI/NSTEMI/UA - If patien t received IV heparin within the previous 2 hours, DO NOT give bolus, proceed wit h infusion. - Initial IV bolus (administer from bag): 60 units/kg - No t to exceed 4000 units - Administer initial bolus dose via pump from infusion bag. NOTE: This is a HIGH ALER T Medication. nitroglycerin (NITROSTAT) tablet 0.4 mg 0.4 mg, Sublingual, EVERY 5 MIN PRN, Starting on 04/27/21 at 2315, Until Maddie 04/30/21 at 1728, Chest Pain, Hold for SBP < 100. Not to exceed 3 doses pe r incident of chest pain. Notify physicia n if chest pain persists after 3 doses. ondansetron (ZOFRAN) injection 4 mg 4 mg, Intravenous, EVERY 6 HOURS PRN, Starting on Tue04/29/21 at 1619, Until Tue04/30/21 at 1728, Nausea/Vomiting Injectable 04/30/2021 9:36 AM OCCUPATIONAL WORK EXPERIENCE TEACHER 10 mg oxybutynin XL (DITROPAN XL) tablet 10 mg Given 10 mg, Oral, DAILY, First dose on Tue04/28/21 at 0900, Until Discontinued, Do not crush or chew 10 mg Given 04/29/2021 8:19 AM OCCUPATIONAL WORK EXPERIENCE TEACHER 10 mg Given 04/28/2021 9:30 AM OCCUPATIONAL WORK EXPERIENCE TEACHER 04/29/2021 9:02 PM OCCUPATIONAL WORK EXPERIENCE TEACHER [address] (PROTONIX) tablet 20 mg Given 20 mg, Oral, DAILY, First dose on Tue04/28/21 at 2100, Until Discontinued, Do not crush or chew tablet. 20 mg Given 04/28/2021 9:01 PM OCCUPATIONAL WORK EXPERIENCE TEACHER 04/29/2021 9:02 PM OCCUPATIONAL WORK EXPERIENCE TEACHER 40 mg pravastatin (PRAVACHOL) tablet 40 mg Given 40 mg, Oral, AT BEDTIME DAILY, First dose on Tue04/28/21 at 2100, Until Discontinued 40 mg Given 04/28/2021 9:00 PM OCCUPATIONAL WORK EXPERIENCE TEACHER 04/30/2021 12:31 PM OCCUPATIONAL WORK EXPERIENCE TEACHER 20 mg rivaroxaban (XARELTO) tablet 20 mg Given 20 mg, Oral, DAILY WITH BREAKFAST, Firs t dose on Tue04/30/21 at 1215, Until Discontinued, Administer with food. NOTE: This is a HIGH ALERT Medication. 04/29/2021 8:20 AM OCCUPATIONAL WORK EXPERIENCE TEACHER 1,000 mL 75 mL/hr sodium chloride 0.9 % infusion Given - New 1,000 mL, 1,000 mL, Intravenous, at 75 Bag mL/hr, CONTINUOUS, Starting on Tue04/29/21 at 0800, Until Tue04/30/21 at 1728, Admission/Obs/Extended Recovery documented in this encounter Discontinued Medications Start Date End Date Medication Sig Discontinue Reason 04/30/2021 04/30/2021 diclofenac sodium Apply four g (VOLTAREN) 1 % topical topically to gel affected area four times daily. documented as of this encounter Historical Medications * This list may reflect changes made after this encounter. Start Date End Date Medication Sig Dispensed Refills omeprazole DR (PRILOSEC) Take 20 mg by 0 20 mg capsule mouth daily before breakfast. Cranberry 400 mg cap Take 400 mg 0 by mouth daily. fish oil /omega-3 fatty Take 4 0 acids (SEA-OMEGA) capsules by 340/1000 mg capsule mouth daily. acetaminophen (TYLENOL Take 1,000 mg 0 EXTRA STRENGTH) 500 mg by mouth at tablet bedtime daily. Max of 4,000 mg of acetaminophen in 24 hours. vitamins, w/iron Take 1 tablet 0 & folate 65/1 mg tab by mouth daily. vit Take 1 0 C,K-Jg-qzamp-lutein-zeaxa capsule by n (PRESERVISION AREDS-2) mouth daily. 250-90-40-1 mg cap pravastatin (PRAVACHOL) Take 40 mg by 0 40 mg tablet mouth at bedtime daily. tolterodine LA (DETROL Take 4 mg by 0 LA) 4 mg capsule mouth daily. rivaroxaban (XARELTO) 20 Take 20 mg by 0 mg tablet mouth daily with dinner. Take with food. 05/08/2021 amLODIPine (NORVASC) 10 Take 10 mg by 0 mg tablet mouth daily. added in this encounter Active and Recently Administered Medications Times are shown in OCCUPATIONAL WORK EXPERIENCE TEACHER. 04/29/2021 04/30/2021 Medication Order 04/28/2021 0819 (Given - Provider: Brad Renee RN)1247 (AUG Hold - Provider: Estevan, Orders Discontinue - Reason: Patient not available/off unit)1944 (AUG Unhold - Provider: Estevan, Orders Discontinue) 0937 (Given - Provider: Brina Delacruz RN) amLODIPine (NORVASC) tablet 10 mg 0930 (Given - 10 mg, Oral, DAILY, First dose on Tue Provider: Tere 04/28/21 at 0900, Until Discontinued, GANESH Almanzar) NURSING: Please educate patient and document: Do not give with grapefruit juice. 0819 (Given - Provider: Brad Renee RN) aspirin chewable tablet 324 mg (COMPLETED) 324 mg, Oral, ONCE, 1 dose, On Tue04/29/21 at 0800, Give STAT prior to CV procedure., Admission/Obs/Extended Recovery aspirin tablet 325 mg (COMPLETED) 0045 (Given - 325 mg, Oral, ONCE, 1 dose, On Tue Provider: Justo Newton 04/27/21 at 2315 Divilbiss, RN) atorvastatin (LIPITOR) tablet 80 mg 0044 (Canceled E ntry (COMPLETED) - Provider: Justo Newton 80 mg, Oral, ONCE, 1 dose, On Tue GANESH Levin)0050 04/27/21 at 2315 (Given - Provider: Justo Blake, GANESH) 1039 (Med Not Given - Provider: Shaylee Delacruz, GANESH - Reason: Patient Refused)1226 (Med Not Given - Provider: Brina Delacruz RN - Reason: Patient Refused) diclofenac sodium (VOLTAREN) 1 % topica l gel 4 g 4 g, Topical, FOUR TIMES DAILY, First dose on Maddie 04/30/21 at 0915, Until Discontinued, Apply to pain ful areas. Measure dose of gel with dosing card (provided). 0818 (Med Not Given - Provider: Brad Renee RN - Reason: Patient Refused)1247 (MAR Hold - Provider: Estevan, Orders Discontinue - Reason: Patient not available/off unit)1944 (MAR Unhold - Provider: Estevan, Orders Discontinue) 0935 (Med Not Given - Provider: Shaylee Delacruz RN - Reason: Patient Refused) fish oil- omega 3-DHA/EPA capsule 4,000 0930 (Given - mg Provider: Tere 4,000 mg, Oral, DAILY, First dose on Tue, ) 04/28/21 at 0900, Until Discontinued 0936 (Given - Provider: Brina Delacruz , GANESH)1450 (Given - Provider: Brina Delacruz, GANESH) gabapentin (NEURONTIN) capsule 300 mg 300 mg, Oral, EVERY 8 HOURS, First dos e on Maddie 04/30/21 at 0915, Until Discontinued heparin (porcine) initial BOLUS for 0043 (Bolus from Bag continuous inf (bag) 4,000 Units - Provider: Justo Newton (COMPLETED) Poonam, GANESH) 4,000 Units 100 mL, Intravenous, ONCE, 1 dose, On Tue04/27/21 at 2330, INITIAL BOLUS for heparin drip -- Weight-Based Heparin Algorithm - STEMI/NSTEMI/UA - If patien t received IV heparin within the previous 2 hours, DO NOT give bolus, proceed wit h infusion. - Initial IV bolus (administer from bag): 60 units/kg - No t to exceed 4000 units - Administer initial bolus dose via pump from infusion bag. NOTE: This is a HIGH ALER T Medication. 0819 (Given - Provider: Brad Renee, GANESH)1247 (AUG Hold - Provider: Estevan, Orders Discontinue - Reason: Patient not available/off unit)1943 (AUG Unhold - Provider: Estevan, Orders Discontinue) 0936 (Given - Provider: Brina Delacruz , GANESH) oxybutynin XL (DITROPAN XL) tablet 10 mg 0930 (Given - 10 mg, Oral, DAILY, First dose on Tue Provider: Tere 04/28/21 at 0900, Until Discontinued, Do Jenelle RN ) not crush or chew 1247 (AUG Hold - Provider: Estevan, Orders Di scontinue - Reason: Patient not available/off unit)1943 (AUG Unhold - Provider: Estevan, Orders Discontinue)2101 (Given - Provider: Lima Bryant, GANESH) pantoprazole DR (PROTONIX) tablet 20 mg 2100 (Given - 20 mg, Oral, DAILY, First dose on Tue Provider: Myah woodson 04/28/21 at 2100, Until Discontinued, Do Isrrael RN) not crush or chew tablet. 1247 (AUG Hold - Provider: Estevan, Orders Di scontinue - Reason: Patient not available/off unit)1943 (AUG Unhold - Provider: Estevan, Orders Discontinue)2101 (Given - Provider: Lima Bryant RN) pravastatin (PRAVACHOL) tablet 40 mg 2100 (Given - 40 mg, Oral, AT BEDTIME DAILY, First Provider: Daria dose on Tue04/28/21 at 2100, Until GANESH Arcos) Discontinued 123 (Given - Provider: Brina Delacruz RN) rivaroxaban (XARELTO) tablet 20 mg 20 mg, Oral, DAILY WITH BREAKFAST, Firs t dose on Maddie 04/30/21 at 1215, Until Discontinued, Administer with food. NOTE: This is a HIGH ALERT Medication. 04/29/2021 04/30/2021 Medication Order 04/28/2021 0400 (Peak/Trough - Provider: Tere caceres RN)0504 (Dose/Rate Verify - Provider: Daria Arcos RN)0721 (Dose/Rate Verify - Provider: Tere Almanzar, RN)1228 (Given - New Bag - Provider: Tere Almanzar, RN)1355 (Dose/Rate Verify - Provider: Radha Jensen, RN) 0052 (Given - New Bag - Provider: Lima Bryant, RN)0400 (Peak/Trough - Provider: Daria Arcos, RN)0723 (Dose/Rate Verify - Provider: Brina Delacruz, GANESH) heparin (porcine) 20,000 units/D5W 500 0042 (Given - New mL infusion (std conc)(premade) Bag - Provider: Justo (CANCELED) Aman Sharpilbijeremiah, 0-2,000 Units/hr (0-50 mL/hr) RN)0400 (Peak/Trou gh 500 mL, at 0-50 mL/hr, Intravenous, - Provider: T dexter TITRATE DIRECTED , Starting on Mon GANESH Almanzar )0630 04/27/21 at 2330, Until Maddie 04/30/21 at (Peak/Trough - 1109, Weight-Based Heparin Algorithm - Provider: Justo Newton STEMI/NSTEMI/UA - See separate order for GANESH Levin)0711 Initial IV bolus (if ordered). - If (Dose/Rate Veri fy - patient received IV heparin within the Provider: Tor i previous 2 hours, DO NOT give bolus, GANESH Almanzar)12 00 proceed with infusion. - Initial IV (Peak/Trough - infusion 12 units/kg/hr. Infusion not to Provider: T dexter exceed 1,000 units/hr for the first 12 GANESH Almanzar) 1625 hours. - Follow heparin infusion scale - (Given - Ne w Bag - WITH ADJUSTMENT BOLUS for subsequent Provider: Tere bolus and rate changes (see separate GANESH Almanzar)19 17 order). NOTE: This is a HIGH ALERT (Dose/Rate Verify - Medication. Provider: Daria Arcos, GANESH) 0820 (Given - New Bag - Provider: Rubi Renee, GANESH) sodium chloride 0.9 % infusion 1,000 mL, 1,000 mL, Intravenous, at 75 mL/hr, CONTINUOUS, Starting on 04/29/21 at 0800, Until Maddie 04/30/21 at 1728, Admission/Obs/Extended Recovery 04/29/2021 04/30/2021 Medication Order 04/28/2021 2201 (Given - Provider: Lima Bryant , GANESH) acetaminophen (TYLENOL) tablet 650 mg 650 mg, Oral, EVERY 6 HOURS PRN, Starting on Tue04/29/21 at 2157, Until Maddie 04/30/21 at 1728, Pain non-opioid: may be used alone or in combination wit h opioid analgesia, TOTAL ACETAMINOPHEN DOSE NOT TO EXCEED 4GM DAILY diphenhydrAMINE HCL (BENADRYL) capsule 25 mg(Linked Group 1) 25 mg, Oral, EVERY 4 HOURS PRN, Starting on Tue04/29/21 at 1619, Until Maddie 04/30/21 at 1728, Rash diphenhydrAMINE HCL (BENADRYL) injectio n 25 mg(Linked Group 1) 25 mg, Intravenous, EVERY 4 HOURS PRN, Starting on Tue04/29/21 at 1619, Until Maddie 04/30/21 at 1728, Rash 1247 (AUG Hold - Provider: Estevan, Orders Di scontinue - Reason: Patient not available/off unit)1944 (MAR Unhold - Provider: Estevan, Orders Discontinue) nitroglycerin (NITROSTAT) tablet 0.4 mg 0.4 mg, Sublingual, EVERY 5 MIN PRN, Starting on Tue04/27/21 at 2315, Until Maddie 04/30/21 at 1728, Chest Pain, Hold for SBP < 100. Not to exceed 3 doses pe r incident of chest pain. Notify physicia n if chest pain persists after 3 doses. ondansetron (ZOFRAN) injection 4 mg 4 mg, Intravenous, EVERY 6 HOURS PRN, Starting on Tue04/29/21 at 1619, Until Maddie 04/30/21 at 1728, Nausea/Vomiting Injectable Order Group 1: diphenhydrAMINE HCL (BENADRYL) capsule 25 mgJump to med 25 mg, Oral, EVERY 4 HOURS PRN, Starti ng on Tue04/29/21 at 1619, Until Maddie 04/30/21 at 1728, Rash Or diphenhydrAMINE HCL (BENADRYL) injectio n 25 mgJump to med 25 mg, Intravenous, EVERY 4 HOURS PRN, Starting on Tue04/29/21 at 1619, Until Tue04/30/21 at 1728, Rash documented in this encounter Orders First Ordered Date Medications Ordered That Might Not Have Count Last Ordered Date Been Administered diclofenac sodium (VOLTAREN) 1 % topical 1 04/30/2021 gel 4 g diphenhydrAMINE HCL (BENADRYL) capsule 1 04/29/2021 25 mg diphenhydrAMINE HCL (BENADRYL) injection 1 04/29/2021 25 mg ondansetron (ZOFRAN) injection 4 mg 1 HELP MEDICATION 1 04/27/2021 heparin (porcine) BOLUS for continuous 1 04/27/2021 inf (bag) 1,752-3,504 Units nitroglycerin (NITROSTAT) tablet 0.4 mg 1 04/27/2021 First Ordered Date EKG Orders Without Results Count Last Ordere d Date ECG 12-LEAD 1 04/27/2021 First Ordered Date Diet Count Last Ordered Date DISCHARGE DIET CARDIAC 1 04/30/2021 First Ordered Date Nursing Count Last Ordered Date DISCHARGE ACTIVITY NORMAL 1 04/30/2021 DISCHARGE CONTACT 1 04/30/2021 DISCHARGE SIGNS/SYMPTOMS 1 04/30/2021 DISCHARGE WOUND CARE 1 04/30/2021 COVID-19 TESTING NOT REQUIRED 1 04/28/20 21 NURSING COMMUNICATION: 1 04/28/2021 PRE-SURGICAL SCRUB 1 04/28/2021 04/27/2021 WEIGH PATIENT 2 04/28/2021 First Ordered Date Consult Count Last Ordered Date 04/27/2021 CONSULT CARDIOLOGY PHYSICIAN 2 CONSULT CARDIOTHORACIC SURGERY PHYSICIAN 1 04/28/2021 First Ordered Date Admission Count Last Ordered Date ADMIT TO INPATIENT (NO BED REQUEST) 1 First Ordered Date Discharge Count Last Ordered Date DISCHARGE PATIENT NOW 1 04/30/2021 First Ordered Date Equipment Count Last Ordered Date PUMP IV CONTROL UNIT W/MODULES 2 021 First Ordered Date Vital Signs Count Last Ordered Date VITAL SIGNS 1 04/28/2021 First Ordered Date Activity Count Last Ordered Date MOBILITY 1 04/27/2021 First Ordered Date Discharge Contingent Count Last Ordered Date DISCHARGE PATIENT CONTINGENT 1 First Ordered Date Cardiac Cath Count Last Ordered Date CARDIAC CATH REPORT 2 04/29/2021 First Ordered Date Order Set Communication Count Last Ordered D ate PLATELET MONITORING PER [facility] PROTOCOL 1 1 06/27/2020 VTE DRUG PROPHYLAXIS CONTRAINDICATED 1 1 06/27/2020 First Ordered Date Intake & Output Count Last Ordered Date INTAKE AND OUTPUT 1 04/28/[address] & Maintain Count Last Ordered Date PLACE AND MAINTAIN SCD 1 04/27/2021 First Ordered Date Case Request Count Last Ordered Date CASE REQUEST PI[employer]O INSTRUCTOR 1 04/28/2021 First Ordered Date ADT Patient Update Count Last Ordered Date CHANGE SERVICE / LEVEL OF CARE (NO BED 1 04/28/2021 REQUEST) documented in this encounter Additional Health Concerns Noted Time Assessment 04/30/2021 9:40 AM OCCUPATIONAL WORK EXPERIENCE TEACHER A fall risk assessment has been complet ed for the patient documented as of this encounter Care Teams Start Date End Date Cigar Head Piercer Relationship Specialty 04/27/21 Jazmyn Ruiz NP PCP - General Nurse [address] [place] [address] [place] [address] documented as of this encounter
--- OUTSIDE RECORDS SUMMARY | 2021-05-15 10:07 | XMS REPORT | Encounter Summary ---
Author Author [facility] Organization [facility] Address Unknown Phone Unavailable Care Team Providers Care Contact Center Specialist Name Role Phone SaraJazmyn borden [employer] PCP Reason for Visit * Auth/Cert Diagnoses / Procedures Referred By Contact Referred To Conta ct Specialty Diagnoses Chest pain NSEMI Referral ID Status Reason Start Date Expiration Visits Vi sits Date Requested Authorized [id number] 1 1 Encounter Details Care Team Description Date Type Department Kiersten Bolden MD [address] [facility] [address] [place] [address] 04/29/2021 [facility] Imaging, CT: Main [facility], Encounter [facility] [address], [address] [place] [address] Social History Date Tobacco Use [...] at Date Recorded Female 04/28/2021 1:55 PM [employer] Date Recorded COVID-19 Exposure Response 04/27/2021 5:03 PM [employer] In the last month, have you been in contact with [facility] to assess someone who was confirmed or suspected to have Coronavirus / COVID-19? documented as of this encounter Functional Status Date of Assessment Functional Status Response 04/28/2021 Does the patient have a hearing impairment: No documented as of this encounter Medications at Time of Discharge Start Date End Date Medication Sig Dispensed Refills acetaminophen (TYLENOL Take 1,000 mg 0 EXTRA STRENGTH) 500 mg by mouth at tablet bedtime daily. Max of 4,000 mg of acetaminophen in 24 hours. Cranberry 400 mg cap Take 400 mg [...] mouth daily with dinner. Take with food. tolterodine LA (DETROL Take 4 mg by 0 LA) 4 mg capsule mouth daily. vit Take 1 0 C,U-Ly-wehws-lutein-zeaxa capsule by n (PRESERVISION AREDS-2) mouth daily. 250-90-40-1 mg cap vitamins, w/iron Take 1 tablet 0 & folate 65/1 mg tab by mouth daily. 05/08/2021 amLODIPine (NORVASC) 10 Take 10 mg by 0 mg tablet mouth daily. 04/30/2021 04/30/2021 diclofenac sodium Apply four g 300 g 0 (VOLTAREN) 1 % topical topically to gel affected area four times daily. documented as of this encounter Discharge Disposition Code Departure Means Destination Disposition Home Home or Self Care documented in this encounter Plan of Treatment Not on filedocumented as of this encounter Goals Goal Patient Associated Recent Progress Patient-Stat Aut hor Goal Type Problems ed? Resume work [facility] On track (04/28/2021 Yes Katheryn Barrett, 1:56 PM [employer]) 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 and go back to work documented as of this encounter Procedures Comments Procedure Name Priority Date/Time Associated Diag nosis CTA ABD/PELVIS Routine 04/29/2021 7:33 PM [employer] CTA CHEST WO/W Routine 04/29/2021 CONTRAST+POST P 7:33 PM [employer] documented in this encounter Visit Diagnoses Not on filedocumented in this encounter Administered Medications Action Date Dose Rate Site Medication Order MAR Action 04/29/2021 7:21 PM [employer] 100 mL iohexoL (OMNIPAQUE-350) 350 mg/mL Given injection 100 mL 100 mL, Intravenous, ONCE, 1 dose, On Tue04/29/21 at 1930, NOTE: This is a HIGH ALERT Medication. 04/29/2021 7:20 PM [employer] 50 mL sodium chloride PF 0.9% injection 50 mL Given 50 mL, Intravenous, ONCE, 1 dose, On 04/29/21 at 1930, DO NOT SEND this medication unless it is requested. This med is usually available in floor stock., Intra-procedure (IR) documented in this encounter Additional Health Concerns Noted Time Assessment 04/29/2021 7:40 PM [employer] A fall risk assessment has been complet ed for the patient documented as of this encounter Care Teams Start Date End Date Contact Center Specialist Relationship Specialty 04/27/21 Jazmyn Ruiz NP PCP - General Nurse [address] [place] [address] [place] [address] documented as of this encounter
--- OUTSIDE RECORDS SUMMARY | 2021-05-15 10:07 | XMS REPORT | Encounter Summary ---
Author Author [place] Address Unknown Phone Unavailable Care Team Providers Care Factory Assembler Name Role Phone SaraJazmyn TAYLOR PCP Reason for Visit * Auth/Cert Diagnoses / Procedures Referred By Contact Referred To Conta ct Specialty Diagnoses Nonrheumatic aortic valve stenosis Nonrheumatic aortic valve stenosis [I35.0] Procedures [place] REPLACE AORTIC VALVE OPENFEMORAL ARTERY APPROACH Transcatheter Aortic Valve Replacement - Femoral Artery, 26 Evolut Pro+, Stepdown Referral ID Status Reason Start Date Expiration Visits Vi sits Date Requested Authorized [id number] 1 1 Encounter Details Care Team Description Date Type Department Teodoro Ruvalcaba III, MD [address] [facility] [id number] [place] [address] Transcatheter Aortic Valve Replacement - Femoral Artery, 26 Evolut Pro+, Stepdown 05/07/2021 Surgery Laboratory: [facility] [address] [facility] [address], [address] [place] [address] Surgery Details Trauma Case? Date/Time Status Location OR Service Patient Class Case Class Case Type 05/07/21 Posted HC2 ONLINE EDUCATION MANAGER CV Lab 03 Cardiothor Planned El ective - 7:20 AM acic Inpatient Treating Surgery conditions that are not life or limb threatenin g Panel 1 Procedure LRB Anes Op Region Wound Class Com ments Transcatheter Aortic N/A Defer to Clean Right common femoral Valve Replacement - Anesthesia artery for access . Femoral Artery, 26 Evolut Medtronic 26 Evolut Pr o+ Pro+, Stepdown Panel Surgeon Surgeon Role Service 1 Don Walsh MD Co-Surgeon Intervention al Cardiology 1 Isaac Mcneal MD Co-Surgeon Interventional Car diology 1 Teodoro Ruvalcaba III, MD Primary Cardiothoracic Surgery Social History Date Tobacco Use Types Packs/Day [...] drinks on one Not asked occasion? Comment: holiday04/28/2021 Sex Assigned at Date Recorded Female 04/28/2021 1:55 PM SENIOR MASTER SCHEDULER Date Recorded COVID-19 Exposure Response 05/07/2021 6:13 AM SENIOR MASTER SCHEDULER In the last month, have you been in contact with No / Unsure someone who was confirmed or suspected to have Coronavirus / COVID-19? documented as of this encounter Last Filed Vital Signs Reading Time Taken Comments Vital Sign 93/63 05/07/2021 10:32 AM SENIOR MASTER SCHEDULER Blood Pressure 73 05/07/2021 10:30 AM SENIOR MASTER SCHEDULER Pulse 36.4 C (97.6 F) 05/07/2021 9:46 AM SENIOR MASTER SCHEDULER Temperature - - Respiratory Rate 98% 05/07/2021 10:32 AM SENIOR MASTER SCHEDULER Oxygen Saturation - - Inhaled Oxygen Concentration 88 kg (194 lb 0.1 oz) 05/07/2021 6:07 AM SENIOR MASTER SCHEDULER Weight 167.6 cm (5' 6") 05/07/2021 6:07 AM SENIOR MASTER SCHEDULER Height 31.83 05/08/2021 3:35 PM SENIOR MASTER SCHEDULER Body Mass Index documented in this encounter [...] * Jennifer Pride - 05/08/2021 4:30 PM SENIOR MASTER SCHEDULER Physician Discharge Summary Name: Isis Cochran Date Of : 1955 Age: 65 years Admit date: 05/07/2021 Discharge date: 05/08/2021 Attending Physician: Teodoro Ruvalcaba III, MD Physician Summary completed by: Lory Curtis APRN-INSOLE TACKER Reason for hospitalization: Nonrheumatic aortic valve stenosis [I35.0] Nonrheumatic aortic valve insufficiency [I35.1] Significant PMH: Medical History: Diagnosis Date Arthritis left knee Chest pain 04/27/2021 Diastolic dysfunction 04/28/2021 DVT (deep venous thrombosis) ([facility]) 1986 Dyslipidemia GERD (gastroesophageal reflux disease) 04/28/2021 HTN (hypertension) Nonrheumatic aortic valve stenosis 04/27/2021 Other chest pain 04/27/2021 Palpitations PONV (postoperative nausea and vomiting) Primary hypertension 04/27/2021 Severe aortic stenosis 04/28/2021 Stage 3a chronic kidney disease ([facility]) 04/28/2021 related to NSAIDs BENTLEY (stress urinary incontinence, female) 04/28/2021 Allergies: Wesvucm-haj-bqj reductase inhibitors Admission Physical Exam notable for: Nonrheumatic aortic valve stenosis [I35.0] Nonrheumatic aortic valve insufficiency [I35.1] Admission Lab/Radiology studies notable for: Aortic Stenosis. Brief Hospital Course: The patient was admitted to [facility] for elective transcatheter aortic valve replacement. The patient und erwent the procedure and tolerated it well. She was monitored on the cardiothor [facility] progressive care unit following surgery. Her rhythm [...] Instructions Keep your incision(s) clean and dry. [place] your incision with the provided wou nd [...] call the Cardioth oracic Surgery clinic immediately. [phone] Report These Signs and Symptoms Please contact [...] located by the main entrance of the [facility]. Provider NHI MARTINEZ [[id number]] Location Cardiology Clinic Appointment date: 06/23/2021 Appointment time: 2:45 PM Primary Care Provider Appointment Jazmyn Ruiz [phone] Call to schedule an appointment with your primary care doctor in 1-2 weeks for a checkup and medication review. 1-Week Post-Operative Follow Up Appointment This will be a post-operative Telehealth visit. Please login to My Chart for ally han. Provider NHI MARTINEZ [[id number]] Appointment date: 05/18/2021 Appointment time: 10:00 AM Cardiac Rehab Your physician has referred you [facility] Contact [facility] Card[facility] Rehabilitation Dep[facility] nt at [phone] to schedule an appointment. If you will [...] 5 pounds in a week, call your theater education teacher immediately. EARLY REPORTING OF TH REJI CHANGES IS VERY IMPORTANT. Condition Code Risk Reduction Plan Cardiac Event Personal Risk Factor Reduction Plan Take this sheet to your physician to show treatment recommendations Isis Cochran Admission Date: 05/07/2021 LOS: @LOS@ Blood [...] To register for smoking cessation program call [phone] or visit www.smokefree.gov Diabetes Risk Goal: Non-diabetic: [...] after you go home, you can call a carlos manuel bravo at [phone] Physical Activity Risk Goal: Patients should have approval by a physician prior to beginning an exercis e program. Plan: Try to get at least 30 minutes of moderate physical activity five days a w [place] or 20 minutes of vigorous physical activity [...] Contact your primary care provi estela or theater education teacher for an antibiotic prescription when needed. Questions About Your Stay For questions or concerns regarding your hospital stay, call [phone] sincere koenig regular business hours, Tuesday through Tuesday, 8am-4pm. During the evenings o r weekends, please call [phone]. Discharging attending physician: TEODORO RUVALCABA III [[id number]] Appointment Request: Cardiac Rehab "Ordering of Outpatient [...] emergency protocols, as indicated per hospital and [facility] policies, including, but not limited to [...] of the requesting provider if any questions? 1131 Request for Cardiology Appointment Standing Status: Future [...] mouth daily. PRESCRIPTION TYPE: Historical Med vit C,I-Kx-ykmso-lutein-zeaxan (PRESERVISION AREDS-2) 250-90-40-1 mg cap Take 1 [...] AM Telehealth visit with MITZY Monreal Cardiology: [place] [facility] (CVM Exam) [address] [facility]. [facility] [address] [facility] [address] Jun 23, 2021 2:45 PM Echo Doppler with [facility] SPECIAL PROC/RESEARCH Cardiology:[facility] (CVM Procedural) [address], [address] [facility] [address] Jun 23, 2021 4:30 PM Office visit with Nhi Annie Ulices, GUEST SERVICES ASSOCIATE-INSOLE TACKER Cardiology: [facility] (CVM Exam) [address], [address] [facility] [address] Pending items needing follow up: Norvasc not restarted post-op. Signed: MITZY Atkinson 05/11/2021 cc: Primary Care Physician: Jazmyn Ruiz Referring physicians: Venancio Bowden MD Additional provider(s): Referral to outpatient cardiac rehab: Location: [facility] [phone] Outside referral faxed: Date Faxed: 05/08/21 Internal referral sent to: OR MASTER SCHEDULER * Chaya Ellis - 05/07/2021 12:28 PM SENIOR MASTER SCHEDULER Case Management Progress Note NAME:Isis Cochran :1955 [...] Chaya Ellis LMSW Surgery - Cardiothoracic Surgery Senior Logistics Manager *[id number] OR MASTER SCHEDULER documented in this encounter Discharge Instructions * Discharge Instr - Wound/Line/Drain* Michelle Motta RN - 05/07/2021 10:45 AM SENIOR MASTER SCHEDULER [place] incisions with provided wound cleanser spray twice daily as instructed. OR MASTER SCHEDULER documented in this encounter Medications at Time [...] capsule mouth daily. vit Take 1 0 C,Z-Nb-keuht-lutein-zeaxa capsule by n (PRESERVISION AREDS-2) mouth daily. [...] Batsheva Rome OT - 05/08/2021 1:08 PM SENIOR MASTER SCHEDULER OCCUPATIONAL THERAPY DISCHARGE Name: Isis Cochran : 1955 Age: 65 y. o. Admission Date: 05/07/2021 LOS: 1 day Per discussion with PT, patient reports no concerns with completing activities o f daily living with no OT goals identified. OT will discontinue service, please re-consult if the patient has a decline in functional status. Therapist: Batsheva Rome, PARISR/L [id number] Date: 05/08/2021 OR MASTER SCHEDULER * Tonja Bill PT - 05/08/2021 11:11 AM SENIOR MASTER SCHEDULER PHYSICAL THERAPY NOTE Name: Isis Cochran : [...] a change in mobility status. Therapist: Tonja Bill PT, DPT [id number] Date: 05/08/2021 OR MASTER SCHEDULER * Porfirio Boyd - 05/08/2021 9:37 AM SENIOR MASTER SCHEDULER 05/08/21 0930 Current Cardiac Procedures/Events Pre Admit [...] rstanding and noted desire to attend in [place]. will fax information Outpatient Cardiopulmonary Rehab OPCR Yes Location [place], [place]- [address] [facility] [phone] Date Faxed 05/08/21 OR MASTER SCHEDULER * Lory Curtis, DAVID-INSOLE TACKER - 05/08/2021 7:41 AM SENIOR MASTER SCHEDULER Cardiothoracic Surgery Post-Op Note Transcatheter Aortic Valve Replacement NAME: Isis Cochran :1955 AGE: 65 y.o. ADMISSION DATE: 05/07/2021 DAYS ADMITTED: LOS: 1 day Primary Dope Maintenance Worker: Needs to establish- saw Dr. Bowden inpatient. [...] aggressive pulm toilet. 3. Renal - Baseline director consumer affairs 0.94. Today 0.85. UOP- 3L/24h, net -1.7L/24h, [...] a nd outpatient care follow up. Lory Cutris APRN-INSOLE TACKER Reach me on Voalte or Page 1131 at 05/08/2021 7:44 AM Subjective Ms. Cochran is a 65 y.o. female who has a history of symptomatic aortic stenosis. She is now s/p transcatheter aortic valve replacement. History of Present Illness Ms. Cochran is a 65 yr old femalewho [facility] [place] of [place] pain. [...] 06:17 AM ABC 0.05 04/30/2021 06:17 AM OR MASTER SCHEDULER Associated attestation - Teodoro Ruvalcaba III, MD - 05/08/2021 12:55 PM SENIOR MASTER SCHEDULER Agree with plan. We will recheck hemoglobin later today. Increase activity wal bing in halls. Echo is pending. Potentially home later today. Josh Ruvalcaba M.D. * Gonzalo Ruiz RN - 05/08/2021 6:58 AM SENIOR MASTER SCHEDULER Pt SR on tele. AOx4. Tolerating RA. Last BM 05/07, UOP adequate. Incisions c/d/i , scant drainage from groin sites. Pain controlled with current regimen, walking well in hallway. VSS per trend. Will continue to monitor. OR MASTER SCHEDULER * Renetta Greer RN - 05/07/2021 6:55 PM SENIOR MASTER SCHEDULER Assumed care at 1530. VSS. A/OX4. SR on telemetry. UOP adequate. -BM this shift. Ambulating in halls with x 2 assistance d/t lines. Tylenol for pain management. No other issues. OR MASTER SCHEDULER * Jazmyn Urban RN - 05/07/2021 12:19 PM SENIOR MASTER SCHEDULER Dalton, notified of patient room number and how to get there at 1219. OR MASTER SCHEDULER * Lory Curtis APRN-NP - 05/07/2021 11:27 AM SENIOR MASTER SCHEDULER Cardiothoracic Surgery Post-Op Note Transcatheter Aortic Valve Replacement NAME: Isis Cochran :1955 AGE: 65 y.o. ADMISSION DATE: 05/07/2021 DAYS ADMITTED: LOS: 0 days Primary Dope Maintenance Worker: Needs to establish- saw Dr. Bowden inpatient. [...] CHF (congestive heart failure), NYHA class 2 ([facility]) Hypokalemia Hypomagnesemia PLAN: 1. CV - Normal [...] gressive pulm toilet. 3. Renal - Baseline director consumer affairs 0.94. Today 0.94. UOP- will monitor, home [...] planning a nd outpatient care follow up. MITZY Atkinson Reach me on Voalte or Page 1131 at 05/07/2021 11:27 AM Subjective Ms. Cochran is a 65 y.o. female who has a history of symptomatic aortic stenosis. She is now s/p transcatheter aortic valve replacement. History of Present Illness Ms. Cochran is a 65 yr old femalewho transferred [facility] [place] complaints of chest pain. [...] 06:17 AM ABC 0.05 04/30/2021 06:17 AM OR MASTER SCHEDULER * Benny Vasquez RN - 05/07/2021 9:15 AM SENIOR MASTER SCHEDULER CARDIOPULMONARY REHABILITATION INPATIENT ASSESSMENT Cardiac Rehabilitation Staff: Mohit Vasquez concrete finisher Date: Demographics Pre-admit Dx: Date of Admission: 05/07/2021 Room: [address]/[facility] CVLAB : 1955 Insurance: Primary: Medicare Secondary:MZL [employer] Address: [address] [place] [id number] Patient (home) [phone] (work) Marital Status: Occupation: Unknown ED Contact: Dalton Cochran ED Phone #: [phone] CTS: Sena Dope Maintenance Worker: . Cardiac Procedures and Events Valve: 05/07/21 (TAVR) Risk Factors BP: 125/82 Height: 167.6 cm (66") Weight: 88 kg (194 lb 0.1 oz) BMI (Calculated): 31.31 Medical History has a past medical history of Arthritis, Chest pain (04/27/2021), Diastolic dysf unction (04/28/2021), DVT (deep venous thrombosis) ([facility]) (1986), Dyslipidemia, GE RD (gastroesophageal reflux disease) (04/28/2021), HTN (hypertension), Nonrheumat ic aortic valve stenosis (04/27/2021), Other chest pain (04/27/2021), Palpitations , PONV (postoperative nausea and vomiting), Primary hypertension (04/27/2021), Se yelena aortic stenosis (04/28/2021), Stage 3a chronic kidney disease (HCC) (04/28/20), and BENTLEY (stress urinary incontinence, female) [...] Given: Teaching Completed: Outpatient Cardiopulmonary Rehabilitation Outpatient [facility] Rehab: Referral Faxed to: Date Faxed: Location: If [facility], Sent to Staff: Benny Vasquez RN 05/07/2021 OR MASTER SCHEDULER documented in this encounter H&P Notes * Lory Curtis, GUEST SERVICES ASSOCIATE-INSOLE TACKER - 05/07/2021 6:57 AM SENIOR MASTER SCHEDULER History and Physical Update Note Name: Isis Cochran Allergies: Wejcojt-lxd-zhc reductase inhibitors Primary Care Physician: Jazmyn Ruiz [...] 05/06/2021 12:48 Color,UA YELLOW Turbidity,UA CLEAR Specific [place]-Urine 1.012 pH,UA 5.0 Glucose,UA NEG Ketones,UA NEG [...] Atkinson Available on Voalte or Pager [phone]. OR MASTER SCHEDULER * Lory Curtis APRN-NP - 05/06/2021 10:51 AM SENIOR MASTER SCHEDULER Images from the original note were not included. Original H&P below was performed and dictated by Kourtney Crawford APRN and Dr. Josh Ruvalcaba. All updated pertinent labs and testing have been reviewed. AVANI Dong Available on Voalte or Page 1131. Kourtney Crawford APRN-NP Nurse Practitioner Cardiothoracic Surgery - Cardiac Consults Attested Creation Time: 04/28/21 1121 Consult Orders CONSULT CARDIOTHORACIC SURGERY PHYSICIAN [[id number]] ordered by Venancio Bowden MD at 04/28/21 [...] Expand All Collapse All []Hide copied text []Horad for details Cardiothoracic Surgery Consult Date of Service: 04/28/2021 Requesting Physician:Shelton Bowden MD Consulting Physician: Josh Ruvalcaba MD Consult Performed By: MITZY Izquierdo Primary Dope Maintenance Worker: VETO HPI: Ms. Isis Cochran is a 65 yr old female who transferred to [facility] from [facility] in [place] after presenting with complaints of chest pain. She has a past medical history significant for DVT of LLE in 2014 on chronic anticoagula tion with Xarelto - last dose was 04/26/2021, fem-pop bypass with Dr. Jeter at [facility] in about 1989, hypertension, dyslipidemia, hx of [...] it had been "studied." She went t [facility] for an echo which revealed severe . [...] dental care from Dr. Harpal Carlin in [place], [place] - will ob tain dental clearance - Will review case with Dr. Sena Crawford APRN-INSOLE TACKER Reach me on Voalte or Pager [phone] at 04/28/2021 1:21 PM Preliminary STS RISK: Unable to calculate until further pre-op testing complete. A note on interpretation of values: The inherent limitations of statistical risk-adjustment models should be kept in mind when interpreting risk percentage values for an individual patient. Risk a djustment attempts to take into account as many of the patients risk factors as possible. However, there are potentially djwlcpebm-pp-sesqhcm factors that ar e not included in [...] Diastolic dysfunction 04/28/2021 DVT (deep venous thrombosis) ([facility]) Dyslipidemia GERD (gastroesophageal reflux disease) 04/28/2021 HTN [...] Take 4 mg by mouth daily. vit C,O-Fa-brzkn-lutein-zeaxan (PRESERVISION AREDS-2) 250-90-40-1 mg cap Krzysztof e 1 capsule by mouth daily. vitamins, w/iron & folate 65/1 mg tab Take 1 tablet by mouth daily. Allergies Allergen Reactions Plfogxp-Szp-Wur Reductase Inhibitors MUSCLE PAIN Family History Problem [...] Cosigned by: Teodoro Ruvalcaba III, MD at 04/30/211315 15 Admission (Discharged) on 04/27/2021 Admission (Discharged) on 04/27/2021 Revision History Detailed Report Note shared with patient OR MASTER SCHEDULER documented in this encounter Procedure Notes * Teodoro Ruvalcaba III, MD - 05/07/2021 3:22 PM SENIOR MASTER SCHEDULER THE [address] [address] PATIENT NAME: ISIS COCHRAN MR#/PT#: [id number] OPERATIVE REPORT : 1955 DATE OF OPERATION: 05/07/2021 ROOM #: 423 OPERATIVE REPORT SURGEON: Teodoro Ruvalcaba III, MD (Trip) CO-SURGEON(S): Isaac Mcneal MD BOWLING ALLEY MANAGER SURGEON(S): Don Walsh MD PREOPERATIVE DIAGNOSIS: Severe [...] 2 ProGlide sutures were placed and an 8-[place] sheath was pos itioned. On the left side, a 5-[place] sheath was positioned. Systemic heparini zation was achieved and maintained throughout the procedure. Balloon-tipped temporary pacemakers were advanced to the right ventricle with ap propriate pacing thresholds. Over a stiff wire, the 8-[place] sheath was exchanged for a 14 [place] DrySeal. The aortic valve was crossed using [...] 30 cc. SPECIMENS REMOVED: None. COMPLICATIONS: None. MD ERNESTO Barrera III (Trip)/Pushpa Ruvalcaba III, MD (Trip) / Pushpa [id number] cc: - Teodoro Ruvalcaba III, MD (Trip) OR MASTER SCHEDULER documented in this encounter OR Notes * Operative Report (Direct Entry) - Isaac Mcneal MD - 05/07/2021 7:13 AM SENIOR MASTER SCHEDULER TAVR (Transcatheter Aortic Valve Replacement) Date of [...] number 26 mm Evolut Pro+. Serial Number [id number] 7. Post dilatation balloon aortic valvuloplasty utilizing [...] femoral artery with placeme nt of an 8-[place] sheath. A dual ProGlide pre-close technique was [...] gradient of 67 mmHg. 7. Utilizing a Ruck.usari ES wire in the left ventricle, the [...] 2 mmHg. 12. The right common femoral 14-[place] sheath was then removed and the dual [...] , RPVI Interventional, Structural and Vascular Cardiology OR MASTER SCHEDULER documented in this encounter Plan of Treatment Not on filedocumented as of this encounter Goals Goal Patient Associated Recent Progress Patient-Stat Aut hor Goal Type Problems ed? Resume work [facility] (04/28/2021 Yes Katheryn Barrett, 1:56 PM SENIOR MASTER SCHEDULER) 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 and go back to work documented as of this encounter Procedures Comments Procedure Name Priority Date/Time Associated Diag nosis PV GROIN DUPLEX SCAN ASIA 05/08/2021 BILATERAL 3:35 PM SENIOR MASTER SCHEDULER CBC Routine 05/08/2021 10:15 AM SENIOR MASTER SCHEDULER 2D + DOPPLER ECHO NO Routine 05/08/2021 CONTRAST 8:49 AM SENIOR MASTER SCHEDULER CHEST SINGLE VIEW Routine 05/08/2021 6:25 AM SENIOR MASTER SCHEDULER HC CBC,AUTOMATED STAT 05/08/2021 4:12 AM SENIOR MASTER SCHEDULER HC MAGNESIUM Routine 05/08/2021 4:12 AM SENIOR MASTER SCHEDULER HC BASIC METABOLIC PANEL STAT 05/08/2021 4:12 AM SENIOR MASTER SCHEDULER ECG 12-LEAD Routine 05/07/2021 8:00 PM SENIOR MASTER SCHEDULER CBC Routine 05/07/2021 12:21 PM SENIOR MASTER SCHEDULER LINE PLCMT 1V CXR STAT 05/07/2021 9:48 AM SENIOR MASTER SCHEDULER HC PTT(APTT) STAT 05/07/2021 9:40 AM SENIOR MASTER SCHEDULER HC PT(INR) STAT 05/07/2021 9:40 AM SENIOR MASTER SCHEDULER HC CBC,AUTOMATED STAT 05/07/2021 9:40 AM SENIOR MASTER SCHEDULER HC MAGNESIUM STAT 05/07/2021 9:40 AM SENIOR MASTER SCHEDULER HC BASIC METABOLIC PANEL STAT 05/07/2021 9:40 AM SENIOR MASTER SCHEDULER ECG 12-LEAD STAT 05/07/2021 9:13 AM SENIOR MASTER SCHEDULER HC ACTIVATED CLTG TIME-OR 05/07/2021 LAB 8:30 AM SENIOR MASTER SCHEDULER HC ACTIVATED CLTG TIME-OR 05/07/2021 LAB 8:18 AM SENIOR MASTER SCHEDULER HC ACTIVATED CLTG TIME-OR 05/07/2021 LAB 8:10 AM SENIOR MASTER SCHEDULER TELEMETRY STRIPS-SCAN 05/07/2021 12:00 AM SENIOR MASTER SCHEDULER TELEMETRY STRIPS-SCAN 05/07/2021 12:00 AM SENIOR MASTER SCHEDULER TELEMETRY STRIPS-SCAN 05/07/2021 12:00 AM SENIOR MASTER SCHEDULER TELEMETRY STRIPS-SCAN 05/07/2021 12:00 AM SENIOR MASTER SCHEDULER TELEMETRY STRIPS-SCAN 05/07/2021 12:00 AM SENIOR MASTER SCHEDULER TELEMETRY STRIPS-SCAN 05/07/2021 12:00 AM SENIOR MASTER SCHEDULER TELEMETRY STRIPS-SCAN 05/07/2021 12:00 AM SENIOR MASTER SCHEDULER PROCEDURE RECORD-SCAN 05/07/2021 12:00 AM SENIOR MASTER SCHEDULER CARDIAC CATH REPORT Routine 05/01/2021 Nonrheumat ic aortic valve 12:04 PM SENIOR MASTER SCHEDULER stenosis documented in this encounter Results * PV GROIN DUPLEX SCAN BILATERAL (05/08/2021 3:35 PM SENIOR MASTER SCHEDULER) RIGHT SUPER 1.39 m/s OTHER OUTSIDE FEMORAL PROX LAB SYS MAX RIGHT REPAIRER VENEER SHEET PROX 1.42 m/s OTHER OUTSIDE SYS MAX LAB RIGHT PROFUNDA 1.24 m/s OTHER OUTSIDE SYS MAX LAB Referring Jazmyn Ruiz OTHER OUTSIDE Provider LAB Cardiology Kate Epiq OTHER OUTSIDE Ultrasound LAB Machine LEFT GROIN REPAIRER VENEER SHEET 1.16 m/s OTHER OUTSIDE SYS LAB LEFT GROIN SFA 1.29 m/s OTHER OUTSIDE SYS LAB LEFT GROIN PFA 0.96 m/s OTHER OUTSIDE SYS LAB RIGHT GROIN REPAIRER VENEER SHEET 1.42 m/s OTHER OUTSIDE SYS LAB RIGHT GROIN SFA 1.39 m/s OTHER OUTSIDE SYS LAB RIGHT GROIN PFA 1.24 m/s OTHER OUTSIDE SYS LAB Modality Anatomical Region Laterality Ultrasound Specimen Narrative OTHER OUTSIDE LAB - 05/12/2021 8:11 AM SENIOR MASTER SCHEDULER 1. No evidence of bilateral AV fistula, [...] and difficult to visualize Performing Organization Address City/[facility]/ZIP Code P marcelino Number OTHER OUTSIDE LAB * CBC (05/08/2021 10:15 AM SENIOR MASTER SCHEDULER) Pathologist [facility] White Blood 8.7 4.5 - 11.0 K/UL [...] LAB Specimen Blood (substance) Performing Organization Address [facility] Code P marcelino Number MAIN LAB [address] [place] [address] * 2D + DOPPLER ECHO NO CONTRAST (05/08/2021 8:49 AM SENIOR MASTER SCHEDULER) Pathologist [facility] Left Ventricle 89.00 46 - 106 mL [...] OTHER OUTSIDE LAB - 05/08/2021 9:16 AM SENIOR MASTER SCHEDULER Hyperdynamic/preserved LV systolic function, LVEF >65%. Mild [...] * CHEST SINGLE VIEW (05/08/2021 6:25 AM SENIOR MASTER SCHEDULER) Modality Anatomical Region Laterality Computed Radiography Chest Specimen Impressions [facility] RAD RESULTS - 05/08/2021 8:02 AM SENIOR MASTER SCHEDULER 1. Stable TAVR and temporary pacemaker l ead. 2. Improved interstitial edema with scat tered linear subsegmental atelectasis. Finalized by Benny Sandoval M.D. on 05/08/2021 8:02 AM. Dictated by Benny Sandoval M.D. on 05/08/2021 8:00 AM. Narrative [facility] RESULTS - 05/08/2021 8:02 AM SENIOR MASTER SCHEDULER CHEST SINGLE VIEW INDICATION: atelectasis, s/p TAVR [...] RAD RESULTS * MAGNESIUM (05/08/2021 4:12 AM SENIOR MASTER SCHEDULER) Magnesium 2.3 1.6 - 2.6 mg/dL [facility] Specimen Blood (substance) Performing Organization Address City/[facility]/ZIP Code P marcelino Number [facility] [address] [place] [address] * BASIC METABOLIC PANEL (05/08/2021 4:12 AM SENIOR MASTER SCHEDULER) Sodium 141 137 - 147 MMOL/L K[facility] [...] >60 >60 mL/min [facility] Comment: [place] The eGFR is not validated f or use in drug dosing adjustments. Continue to use estimated creatinine clearance per dosing reference text. Please contact the Clinical Pharmacist for questions. eGFR >60 >60 mL/min [facility] [place] Comment: The eGFR is not validated for use in drug dosing adjustments. Continue to use estimated creatinine clearance per dosing reference text. Please contact the Clinical Pharmacist for questions. Specimen Performing Organization Address [facility] P marcelino Number [facility] [address] [place] [address] * CBC (05/08/2021 4:12 AM SENIOR MASTER SCHEDULER) White Blood 7.7 4.5 - 11.0 K/UL [...] [facility] Specimen Performing Organization Address City/[facility]/ZIP Code P marcelino Number [facility] [address] [place] [address] * CBC (05/07/2021 12:21 PM SENIOR MASTER SCHEDULER) White Blood 7.7 4.5 - 11.0 K/UL [...] LAB Specimen Blood (substance) Performing Organization Address [facility] P marcelino Number [facility] [address] [place] [address] * LINE PLCMT 1V CXR (05/07/2021 9:48 AM SENIOR MASTER SCHEDULER) Modality Anatomical Region Laterality Computed Radiography Chest Specimen Impressions [facility] RESULTS - 05/07/2021 10:02 AM SENIOR MASTER SCHEDULER Status post transcatheter aortic valve replacement with placement of right jugular temporary pacemaker. Development of mild cardiomegaly and pulmonary venous congestion with possible small pleural effusions. Finalized by Lauri Aguayo M.D. on 05/07/2021 10:02 AM. Dictated by Lauri Aguayo M.D. on 05/07/2021 9:58 AM. Narrative [facility] RESULTS - 05/07/2021 10:02 AM SENIOR MASTER SCHEDULER LINE PLCMT 1V CXR INDICATION: s/p TAVR. TECHNIQUE: Portable [...] Note Lauri Aguayo MD - 05/07/2021 LINE [facility] 1V CXR INDICATION: s/p TAVR. TECHNIQUE: Portable [...] on 05/07/2021 9:58 AM. Performing Organization Address City/State/ZIP Code P marcelino Number [facility] RESULTS * PTT (APTT) (05/07/2021 9:40 AM SENIOR MASTER SCHEDULER) APTT 31.1 24.0 - 36.5 SEC [facility] Specimen Performing Organization Address City/State/ZIP Code P marcelino Number [facility] [address] [place] [address] * PROTIME INR (PT) (05/07/2021 9:40 AM SENIOR MASTER SCHEDULER) INR 1.2 0.8 - 1.2 [facility] Specimen Performing Organization Address City/[facility] Code P marcelino Number [facility] [address] [place] [address] * MAGNESIUM (05/07/2021 9:40 AM SENIOR MASTER SCHEDULER) Pathologist [facility] Magnesium 1.9 1.6 - 2.6 mg/dL [facility] Specimen Blood (substance) Performing Organization Address City/[facility] P marcelino Number [facility] [address] [place] [address] * BASIC METABOLIC PANEL (05/07/2021 9:40 AM SENIOR MASTER SCHEDULER) Pathologist [facility] Sodium 140 137 - 147 MMOL/L KU [...] (L) >60 mL/min [facility] Comment: [place] The eGFR is not validated f or use in drug dosing adjustments. Continue to use estimated creatinine clearance per dosing reference text. Please contact the Clinical Pharmacist for questions. eGFR >60 >60 mL/min [facility] [place] Comment: The eGFR is not validated for use in drug dosing adjustments. Continue to use estimated creatinine clearance per dosing reference text. Please contact the Clinical Pharmacist for questions. Specimen Performing Organization Address City/[facility] P marcelino Number [facility] [address] [place] [address] * CBC (05/07/2021 9:40 AM SENIOR MASTER SCHEDULER) Pathologist [facility] White Blood 6.1 4.5 - 11.0 K/UL [facility] Cells RBC 3.63 (L) 4.0 - 5.0 M/UL [facility] Hemoglobin 10.6 (L) 12.0 - 15.0 GM/DL [facility] Hematocrit 31.2 (L) 36 - 45 % [facility] MCV 86.0 80 - 100 FL [facility] MCH 29.2 26 - 34 PG [facility] MCHC 34.0 32.0 - 36.0 G/DL [facility] RDW 13.6 11 - 15 % [facility] Platelet Count 171 150 - 400 K/UL [facility] MPV 8.2 7 - 11 FL MAIN LAB Specimen Performing Organization Address City/[facility]/ZIP Code P marcelino Number MAIN LAB [address] [place] [address] * POC ACTIVATED CLOTTING TIME (05/07/2021 8:30 AM SENIOR MASTER SCHEDULER) Activated 312 s MAIN LAB Clotting Time Specimen Performing Organization Address City/[facility] Code P marcelino Number MAIN LAB [address] [place] [address] * POC ACTIVATED CLOTTING TIME (05/07/2021 8:18 AM SENIOR MASTER SCHEDULER) Activated 242 s MAIN LAB Clotting Time Specimen Performing Organization Address [facility] P marcelino Number MAIN LAB [address] [place] [address] * POC ACTIVATED CLOTTING TIME (05/07/2021 8:10 AM SENIOR MASTER SCHEDULER) Activated 201 s MAIN LAB Clotting Time Specimen Performing Organization Address [facility] P marcelino Number MAIN LAB [address] [place] [address] * TELEMETRY STRIPS-SCAN (05/07/2021 12:00 AM SENIOR MASTER SCHEDULER) Narrative 05/07/2021 12:00 AM SENIOR MASTER SCHEDULER Ordered by an unspecified provider. * TELEMETRY STRIPS-SCAN (05/07/2021 12:00 AM SENIOR MASTER SCHEDULER) Narrative 05/07/2021 12:00 AM SENIOR MASTER SCHEDULER Ordered by an unspecified provider. * PROCEDURE RECORD-SCAN (05/07/2021 12:00 AM SENIOR MASTER SCHEDULER) Narrative 05/07/2021 12:00 AM SENIOR MASTER SCHEDULER Ordered by an unspecified provider. * TELEMETRY STRIPS-SCAN (05/07/2021 12:00 AM SENIOR MASTER SCHEDULER) Narrative 05/07/2021 12:00 AM SENIOR MASTER SCHEDULER Ordered by an unspecified provider. * TELEMETRY STRIPS-SCAN (05/07/2021 12:00 AM SENIOR MASTER SCHEDULER) Narrative 05/07/2021 12:00 AM SENIOR MASTER SCHEDULER Ordered by an unspecified provider. * TELEMETRY STRIPS-SCAN (05/07/2021 12:00 AM SENIOR MASTER SCHEDULER) Narrative 05/07/2021 12:00 AM SENIOR MASTER SCHEDULER Ordered by an unspecified provider. * TELEMETRY STRIPS-SCAN (05/07/2021 12:00 AM SENIOR MASTER SCHEDULER) Narrative 05/07/2021 12:00 AM SENIOR MASTER SCHEDULER Ordered by an unspecified provider. * TELEMETRY STRIPS-SCAN (05/07/2021 12:00 AM SENIOR MASTER SCHEDULER) Narrative 05/07/2021 12:00 AM SENIOR MASTER SCHEDULER Ordered by an unspecified provider. documented in [...] vei n of left lower extremity (HCC) Nonrheumatic aortic valve stenosis Aortic valve disorders documented in this encounter Admitting Diagnoses Diagnosis Nonrheumatic aortic valve stenosis Aortic valve disorders documented in this encounter Administered Medications Action Date Dose Rate Site Medication Order MAR Action 05/07/2021 11:37 PM SENIOR MASTER SCHEDULER 650 mg acetaminophen (TYLENOL) tablet 650 mg Given 650 mg, Oral, EVERY 6 HOURS PRN, Starting on Maddie 05/07/21 at 1213, Until Tue05/08/21 at 1833, Pain non-opioid: may be used alone or in combination wit h opioid analgesia, Temp > 38.5 C, TOTAL ACETAMINOPHEN DOSE NOT TO EXCEED 4GM DAILY. 650 mg Given 05/07/2021 4:57 PM SENIOR MASTER SCHEDULER 05/08/2021 9:21 AM SENIOR MASTER SCHEDULER 81 mg aspirin chewable tablet 81 mg Given 81 mg, Oral, DAILY, First dose on Tue05/08/21 at 0900, Until Discontinued, Hold for platelet count <80K. 05/07/2021 10:12 AM SENIOR MASTER SCHEDULER 25 mcg fentaNYL citrate PF (SUBLIMAZE) Given injection 25 mcg 25 mcg, Intravenous, EVERY 5 MIN PRN, Starting on Maddie 05/07/21 at 0912, Until Tue05/08/21 at 1833, Pain Injectable, For Pain Score < 4, Maximum total dose of 200 mcg Hold for RR < 10, PACU (only ) 05/08/2021 9:21 AM SENIOR MASTER SCHEDULER 300 mg gabapentin (NEURONTIN) capsule 300 mg Given 300 mg, Oral, EVERY 8 HOURS, First dos e on Maddie 05/07/21 at 1630, Until Discontinued 300 mg Given 05/07/2021 11:37 PM SENIOR MASTER SCHEDULER 300 mg Given 05/07/2021 4:57 PM SENIOR MASTER SCHEDULER magnesium oxide (MAGOX) tablet 200-600 mg 200-600 [...] L after two replacements. 05/07/2021 10:45 AM SENIOR MASTER SCHEDULER 1 g 25 mL/hr magnesium sulfate 1 [...] < 2.1 mg/d L after two replacements. 05/08/2021 9:21 AM SENIOR MASTER SCHEDULER 10 mg oxybutynin XL (DITROPAN XL) tablet 10 mg Given 10 mg, Oral, DAILY, First dose on Tue05/08/21 at 0900, Until Discontinued perflutren lipid microspheres (DEFINITY ) injection 1-20 Diluted mL 1-20 Diluted mL, Intravenous, ONCE PRN, 1 dose, Starting on Tue05/08/21 at 0654, Until Tue05/08/21 at 1833, For Procedure, A senior chemist may only administer Definity through a saline lock. If IV is in use or a port, PICC, or central line is being used a nurse must administer. NOTE: This is a HIGH ALERT Medication., MAC Procedure Area Only - Medications 05/07/2021 10:45 AM SENIOR MASTER SCHEDULER 10 mEq 50 mL/hr potassium chloride in water IVPB 10 mEq Given - New 10 mEq, Intravenous, 50 mL, Administer Bag over 60 Minutes, NEEDED, Starting on Maddie [...] replacement orders if needed. 05/08/2021 6:48 AM SENIOR MASTER SCHEDULER 20 mEq potassium chloride SR (K-DUR) tablet Given 20-40 mEq 20-40 mEq, Oral, NEEDED, Starting on Maddie 05/07/21 at 0913, Until Tue at 1833, Other..., See admin instructions, If [...] full glass of water 05/07/2021 8:01 PM SENIOR MASTER SCHEDULER 40 mg pravastatin (PRAVACHOL) tablet 40 mg Given 40 mg, Oral, AT BEDTIME DAILY, First dose on Tue05/07/21 at 2100, Until Discontinued 05/07/2021 6:16 PM SENIOR MASTER SCHEDULER 20 mg rivaroxaban (XARELTO) tablet 20 mg Given 20 mg, Oral, DAILY WITH DINNER, First dose on Tue05/07/21 at 1700, Until Discontinued, Administer with food. NOTE: This is a HIGH ALERT Medication. 05/08/2021 9:21 AM SENIOR MASTER SCHEDULER 1 tablet vitamins, w/iron & folate Given tablet 1 tablet 1 tablet, Oral, DAILY, First dose on 05/07/21 at 1215, Until Discontinued documented in this encounter Discontinued Medications Start Date End Date Medication Sig Discontinue Reason 05/08/2021 amLODIPine (NORVASC) 10 Take 10 mg mg tablet by mouth daily. documented as of this encounter Active and Recently Administered Medications Times are shown in SENIOR MASTER SCHEDULER. 05/07/2021 05/08/2021 Medication Order 05/06/2021 0640 (Given - Provider: Jame Puga)0900 (Canceled Entry - Provider: Aileen Chang RN) aspirin chewable tablet 81 mg (CANCELED ) 81 mg, Oral, DAILY, First dose on Tue05/07/21 at 0900, Until Discontinued, Pre-Op 0921 (Given - Provider: Sandro Terry , GANESH) aspirin chewable tablet 81 mg 81 mg, Oral, DAILY, First dose on Tue05/08/21 at 0900, Until Discontinued, Hold for platelet count <80K. 1657 (Given - Provider: Renetta Greer, GANESH)2337 (Given - Provider: Gonzalo Ruiz RN) 0921 (Given - Provider: Sandro Terry , GANESH) ceFAZolin (ANCEF) IVP 2 g (COMPLETED) 2 g, Intravenous, EVERY 8 HOURS, 3 doses, First dose on Tue05/07/21 at 1600, Last dose on Tue05/08/21 at 0800 , IV PUSH -- RECONSTITUTE each 1 g vial b y adding 10 mLs of STERILE WATER (SW), Fo r patients >= 80 kg 165 (Given - Provider: Renetta Greer, RN)2337 (Given - Provider: Gonzalo Ruiz RN) 920 (Given - Provider: Sandro Terry RN)1630 (Due) gabapentin (NEURONTIN) capsule 300 mg 300 mg, Oral, EVERY 8 HOURS, First dos e on Maddie 05/07/21 at 1630, Until Discontinued 920 (Given - Provider: Sandro Terry RN) oxybutynin XL (DITROPAN XL) tablet 10 m g 10 mg, Oral, DAILY, First dose on Tue05/08/21 at 0900, Until Discontinued pantoprazole DR (PROTONIX) tablet 40 mg 40 mg, Oral, DAILY, First dose on Tue05/08/21 at 2100, Until Discontinued, D o not crush or chew tablet. 2000 (Given - Provider: Gonzalo Ruiz, GANESH) pravastatin (PRAVACHOL) tablet 40 mg 40 mg, Oral, AT BEDTIME DAILY, First dose on Maddie 05/07/21 at 2100, Until Discontinued 1815 (Given - Provider: Renetta Greer RN) rivaroxaban (XARELTO) tablet 20 mg 20 mg, Oral, DAILY WITH DINNER, First dose on Maddie 05/07/21 at 1700, Until Discontinued, Administer with food. NOTE: This is a HIGH ALERT Medication. 1247 (Planned Hold - Provider: Renetta lemos RN)2115 (Med Not Given - Provider: Gonzalo Ruiz RN - Reason: Patient Refused) 920 (Med Not Given - Provider: Sandro estrada RN - Reason: Patient Refused) senna/docusate (SENOKOT-S) tablet 2 tablet 2 tablet, Oral, TWICE DAILY, First dose on Maddie 05/07/21 at 1215, Until Discontinued, Hold for loose stools 1246 (Planned Hold - Provider: Renetta lemos RN) 920 (Given - Provider: Sandro Terry RN) vitamins, w/iron & folate tablet 1 tablet 1 tablet, Oral, DAILY, First dose on Th u 05/07/21 at 1215, Until Discontinued 165 (Given - Provider: Renetta Greer RN) WATER FOR INJECTION, STERILE IJ SOLN [...] 1246 (Canceled Entry - Provider: Renetta Greer, GANESH) nitroGLYCERIN 50 mg/D5W 250 mL infusion 250 [...] oral intake 05/07/2021 05/08/2021 Medication Order 05/06/2021 1657 (Given - Provider: Renetta Greer, GANESH)2337 (Given - Provider: Gonzalo Ruiz RN) acetaminophen (TYLENOL) tablet 650 mg 650 mg, [...] 0000, Until Tue 1 at 1833, Constipation [place], Second line treatment. 1040 (Given - Provider: Jame Puga) diphenhydrAMINE HCL (BENADRYL) injectio n 25 mg [...] Starting on Maddie 05/07/21 at 0550, Until Tue05/07/21 at 1213, Other..., for IV insertion, Pre-Op 1045 (See Alternative - Provider: Michelle Chang, RN) magnesium oxide (MAGOX) tablet 200-600 mg(Linked Group [...] Until Tue05/08/21 at 1833, For Procedure, A senior chemist may only administer Definity through a saline lock. If IV is in use or a port, PICC, or central line is being used a nurse must administer. NOTE: This is a HIGH ALERT Medication., MAC Procedure Area Only - Medications 1045 (Given - New Bag - Provider: Michelle Chang, GANESH) 0648 (See Alternative - Provider: Gonzalo Ruiz RN) potassium chloride in water IVPB 10 mEq(Linked [...] Medication. 1045 (See Alternative - Provider: Michelle Chang RN) 0648 (See Alternative - Provider: Gonzalo [...] 05/07/21 at 0913, Until Tue at 1833, Other..., See admin instructions, If [...] at 1213, Until Tue05/08/21 at 1833, Nausea/Vomiting [place], Second line treatment for nausea or first [...] 05/07/21 at 0913, Until Tue05/08/21 at 1833, See admin i nstructions
Use [...] (DEFINITY) 1 05/08/2021 injection 1-20 Diluted mL 05/07/2021 WATER FOR INJECTION, STERILE IJ SOLN 3 1 07/08/2020 (Cabinet Override) acetaminophen (TYLENOL) tablet 650 mg 1 05/07/2021 aspirin chewable tablet 81 mg 2 05/07/20 21 bisacodyL (DULCOLAX) rectal suppository 1 05/07/2021 10 mg ceFAZolin (ANCEF) IVP 2 g 1 05/07/2021 diphenhydrAMINE HCL (BENADRYL) injection 1 05/07/2021 25 mg fentaNYL citrate PF (SUBLIMAZE) 1 2020 injection 25 mcg gabapentin (NEURONTIN) capsule 300 mg 1 05/07/2021 haloperidol lactate (HALDOL) injection 1 1 05/07/2021 mg HALOPERIDOL LACTATE 5 MG/ML IJ SOLN 1 (Cabinet Override) hydrALAZINE (APRESOLINE) injection 10 mg 1 05/07/2021 lidocaine PF 1% (10 mg/mL) injection 0.2 1 05/07/2021 mL magnesium oxide (MAGOX) tablet 200-600 1 05/07/2021 mg magnesium sulfate 1 g/D5W 100 mL IVPB 1 05/07/2021 milk of magnesia (CONC) oral suspension 1 05/07/2021 10 mL nitroGLYCERIN 50 mg/D5W 250 mL infusion 1 05/07/2021 norepinephrine (LEVOPHED) 4 mg/250 mL 1 05/07/2021 NS IV drip (std conc)(premade) ondansetron (ZOFRAN) injection 4 mg 1 oxybutynin XL (DITROPAN XL) tablet 10 mg 1 05/07/2021 oxyCODONE (ROXICODONE) tablet 5 mg 1 oxyCODONE (ROXICODONE) tablet 5-10 mg 1 05/07/[address] (PROTONIX) tablet 40 mg 1 05/07/2021 potassium chloride in water IVPB 10 mEq 1 05/07/2021 potassium chloride oral solution 20-40 1 05/07/2021 mEq potassium chloride SR (K-DUR) tablet 1 1 07/07/2020 20-40 mEq pravastatin (PRAVACHOL) tablet 40 mg 1 1 07/07/2020 prochlorperazine (COMPAZINE) rectal 1 suppository 25 mg rivaroxaban (XARELTO) tablet 20 mg 1 senna/docusate (SENOKOT-S) tablet 2 1 tablet sodium chloride 0.9 % infusion 2 05/07 SODIUM CHLORIDE 0.9 % IV SOLP (Cabinet 1 05/07/2021 Override) vitamins, w/iron & folate 1 tablet 1 tablet First Ordered Date EKG Orders [...] Concerns Noted Time Assessment 05/08/2021 9:00 AM SENIOR MASTER SCHEDULER A fall risk assessment has been complet ed for the patient documented as of this encounter Care Teams Start Date End Date Factory Assembler Relationship Specialty 04/27/21 Jazmyn Ruiz NP PCP - General Nurse [address] [place] [address] Practitioner [place], [place] [id number] documented as of this encounter
--- OUTSIDE RECORDS SUMMARY | 2021-05-15 10:07 | XMS REPORT | Encounter Summary ---
Author Author [facility] Organization [facility] Address Unknown Phone Unavailable Care Team Providers Care Lead Blender Name Role Phone SaraJazmyn borden BUSINESS ANALYTICS INTERN PCP Reason for Visit * Reason Onset Date Comments Dental Concerns 04/29/2021 Encounter Details Care Team Description Date Type Department Vannesa Victoria RN Dental Concerns 04/29/2021 Telephone Cardiology: [facility] [address] [place] [address], [address] [place] [address] Social History Date Tobacco Use [...] at Date Recorded Female 04/28/2021 1:55 PM PE ELECTRICAL ENGINEER Date Recorded COVID-19 Exposure Response 04/27/2021 5:03 PM PE ELECTRICAL ENGINEER In the last month, have you been in contact with [facility] [place] to assess someone who was confirmed or suspected to have Coronavirus / COVID-19? documented as of this encounter Functional Status Date of Assessment Functional Status Response 04/28/2021 Does the patient have a hearing impairment: No documented as of this encounter Miscellaneous Notes * Telephone Encounter - Vannesa Victoria RN - 04/29/2021 8:16 AM PE ELECTRICAL ENGINEER Called Dr. Harpal Carlin's office in [place], [place] and spoke to office machine servicer Carmela Barrios. Patient was last seen in November 2020 and was recommended to have a crown on #19. As this was not completed, they are unable to give dental clearanc e at this time. ELECTRICAL ENGINEER documented in this encounter Plan of Treatment Not on filedocumented as of this encounter Goals Goal Patient Associated Recent Progress Patient-Stat Aut hor Goal Type Problems ed? Resume work [facility] (04/28/2021 Yes Katheryn Barrett, 1:56 PM PE ELECTRICAL ENGINEER) 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 and go back to work documented as of this encounter Visit Diagnoses Not on filedocumented in this encounter Additional Health Concerns Noted Time Assessment 04/29/2021 7:40 PM PE ELECTRICAL ENGINEER A fall risk assessment has been complet ed for the patient documented as of this encounter Care Teams Start Date End Date Lead Blender Relationship Specialty 04/27/21 Jazmyn Ruiz NP PCP - General Nurse [address] [place] [address] Practitioner SONIDO Nieves [id number] documented as of this encounter
--- OUTSIDE RECORDS SUMMARY | 2021-05-15 10:07 | XMS REPORT | Encounter Summary ---
Author Author [facility] Organization [facility] Address Unknown Phone Unavailable Care Team Providers Care Manager Mining Name Role Phone Jazmyn Ruiz NP PCP Reason for Visit * Auth/Cert Diagnoses / Procedures Referred By Contact Referred To Conta ct Specialty Diagnoses Nonrheumatic aortic valve stenosis Nonrheumatic aortic valve stenosis [I35.0] Procedures AL REPLACE AORTIC VALVE OPENFEMORAL ARTERY APPROACH Transcatheter Aortic Valve Replacement - Femoral Artery, 26 Evolut Pro+, Stepdown Referral ID Status Reason Start Date Expiration Visits Vi sits Date Requested Authorized [id number] 1 1 Encounter Details Care Team Description Date Type Department Justice Shetty III, MD [address] [facility] [address] [place] [address] Nonrheumatic aortic valve stenosis 05/06/2021 Ancillary Pre-anesthesia: [facility] [address] [facility], [address] [place] [address] Anesthesia Record Responsible Anesthesiologist Anesthesia Start Time Anesthesi a Stop Time Procedure Name Maria Anthony DO 05/07/21 0712 05/07/21 0938 Transcatheter Aortic [...] the receiving nurse. 0938 An Stop Meds * No agents on file. * No blood administrations on file. Removal Type Details Placement Peripheral 05/07/21; 0645; RN; R; Forearm; 18 G; 1 05/07/21 0645 by COLE Chang RN 05/08/21 1031 by Sandro Terry RN Arterial 05/07/21; 0700 (created via procedure 05/07/21 0700 by Donya, Line documentation); 20 G; 05/08/21; 1031 K yair Edgar, CAR BODY DESIGNER 05/07/21 0921 by Liz Naqvi CRNA ETT [...] 22 centimeters; 05/07/21; 0921 05/08/21 1633 by Estevan, Simulation Specialist Puncture 05/07/21; 0800; Right; Femoral; 0800 by Rey, Wound 05/08/21; Mariel3 GANESH Yeboah (Sheath) 05/08/21 1633 by Estevan, Simulation Specialist Puncture 05/07/21; 0800; Left; Femoral; 05/08/21 ; 05/07/21 0800 by Le, Wound [place] Yeboah RN (Sheath) 05/08/21 1633 by Estevan, Simulation Specialist Puncture 05/07/21; 0815; Left; Femoral; 05/08/21 ; 05/07/21 0815 by Rey, Wound [place] Yeboah RN (Sheath) documented in this encounter [...] drinks on one Not asked occasion? Comment: hol04/28/2021 Sex Assigned at Date Recorded Female 04/28/2021 1:55 PM CLOUD SUBJECT MATTER EXPERT Date Recorded COVID-19 Exposure Response 05/06/2021 1:46 PM CLOUD SUBJECT MATTER EXPERT In the last month, have you been in contact with No / Unsure someone who was confirmed or suspected to have Coronavirus / COVID-19? documented as of this encounter Last Filed Vital Signs Reading Time Taken Comments Vital Sign 116/72 05/06/2021 1:00 PM CLOUD SUBJECT MATTER EXPERT Blood Pressure 91 05/06/2021 1:00 PM CLOUD SUBJECT MATTER EXPERT Pulse 36.4 C (97.6 F) 05/06/2021 1:00 PM CLOUD SUBJECT MATTER EXPERT Temperature - - Respiratory Rate 100% 05/06/2021 1:00 PM CLOUD SUBJECT MATTER EXPERT Oxygen Saturation - - Inhaled Oxygen Concentration 89.8 kg (198 lb) 05/06/2021 1:00 PM CLOUD SUBJECT MATTER EXPERT Weight 167.6 cm (5' 6") 05/06/2021 1:00 PM CLOUD SUBJECT MATTER EXPERT Height 31.96 05/06/2021 1:00 PM CLOUD SUBJECT MATTER EXPERT Body Mass Index documented in this encounter [...] as of this encounter Miscellaneous Notes * Patient Education - Jazmyn Gunderson RN - 05/06/2021 12:40 PM CLOUD SUBJECT MATTER EXPERT Pre-op education appt complete with pt and Dalton, ; who will be w/ pt on D OS also. Informed of current visitor policy. Reviewed and provided written ins truction packet. Instructed pt to be NPO @ 2300 the night before surgery, excep t for a sip of water to take any meds that the PAC pharmacist instructs pt to ta sandra on the morning of surgery. Verified that LD of Maurizio was 05/03. Instruct ed to take CHG 4% shower X 2 prior to coming to hospital as per written instruct ions; soap provided to pt. Instructed to check in at [facility] Admissions @ 0545 on DO S. Discussed process for pre-op, intra-op and post-op recovery. Discussed post -op pain; lifting and driving restrictions; importance of mobilization and s/s o f infection after discharge. Instructed to call the CTS office if having any he alth changes prior to surgery. Pt verbalized understanding of all instructions. Denies skin or dental issues; denies s/s UTI. KCCQ complete - see flowsheet. 5M walks complete see additional note. Labs drawn in PAC Lab. All quest ions answered to the pt's satisfaction. Escorted to Admissions for Pre-reg istration. AF D SUBJECT MATTER EXPERT * Pre-Anesthesia Medication Instructions - Dann Salas, PHARMD - 05/05/2021 4:48 PM CLOUD SUBJECT MATTER EXPERT YOUR MEDICATIONS: acetaminophen (TYLENOL EXTRA STRENGTH) 500 mg tablet Take 1,000 mg by mouth at bedtime daily. Max of 4,000 mg of acetaminophen in 24 hours. amLODIPine (NORVASC) 10 mg tablet Take 10 mg by mouth daily. Cranberry 400 mg cap Take 400 mg by mouth daily. diclofenac sodium (VOLTAREN) 1 % topical gel Apply four g topically to affected area four times daily. (Patient taking differently: Apply 4 g topically to affe cted area four times daily as needed.) fish oil /omega-3 fatty acids (SEA-OMEGA) 340/1000 mg capsule Take 4 capsules b y mouth daily. gabapentin (NEURONTIN) 300 mg capsule Take one capsule by mouth every 8 hours. nitroglycerin (NITROSTAT) 0.[address] one tablet under tongue every 5 m inutes as needed for Chest Pain. Max of 3 tablets, call 911. omeprazole DR (PRILOSEC) 20 mg capsule Take 20 mg by mouth daily before breakfa st. pravastatin (PRAVACHOL) 40 mg tablet Take 40 mg by mouth at bedtime daily. rivaroxaban (XARELTO) 20 mg tablet Take 20 mg by mouth daily with dinner. Take with food. tolterodine LA (DETROL LA) 4 mg capsule Take 4 mg by mouth daily. vit C,I-Sr-aeeqe-lutein-zeaxan (PRESERVISION AREDS-2) 250-90-40-1 mg cap Take 1 capsule by mouth daily. vitamins, w/iron & folate 65/1 mg tab Take 1 tablet by mouth daily. YOUR MEDICATION INSTRUCTIONS FOR SURGERY: Before surgery Stop the following medications NOW: Vitamins, supplements and herbal and natural products including: Cranberry Fish Oil/[place] 3s Multivitamin Preservision AREDs Stop the following medications NOW: Anti-inflammatory medications such as ibuprofen (Advil, Motrin) and naproxen (Al niesha) and diclofenac gel 1% You may use acetaminophen (Tylenol) Please follow these instructions regarding your blood thinner medications: Xarelto - last dose Thursday 05/03. Morning of surgery On the morning of surgery, do NOT take these medications: Remaining vitamins/supplements Ointments/creams/lotions On the morning of surgery, take ONLY these medications with a sip (1-2 ounces) o f water: Amlodipine Gabapentin Tolterodine Omeprazole Use inhalers, nasal sprays and eye drops as usual Other information Before surgery, please contact the clinic pharmacist with any medicine updates o r questions. E-mail: [email or web address] Before going home from the hospital, please ask your doctor when you should re-s tart your medicines that were stopped before surgery. D SUBJECT MATTER EXPERT documented in this encounter Plan of Treatment Not on filedocumented as of this encounter Goals Goal Patient Associated Recent Progress Patient-Stat Aut hor Goal Type Problems ed? Resume work [facility] On track (04/28/2021 Yes Katheryn Barrett, 1:56 PM CLOUD SUBJECT MATTER EXPERT) 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 and go back to work documented as of this encounter Procedures Comments Procedure Name Priority Date/Time Associated Diag nosis HC PT(INR) STAT 05/06/2021 Nonrheumatic ao rtic valve 12:54 PM CLOUD SUBJECT MATTER EXPERT stenosis TYPE & CROSSMATCH STAT 05/06/2021 Nonrheumatic aortic valve 12:54 PM CLOUD SUBJECT MATTER EXPERT stenosis UA REFLEX LABEL STAT 05/06/2021 Nonrheumatic a ortic valve 12:48 PM CLOUD SUBJECT MATTER EXPERT stenosis URINALYSIS MICROSCOPIC STAT 05/06/2021 Nonrheu matic aortic valve REFLEX TO CULTURE 12:48 PM CLOUD SUBJECT MATTER EXPERT stenosis HC URINALYSIS UAR STAT 05/06/2021 Nonrheumatic aortic valve 12:48 PM CLOUD SUBJECT MATTER EXPERT stenosis documented in this encounter Results * TYPE & CROSSMATCH (05/06/2021 12:54 PM CLOUD SUBJECT MATTER EXPERT) Units Ordered 2 MAIN LAB Crossmatch 05/09/2021,2359 MAIN LAB Expires Record Check NOT FOUND MAIN LAB ABO/RH(D) AB NEG MAIN LAB Antibody Screen NEG MAIN LAB Specimen Performing Organization Address [facility] P marcelino Number MAIN LAB [address] [id number] * PROTIME INR (PT) (05/06/2021 12:54 PM CLOUD SUBJECT MATTER EXPERT) INR 1.1 0.8 - 1.2 MAIN LAB Specimen Blood (substance) Performing Organization Address [facility] P [place]celino Number MAIN LAB [address] [place] [address] * URINALYSIS MICROSCOPIC REFLEX TO CULTURE (05/06/2021 12:48 PM CLOUD SUBJECT MATTER EXPERT) WBCs,UA 0-2 0 - 2 /HPF MAIN LAB RBCs,UA 0-2 0 - 3 /HPF MAIN LAB Comment,UA Criteria for reflex to culture [facility] N [facility] are WBC>10, Positive Nitrite, and/or >=+1 leukocytes. If quantity is not sufficient, an addendum will follow. Squamous 0-2 0 - 5 MAIN LAB Epithelial Cells Specimen Urine specimen (specimen) Performing Organization Address [facility] P marcelino Number MAIN LAB [address] [place] [address] * URINALYSIS DIPSTICK REFLEX TO CULTURE (05/06/2021 12:48 PM CLOUD SUBJECT MATTER EXPERT) Color,UA YELLOW [facility] MAIN [facility] Turbidity,UA CLEAR CLEAR-CLEAR [facility] MAIN [facility] Specific 1.012Comment: NOTE NEW 1.005 - 1.030 [facility] MAIN LAB [place]-Urine REFERENCE RANGES pH,UA 5.0 5.0 - 8.0 [...] Specimen Urine specimen (specimen) Performing Organization Address City/State/ZIP Code P [place] Number [facility] MAIN LAB [address] [id number] * UA REFLEX LABEL (05/06/2021 12:48 PM CLOUD SUBJECT MATTER EXPERT) UA Reflex Criteria for reflex to culture [facility] Culture are WBC>10, Positive Nitrit e, and/or >=+1 leukocytes. If quantity is not sufficient, an addendum will follow. Specimen Urine specimen (specimen) Performing Organization Address City/[facility]/ZIP [facility] P mracelino Number [facility] MAIN LAB [address] [place] [address] documented in this encounter Visit Diagnoses Diagnosis Nonrheumatic aortic valve stenosis Aortic valve disorders documented in this encounter Additional Health Concerns Noted Time Assessment 05/06/2021 1:16 PM CLOUD SUBJECT MATTER EXPERT A fall risk assessment has been complet ed for the patient documented as of this encounter Care Teams Start Date End Date Manager Mining Relationship Specialty 04/27/21 Jazmyn Ruiz NP PCP - General Nurse [address] [place] [address] [place] [address] documented as of this encounter
--- OUTSIDE RECORDS SUMMARY | 2021-05-15 10:08 | XMS REPORT | Encounter Summary ---
[facility] Address Unknown Phone Unavailable Care Team Providers Care Newspaper Subscription Solicitor Name Role Phone SaraJazmyn borden COLOR PRINTER OPERATOR PCP Reason for Visit * Auth/Cert Diagnoses / Procedures Referred By Contact Referred To Conta ct Specialty Diagnoses Chest pain NSEMI Referral ID Status Reason Start Date Expiration Visits Vi sits Date Requested Authorized [id number] 1 1 Encounter Details Care Team Description Date Type Department Kia Mahan MD [address] [place] [address] ANGIOGRAPHY CORONARY ARTERY WITH LEFT HE ART CATHETERIZATION 04/29/2021 Surgery Laboratory: [facility] [address] [facility] [address] [place] [address] Surgery Details Trauma Case? Date/Time Status Location OR Service Patient Class Case Class Case Type 04/29/21 Posted HC2 STAFF ANESTHETIST CV Lab 03 Interventi Inpatient E lective - 3:05 PM onal Treating Cardiology conditions that are not life or limb threatenin g Panel 1 Procedure LRB Anes Op Region Wound Class Com ments ANGIOGRAPHY CORONARY N/A Sedation ARTERY WITH LEFT HEART CATHETERIZATION PERCUTANEOUS CORONARY N/A Sedation STENT PLACEMENT WITH ANGIOPLASTY Panel Surgeon Surgeon Role Service 1 Kia Mahan MD Primary Interventional Card iology Social History Date Tobacco Use Types Packs/Day [...] at Date Recorded Female 04/28/2021 1:55 PM INSTALLATION AND SERVICE TECHNICIAN Date Recorded COVID-19 Exposure Response 04/27/2021 5:03 PM INSTALLATION AND SERVICE TECHNICIAN In the last month, have you been in contact with Natalie ble to assess someone who was confirmed or suspected to have Coronavirus / COVID-19? documented as of this encounter Last Filed Vital Signs Reading Time Taken Comments Vital Sign 121/69 04/29/2021 11:35 AM INSTALLATION AND SERVICE TECHNICIAN Blood Pressure 83 04/29/2021 11:35 AM INSTALLATION AND SERVICE TECHNICIAN Pulse 36.9 C (98.4 F) 04/29/2021 11:35 AM INSTALLATION AND SERVICE TECHNICIAN Temperature - - Respiratory Rate 96% 04/29/2021 11:35 AM INSTALLATION AND SERVICE TECHNICIAN Oxygen Saturation - - Inhaled Oxygen Concentration 87.5 kg (193 lb) 04/28/2021 4:07 PM INSTALLATION AND SERVICE TECHNICIAN Weight 167.6 cm (5' 6") 04/28/2021 4:07 PM INSTALLATION AND SERVICE TECHNICIAN Height 31.15 04/28/2021 4:07 PM INSTALLATION AND SERVICE TECHNICIAN Body Mass Index documented in this encounter [...] Kiersten Healy MD - 04/30/2021 11:15 AM INSTALLATION AND SERVICE TECHNICIAN Discharge Summary Name: Isis Cochran Date Of : 1955 Age: 65 years Admit date: 04/27/2021 Discharge date: 04/30/2021 Discharge Attending: Kiersten Healy MD Discharge Summary Completed By: Kiersten Healy MD Service: [facility] Reason for hospitalization: Chest pain [R07.9] [...] (HCC) BENTLEY (stress urinary incontinence, female) Allergies Jdjxepa-wkg-ewd reductase inhibitors Brief Hospital Course The patient [...] dysfunction (04/28/2021), D VT (deep venous thrombosis) ([facility]), Dyslipidemia, GERD (gastroesophageal reflux d isease) (04/28/2021), [...] history of a vein graft prior surgery-Hold [employer] Xarelto while on Heparin drip HTN; HLD-Resume [employer] Amlodipine 10, fish oil and pravastatin Left knee OA-Usually gets injections in knee, patient with plan for possible kathy kathy this Gorge Stress incontinence-Will switch [employer] Detrol LA with oxybutynin per pharmacy. -HX BREAST LUMPECTOMY FOR CANCER 2005 Alcohol use-drinks 8 ounces of wine couple [...] AREDS-2 250-90-40-1 mg Cap; Generic drug: vit C,K-Ct-nsril-lutein-zeaxan; Dose: 1 capsule; Refills: 0 rivaroxaban 20 [...] may contact a dietitian a t . Testing Not Required for Covid-19 [...] HOURS (8:00 AM - 4:30 PM): Call [phone] and asked to be transferred to your discharge attending jenn hamilton. - AFTER BUSINESS HOURS (4:30 PM - 8:00 AM, on weekends, or holidays): Call [phone] and ask the ginning operator to page the on-call doctor for the discha rge attending physician. Discharging attending physician: KIERSTEN HEALY [[id number]] Incision Care *Call if there is an increase in pain, swelling, or redness. *DO NOT soak incision in water. *NO tub baths, hot tubs, or swimming. *You may shower after discharge. Additional Orders: Case Management, Supplies, Home Health Home Health/DME None Signed: Kiersten Healy MD 04/30/2021 cc: Primary Care Physician: Jazmyn Ruiz Verified Referring physicians: Chris, MD Chris Additional provider(s): Did we miss something? If additional records are needed, please fax a request on office letterhead to [phone]. Please include the patient's name, date of b irth, fax number and type of information needed. Additional request can be made by email at [email or web address]. For general questions of information about electronic records sharing, call [phone]. ALLATION AND SERVICE TECHNICIAN * Oliva Danielle RN - 04/28/2021 3:16 PM INSTALLATION AND SERVICE TECHNICIAN Case Management Admission Assessment NAME:Isis Cochran :1955 [...] with Post-Acute Care Needs *Pt resides in [facility] with her in a house with 6 steps to door. *Pt is independent with ADLs, drives and denies need for assistance. *Pt denies receiving home health, DME or placement. Pt states if home health is needed she would like to use [facility] in [facility]. *Pt states she sees Jazmyn Ruiz COLOR PRINTER OPERATOR for general care. *Pt does not have Part D coverage for medication. Pt pays for all medication ou t of pocket. *Pt's will provide transportation to home. *CM will follow for discharge needs. Patient Address/Phone [address] [facility] [address] (home) Emergency Contact Extended Emergency Contact Information Primary Emergency Contact: Dalton Cochran Mobile Relation: Spouse Preferred language: SAUDI ARABIAN Housing Installer needed? No Healthcare Directive Healthcare Directive: Yes, patient has a healthcare directive Type of Healthcare Directive: Durable power of attorney general for healthcare Location of Healthcare [...] Phone and Availability #1: Dalton Cochran Spouse [phone] Expected Discharge Date 04/30/2021 Living Situation Prior [...] Current/Previous Services PCP Jazmyn Ruiz, , Pharmacy [address] [address] Durable Medical Equipment Durable Medical Equipment at [...] surgery Name of rehab location/group: Rehab in [facility] Would patient return for future services?: Yes OT: In the past When did patient receive care?: after rotator cuff surgery Name of rehab location/group: Rehab in [facility] INSEMINATION WORKER: No Jail Facility/Senior Living SNF: No NH: No Inpatient Rehab IPR: No [facility] LTACH: No Acute Hospital Stay Acute Hospital Stay: In the past Was patient's stay within the last 30 days?: No Oliva Danielle MSN, transfer engineer [id number] Pager *[phone] ALLATION AND SERVICE TECHNICIAN documented in this encounter Discharge Instructions * Appointments* Kiersten Healy MD - 04/30/2021 11:09 AM INSTALLATION AND SERVICE TECHNICIAN Call for hospital followup appointment with Jazmyn Olvera within 2 weeks. ALLATION AND SERVICE TECHNICIAN documented in this encounter Medications at Time [...] capsule mouth daily. vit Take 1 0 C,S-Og-dbqma-lutein-zeaxa capsule by n (PRESERVISION AREDS-2) mouth daily. [...] Brina Delacruz RN - 04/30/2021 3:20 PM INSTALLATION AND SERVICE TECHNICIAN I have reviewed the notes, assessment, and/or procedures performed by Brad chavis RN and concur with his documentation unless otherwise noted. ALLATION AND SERVICE TECHNICIAN * Brad Renee RN - 04/30/2021 2:42 PM INSTALLATION AND SERVICE TECHNICIAN Isis Cochran discharged on 04/30/2021. Equipment Removed: Telepack. Discharge instructions reviewed with patient and family. Valuables returned: ADL Belongings at Bedside: Eyeglasses/contacts. Home medications: . Functional assessment at discharge complete: Yes . ALLATION AND SERVICE TECHNICIAN * Kourtney Crawford APRN-NP - 04/30/2021 11:00 AM INSTALLATION AND SERVICE TECHNICIAN Cardiothoracic Surgery Interim Note NAME: Isis Cochran [...] nd outpatient care follow up. Kourtney Crawford APRN-TAYLOR Reach me on Voalte or Pager [phone] at 04/30/2021 7:16 AM History of Present Illness Ms. Isis Cochran is a 65 yr old female who transferred to [facility] from [facility] in [place], [place] after presenting with complaints of chest [...] 06:17 AM ABC 0.05 04/30/2021 06:17 AM ALLATION AND SERVICE TECHNICIAN * Kiersten Healy MD - 04/30/2021 9:02 AM INSTALLATION AND SERVICE TECHNICIAN General Progress Note Name: Isis Cochran Today's [...] dysfunction (04/28/2021), D VT (deep venous thrombosis) ([facility]), Dyslipidemia, GERD (gastroesophageal reflux d isease) (04/28/2021), [...] of a vein graft prior surgery -Hold [employer] Xarelto while on Heparin drip HTN; HLD -Resume [employer] Amlodipine 10, fish oil and pravastatin Left knee OA-Usually gets injections in knee, patient with plan for possible kathy kathy this Gorge Stress incontinence -Will switch [employer] Detrol LA with oxybutynin per pharmacy -HX [...] discharge: cv eval Continue inpatient on [facility], plan for discharge to home. Follow up appt w/ PCP: Jazmyn Ruiz [phone] and subspecialists. No future appointments. Pt care discussed w/ patient: Patient Contacts Name Relation Home Work Mobile Preferred Language Dalton Cochran Spouse [phone] SAUDI ARAB[place] Housing Installer needed? No There is no immunization history [...] 04/28/2021 7:55 AM. Kiersten Healy MD Pager [phone] Available on [employer] ALLATION AND SERVICE TECHNICIAN * Tere Almanzar RN - 04/29/2021 2:13 PM INSTALLATION AND SERVICE TECHNICIAN I have reviewed the notes, assessment, and/or procedures performed by Brad chavis RN and concur with her/his documentation unless otherwise noted. ALLATION AND SERVICE TECHNICIAN * Tere Almanzar RN - 04/29/2021 1:03 PM INSTALLATION AND SERVICE TECHNICIAN Patient left unit with Heparin gtt running at 1,000 units/hr to [facility] at 1240. ALLATION AND SERVICE TECHNICIAN * Kiersten Healy MD - 04/29/2021 10:56 AM INSTALLATION AND SERVICE TECHNICIAN General Progress Note Name: Isis Ccohran Today's Date: 04/29/2021 Admission Date: 04/27/2021 LOS: [...] dysfunction (04/28/2021), D VT (deep venous thrombosis) ([facility]), Dyslipidemia, GERD (gastroesophageal reflux d isease) (04/28/2021), [...] of a vein graft prior surgery -Hold [employer] Xarelto while on Heparin drip HTN; HLD -Resume [employer] Amlodipine 10, fish oil and pravastatin Left knee OA-Usually gets injections in knee, patient with plan for possible kathy kathy this Gorge Stress incontinence -Will switch [employer] Detrol LA with oxybutynin per pharmacy -HX [...] Follow up appt w/ PCP: Jazmyn Ruiz [phone] and subspecialists. No future appointments. Pt care discussed w/ patient: Patient Contacts Name Relation Home Work Mobile Preferred Language Dalton Cochran Spouse [phone] SAUDI ARAB[place] Housing Installer needed? No There is no immunization history [...] 1135) Temp: 36.9 C (98.4 F) (04/29 113) Pulse: 83 (04/29 113) Respirations: 18 PER MINUTE (04/29 113) SpO2: 96 % (04/29 1135) Height: 167.6 [...] 04/28/2021 7:55 AM. Kiersten Healy MD Pager [phone] Available on [employer] ALLATION AND SERVICE TECHNICIAN * Tere Almanzar RN - 04/28/2021 3:37 PM INSTALLATION AND SERVICE TECHNICIAN I have reviewed the notes, assessment, and/or procedures performed by Brad chavis RN and concur with her/his documentation unless otherwise noted. ALLATION AND SERVICE TECHNICIAN * Isaac Mcneal MD - 04/28/2021 2:20 PM INSTALLATION AND SERVICE TECHNICIAN Interventional Cardiology Consult NOTE Admission Date: 04/27/2021 [...] cm. CTA chest & ab/pelvis: Tentatively after [facility] tomorrow Carotid US: Ordered for 04/28/2021 PFTs: Ordered for 04/28/2021 Cardiac surgeon evaluation: Dr. Shetty [facility]: Tentatively planned for 04/29/2021 Dental Clearance: Being verified by CTS team Chest Pain *Troponins negative *ECG shows sinus rhythm without acute or ischemic changes *On heparin drip Hypertension *Well-controlled 110-130s/60-70s this admission *Taking 10 mg amlodipine prior to admission Hyperlipidemia *[employer] 40 mg pravastatin restarted by primary team Chronic Diastolic dysfunction *BNP=55 on admission * Chest XRay 04/27/2021 Initial chest radiograph demonstrating no acute pulmonary abnormalities *Not requiring diuretics this admission History of acute vein thrombosis *Anticoagulated on rivaroxaban [employer] *Currently on heparin drip in anticipation of possible cath 04/29 Plan Patient will be see by Dr. Mcneal who will review echocardiogram, however her mean gradient suggests she has severe aortic stenosis. As part of TAVR work up she w ould require TAVR CTAs, carotid ultrasound, cardiac cath, and PFTs. Cardiac cath tentatively scheduled for 04/29 TONIA Jain Cardi[facility] Pager # [phone] _ History of Present Illness Isis Cochran is a 65 y.o. female patient with a past medical history of hypertens ion, hyperlipidemia, severe aortic stenosis, history of DVT, breast cancer, stag e 3a chronic kidney disease. She was transferred to the [facility] from an outside facility with complaints of [...] walking around her property with her gran williamren causes her more shortness of breath than [...] History Medical History: Diagnosis Date Breast CA ([facility]) 04/28/2021 Chest pain 04/27/2021 Deep vein thrombosis (DVT) of iliac vein of left lower extremity ([facility]) Diastolic dysfunction 04/28/2021 DVT (deep venous thrombosis) ([facility]) Dyslipidemia GERD (gastroesophageal reflux disease) 04/28/2021 HTN [...] Q5 MIN PRN Allergies Allergies Allergen Reactions Xyqjxfr-Jxc-Ksr Reductase Inhibitors MUSCLE PAIN Review of Systems [...] include, but are not limited to , [place], stroke, urgent need for per manent pacemaker, [...] , RPVI Interventional, Structural and Vascular Cardiology ALLATION AND SERVICE TECHNICIAN * Kiersten Healy MD - 04/28/2021 8:32 AM INSTALLATION AND SERVICE TECHNICIAN General Progress Note Name: Isis Cochran Today's [...] dysfunction (04/28/2021), D VT (deep venous thrombosis) ([facility]), Dyslipidemia, GERD (gastroesophageal reflux d isease) (04/28/2021), [...] of a vein graft prior surgery -Hold [employer] Xarelto while on Heparin drip HTN; HLD -Resume [employer] Amlodipine 10, fish oil and pravastatin Left knee OA-Usually gets injections in knee, patient with plan for possible kathy kathy this G[place] Stress incontinence -Will switch [employer] Detrol LA with oxybutynin per pharmacy -HX [...] DETECTED TROPONIN-I Collection Time: 04/28/21 6:34 AM Result Value Ref Range Troponin-I [...] 04/28/2021 7:55 AM. Kiersten Healy MD Pager [phone] Available on [employer] ALLATION AND SERVICE TECHNICIAN documented in this encounter H&P Notes * Maranda Chatterjee MD - 04/27/2021 9:55 PM INSTALLATION AND SERVICE TECHNICIAN Admission History and Physical Examination Name: Isis [...] of a vein graft prior surgery -Hold [employer] Xarelto while on Heparin drip HTN DL -Resume [employer] Amlodipine 10, fish oil and pravastatin -Left knee OA -Usually gets injections in knee, patient with plan for possible surgery this Ja n Stress incontinence -Will switch [employer] Detrol LA with oxybutynin per pharmacy -HX [...] shortness of breath with activity even carryi ng [employer] she is on Xarelto 20 mg for blood clot she denies fever no adrien junior never been a heavy smoker she drinks [...] Social Gatherings with Friends and Family: Attends Hoahaoism Services: Active Member of Clubs or Organizations: [...] 2254) EKG Reviewed Maranda Chatterjee MD Pager ALLATION AND SERVICE TECHNICIAN documented in this encounter Procedure Notes * Stevenson Pedraza MBBS - 04/29/2021 4:09 PM INSTALLATION AND SERVICE TECHNICIAN Associated Order(s): CARDIAC CATH REPORT [facility] CARDIAC CATHETERIZATION REPORT Page 2 ISIS Escalona : 1955 KU#: [id number] KU MR #/Billing ID #: [id number] / [id number] DATE: 04/29/2021 SALES STORE CHECKER: Kia Mahan MD DICTATING PROVIDER: PATRICIO Hickey REFERRING PHYSICIAN: Venancio Bowden MD INDICATION: Ms. Cochran is a 65-year-old lady with history of hypertension, LLE DV T, HLD and severe aortic stenosis. [facility] echocardi[facility] showed peak aortic velocity of 4.9 m/s with valve area of 0.75. The aortic root was reportedly normal. She presented to the hospital with an episode of ch est pain and subsequently was referred for coronary angiography as possible surg ical aortic valve replacement. PROCEDURES PERFORMED: Selective coronary angiography. INFORMED CONSENT: Informed consent was obtained from the patient after a thorou discussion of risks, benefits, and potential complications. [...] access the artery. Thereafter, we placed a 6-Filipino s soco in the right radial wrist. [...] per consult team. Kia Mahan MD SPR/MedQ //[id number] cc: - Venancio Bowden MD ALLATION AND SERVICE TECHNICIAN documented in this encounter Consult Notes * Cris Massey RN - 04/29/2021 4:47 PM INSTALLATION AND SERVICE TECHNICIAN Associated Order(s): CONSULT CARDIOLOGY PHYSICIAN Please see IC consult note from Vanda Viveros on 04/28/21. Thanks! ALLATION AND SERVICE TECHNICIAN * Isaac Mcneal MD - 04/28/2021 2:28 PM INSTALLATION AND SERVICE TECHNICIAN Interventional Cardiology Consult NOTE Admission Date: 04/27/2021 [...] cm. CTA chest & ab/pelvis: Tentatively after [facility] tomorrow Carotid US: Ordered for 04/28/2021 PFTs: Ordered for 04/28/2021 Cardiac surgeon evaluation: Dr. Shetty [facility]: Tentatively planned for 04/29/2021 Dental Clearance: Being verified by CTS team Chest Pain *Troponins negative *ECG shows sinus rhythm without acute or ischemic changes *On heparin drip Hypertension *Well-controlled 110-130s/60-70s this admission *Taking 10 mg amlodipine prior to admission Hyperlipidemia *[employer] 40 mg pravastatin restarted by primary team Chronic Diastolic dysfunction *BNP=55 on admission * Chest XRay 04/27/2021 Initial chest radiograph demonstrating no acute pulmonary abnormalities *Not requiring diuretics this admission History of acute vein thrombosis *Anticoagulated on rivaroxaban [employer] *Currently on heparin drip in anticipation of possible cath 04/29 Plan Patient will be see by Dr. Mcneal who will review echocardiogram, however her mean gradient suggests she has severe aortic stenosis. As part of TAVR work up she w ould require TAVR CTAs, carotid ultrasound, cardiac cath, and PFTs. Cardiac cath tentatively scheduled for 04/29 T[facility] Pager # [phone] _ History of Present Illness Isis Cochran is a 65 y.o. female patient with a past medical history of hypertens ion, hyperlipidemia, severe aortic stenosis, history of DVT, breast cancer, stag e 3a chronic kidney disease. She was transferred to the [facility] from an outside facility with complaints of [...] History Medical History: Diagnosis Date Breast CA ([facility]) 04/28/2021 Chest pain 04/27/2021 Deep vein thrombosis (DVT) of iliac vein of left lower extremity ([facility]) 2020 Diastolic dysfunction 04/28/2021 DVT (deep venous thrombosis) ([facility]) Dyslipidemia GERD (gastroesophageal reflux disease) 04/28/2021 HTN (hypertension) Nonrheumatic aortic valve stenosis 04/27/2021 Other chest pain 04/27/2021 Primary hypertension 04/27/2021 Severe aortic stenosis 04/28/2021 Stage 3a chronic kidney disease ([facility]) 04/28/2021 BENTLEY (stress urinary incontinence, female) 04/28/2021 [...] Q5 MIN PRN Allergies Allergies Allergen Reactions Evnrpgf-Mmg-Qji Reductase Inhibitors MUSCLE PAIN Review of Systems [...] continue workup and plan for TAVR jorge sual. Isis Cochran has severe symptomatic aortic valve [...] include, but are not limited to , [place], stroke, urgent need for per manent pacemaker, [...] , RPVI Interventional, Structural and Vascular Cardiology ALLATION AND SERVICE TECHNICIAN * Kourtney Crawford APRN-NP - 04/28/2021 11:21 AM INSTALLATION AND SERVICE TECHNICIAN Associated Order(s): CONSULT CARDIOTHORACIC SURGERY PHYSICIAN Cardiothoracic Surgery Consult Date of Service: 04/28/2021 Requesting Physician:Shelton Bowden MD Consulting Physician: Josh Shetty MD Consult Performed By: MITZY Izquierdo Primary Rotational Moulding Operator: VETO HPI: Ms. Isis Cochran is a 65 yr old female who transferred to [facility] from [facility] in [place], [place] after presenting with complaints of chest pain. She has a past medical history significant for DVT of LLE in 2014 on chronic anticoagula tion with Xarelto - last dose was 04/26/2021, fem-pop bypass with Dr. Jeter at [facility] in about 1989, hypertension, dyslipidemia, hx [...] it had been "studied." She went t [facility] for an echo which revealed severe . [...] dental care from Dr. Harpal Carlin in [place], [place] - will ob marika dental clearance - Will review case with Dr. SenaMITZY Huerta Reach me on Voalte or Pager [phone] at 04/28/2021 1:21 PM Preliminary STS RISK: Unable to calculate until further pre-op testing complete. A note on interpretation of values: The inherent limitations of statistical risk-adjustment models should be kept in mind when interpreting risk percentage values for an individual patient. Risk a djustment attempts to take into account as many of the patients risk factors as possible. However, there are potentially dtbpmvhgb-aj-rldynor factors that ar e not included in [...] of iliac vein of left lower extremity ([facility]) 2020 Diastolic dysfunction 04/28/2021 DVT (deep venous thrombosis) ([facility]) Dyslipidemia GERD (gastroesophageal reflux disease) 04/28/2021 HTN [...] Take 4 mg by mouth daily. vit C,V-Yy-niohd-lutein-zeaxan (PRESERVISION AREDS-2) 250-90-40-1 mg cap Krzysztof e 1 capsule by mouth daily. vitamins, w/iron & folate 65/1 mg tab Take 1 tablet by mouth daily. Allergies Allergen Reactions Erwyacg-Qxm-Qks Reductase Inhibitors MUSCLE PAIN Family History Problem [...] Low-High Troponin-I 0.01 0.0 - 0.05 NG/ML ALLATION AND SERVICE TECHNICIAN Associated attestation - Justice Shetty III, MD - 04/30/2021 1:16 PM INSTALLATION AND SERVICE TECHNICIAN I appreciate the consult. I met with [...] Venancio Bowden MD - 04/28/2021 8:46 AM INSTALLATION AND SERVICE TECHNICIAN Associated Order(s): CONSULT CARDIOLOGY PHYSICIAN Consultation Report [...] stress urinary incontinence, who was transferred from [facility] ED for chest pain . Patient [...] [facility] she says that she lives on [...] week. Her l ast Xarelto dose was Tuesday 11/ evening. She has been told she has a murmur for over 20 years. It was not until recently that she was seen in a new clinic and asked if it had been "studied." She went t o [facility] for an echo which revealed severe . She does feel her physical tolerance has decreased over the past 6 months and she becomes worn out faster. She has not had any chest pain prior to the past day. She denies syncope/presync ope. Troponins have been negative and EKG does not have ischemic changes. Medical History: Diagnosis Date Breast CA ([facility]) 04/28/2021 Chest pain 04/27/2021 Deep vein thrombosis (DVT) of iliac vein of left lower extremity ([facility]) Diastolic dysfunction 04/28/2021 DVT (deep venous thrombosis) ([facility]) Dyslipidemia GERD (gastroesophageal reflux disease) 04/28/2021 HTN (hypertension) Nonrheumatic aortic valve stenosis 04/27/2021 Other chest pain 04/27/2021 Primary hypertension 04/27/2021 Severe aortic stenosis 04/28/2021 Stage 3a chronic kidney disease ([facility]) 04/28/2021 BENTLEY (stress urinary incontinence, female) 04/28/2021 [...] Social History Narrative Not on file Allergies: Cxfopsq-kwo-vqo reductase inhibitors Medications: Scheduled Meds:amLODIPine (NORVASC) tablet [...] no acute pulmonary abnormalities. Dann Boss MD ALLATION AND SERVICE TECHNICIAN documented in this encounter Nursing Notes * Nancy Velazquez MD - 04/28/2021 3:11 AM INSTALLATION AND SERVICE TECHNICIAN Patient moved from [facility] to [facility]. Please continue to Voalte Night 4 u ntil 0800. After 0800, Please Voalte [facility] First Call for all patient re lated communication. ALLATION AND SERVICE TECHNICIAN documented in this encounter Miscellaneous Notes * Care Plan - Brad Renee RN - 04/30/2021 2:45 PM INSTALLATION AND SERVICE TECHNICIAN Patient is stable and ready to discharge. [...] while physically restrained (Non-Violent) Outcome: Goal Achieved ALLATION AND SERVICE TECHNICIAN documented in this encounter Plan of Treatment Not on filedocumented as of this encounter Goals Goal Patient Associated Recent Progress Patient-Stat Aut hor Goal Type Problems ed? Resume work Hospital On track (04/28/2021 Yes Katheryn Barrett, 1:56 PM INSTALLATION AND SERVICE TECHNICIAN) 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 and go back to work documented as of this encounter Procedures Comments Procedure Name Priority Date/Time Associated Diag nosis HC BLOOD TYPING, ABO Routine 04/30/2021 CONFIRM 91 10:36 AM INSTALLATION AND SERVICE TECHNICIAN TYPE & CROSSMATCH Specimen 04/30/2021 in Lab 9:42 AM INSTALLATION AND SERVICE TECHNICIAN HC PTT(APTT) Routine 04/30/2021 6:17 AM INSTALLATION AND SERVICE TECHNICIAN HC CBC W/ AUTOMATED DIFF Routine 04/30/2021 6:17 AM INSTALLATION AND SERVICE TECHNICIAN HC COMPREHENSIVE Routine 04/30/2021 METABOLIC PANEL 6:17 AM INSTALLATION AND SERVICE TECHNICIAN CTA ABD/PELVIS Routine 04/29/2021 7:33 PM INSTALLATION AND SERVICE TECHNICIAN CTA CHEST WO/W Routine 04/29/2021 CONTRAST+POST P 7:33 PM INSTALLATION AND SERVICE TECHNICIAN CARDIAC CATH REPORT 04/29/2021 4:09 PM INSTALLATION AND SERVICE TECHNICIAN CARDIAC CATH REPORT Routine 04/29/2021 Chest pain , unspecified 12:11 PM INSTALLATION AND SERVICE TECHNICIAN type Nonrheumatic aortic valve stenosis PFT COMPLETE PULM Routine 04/29/2021 FUNCTION 10:32 AM INSTALLATION AND SERVICE TECHNICIAN PANOREX EXAM Routine 04/29/2021 9:34 AM INSTALLATION AND SERVICE TECHNICIAN CARDIAC CATH REPORT Routine 04/29/2021 Chest pain , unspecified 6:43 AM INSTALLATION AND SERVICE TECHNICIAN type Nonrheumatic aortic valve stenosis HC PTT(APTT) Routine 04/29/2021 4:00 AM INSTALLATION AND SERVICE TECHNICIAN HC CBC W/ AUTOMATED DIFF Routine 04/29/2021 4:00 AM INSTALLATION AND SERVICE TECHNICIAN HC B-TYPE NATRIURETIC Routine 04/29/2021 PEPTIDE 4:00 AM INSTALLATION AND SERVICE TECHNICIAN HC COMPREHENSIVE Routine 04/29/2021 METABOLIC PANEL 4:00 AM INSTALLATION AND SERVICE TECHNICIAN PV CAROTID ARTERY DUPLEX Routine 04/28/2021 SCAN 4:07 PM INSTALLATION AND SERVICE TECHNICIAN HC PTT(APTT) STAT 04/28/2021 3:12 PM INSTALLATION AND SERVICE TECHNICIAN URINALYSIS, MICROSCOPIC Routine 04/28/2021 2:30 PM INSTALLATION AND SERVICE TECHNICIAN HC URINALYSIS, AUTO W Routine 04/28/2021 MICRO 2:30 PM INSTALLATION AND SERVICE TECHNICIAN HC TROPONIN-I STAT 04/28/2021 9:40 AM INSTALLATION AND SERVICE TECHNICIAN TROPONIN-I STAT 04/28/2021 6:34 AM INSTALLATION AND SERVICE TECHNICIAN HC PTT(APTT) 04/28/2021 6:34 AM INSTALLATION AND SERVICE TECHNICIAN HC CBC W/ AUTOMATED DIFF 04/28/2021 6:34 AM INSTALLATION AND SERVICE TECHNICIAN HC COMPREHENSIVE 04/28/2021 METABOLIC PANEL 6:34 AM INSTALLATION AND SERVICE TECHNICIAN COVID-19 (SARS-COV-2) PCR Routine 04/27/2021 10:54 PM INSTALLATION AND SERVICE TECHNICIAN HC TSH SCREEN Routine 04/27/2021 10:54 PM INSTALLATION AND SERVICE TECHNICIAN HC TROPONIN-I STAT 04/27/2021 10:54 PM INSTALLATION AND SERVICE TECHNICIAN HC PTT(APTT) Routine 04/27/2021 10:54 PM INSTALLATION AND SERVICE TECHNICIAN HC PT(INR) Routine 04/27/2021 10:54 PM INSTALLATION AND SERVICE TECHNICIAN HC CBC W/ AUTOMATED DIFF STAT 04/27/2021 10:54 PM INSTALLATION AND SERVICE TECHNICIAN HC PHOSPHOROUS, SERUM Routine 04/27/2021 10:54 PM INSTALLATION AND SERVICE TECHNICIAN HC B-TYPE NATRIURETIC Routine 04/27/2021 PEPTIDE 10:54 PM INSTALLATION AND SERVICE TECHNICIAN HC MAGNESIUM Routine 04/27/2021 10:54 PM INSTALLATION AND SERVICE TECHNICIAN HC HEMOGLOBIN A1C Routine 04/27/2021 10:54 PM INSTALLATION AND SERVICE TECHNICIAN HC COMPREHENSIVE STAT 04/27/2021 METABOLIC PANEL 10:54 PM INSTALLATION AND SERVICE TECHNICIAN CHEST SINGLE VIEW STAT 04/27/2021 10:40 PM INSTALLATION AND SERVICE TECHNICIAN ECG 12-LEAD STAT 04/27/2021 10:14 PM INSTALLATION AND SERVICE TECHNICIAN TELEMETRY STRIPS-SCAN 04/27/2021 12:00 AM INSTALLATION AND SERVICE TECHNICIAN TELEMETRY STRIPS-SCAN 04/27/2021 12:00 AM INSTALLATION AND SERVICE TECHNICIAN TELEMETRY STRIPS-SCAN 04/27/2021 12:00 AM INSTALLATION AND SERVICE TECHNICIAN TELEMETRY STRIPS-SCAN 04/27/2021 12:00 AM INSTALLATION AND SERVICE TECHNICIAN TELEMETRY STRIPS-SCAN 04/27/2021 12:00 AM INSTALLATION AND SERVICE TECHNICIAN TELEMETRY STRIPS-SCAN 04/27/2021 12:00 AM INSTALLATION AND SERVICE TECHNICIAN TELEMETRY STRIPS-SCAN 04/27/2021 12:00 AM INSTALLATION AND SERVICE TECHNICIAN TELEMETRY STRIPS-SCAN 04/27/2021 12:00 AM INSTALLATION AND SERVICE TECHNICIAN TELEMETRY STRIPS-SCAN 04/27/2021 12:00 AM INSTALLATION AND SERVICE TECHNICIAN TELEMETRY STRIPS-SCAN 04/27/2021 12:00 AM INSTALLATION AND SERVICE TECHNICIAN TELEMETRY STRIPS-SCAN 04/27/2021 12:00 AM INSTALLATION AND SERVICE TECHNICIAN TELEMETRY STRIPS-SCAN 04/27/2021 12:00 AM INSTALLATION AND SERVICE TECHNICIAN ECG-SCAN 04/27/2021 12:00 AM INSTALLATION AND SERVICE TECHNICIAN PROCEDURE RECORD-SCAN 04/27/2021 12:00 AM INSTALLATION AND SERVICE TECHNICIAN documented in this encounter Results * BLOOD TYPE CONFIRMATION - ORDER ONLY IF REQUESTED BY LAB (04/30/2021 10:36 AM INSTALLATION AND SERVICE TECHNICIAN) ABO/RH(D) AB NEG MAIN LAB Specimen Performing Organization Address City/[facility]/ZIP Code P marcelino Number MAIN LAB [address] [place] [address] * TYPE & CROSSMATCH (04/30/2021 9:42 AM INSTALLATION AND SERVICE TECHNICIAN) Units Ordered 0 MAIN LAB Crossmatch 05/03/2021,2359 MAIN LAB Expires Record Check 2ND TYPE REQUIRED MAIN LAB ABO/RH(D) AB NEG MAIN LAB Antibody Screen NEG MAIN LAB Electronic YES MAIN LAB Crossmatch Specimen Performing Organization Address City/[facility]/ZIP Code P marcelino Number MAIN LAB [address] [place] [phone] * PTT (APTT) (04/30/2021 6:17 AM INSTALLATION AND SERVICE TECHNICIAN) APTT 58.3 (H) 24.0 - 36.5 SEC MAIN LAB Specimen Blood Performing Organization Address City/[facility] P marcelino Number MAIN LAB [address] [place] [address] * COMPREHENSIVE METABOLIC PANEL (04/30/2021 6:17 AM INSTALLATION AND SERVICE TECHNICIAN) Sodium 141 137 - 147 MMOL/L K[facility] MAIN LAB Potassium 4.1 3.5 - 5.1 MMOL/L [facility] MAIN LAB Chloride 108 98 - 110 MMOL/L [facility] MAIN LAB Glucose 99 70 - 100 MG/DL [facility] MAIN LAB Blood Urea 13 7 - 25 MG/DL [facility] MAIN LAB Nitrogen Creatinine 0.85 0.4 - 1.00 MG/DL [facility] MAIN LAB Calcium 9.1 8.5 - 10.6 MG/DL MAIN LAB Total Protein 6.6 6.0 - [...] >60 >60 mL/min [facility] MAIN LAB Comment: Indian The eGFR is not validated f or use in drug dosing adjustments. Continue to use estimated creatinine clearance per dosing reference text. Please contact the Clinical Pharmacist for questions. eGFR >60 >60 mL/min [facility] MAIN LAB Indian Comment: The eGFR is not validated for use in drug dosing adjustments. Continue to use estimated creatinine clearance per dosing reference text. Please contact the Clinical Pharmacist for questions. Specimen Blood Performing Organization Address City/State/ZIP Code P mar[place] Number [facility] MAIN LAB [address] [place] [address] * CBC AND DIFF (04/30/2021 6:17 AM INSTALLATION AND SERVICE TECHNICIAN) White Blood 4.9 4.5 - 11.0 K/UL [...] Number [facility] MAIN LAB [address] [place] [address] * CTA ABD/PELVIS (04/29/2021 7:33 PM INSTALLATION AND SERVICE TECHNICIAN) Modality Anatomical Region Laterality Computed Tomography Abdomen, Pelvis Specimen Impressions K[facility] RAD RESULTS - 04/30/2021 8:11 AM INSTALLATION AND SERVICE TECHNICIAN CHEST: 1. Moderate aortic valve thickening an [...] KU RAD RESULTS - 04/30/2021 8:11 AM INSTALLATION AND SERVICE TECHNICIAN CTA CHEST, ABDOMEN AND PELVIS Clinical Indication: [...] CHEST WO/W CONTRAST+POST P (04/29/2021 7:33 PM INSTALLATION AND SERVICE TECHNICIAN) Modality Anatomical Region Laterality Computed Tomography Chest Specimen Impressions [facility] RAD RESULTS - 04/30/2021 8:11 AM INSTALLATION AND SERVICE TECHNICIAN CHEST: 1. Moderate aortic valve thickening an [...] [facility] RAD RESULTS - 04/30/2021 8:11 AM INSTALLATION AND SERVICE TECHNICIAN CTA CHEST, ABDOMEN AND PELVIS Clinical Indication: [...] * CARDIAC CATH REPORT (04/29/2021 4:09 PM INSTALLATION AND SERVICE TECHNICIAN) Procedure Note Stevenson Pedraza MBBS - 04/29/2021 4:09 PM INSTALLATION AND SERVICE TECHNICIAN [facility] CARDIAC CATHETERIZATION REPORT Page 2 ISIS Escalona : 1955 KU#: [id number] ESTEVAN MR #/Billing ID #: [id number] / [id number] DATE: 04/29/2021 SALES STORE CHECKER: Kia Mahan MD DICTATING PROVIDER: PATIRCIO Hickey REFERRING PHYSICIAN: Venancio Bowden MD INDICATION: [...] the artery. Thereafter, we placed a 6- Filipino sheath in the right radial wrist. We [...] per consult team. Kia Mahan MD SPR/MedQ /[id number] cc: - Venancio Bowden MD Performing Organization Address City/State/ZIP Code P [place] Number OTHER OUTSIDE LAB * PFT COMPLETE PULM FUNCTION (04/29/2021 10:32 AM INSTALLATION AND SERVICE TECHNICIAN) FVC-Pre 3.13 L K[facility] PFT MAIN FVC-%Pred-pre 105 % KU PFT MAIN FEV1-Pre 2.58 L K[facility] PFT MAIN FEV1-%Pred-Pre 110 % K[facility] PFT MAIN FEV1/FVC-Pre 83 % KU PFT MAIN [id number] 68 % KU PFT MAIN [id number] 2.84 L/sec KU PFT MAIN [id number]-P 139 % KU PFT MAIN re RVPleth-Pre [...] MAIN DLVA-#SD 0.835 ml/min/mmHg/L KU PFT MAIN [id number] 81 % K[facility] PFT MAIN Specimen Narrative K[facility] PFT MAIN - 05/03/2021 6:17 AM INSTALLATION AND SERVICE TECHNICIAN Clinical history:->pre-op TAVR Patient on bronchodilator therapy?->No Is this a pre-surgical evaluation?->Yes Patient being discharged?->No Release to patient->Immediate Implement Post Bronchodilator Spirometry Protocol?->Yes Performing Organization Address City/State/ZIP Code P marcelino Number K[facility] PFT MAIN [address] [place], [place] [address] * PANOREX EXAM (04/29/2021 9:34 AM INSTALLATION AND SERVICE TECHNICIAN) Modality Anatomical Region Laterality Computed Radiography Head Specimen Impressions [facility] RAD RESULTS - 04/29/2021 9:39 AM INSTALLATION AND SERVICE TECHNICIAN Findings/impression: There is artifact in the midline. [...] [facility] RAD RESULTS - 04/29/2021 9:39 AM INSTALLATION AND SERVICE TECHNICIAN PANOREX EXAM Indication: 65-year-old female, pre-cardiac clearance [...] RESULTS * PTT (APTT) (04/29/2021 4:00 AM INSTALLATION AND SERVICE TECHNICIAN) APTT 70.0 (H) 24.0 - 36.5 SEC [facility] MAIN LAB Specimen Blood Performing Organization Address City/[facility] P marcelino Number K[facility] MAIN LAB [address] [place] [address] * COMPREHENSIVE METABOLIC PANEL (04/29/2021 4:00 AM INSTALLATION AND SERVICE TECHNICIAN) Sodium 140 137 - 147 MMOL/L KU [...] (L) >60 mL/min [facility] MAIN LAB Comment: Indian The eGFR is not validated f or use in drug dosing adjustments. Continue to use estimated creatinine clearance per dosing reference text. Please contact the Clinical Pharmacist for questions. eGFR >60 >60 mL/min [facility] MAIN LAB Indian Comment: The eGFR is not validated for use in drug dosing adjustments. Continue to use estimated creatinine clearance per dosing reference text. Please contact the Clinical Pharmacist for questions. Specimen Blood Performing Organization Address City/State/ZIP Code P marcelino Number [facility] MAIN LAB [address] [place] [address] * CBC AND DIFF (04/29/2021 4:00 AM INSTALLATION AND SERVICE TECHNICIAN) White Blood 5.6 4.5 - 11.0 K/UL [...] P marcelino Number K[facility] MAIN LAB [address] [place] [address] * BNP (B-TYPE NATRIURETIC PEPTI) (04/29/2021 4:00 AM INSTALLATION AND SERVICE TECHNICIAN) B Type 23.0 0 - 100 PG/ML [facility] MAIN LAB Natriuretic Peptide Specimen Blood Performing Organization Address City/[facility]/ZIP Code P marcelino Number MAIN LAB [address] [place] [address] * PV CAROTID ARTERY DUPLEX SCAN (04/28/2021 4:07 PM INSTALLATION AND SERVICE TECHNICIAN) LEFT CCA DIST 0.64 m/s OTHER OUTSIDE [...] OTHER OUTSIDE LAB - 04/28/2021 5:10 PM INSTALLATION AND SERVICE TECHNICIAN 1. No significant stenosis in B/L common and internal carotid arteries. 2. Mild plaque in both carotid arteries. 3. Normal antegrade flow in bilateral ve rtebral arteries. 4. No significant stenosis in bilateral proximal subclavian arteries. No prior studies are available for comparison. Performing Organization Address City/State/ZIP Code P marcel[place] Number OTHER OUTSIDE LAB * PTT (APTT) (04/28/2021 3:12 PM INSTALLATION AND SERVICE TECHNICIAN) APTT 50.3 (H) 24.0 - 36.5 SEC [facility] MAIN LAB Specimen Blood Performing Organization Address City/State/ZIP Code P mar[place] Number [facility] MAIN LAB [address] [place] [address] * URINALYSIS, MICROSCOPIC (04/28/2021 2:30 PM INSTALLATION AND SERVICE TECHNICIAN) WBCs,UA 0-2 0 - 2 /HPF K[facility] MAIN LAB RBCs,UA NONE 0 - 3 /HPF [facility] MAIN LAB Squamous 0-2 0 - 5 [facility] MAIN LAB Epithelial Cells Specimen Urine specimen (specimen) - Urine Performing Organization Address [facility] Code P marcel[place] Number [facility] MAIN LAB [address] [place] [address] * URINALYSIS DIPSTICK (04/28/2021 2:30 PM INSTALLATION AND SERVICE TECHNICIAN) Color,UA YELLOW [facility] MAIN LAB Turbidity,UA CLEAR CLEAR-CLEAR [facility] MAIN LAB Specific 1.008Comment: NOTE NEW 1.005 - 1.030 K[facility] MAIN LAB Gipsy-Urine REFERENCE RANGES pH,UA 6.0 5.0 - 8.0 [...] specimen (specimen) - Urine Performing Organization Address [facility] Code P marcel[place] Number [facility] MAIN LAB [address] [place] [address] * TROPONIN-I (04/28/2021 9:40 AM INSTALLATION AND SERVICE TECHNICIAN) Troponin-I 0.01 0.0 - 0.05 NG/ML [facility] MAIN LAB Specimen Blood Performing Organization Address [facility] P marcelino Number KU MAIN LAB [address] [place] [address] * PTT (APTT) (04/28/2021 6:34 AM INSTALLATION AND SERVICE TECHNICIAN) APTT 57.2 (H) 24.0 - 36.5 SEC [facility] MAIN LAB Specimen Performing Organization Address [facility] Code P marcel[place] Number [facility] MAIN LAB [address] [place] [address] * CBC AND DIFF (04/28/2021 6:34 AM INSTALLATION AND SERVICE TECHNICIAN) White Blood 5.6 4.5 - 11.0 K/UL [...] P marcelino Number [facility] MAIN LAB [address] [place] [address] * COMPREHENSIVE METABOLIC PANEL (04/28/2021 6:34 AM INSTALLATION AND SERVICE TECHNICIAN) Sodium 140 137 - 147 MMOL/L KU [...] (L) >60 mL/min [facility] MAIN LAB Comment: Indian The eGFR is not validated f or use in drug dosing adjustments. Continue to use estimated creatinine clearance per dosing reference text. Please contact the Clinical Pharmacist for questions. eGFR >60 >60 mL/min [facility] Indian Comment: The eGFR is not validated for use in drug dosing adjustments. Continue to use estimated creatinine clearance per dosing reference text. Please contact the Clinical Pharmacist for questions. Specimen Performing Organization Address City/State/ZIP Code P marcelino Number [facility] LAB [address] [place] [address] * TROPONIN-I (04/28/2021 6:34 AM INSTALLATION AND SERVICE TECHNICIAN) Pathologist [facility] Troponin-I 0.01 0.0 - 0.05 NG/ML [facility] LAB Specimen Blood Performing Organization Address [facility] P marcelino Number [facility] [address] [place] [phone] * COVID-19 (SARS-COV-2) PCR (04/27/2021 10:54 PM INSTALLATION AND SERVICE TECHNICIAN) Pathologist [facility] COVID-19 FLOCKED SWAB [facility] (SARS-CoV-2) NASOPHARYNGEAL PCR Source COVID-19 NOT DETECTED DN-NOT DETECTED [facility] (SARS-CoV-2) Comment: PCR This assay is [...] performance characteristics have been verified by the [facility]. Fact sheet for providers: https://www.fda.gov/media/0316 85/download Fact sheet for patients: https://www.fda.gov/media/0218 87/download Specimen Flocked Swab - Nasopharyngeal Performing Organization Address City/[facility] Code P marcelino Number [facility] [address] [place] [address] * TSH WITH FREE T4 REFLEX (04/27/2021 10:54 PM INSTALLATION AND SERVICE TECHNICIAN) Pathologist [facility] TSH 3.07 0.35 - 5.00 MCU/ML [facility] MAIN LAB Specimen Blood Performing Organization Address City/[facility]/ZIP Code P marcelino Number [facility] MAIN LAB [address] [place] [address] * TROPONIN-I (04/27/2021 10:54 PM INSTALLATION AND SERVICE TECHNICIAN) Troponin-I 0.01 0.0 - 0.05 NG/ML [facility] MAIN LAB Specimen Blood Performing Organization Address City/[facility]/ZIP Code P marcelino Number [facility] MAIN LAB [address] [place] [address] * BNP (B-TYPE NATRIURETIC PEPTI) (04/27/2021 10:54 PM INSTALLATION AND SERVICE TECHNICIAN) B Type 55.0 0 - 100 PG/ML MAIN LAB Natriuretic Peptide Specimen Blood Performing Organization Address City/[facility] P marcelino Number MAIN LAB [address] [place] [address] * HEMOGLOBIN A1C (04/27/2021 10:54 PM INSTALLATION AND SERVICE TECHNICIAN) Hemoglobin A1C 5.4 4.0 - 6.0 % [facility] MAIN LAB Comment: The ADA recommends that most patients with type 1 and type 2 diabetes maintain an A1c level <7%. Specimen Blood Performing Organization Address City/[facility]/ZIP Code P marcelino Number [facility] MAIN LAB [address] [place] [address] * PHOSPHORUS (04/27/2021 10:54 PM INSTALLATION AND SERVICE TECHNICIAN) Phosphorus 4.2 2.0 - 4.5 MG/DL [facility] MAIN LAB Specimen Blood Performing Organization Address City/[facility] P marcelino Number [facility] MAIN LAB [address] [place] [address] * MAGNESIUM (04/27/2021 10:54 PM INSTALLATION AND SERVICE TECHNICIAN) Magnesium 2.3 1.6 - 2.6 mg/dL [facility] MAIN LAB Specimen Blood Performing Organization Address City/[facility]/ZIP Code P marcelino Number [facility] MAIN LAB [address] [place] [address] * COMPREHENSIVE METABOLIC PANEL (04/27/2021 10:54 PM INSTALLATION AND SERVICE TECHNICIAN) Sodium 142 137 - 147 MMOL/L KU [...] >60 >60 mL/min [facility] MAIN LAB Comment: Indian The eGFR is not validated f or use in drug dosing adjustments. Continue to use estimated creatinine clearance per dosing reference text. Please contact the Clinical Pharmacist for questions. eGFR >60 >60 mL/min [facility] MAIN LAB Indian Comment: The eGFR is not validated for use in drug dosing adjustments. Continue to use estimated creatinine clearance per dosing reference text. Please contact the Clinical Pharmacist for questions. Specimen Blood Performing Organization Address City/State/ZIP Code P marcelino Number MAIN LAB [address] [place] [address] * PTT (APTT) (04/27/2021 10:54 PM INSTALLATION AND SERVICE TECHNICIAN) APTT 37.0 (H) 24.0 - 36.5 SEC [facility] MAIN LAB Specimen Blood Performing Organization Address City/[facility]/ZIP Code P marcelino Number MAIN LAB [address] [place] [address] * PROTIME INR (PT) (04/27/2021 10:54 PM INSTALLATION AND SERVICE TECHNICIAN) INR 1.3 (H) 0.8 - 1.2 MAIN LAB Specimen Blood Performing Organization Address City/[facility]/ZIP Code P marcelino Number MAIN LAB [address] [place] [address] * CBC AND DIFF (04/27/2021 10:54 PM INSTALLATION AND SERVICE TECHNICIAN) White Blood 5.7 4.5 - 11.0 K/UL MAIN LAB Cells RBC 4.58 4.0 - [...] P marcelino Number [facility] MAIN LAB [address] [place] [address] * CHEST SINGLE VIEW (04/27/2021 10:40 PM INSTALLATION AND SERVICE TECHNICIAN) Modality Anatomical Region Laterality Computed Radiography Chest Specimen Impressions [facility] RAD RESULTS - 04/28/2021 7:56 AM INSTALLATION AND SERVICE TECHNICIAN Initial chest radiograph demonstrating no acute pulmonary abnormalities. Finalized by Lauri Aguayo M.D. on 04/28/2021 7:56 AM. Dictated by Lauri Aguayo M.D. on 04/28/2021 7:55 AM. Narrative [facility] RAD RESULTS - 04/28/2021 7:56 AM INSTALLATION AND SERVICE TECHNICIAN CHEST SINGLE VIEW INDICATION: chest pain. TECHNIQUE: [...] RESULTS * TELEMETRY STRIPS-SCAN (04/27/2021 12:00 AM INSTALLATION AND SERVICE TECHNICIAN) Narrative 04/27/2021 12:00 AM INSTALLATION AND SERVICE TECHNICIAN Ordered by an unspecified provider. * TELEMETRY STRIPS-SCAN (04/27/2021 12:00 AM INSTALLATION AND SERVICE TECHNICIAN) Narrative 04/27/2021 12:00 AM INSTALLATION AND SERVICE TECHNICIAN Ordered by an unspecified provider. * TELEMETRY STRIPS-SCAN (04/27/2021 12:00 AM INSTALLATION AND SERVICE TECHNICIAN) Narrative 04/27/2021 12:00 AM INSTALLATION AND SERVICE TECHNICIAN Ordered by an unspecified provider. * TELEMETRY STRIPS-SCAN (04/27/2021 12:00 AM INSTALLATION AND SERVICE TECHNICIAN) Narrative 04/27/2021 12:00 AM INSTALLATION AND SERVICE TECHNICIAN Ordered by an unspecified provider. * PROCEDURE RECORD-SCAN (04/27/2021 12:00 AM INSTALLATION AND SERVICE TECHNICIAN) Narrative 04/27/2021 12:00 AM INSTALLATION AND SERVICE TECHNICIAN Ordered by an unspecified provider. * ECG-SCAN (04/27/2021 12:00 AM INSTALLATION AND SERVICE TECHNICIAN) Narrative 04/27/2021 12:00 AM INSTALLATION AND SERVICE TECHNICIAN Ordered by an unspecified provider. * TELEMETRY STRIPS-SCAN (04/27/2021 12:00 AM INSTALLATION AND SERVICE TECHNICIAN) Narrative 04/27/2021 12:00 AM INSTALLATION AND SERVICE TECHNICIAN Ordered by an unspecified provider. * TELEMETRY STRIPS-SCAN (04/27/2021 12:00 AM INSTALLATION AND SERVICE TECHNICIAN) Narrative 04/27/2021 12:00 AM INSTALLATION AND SERVICE TECHNICIAN Ordered by an unspecified provider. * TELEMETRY STRIPS-SCAN (04/27/2021 12:00 AM INSTALLATION AND SERVICE TECHNICIAN) Narrative 04/27/2021 12:00 AM INSTALLATION AND SERVICE TECHNICIAN Ordered by an unspecified provider. * TELEMETRY STRIPS-SCAN (04/27/2021 12:00 AM INSTALLATION AND SERVICE TECHNICIAN) Narrative 04/27/2021 12:00 AM INSTALLATION AND SERVICE TECHNICIAN Ordered by an unspecified provider. * TELEMETRY STRIPS-SCAN (04/27/2021 12:00 AM INSTALLATION AND SERVICE TECHNICIAN) Narrative 04/27/2021 12:00 AM INSTALLATION AND SERVICE TECHNICIAN Ordered by an unspecified provider. * TELEMETRY STRIPS-SCAN (04/27/2021 12:00 AM INSTALLATION AND SERVICE TECHNICIAN) Narrative 04/27/2021 12:00 AM INSTALLATION AND SERVICE TECHNICIAN Ordered by an unspecified provider. * TELEMETRY STRIPS-SCAN (04/27/2021 12:00 AM INSTALLATION AND SERVICE TECHNICIAN) Narrative 04/27/2021 12:00 AM INSTALLATION AND SERVICE TECHNICIAN Ordered by an unspecified provider. * TELEMETRY STRIPS-SCAN (04/27/2021 12:00 AM INSTALLATION AND SERVICE TECHNICIAN) Narrative 04/27/2021 12:00 AM INSTALLATION AND SERVICE TECHNICIAN Ordered by an unspecified provider. documented in [...] urinary incontinence, femal e) Female stress incontinence Chest pain, unspecified type Nonrheumatic aortic valve stenosis Aortic valve disorders * Advanced Care Planning/Resuscitation Status - Maranda Chatterjee MD - 04/28/2021 2:03 AM INSTALLATION AND SERVICE TECHNICIAN Advance Care Planning/Resuscitation Status Conversation Individuals present for advance care planning conversation: attending physician and patient Pertinent details of conversation (including direct quotes from patient or surro gate): Full code Outcome of conversation: Full Code Documents completed as a result of this conversation: None Other documents present, which outline patient/surrogate wishes: None She has a living will she will bring it Attestation? N/A ALLATION AND SERVICE TECHNICIAN documented in this encounter Admitting Diagnoses Diagnosis Chest pain Chest pain, unspecified documented in this encounter Administered Medications Action Date Dose Rate Site Medication Order MAR Action 04/29/2021 10:01 PM INSTALLATION AND SERVICE TECHNICIAN 650 mg acetaminophen (TYLENOL) tablet 650 mg Given 650 mg, Oral, EVERY 6 HOURS PRN, Starting on Tue04/29/21 at 2157, Until Maddie 04/30/21 at 1728, Pain non-opioid: may be used alone or in combination wit h opioid analgesia, TOTAL ACETAMINOPHEN DOSE NOT TO EXCEED 4GM DAILY 04/30/2021 9:37 AM INSTALLATION AND SERVICE TECHNICIAN 10 mg amLODIPine (NORVASC) tablet 10 mg Given 10 mg, Oral, DAILY, First dose on Tue04/28/21 at 0900, Until Discontinued, NURSING: Please educate patient and document: Do not give with grapefruit juice. 10 mg Given 04/29/2021 8:19 AM INSTALLATION AND SERVICE TECHNICIAN 10 mg Given 04/28/2021 9:30 AM INSTALLATION AND SERVICE TECHNICIAN diclofenac sodium (VOLTAREN) 1 % topica l [...] Tue04/30/21 at 1728, Rash 04/28/2021 9:30 AM INSTALLATION AND SERVICE TECHNICIAN 4,000 mg fish oil- omega 3-DHA/EPA capsule 4,000 Given mg 4,000 mg, Oral, DAILY, First dose on 04/28/21 at 0900, Until Discontinued 04/30/2021 2:50 PM INSTALLATION AND SERVICE TECHNICIAN 300 mg gabapentin (NEURONTIN) capsule 300 mg Given 300 mg, Oral, EVERY 8 HOURS, First dos e on Tue04/30/21 at 0915, Until Discontinued 300 mg Given 04/30/2021 9:36 AM INSTALLATION AND SERVICE TECHNICIAN nitroglycerin (NITROSTAT) tablet 0.4 mg 0.4 mg, Sublingual, EVERY 5 MIN PRN, Starting on Tue04/27/21 at 2315, Until Tue04/30/21 at 1728, Chest Pain, Hold for SBP < 100. Not to exceed 3 doses pe r incident of chest pain. Notify physicia n if chest pain persists after 3 doses. ondansetron (ZOFRAN) injection 4 mg 4 mg, Intravenous, EVERY 6 HOURS PRN, Starting on Tue04/29/21 at 1619, Until Tue04/30/21 at 1728, Nausea/Vomiting Injectable 04/30/2021 9:36 AM INSTALLATION AND SERVICE TECHNICIAN 10 mg oxybutynin XL (DITROPAN XL) tablet 10 mg Given 10 mg, Oral, DAILY, First dose on Tue04/28/21 at 0900, Until Discontinued, Do not crush or chew 10 mg Given 04/29/2021 8:19 AM INSTALLATION AND SERVICE TECHNICIAN 10 mg Given 04/28/2021 9:30 AM INSTALLATION AND SERVICE TECHNICIAN 04/29/2021 9:02 PM INSTALLATION AND SERVICE TECHNICIAN [address] (PROTONIX) tablet 20 mg Given 20 mg, Oral, DAILY, First dose on Tue04/28/21 at 2100, Until Discontinued, Do not crush or chew tablet. 20 mg Given 04/28/2021 9:01 PM INSTALLATION AND SERVICE TECHNICIAN 04/29/2021 9:02 PM INSTALLATION AND SERVICE TECHNICIAN 40 mg pravastatin (PRAVACHOL) tablet 40 mg Given 40 mg, Oral, AT BEDTIME DAILY, First dose on Tue04/28/21 at 2100, Until Discontinued 40 mg Given 04/28/2021 9:00 PM INSTALLATION AND SERVICE TECHNICIAN 04/30/2021 12:31 PM INSTALLATION AND SERVICE TECHNICIAN 20 mg rivaroxaban (XARELTO) tablet 20 mg Given 20 mg, Oral, DAILY WITH BREAKFAST, Firs t dose on Tue04/30/21 at 1215, Until Discontinued, Administer with food. NOTE: This is a HIGH ALERT Medication. 04/29/2021 8:20 AM INSTALLATION AND SERVICE TECHNICIAN 1,000 mL 75 mL/hr sodium chloride 0.9 [...] by mouth daily. vit Take 1 0 C,H-Wz-zwlta-lutein-zeaxa capsule by n (PRESERVISION AREDS-2) mouth daily. [...] Recently Administered Medications Times are shown in INSTALLATION AND SERVICE TECHNICIAN. 04/29/2021 04/30/2021 Medication Order 04/28/2021 0819 (Given - Provider: Brad Renee, GANESH)1247 (AUG Hold - Provider: Estevan, Orders Discontinue - Reason: Patient not available/off unit)1944 (AUG Unhold - Provider: Estevan, Orders Discontinue) 0937 (Given - Provider: Brina Delacruz , GANESH) amLODIPine (NORVASC) tablet 10 mg 0930 (Given [...] 325 mg, Oral, ONCE, 1 dose, On Mon Provider: Justo Newton 04/27/21 at 2315 GANESH Levin) atorvastatin (LIPITOR) tablet 80 mg 0044 (Canceled E ntry (COMPLETED) - Provider: Justo Newton 80 mg, Oral, ONCE, 1 dose, On Mon GANESH Levin)0050 04/27/21 at 2315 (Given - Provider: Justo Blake RN) 1039 (Med Not Given - Provider: Shaylee Delacruz RN - Reason: Patient Refused)1226 (Med Not Given - Provider: Brina Delacruz, GANESH - Reason: Patient Refused) diclofenac sodium (VOLTAREN) 1 % topica l gel 4 g 4 g, Topical, FOUR TIMES DAILY, First dose on Maddie 04/30/21 at 0915, Until Discontinued, Apply to pain ful areas. Measure dose of gel with dosing card (provided). 0818 (Med Not Given - Provider: Brad Renee RN - Reason: Patient Refused)1247 (AUG Hold - Provider: Estevan, Orders Discontinue - Reason: Patient not available/off unit)1943 (AUG Unhold - Provider: Estevan, Orders Discontinue) 0935 (Med Not Given - Provider: Shaylee Delacruz RN - Reason: Patient Refused) fish oil- omega 3-DHA/EPA capsule 4,000 0930 (Given - mg Provider: Tere 4,000 mg, Oral, DAILY, First dose on Tue Jame Almanzar) 04/28/21 at 0900, Until Discontinued 0936 (Given - Provider: Brina Delacruz , GANESH)1450 (Given - Provider: Brina Delacruz, GANESH) gabapentin (NEURONTIN) capsule 300 mg 300 mg, Oral, EVERY 8 HOURS, First dos e on Maddie 04/30/21 at 0915, Until Discontinued heparin (porcine) initial BOLUS for 0043 (Bolus from Bag continuous inf (bag) 4,000 Units - Provider: Justo Newton (IVANNA) GANESH Levin) 4,000 Units 100 mL, Intravenous, ONCE, 1 dose, On 04/27/21 at 2330, INITIAL BOLUS for heparin drip [...] T Medication. 0819 (Given - Provider: Brad Renee RN)1247 [...] woodson 04/28/21 at 2100, Until Discontinued, Do Arcos, RN) not crush or chew tablet. 1247 (AUG Hold - Provider: Estevan, Orders Di scontinue - Reason: Patient not available/off unit)194 (AUG Unhold - Provider: Estevan, Orders Discontinue)2101 (Given - Provider: Lima Bryant, GANESH) pravastatin (PRAVACHOL) tablet 40 mg 2099 (Given - 40 mg, Oral, AT BEDTIME DAILY, First Provider: Daria dose on Tue04/28/21 at 2100, Until Isrrael RN) Discontinued 1230 (Given - Provider: Brina Delacruz , RN) rivaroxaban (XARELTO) tablet 20 mg 20 mg, Oral, DAILY WITH BREAKFAST, Firs t dose on Tue04/30/21 at 1215, Until Discontinued, Administer with food. NOTE: This is a HIGH ALERT Medication. 04/29/2021 04/30/2021 Medication Order 04/28/2021 0400 (Peak/Trough - Provider: Tere caceres RN)0504 (Dose/Rate Verify - Provider: Daria Arcos RN)0721 (Dose/Rate Verify - Provider: Tere Almanzar RN)1228 (Given - New Bag - Provider: Tere Almanzar RN)1355 (Dose/Rate Verify - Provider: Radha Jensen RN) 0052 (Given - New Bag - Provider: Lima Bryant RN)0400 (Peak/Trough - Provider: Daria Arcos RN)0723 (Dose/Rate Verify - Provider: Brina Delacruz, RN) heparin (porcine) 20,000 units/D5W 500 0042 (Given - New mL infusion (std conc)(premade) Bag - Provider: Justo (CANCELED) Aman Divilbiss, 0-2,000 Units/hr (0-50 mL/hr) RN)0400 (Peak/Trou gh 500 mL, at 0-50 mL/hr, Intravenous, - Provider: T dexter TITRATE DIRECTED , Starting on Mon GANESH Almanzar )0630 04/27/21 at 2330, Until Maddie 04/30/21 at (Peak/Trough - 1109, Weight-Based Heparin Algorithm - Provider: Justo Newton STEMI/NSTEMI/UA - See separate order for GAENSH Levin)0711 Initial IV bolus (if ordered). - [...] ALERT (Dose/Rate Verify - Medication. Provider: Daria Arcos RN) 0820 (Given - New Bag - Provider: Rubi Renee RN) sodium chloride 0.9 % infusion 1,000 mL, 1,000 mL, Intravenous, at 75 mL/hr, CONTINUOUS, Starting on Tue04/29/21 at 0800, Until Maddie 04/30/21 at 1728, Admission/Obs/Extended Recovery 04/29/2021 04/30/2021 Medication Order 04/28/2021 2201 (Given - Provider: Lima Bryant RN) acetaminophen (TYLENOL) tablet 650 mg 650 [...] scontinue - Reason: Patient not available/off unit)1944 (AUG Unhold - Provider: Estevan, Orders Discontinue) nitroglycerin [...] 1619, Until Maddie 04/30/21 at 1728, Rash documented in this encounter Orders First Ordered Date Medications Ordered That Might Not Have Count Last Ordered Date Been Administered diclofenac sodium (VOLTAREN) 1 % topical 1 04/30/2021 gel 4 g gabapentin (NEURONTIN) capsule 300 mg 1 04/30/2021 rivaroxaban (XARELTO) tablet 20 mg 1 04/2021 acetaminophen (TYLENOL) tablet 650 mg 1 04/29/2021 diphenhydrAMINE HCL (BENADRYL) capsule 1 04/29/2021 25 mg diphenhydrAMINE HCL (BENADRYL) injection 1 04/29/2021 25 mg ondansetron (ZOFRAN) injection 4 mg 1 aspirin chewable tablet 324 mg 1 021 oxybutynin XL (DITROPAN XL) tablet 10 mg 1 04/28/2021 sodium chloride 0.9 % infusion 1 04/28 amLODIPine (NORVASC) tablet 10 mg 1 01/2021 aspirin tablet 325 mg 1 04/27/2021 atorvastatin (LIPITOR) tablet 80 mg 1 fish oil- omega 3-DHA/EPA capsule 4,000 1 04/27/2021 mg HELP MEDICATION 1 04/27/2021 heparin (porcine) 20,000 units/D5W 500 1 04/27/2021 mL infusion (std conc)(premade) heparin (porcine) BOLUS for continuous 1 04/27/2021 inf (bag) 1,752-3,504 Units heparin (porcine) initial BOLUS for 1 continuous inf (bag) 4,000 Units nitroglycerin (NITROSTAT) tablet 0.4 mg 1 04/27/[address] (PROTONIX) tablet 20 mg 1 04/27/2021 pravastatin (PRAVACHOL) tablet 40 mg 1 1 06/27/2020 First Ordered Date EKG Orders Without Results [...] Request Count Last Ordered Date CASE REQUEST STAFF ANESTHETIST 1 04/28/2021 First Ordered Date ADT Patient Update Count Last Ordered Date CHANGE SERVICE / LEVEL OF CARE (NO BED 1 04/28/2021 REQUEST) documented in this encounter Additional Health Concerns Noted Time Assessment 04/30/2021 9:40 AM INSTALLATION AND SERVICE TECHNICIAN A fall risk assessment has been complet ed for the patient documented as of this encounter Care Teams Start Date End Date Newspaper Subscription Solicitor Relationship Specialty 04/27/21 Jazmyn Ruiz NP PCP - General Nurse [address] [place] [address] [place] [address] documented as of this encounter
--- OUTSIDE RECORDS SUMMARY | 2021-05-15 10:08 | XMS REPORT | Encounter Summary ---
Author Author [facility] Organization [facility] Address Unknown Phone Unavailable Care Team Providers Care Adjunct English Instructor Name Role Phone Jazmyn Ruiz POWER BARKER OPERATOR PCP Encounter Details Care Team Description Date Type Department 04/27/2021 Travel Social History Date Tobacco Use Types Packs/Day Years Used Never Assessed Sex Assigned at Date Recorded Female 04/28/2021 1:55 PM COMMERCIAL ENERGY AUDITOR Date Recorded COVID-19 Exposure Response 04/27/2021 5:03 PM COMMERCIAL ENERGY AUDITOR In the last month, have you been in contact with Natalie ble to assess someone who was confirmed or suspected to have Coronavirus / COVID-19? documented as of this encounter Plan of Treatment Not on filedocumented as of this encounter Visit Diagnoses Not on filedocumented in this encounter Additional Health Concerns Noted Time Assessment 04/27/2021 10:00 PM COMMERCIAL ENERGY AUDITOR A fall risk assessment has been complet ed for the patient documented as of this encounter Care Teams Start Date End Date Adjunct English Instructor Relationship Specialty 04/27/21 Jazmyn Ruiz, TAYLOR PCP - General Nurse [address] [place] [address] [place] [address] documented as of this encounter
--- NOTE | 2021-05-15 10:27 | ED Cardiac General ---
History of Present Illness General Chief Complaint: Cardiac/General Problems Stated Complaint: HEART PALPITATIONS Nursing Triage Note: Patient reports she was recently diagnosed with aortic stenosis and was inpatient at , discharged to home a week ago today. She reports she has had palpitations since Tuesday, has been in contact with and they recommended having bloodwork done to check her electrolytes. Source: patient History of Present Illness Date Seen by Provider: May 15, 2021 Time Seen by Provider: 10:05 Initial Comments 65-year-old female presenting with complaints of palpitations this week. She states that she had a TAVR procedure done for aortic stenosis at [facility]. She was discharged last Tuesday. On Tuesday she started having palpitations and when she called they recommended she drink electrolyte drinks. She was doing a little bit better but then continued to have palpitations in the last 3 days. They recommended she have blood work done and since she was still having the palpitations today she came to the emergency department. She denies having any nausea or vomiting. She has had some mild left shoulder aching. She has had some intermittent mild shortness of breath. She feels like she has some petechiae to her feet. She notices the palpitations more when she is laying down and trying to sleep with no distractions. She still has them during the day but does not notice them as much.Nothing seems to trigger them or make them go away. Timing/Duration: 4-5 days Severity: moderate Activities at Onset: none NTG SL CUSTOMER SUCCESS MANAGER: No ASA po CUSTOMER SUCCESS MANAGER: Yes (takes daily since TAVR) Associated Systoms: No Chest Pain, No Cough, No Diaphoresis, No Fever/Chills, No Headaches, No Loss of Appetite, No Malaise, No Nausea/Vomiting, No Rash, No Seizure, No Syncope, No Weakness Allergies and Home Medications Allergies Coded Allergies: No Known Drug Allergies (Unverified , 04/27/21) Patient Home Medication List Home Medication List Reviewed: Yes Metoprolol Tartrate (Metoprolol Tartrate) 25 Mg Tablet, 12.5 MG PO DAILY Prescribed by: ONELIA MACK on 05/15/21 1242 Review of Systems Review of Systems Constitutional: No chills, No fever EENTM: No Double Vision, No Eye Pain, No Nose Congestion Respiratory: Denies Cough, Denies Orthopnea; Shortness of Air (mild intermittent); Denies SOA With Exertion, Denies SOA at Rest, Denies Stridor, Denies Wheezing Cardiovascular: Denies Chest Pain Gastrointestinal: Denies Abdominal Pain, Denies Diarrhea, Denies Nausea, Denies Vomiting Genitourinary: Denies Burning, Denies Frequency Musculoskeletal: joint pain (mild aching in left shoulder at times) Skin: No change in color; rash (petechiae on her feet) Psychiatric/Neurological: Denies Headache, Denies Numbness, Denies Paresthesia, Denies Tingling, Denies Tremors, Denies Weakness Hematologic/Lymphatic: Denies Blood Clots Past Jbcsepz-[id number]-Egnsoi Hx Patient Social History Tobacco Use?: No Immunizations Up To Date First/Initial COVID19 Vaccinat: June 2020 Second COVID19 Vaccination Jaylon: August 2020 Past Medical History Surgery/Hospitalization HX: Aortic Stenosis, TAVR procedure Apr [address] [facility] Surgeries: Yes Valve Replacement (TAVR Apr 2021) Cardiac: Yes High Cholesterol, Hypertension, Valvular Heart Disease (Aortic Stenosis with TAVR Apr 2021) Physical Exam Vital Signs Vital Signs - First Documented 05/15/21 10:12 Temp 36.7 Pulse 89 Resp 16 B/P (MAP) 161/86 (111) Pulse Ox 99 O2 Delivery Room Air Capillary Refill : Less Than 3 Seconds Height, Weight, BMI Height: '" Weight: lbs. oz. kg; 31.00 BMI Method: General Appearance: No Apparent Distress, WD/WN HEENT: PERRL/EOMI Neck: Full Range of Motion, Normal Inspection, Non Tender, Supple Respiratory: Chest Non Tender, Lungs Clear, Normal Breath Sounds, No Accessory Muscle Use, No Respiratory Distress Cardiovascular: Regular Rate, Rhythm, No Edema, No Gallop, No JVD, Normal Peripheral Pulses, Extra Beats Gastrointestinal: Normal Bowel Sounds, No Pulsatile Mass, Non Tender, Soft Rectal: Deferred Extremity: Normal Capillary Refill, Normal Inspection, No Pedal Edema Neurologic/Psychiatric: Alert, Oriented x3, tool dispatcher II-XII Norm as Tested Skin: Normal Color, Warm/Dry Progress/Results/Core Measures Results/Orders Lab Results Laboratory Tests Test 05/15/21 10:10 05/15/21 10:44 Range/Units White Blood Count 6.3 4.3-11.0 10^3/uL Red Blood Count 4.08 3.80-5.11 10^6/uL Hemoglobin 11.8 11.5-16.0 g/dL Hematocrit 36 35-52 % Mean Corpuscular Volume 87 80-99 fL Mean Corpuscular Hemoglobin 29 25-34 pg Mean Corpuscular Hemoglobin Concent 33 32-36 g/dL Red Cell Distribution Width 12.9 10.0-14.5 % Platelet Count 378 130-400 10^3/uL Mean Platelet Volume 9.9 9.0-12.2 fL Immature Granulocyte % (Auto) 1 % Neutrophils (%) (Auto) 72 42-75 % Lymphocytes (%) (Auto) 18 12-44 % Monocytes (%) (Auto) 7 0-12 % Eosinophils (%) (Auto) 2 0-10 % Basophils (%) (Auto) 1 0-10 % Neutrophils # (Auto) 4.7 1.8-7.8 X 10^3 Lymphocytes # (Auto) 1.2 1.0-4.0 X 10^3 Monocytes # (Auto) 0.4 0.0-1.0 X 10^3 Eosinophils # (Auto) 0.2 0.0-0.3 10^3/uL Basophils # (Auto) 0.0 0.0-0.1 10^3/uL Immature Granulocyte # (Auto) 0.0 0.0-0.1 10^3/uL Prothrombin Time 24.6 H 12.2-14.7 SEC INR Comment 2.2 H 0.8-1.4 Activated Partial Thromboplast Time 51 H 24-35 SEC Sodium Level 138 135-145 MMOL/L Potassium Level 4.2 3.6-5.0 MMOL/L Chloride Level 101 98-107 MMOL/L Carbon Dioxide Level 23 21-32 MMOL/L Anion Gap 14 5-14 MMOL/L Blood Urea Nitrogen 15 7-18 MG/DL Creatinine 0.93 0.60-1.30 MG/DL Estimat Glomerular Filtration Rate 61 BUN/Creatinine Ratio 16 Glucose Level 113 H 70-105 MG/DL Calcium Level 10.1 8.5-10.1 MG/DL Corrected Calcium 9.7 8.5-10.1 MG/DL Magnesium Level 2.4 1.6-2.4 MG/DL Total Bilirubin 1.3 H 0.1-1.0 MG/DL Aspartate Amino Transf (AST/SGOT) 22 5-34 U/L Alanine Aminotransferase (ALT/SGPT) 20 0-55 U/L Alkaline Phosphatase 91 40-136 U/L Troponin I < 0.30 <0.30 NG/ML Pro-B-Type Natriuretic Peptide 252.3 H <75.0 PG/ML Total Protein 8.6 H 6.4-8.2 GM/DL Albumin 4.5 3.2-4.5 GM/DL Urine Color YELLOW Urine Clarity CLEAR Urine pH 6.0 5-9 Urine Specific [place] 1.020 1.016-1.022 Urine Protein NEGATIVE NEGATIVE Urine Glucose (UA) NEGATIVE NEGATIVE Urine Ketones NEGATIVE NEGATIVE Urine Nitrite NEGATIVE NEGATIVE Urine Bilirubin NEGATIVE NEGATIVE Urine Urobilinogen 1.0 < = 1.0 MG/DL Urine Leukocyte Esterase NEGATIVE NEGATIVE Urine RBC (Auto) NEGATIVE NEGATIVE Urine RBC NONE /HPF Urine WBC RARE /HPF Urine Squamous Epithelial Cells RARE /HPF Urine Crystals NONE /LPF Urine Bacteria NEGATIVE /HPF Urine Casts NONE /LPF Urine Mucus SMALL H /LPF Urine Culture Indicated NO My Orders Orders - ONELIA MACK MD Cbc With Automated Diff (05/15/21 10:18) Magnesium (05/15/21 10:18) Chest 1 View Ap/Pa Only (05/15/21 10:18) Ekg Tracing (05/15/21 10:18) Comprehensive Metabolic Panel (05/15/21 10:18) Protime With Inr (05/15/21 10:18) Partial Thromboplastin Time (05/15/21 10:18) Monitor-Rhythm Ecg Trace Only (05/15/21 10:18) Ed Iv/Invasive Line Start (05/15/21 10:18) Troponin I Fs (05/15/21 10:18) Probnp Fs (05/15/21 10:18) Ua Culture If Indicated (05/15/21 10:18) Vital Signs/I&O 05/15/21 05/15/21 10:12 12:43 Temp 36.7 Pulse 89 80 Resp 16 19 B/P (MAP) 161/86 (111) 132/86 Pulse Ox 99 98 O2 Delivery Room Air Room Air Blood Pressure Mean: 111 Progress Progress Note #1: Progress Note Obtain basic labs as well as cardiac enzymes. Chest x-ray to evaluate for effusion or structural abnormality. Electrocardiogram to evaluate for rhythm and look for ischemia. Urine to look for hydration status as well as evaluate for protein or glucose spilling into the urine or signs of infection. Differential diagnosis includes electrolyte imbalance, pleural effusion, pneumonia, myocardial infarction, urinary tract infection, arrhythmia Progress Note #2: Time: 10:44 Progress Note Chest x-ray appears stable from April 27. Electrocardiogram is similar to April 27 as well except now she does have atrial premature complexes showing. Her CBC shows a stable WBC count but Hgb has dropped 2 grams from Apr 27. Progress Note #3: Time: 11:53 Progress Note Chemistry does not show any acute significant electrolyte abnormality to account for palpitations. Updated patient and spouse. Placed call to [facility] for consult with the cardiology or cardiothoracic surgeon service about her palpitations and recent TAVR procedure. I reached GANESH Vergara, at the transfer center and he took the basic information about the patient. He will call back after he gets in touch with cardiology/CTS provider vehicle calibration engineer to get direction for care of patient. Progress Note #4: Time: 12:31 Progress Note GANESH Vergara, called back and spoke with Dr. Jeter with Cardiology. He had recommended starting Metoprolol Tartrate at 12.5 mg po daily to see if helps with palpitations. Keep Telehealth appt scheduled for follow up on Tuesday. Continue with planned Event monitor as scheduled for her to try and catch arrhythmia. Updated patient and spouse about recommendations and prescription sent to the pharmacy for the patient to start today. Initial ECG Impression Date: May 15, 2021 Initial ECG Impression Time: 10:09 Initial ECG Rate: 83 Initial ECG Rhythm: Normal Sinus Initial ECG Comparisson: Changed (atrial premature complexes are new) Comment Sinus rhythm with a heart rate of 83 bpm. Atrial premature complexes. [place] interval 173 ms. QT interval 364 ms with a QTc interval [address] elevation. Appears similar to prior tracing from April 27, 2000 and she now has atrial premature complexes. Diagnostic Imaging Diagonstic Imaging: Xray Plain Films/CT/US/NM/MRI: chest Comments NAME: JACLYN EDEN [facility] REC#: [id number] PT STATUS: REG ER : 1955 PHYSICIAN: ONELIA MACK MD ADMIT DATE: 05/15/21/ER FS Draft Date of Exam:05/15/21 CHEST 1 VIEW AP/PA ONLY INDICATION: Palpitations Portable chest shows normal heart size and vascularity. The lungs are clear. There is no effusion or pneumothorax. There is no bony abnormality. IMPRESSION: No acute abnormality is seen with no change from 04/27/2021. Dictated on workstation # [id number] Dict: 05/15/21 1034 Trans: 05/15/21 1035 CVB [id number] Interpreted by: SONJA HOWELL MD Electronically signed by: Reviewed: Reviewed by Me Departure Impression Primary Impression: Heart palpitations Additional Impressions: Premature atrial complexes S/P TAVR (transcatheter aortic valve replacement) Disposition: HOME, SELF-CARE Condition: Stable Departure-Patient Inst. Decision time for Depature: 12:38 Referrals: MANOLO SANTANA APRN (PCP/Family) Primary Care Physician Patient Instructions: Palpitations ED Add. Discharge Instructions: Start taking Metoprolol Tartrate 12.5 mg once a day to help with the palpitations. Keep your appointment on Tuesday with TeleHealth follow up. Use the Event Monitor once you have that available. All discharge instructions reviewed with patient and/or family. Voiced understanding. Scripts Metoprolol Tartrate (Metoprolol Tartrate) 25 Mg Tablet 12.5 MG PO DAILY for palpitations for 30 Days, #15 TAB 0 Refills Prov: ONELIA MACK MD 05/15/21 ONELIA MACK MD May 15, 2021 10:27
--- NOTE | 2021-05-15 10:35 | Diagnostic Imaging Report ---
INDICATION: Palpitations Portable chest shows normal heart size and vascularity. The lungs are clear. There is no effusion or pneumothorax. There is no bony abnormality. IMPRESSION: No acute abnormality is seen with no change from 04/27/2021. Dictated by: Dictated on workstation # [id number]
[2021-05-15 10:38] LABS: HEMATOCRIT 36 % (35-52); HEMOGLOBIN 11.8 g/dL (11.5-16.0); INR 2.2 (0.8-1.4); MEAN CORPUSCULAR HEMOGLOBIN 29 pg (25-34); PROTHROMBIN TIME PATIENT 24.6 SEC (12.2-14.7); WHITE BLOOD COUNT 6.3 10^3/uL (4.3-11.0)
[2021-05-15 10:39] LABS: MEAN CORPUSCULAR HGB CONC 33 g/dL (32-36); MEAN CORPUSCULAR VOLUME 87 fL (80-99)
[2021-05-15 10:40] LABS: BASOPHILS % (AUTO) 1 % (0-10); EOSINOPHILS # (AUTO) 0.2 10^3/uL (0.0-0.3); EOSINOPHILS % (AUTO) 2 % (0-10); LYMPHOCYTES # (AUTO) 1.2 X 10^3 (1.0-4.0); LYMPHOCYTES % (AUTO) 18 % (12-44); MEAN PLATELET VOLUME 9.9 fL (9.0-12.2); MONOCYTES # (AUTO) 0.4 X 10^3 (0.0-1.0); MONOCYTES % (AUTO) 7 % (0-12); NEUTROPHILS # (AUTO) 4.7 X 10^3 (1.8-7.8); NEUTROPHILS % (AUTO) 72 % (42-75); PLATELET COUNT 378 10^3/uL (130-400)
[2021-05-15 10:57] LABS: POTASSIUM 4.2 MMOL/L (3.6-5.0)
[2021-05-15 10:57] LABS: BILIRUBIN,URINE NEGATIVE (NEGATIVE); CLARITY,URINE CLEAR; COLOR,URINE YELLOW; GLUCOSE, URINE (UA) NEGATIVE (NEGATIVE); KETONES,URINE NEGATIVE (NEGATIVE); LEUKOCYTE ESTERASE ,URINE NEGATIVE (NEGATIVE); NITRITE,URINE NEGATIVE (NEGATIVE); PROTEIN,URINE NEGATIVE (NEGATIVE)
[2021-05-15 10:58] LABS: ALBUMIN 4.5 GM/DL (3.2-4.5); BILIRUBIN,TOTAL 1.3 MG/DL (0.1-1.0); CALCIUM 10.1 MG/DL (8.5-10.1); CREATININE SERUM 0.93 MG/DL (0.60-1.30); MAGNESIUM 2.4 MG/DL (1.6-2.4); TOTAL PROTEIN 8.6 GM/DL (6.4-8.2)
[2021-05-15 11:08] LABS: BACTERIA,URINE NEGATIVE /HPF; SQUAMOUS EPITHELIAL CELL,UR RARE /HPF; WBC,URINE RARE /HPF
[2021-05-15] MEDS ORDERED: METO-333 PO (12:42)
[2021-05-15 12:43] VITALS: BP 132/86
== END 2021-05-15 12:46 | disposition home or self-care (01) ==
LOC: EDUNIT# 10:03 → ER FS 10:04
DX: R00.2 Palpitations (principal); I49.1 Atrial premature depolarization; I10 Essential (primary) hypertension; Z95.4 Presence of other heart-valve replacement
CPT/HCPCS: 36415; 71045; 80053; 81000; 83735; 83880; 84484; 85025; 85610; 85730; 93005; 93041